=== PATIENT | female | born 1970 | race Caucasian/White ===

== ENCOUNTER → 2018-06-03 08:27 | Outpatient (CLI) | payer OTHER, SELFPAY ==
[2018-06-03 11:00] LABS: Cholesterol 128 mg/dL (200); Free T3 1.8 pg/mL (2.18-3.98); High Density Lipoprotein 40 mg/dL; T4 Free Direct 1.06 ng/dL (0.76-1.46); Thyroid Stim Hormone (TSH) 3.36 uIU/mL (0.358-3.74); Triglycerides 81 mg/dL; Very Low Density Lipoprotein 16 mg/dL (5-40)
== END ==
PROVIDERS: Family Provider Internal Medicine; PCP Internal Medicine; Visit Provider Internal Medicine
DX: E03.9 Hypothyroidism, unspecified (principal); Z13.220 Encounter for screening for lipoid disorders
CPT/HCPCS: 36415; 80061; 84439; 84443; 84481

== ENCOUNTER 2018-06-03 09:00 | Outpatient (RCR) | payer OTHER, SELFPAY ==
--- NOTE | 2018-06-01 11:50 | HP.PTEVAL ---
Patient's Visit Information LUCIANA ARSHAD is a 47 year old F referred to Physical Therapy by EVIE Zhou with a diagnosis of Low back pain. Date of Evaluation: 06/01/18 Physical Therapist: Pat Lock - Visit Plan Frequency: 3x /Week Duration: 2 Weeks Plan: Focus on modalities for pain managment and inflammation. - Subjective Subjective: Working infusion- on rolling stool and stood up and felt an ache in the back- Friday. Took 2 advil and as the day went on she could not straighten and would get a sharp/spasm pain. Happened a few years ago bent over to get a sock and was like that for 2 months. Got on her roller when she got home- ice/heat, massage x 2, went to the MD who gave her a muscle relaxer. Unsure if the muscle relaxer helps. Worst: 6/10 Agg: getting up from lying down, up out of the chair, standing for to long, Eases: ice/heat, back brace Best: 0/10. The stretching, heat, and cold work the best. Stretchig on her belly and figure 4. Pain is located on the left- no radiating pain- No N/T. Describes pain as constant ache and a grab if she moves wrong. The grab does not stay. 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 No chiropractor. No X-rays or MRI. No loss or change in bowel or bladder. Very active outside of work- has lost 8 lbs and cardio-kickboxing, walking. PMHx: CRAIG, thyroid, right ulna removal, plantar fascia surgery on right foot. Sleep: not disturbed- normally a belly sleeper but was worse with that and is now back/side. Meds: synthroid, topomax, calcium and vitamin d. Feels that she is 50% better since initial injury. - Objective Posture: guarded- FH, RS- slow to get from sitting to stand and required 15 seconds to obtain upright position. Gait: hunched forwards- decreased step lenght on the left- no trunk rotation or arm swing- guarded. HR/TR: able. ROM: Lumbar- flexion: decreased by 75%, Rotation: decreased by 50%, SB: decreased by 50% Extn: to neutral, Hip/knee/ankle: WNL. Sensation: WNL. Strength: Core: fair minus, Ankle/knee: 5/5, Hip: ER: 4/5, IR: 4/5, Flexion: 4+/5 Extn: 4+/5, Abd/add: 4+/5. Flex: HS: mild. Special Test: slump: positive bilaterally, dural signs: negative, SLR: negative, prone lying: decreases pain, knee bend into extn: decreased s/s, press ups: increase pain. Palpation: tender along paraspinals on the left - Goals Goal 1:: Patient will be I with HEP and progression Goal Time Frame: 4-6 Weeks Goal 2:: Patient will ambulate >300 feet with a normalized gait pattern Goal Time Frame: 4-6 Weeks Goal 3:: Patient will sit to stand x5 with normal movement Goal Time Frame: 4-6 Weeks Goal 4:: Patient will report 0/10 pain for 1 week Goal Time Frame: 4-6 Weeks - Rehabilitation Potential Physical Therapy Diagnosis: Patient presents with hypomobility- she has decreased ROM, strength and muscular endurance leading to poor posture, decreased mobility and pain with ADL's. Rehabilitation Potential: Good - Anticipated Interventions Patient/Client Instruction: Educate patient on: Benefits of Fitness Program Therapeutic Exercise to Include: Strength training, Endurance training, Agility training, Body mechanics, Postural training, Flexibilty training, Gait and locomotor training, Dynamic Lumbar Stabilization For the Purpose of:: To improve muscle performance and motor function Manual Therapy Techniques to Include: Functional dry needling TENS: Yes Cryotherapy (ice pack, ice massage): Yes Thermo therapy (hot pack): Yes Ultrasound (thermal/non thermal): Yes For the Purpose of:: To decrease pain Thank you for the opportunity to evaluate your patient. For Medicare and Medicare HMO plans, please review the plan of care and approve it. It will need to be FAXED BACK to us at [phone] for Medicare purposes. Please let me know if there are questions or concerns regarding this plan of care. Physician Signature: Date:
--- NOTE | 2018-07-07 11:42 | HP.PT.NRP ---
HP - Discharge Summary (1) - Patient Information LUCIANA ARSHAD was seen in my office for initial evaluation on 06/01/18. The following Plan of Care was established for this patient: Initial Frequency: 3x /Week Initial Duration: 2 Weeks - Anticipated Interventions Patient/Client Instruction: Educate patient on: Benefits of Fitness Program Therapeutic Exercise to Include: Strength training, Endurance training, Agility training, Body mechanics, Postural training, Flexibilty training, Gait and locomotor training, Dynamic Lumbar Stabilization For the Purpose of:: To improve muscle performance and motor function Manual Therapy Techniques to Include: Functional dry needling TENS: Yes Cryotherapy (ice pack, ice massage): Yes Thermo therapy (hot pack): Yes Ultrasound (thermal/non thermal): Yes For the Purpose of:: To decrease pain This patient was last seen in our office . Pertinent comments regarding their Physical therapy will appear below: Patient has not attended physical therapy in over 4 weeks. At this time patient is appropriate for d/c and return to MD as needed. At this point I will be discontinuing this patient from physical therapy. I would be happy to see this patient again in the future if found appropriate by the physician. Thank you! Pat Lock
== END 2018-06-03 19:00 | disposition home or self-care (01) ==
LOC: PT 09:00
PROVIDERS: Family Provider Internal Medicine; PCP Internal Medicine; Visit Provider Nurse Practitioner Gerontology
DX: M54.9 Dorsalgia, unspecified (principal); M62.830 Muscle spasm of back
CPT/HCPCS: 97035; 97162; 97530

== ENCOUNTER → 2018-07-28 08:54 | Outpatient (CLI) | payer OTHER, SELFPAY ==
[2018-07-28 10:54] LABS: Free T3 2.1 pg/mL (2.18-3.98); T4 Free Direct 0.81 ng/dL (0.76-1.46); Thyroid Stim Hormone (TSH) 2.73 uIU/mL (0.358-3.74)
== END ==
PROVIDERS: Family Provider Internal Medicine; PCP Internal Medicine; Referring Provider Internal Medicine; Visit Provider Internal Medicine
DX: E03.9 Hypothyroidism, unspecified (principal)
CPT/HCPCS: 36415; 84439; 84443; 84481

== ENCOUNTER → 2018-09-10 08:31 | Outpatient (CLI) | payer OTHER, SELFPAY ==
[2018-09-10 10:28] LABS: Free T3 2.6 pg/mL (2.18-3.98); T3 Uptake 30 % (30-39); T4 Free Direct 0.72 ng/dL (0.76-1.46); T7 / Free Thyroxin Index 1.8 (1.4-4.5)
[2018-09-10 10:49] LABS: T3 Total - Triiodothyronine 0.96 ng/mL (0.6-1.81)
[2018-09-11 11:55] LABS: Thyroid Peroxidase AB 27 IU/mL (0-34)
--- OUTSIDE RECORDS SUMMARY | 2018-11-05 08:11 | XMS RPT_ITS | Continuity of Care Document ---
:1970 Author Organization [facility] Address [address] [place] [address] Phone Care Team Providers Name Role Phone Whitney Diaz DO Unavailable TERRENCE Lee Unavailable Unavailable Nabeel Daniels Unavailable Unavailable Unavailable Unavailable Problems Name Dates Details BMI 35.0-35.9,adult (Z68.35, V85.35) Status: Active Encounter for screening for lipid disorder (Z13.220, V77.91) Status: Active Hypothyroidism (E03.9, 244.9) Status: Active Migraine (G43.909, 346.80) Comments: topamax works wonderfully Status: Active Nonsmoker (Z78.9, V49.89) Status: Active perimenstrual dysphoric sx Status: Active Pregnancies () Comments: 0. Status: Active T3 low in serum (R79.89, 790.6) Status: Active Unspecified Diagnosis Status: Active Medications Name Dates Details CALCIUM, 699-904PL-DFPH (Oral Tablet) Active 1 (one) daily (600-200 MG-UNIT) Comments: plus vit d3 Cyclobenzaprine HCl 10 MG Oral Tablet 1 (one) Tablet Tablet PO TID PRN for 0 days Quantity: 63 {Tablet} Refills: 0 Ordered:28-May-2018 Rissa Lee LPN Start : 28-May-2018 Active Cytomel 25 MCG Oral Tablet 1 (one) Tablet daily for 90 days Quantity: 90 {Tablet} Refills: 1 Ordered:14-Sep-2018 Kimberley Diaz DO, DO Whitney Start : 14-Sep-2018 Active Synthroid 75 MCG Oral Tablet 1 Tablet qd for 90 days Quantity: 90 {Tablet} Refills: 3 Ordered:01-Jul-2018 Kimberley Diaz DO, DO, Kathleen Start : 01-Jul-2018 Active Topamax 25 MG Oral Tablet 1 (one) Tablet bid for 90 days Quantity: 180 {Tablet} Refills: 3 Ordered:01-Jul-2018 Joe AUGUSTIN Kimberley AUGUSTIN Whitney Start : 01-Jul-2018 Active AMITRIPTYLINE HCL, 10MG (Oral Tablet) 1-2 Tablet qhs for 0 days Quantity: 60 {Tablet} Refills: 3 Ordered:16-Apr-2011 MARINE Lockhart Start : 16-Apr-2011 End : 16-Apr-2011 Inactive Comments:extreme fatigue and daytime sleepiness CIPRO, 500MG (Oral Tablet) 1 (one) Tablet bid for 7 days Quantity: 14 {QS} Refills: 0 Ordered:21-Apr-2015 Aneta Feng CNP Start : 21-Apr-2015 End : 28-Apr-2015 Inactive DOXYCYCLINE HYCLATE, 100MG (Oral Capsule) 1 Capsule bid for 0 days Quantity: 20 {Capsule} Refills: 0 Ordered:17-Mar-2012 Leticia Loera Start : 25-Sep-2011 End : 17-Mar-2012 Inactive VITAMIN D3, 2000UNIT (Oral Capsule) 1 cap qd (2000 UNIT) Inactive CLARINEX-D 24 HOUR, 5-240MG (Oral Tablet Extended Release 24 Hour) 1 tab qd (5-240 MG) End : 17-Mar-2012 Discontinued CORTISPORIN, 3.5-73414-7 (Otic Solution) 4 Drop(s) tid or qid for 0 days Quantity: 1 {Solution} Refills: 0 Ordered:10-Jun-2014 Leticia Loera Start : 01-Sep-2013 End : 10-Jun-2014 Discontinued FLUOXETINE HCL, 20MG (Oral Tablet) 1 Tablet two weeks out of month for 0 days Quantity: 30 {Tablet} Refills: 4 Ordered:11-Aug-2013 Mo Kassie Alfredo Start : 11-Aug-2013 End : 11-Aug-2013 Discontinued NASONEX, 50MCG/ACT (Nasal Suspension) 2 (two) Puff(s) daily for 0 days Quantity: 1 {Suspension} Refills: 0 Ordered:10-Jun-2014 Evaristo Leticia Start : 01-Sep-2013 End : 10-Jun-2014 Discontinued Allergies and Adverse Reactions Name Dates Details Nabumetone *ANALGESICS - ANTI-INFLAMMATORY* Reaction: Abdominal pain, Diarrhea (Allergy) Status: Active Comments: bloating, heartburn Sulfa Drugs (Allergy) Reaction: Rash Status: Active Past Medical History Name Dates Details Abdominal pain, unspecified abdominal location (789.00) Comments: pressure Status: Resolved as of 09-Feb-2013 Abnormal TSH (R79.89, 790.6) 02-Mar-2012 Status: Resolved as of 31-May-2015 Abnormal urine (R82.90, 791.9) Status: Resolved as of 17-Mar-2012 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, 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) Status: Inactive as of 02-Jun-2017 Back pain, acute (M54.9, 724.5) Status: Inactive as of 10-Jun-2018 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, 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) Comments: had sep 20- and passed it- and potentially again last aug Status: Inactive as of 02-Jun-2017 Cellulitis and abscess of leg (L03.119, 682.6) Status: Resolved as of 17-Mar-2012 Chronic serous otitis media, unspecified laterality (H65.20, 381.10) Status: Resolved as of 10-Jun-2014 Elevated blood pressure (not hypertension) (R03.0, 796.2) Status: Resolved as of 07-Jun-2016 Eustachian tube dysfunction (H69.80, 381.81) Status: Inactive as of 07-Jun-2016 Low HDL (under 40) (E78.6, 272.5) Status: Inactive as of 02-Jun-2017 Muscle spasm of back (M62.830, 724.8) Status: Inactive as of 10-Jun-2018 Need for prophylactic vaccination and inoculation against influenza (Z23, V04.81) Status: Inactive as of 09-Feb-2013 Plantar fasciitis (M72.2, 728.71) Comments: s/p surgery R and left flares occassionally Status: Inactive as of 02-Jun-2017 screening Status: Inactive as of 09-Feb-2013 Shoulder pain (M25.519, 719.41) Status: Resolved as of 09-Feb-2013 T3 low in serum (R79.89, 790.6) Status: Inactive as of 10-Jun-2018 Tension headache (G44.209, 307.81) Status: Inactive as of 02-Jun-2017 Unspecified Diagnosis Status: Inactive as of 09-Sep-2011 WOUND OPEN, SITE NOS W/COMPLICATION (879.9) Comments: R lower extemity Status: Resolved as of 17-Mar-2012 Wrist pain, right (M25.531, 719.43) Status: Inactive as of 07-Jun-2016 Procedures Procedure Dates Details Plantar Fascitis repair Completed Comments: 2009 right breast bx 2007-neg Completed Date Value Details 01-Jun-2018 Inital Evaluation (1) - PT Result: Comments: See Note; NOTES: [facility] [place] [address] Fax REHABILITATION SERVICES INITIAL EVALUATION MR#: [id number] Acct: [id number] Name: RISSA MCWILLIAMS Rep #: [id number] : 1970 47 From: Pat Lock DPT Referring Dr.: EVIE Adrian Status: REG RCR Insurance: [facility] [employer] [facility]Y INSURANCE Patient's Visit Information RISSA MCWILLIAMS is a 47 year old F referred to Physical Therapy by EVIE Zhou with a diagnosis of Low back pain. Date of Evaluation: Physical Therapist: Pat Lock - Visit Plan Frequency: 3x /Week Duration: 2 Weeks Plan: Focus on modalities for pain managment and inflammation. - Subjective Subjective: Working infusion- on rolling stool and stood up and felt an ache in the back- Friday. Took 2 advil and as the day went on she could not straighten and would get a sharp/spasm pain. Happened a few years ago bent over to ge t a sock and was like that for 2 months. Got on her roller when she got home- ice/heat, massage x 2, went to the MD who gave her a muscle relaxer. Unsure if the muscle relaxer helps. Worst: 6/10 Agg: ge tting up from lying down, up out of the chair, standing for to long, Eases: ice/heat, back brace Best: 0/10. The stretching, heat, and cold work the best. Stretchig on her belly and figure 4. Pain is lo cated on the left- no radiating pain- No N/T. Describes pain as constant ache and a grab if she moves wrong. The grab does not stay. 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 No chiropractor. No X-rays or MRI. No loss or change in bowel or bladder. Very active outside of work- has lost 8 lbs and cardio-kickboxing, walking. PMHx: HOLLY, thyroid, right ulna removal, plantar fascia surgery on rig ht foot. Sleep: not disturbed- normally a belly sleeper but was worse with that and is now back/side. Meds: synthroid, topomax, calcium and vitamin d. Feels that she is 50% better since initial injury. - Objective Posture: guarded- FH, RS- slow to get from sitting to stand and required 15 seconds to obtain upright position. Gait: hunched forwards- decreased step lenght on the left- no trunk rotation or arm swing- guarded. HR/TR: able. ROM: Lumbar- flexion: decreased by 75%, Rotation: decreased by 50%, SB: decreased by 50% Extn: to neutral, Hip/knee/ankle: WNL. Sensation: WNL. Strength: Core: fair m inus, Ankle/knee: 5/5, Hip: ER: 4/5, IR: 4/5, Flexion: 4+/5 Extn: 4+/5, Abd/add: 4+/5. Flex: HS: mild. Special Test: slump: positive bilaterally, dural signs: negative, SLR: negative, prone lying: decre ases pain, knee bend into extn: decreased s/s, press ups: increase pain. Palpation: tender along paraspinals on the left - Goals Goal 1:: Patient will be I with HEP and progression Goal Time Frame: 4-6 Weeks Goal 2:: Patient will ambulate >300 feet with a normalized gait pattern Goal Time Frame: 4-6 Weeks Goal 3:: Patient will sit to stand x5 with normal movement Goal Time Frame: 4-6 Weeks Go al 4:: Patient will report 0/10 pain for 1 week Goal Time Frame: 4-6 Weeks - Rehabilitation Potential Physical Therapy Diagnosis: Patient presents with hypomobility- she has decreased ROM, strength and muscular endurance leading to poor posture, decreased mobility and pain with ADL's. Rehabilitation Potential: Good - Anticipated Interventions Patient/Client Instruction: Educate patient on: Benefits of Fitness Program Therapeutic Exercise to Include: Strength training, Endurance training, Agility training, Body mechanics, Postural training, Flexibilty training, Gait and locomotor training, Dynamic Lumbar Stabilization For the Purpose of:: To improve muscle performance and motor function Manual Therapy Techniques to Include: Functional dry needling TENS: Yes Cryotherapy (ice pack, ice massage): Ye s Thermo therapy (hot pack): Yes Ultrasound (thermal/non thermal): Yes For the Purpose of:: To decrease pain Thank you for the opportunity to evaluate your patient. For Medicare and Medicare HMO pl ans, please review the plan of care and approve it. It will need to be FAXED BACK to us at [phone] for Medicare purposes. Please let me know if there are questions or concerns regarding this plan of care. Physician Signature: Date: <Electronically signed by Pat Lock DPT> 06/01/18 1150 CC: EIVE Diaz DO ELR Signed For Medicare only, by signing this I certify the plan of care. Physicians Signature Date 16-Oct-2017 SCREENING MAMM (CAD), BILAT Result: Comments: See Note; NOTES: [facility] Imaging Services [address] [place] [address] SCREENING MAMM (CAD), BILAT MR#: [id number] Acct: [id number] Name: RISSA MCWILLIAMS Rep #: [id number] : 1970 F 46 From: Wayne Mascorro MD PCP: Whitney Diaz DO Status: [facility] CLI Study: SCREENING MAMM (CAD), BILAT Date of Exam: 10/16/17 Exam# [id number] Ordering Dr: Sherry Wilson MD MAMMOGRAPHY - BILATERAL SCREENING REASON FOR EXAM: Female, 46 years old. Routine annual screening examination. PERTINENT HISTORY: Aunt with breast cancer. Remote right excisional breast biopsy. LAM HNIQUE: Digital bilateral breast lukasz (3D mammographic acquisition) in the CC and MLO projections. 2-D mediolateral oblique (MLO) and craniocaudad (CC) views of both breasts were obtained. CAD: Full Fie ld Digital Mammography with Computer Added Detection was performed. COMPARISON: Comparison is made with prior examination dated September 27, 2016 and August 25, 2015. ___ FINDINGS: Breast Composition: There are scattered areas of fibroglandular density. There are no dominant masses or suspicious calcifications. A tissue clip marker is seen in the central inner port ion of the right breast. No other significant abnormalities are identified. There has been no significant change since the prior study. [facility]/SCR EENING MAMM (CAD), BILAT IMPRESSION: Stable bilateral screening mammogram. Yearly follow-up mammogram recommended. (A) ASSESSMENT CATEGORY: BIRADS Category 2: Benig n. A letter regarding these results will be sent to the patient by the facility within 30 days. Approximately 10% of breast cancers are not detected by mammography. A normal mammogram should not delay biopsy of a clinically suspicious abnormality. [id number] Electronically Signed: Wayne Mascorro MD at 10:53 EST Tel [phone], Service support , CC: Sherry Wilson MD; Whitney Diaz DO Manager Drilling: Signed 27-Sep-2016 Bilat Scrn Digital AND CAD Result: Comments: See Note; NOTES: [facility] Imaging Services [address] [place] [address] Verdana 4d Bilat Scrn Digital AND CAD MR#: [id number] Acct: [id number] Name: RISSA MCWILLIAMS Rep #: [id number] : 1970 F 45 From: Wayne Mascorro MD PCP: Whitney Diaz DO Status: REG CLI Study: Bilat Scrn Digital AND CAD Date of Exam: 09/27/16 Exam# [id number] Ordering Dr: Sherry Wilson MD MAMMOGRAPHY - BILATERAL SCREENING REASON FOR EXAM: Female, 45 years old. Routine annual screening examination. PERTINENT HISTORY: Aunt with breast cancer. Remote right excisional breast bio psy. TECHNIQUE: Digital bilateral breast lukasz (3D mammographic acquisition) in the CC and MLO projections. 2-D mediolateral oblique (MLO) and craniocaudad (CC) views of both breasts were obtained. CAD: Full Field Digital Mammography with Computer Added Detection was performed. COMPARISON: Comparison is made with prior study dated August 25, 2015 and August 05, 2014. FINDINGS: Breast Composition: There are scattered areas of fibroglandular density. There are no dominant masses or suspicious calcifications. Mild degree of architectural distortion is seen in t he upper outer quadrant of the right breast. This is the site of the prior excisional breast biopsy. A tissue marker clip is also seen in the right breast at approximately the 3:00 position. This is unc hanged. No other significant abnormalities are identified. There has been no significant change since the prior study. [facility]/Bilat Scrn Digital A ND CAD IMPRESSION: Stable bilateral screening mammogram. Yearly follow-up mammogram recommended. (A) ASSESSMENT CATEGORY: BIRADS Category 2: Benign. A letter regard ing these results will be sent to the patient by the facility within 30 days. Approximately 10% of breast cancers are not detected by mammography. A normal mammogram should not delay biopsy of a clinic ally suspicious abnormality. [id number] Electronically Signed: Wayne Mascorro MD at 12:38 EST Tel [phone], Service support [phone], CC: Sherry Wilson MD; Birdie Diaz DO Manager Drilling: Signed 25-Aug-2015 Bilat Scrn Digital AND CAD Result: Comments: See Note; NOTES: [facility] Imaging Services [address] [place] [address] Verdana 4d Bilat Scrn Digital AND CAD MR#: [id number] Acct: [id number] Name: RISSA MCWILLIAMS Rep #: [id number] : 1970 F 44 From: Wayne Mascorro MD PCP: Kassie Hassan DO Status: REG CLI Study: Bilat Scrn Digital AND CAD Date of Exam: 08/25/15 Exam# [id number] Ordering Dr: Sherry Wilson MD MAMMOGRAPHY - BILATERAL SCREENING REASON FOR EXAM: Female, 44 years old. Routine annual screening examination. PERTINENT HISTORY: Aunt with breast cancer. Prior right excis ional breast biopsy. TECHNIQUE: Digital examination. Mediolateral oblique (MLO) and craniocaudad (CC) views of both breasts were obtained. CAD: CAD was performed on this study. COMPARISON: Compar ayaz is made with prior study dated August 05, 2014 and September 06, 2013. FINDINGS: Breast Composition: There are scattered areas of fibroglandular density. There are no dominant masses or suspicious calcifications. No other significant abnormalities are identified. There has been no significant change since the prior study. IMPRESSION: Stable bilateral screening mammogram. Yearly follow-up recommended. (A) ASSESSMENT CATEGORY: BIRADS Category 1: Negative. A letter regardi ng these results will be sent to the patient by the facility within 30 days. Approximately 10% of breast cancers are not detected by mammography. A normal mammogram should not delay biopsy of a clin ically suspicious abnormality. Electronically Signed: Wayne Mascorro MD at 15:37 EST Tel [phone], Service support [phone], CC: Sherry Wilson MD; Kassie Hassan DO Manager Drilling: Signed 17-Apr-2015 Emergency Department Summary Result: Comments: See Note; NOTES: [facility] Medical Records Department [address] [place] [address] Emergency Department Summary MR#: [id number] Acct: [id number] Name: RISSA MCWILLIAMS Rep #: [id number] : 1970 44 From: Finesse Yancey MD PCP: Kassie Hassan DO Status: DEP ER DATE OF SERVICE: 04/16/2015 CHIEF COMPLAINT: Dysuria, frequency. HISTORY OF PRESENT ILLN ESS: This is a 44-year-old female who presents today with dysuria and frequency. Her symptoms began earlier today. The patient states that it feels similar to previous UTIs in the past. She also comp lains of pain in her suprapubic region. No fever or chills. No nausea or vomiting. REVIEW OF SYSTEMS: Otherwise, negative. PAST MEDICAL HISTORY: Hypothyroid. PHYSICAL EXAMINATION: VITAL SIGNS: Stable, afebrile. GENERAL: Well-developed female, in no distress. ABDOMEN: She has tenderness to palpation over the suprapubic region. Physical examination is otherwise unremarkable. EMERGENCY DEP ARTMENT COURSE: Urinalysis was obtained, which revealed 500 leukocytes, greater than 100 white blood cells, +2 bacteria. Given this, the patient has a urinary tract infection. Urine culture was sent. The patient was given Pyridium and Cipro. She will be given her first dose here. She is to complete her antibiotics until finish. She voiced understanding and will follow up with her primary care angela rogel or return for worsening symptoms. DIAGNOSIS: Urinary tract infection. Finesse Yancey MD T: NTS JOB: [id number] 04/17/15 0130 <Electronically signed by Finesse Yancey MD> Date Finesse Yancey MD CC: Kassie Hassan DO Date Dictated: 04/16/15658 Date Transcribed: 04/16/15658 Manager Drilling: Signed 16-Apr-2015 Discharge Instruction Result: Comments: See Note; NOTES: [facility] Medical Records Department [address] [place] [address] Discharge Instruction 04/16/15658 MR#: [id number] Acct: [id number] Name: RISSA MCWILLIAMS Rep #: [id number] : 1970 44 From: Finesse Yancey MD PCP: Kassie Hassan DO Status: REG ER ED Disposition - Plan for ED Patient: Chief Complaint: Complaint Instructions: ED CYSTITIS, Female (Adult) Prescriptions: Phenazopyridine HCl [Pyridium] 200 mg PO BID PRN PRN #10 tablet PRN Reason: Pain Ciprofloxacin [Cipro] 500 mg PO BID #6 tablet Referrals: Kassie Hassan DO [Primary Care Provider] - What to do if you have Problems For any increased pain, shortness of breath, bleeding, nausea or vomiting, chest pain, or any unexpected problems, contact your doctor. C all Doctors [facility] ([phone]) or report to the closest Emergency Room. Call 911 if necessary. 04/16/15 0701 <Electronically signed by Finesse Yancey MD> Date ___ Finesse Yancey MD Cosigner Signature (If Indicated): Date CC: Kassie Hassan DO 16-Apr-2015 Discharge Instruction Result: Comments: See Note; NOTES: [facility] Medical Records Department [address] [place] [address] Discharge Instruction 04/16/15 0656 MR#: [id number] Acct: [id number] Name: RISSA MCWILLIAMS Rep #: [id number] : 1970 44 From: Finesse Yancey MD PCP: Kassie Hassan DO Status: REG ER ED Disposition - Plan for ED Patient: Chief Complaint: Complaint Instructions: ED CYSTITIS, Female (Adult) Prescriptions: Ciprofloxacin [Cipro] 500 mg PO BID #6 tablet What to do if you have Problems For any increased pain, shortness of breath, bleeding, nausea or vomiting , chest pain, or any unexpected problems, contact your doctor. Call [facility] ([phone]) or report to the closest Emergency Room. Call 911 if necessary. 04/16/15 0657 <Electron ically signed by Finesse Yancey MD> Date Finesse Yancey MD Cosigner Signature (If Indicated): Date CC: Kassie Hassan 05-Aug-2014 Bilat Scrn Digital & CAD Result: Comments: See Note; NOTES: [facility] Imaging Services [address] [place] [address] Breast Imaging Report MR#: [id number] Acct: [id number] Name: RISSA MCWILLIAMS Rep #: [id number] : 1970 F 43 From: Wayne Mascorro MD PCP: Kassie Hassan DO Status: REG CLI Exam# [id number] Ordering Dr: Sherry Wilson MD MAMMOGRAPHY - BILATERAL SCREENING REASON FOR EXAM: Fe male, 43 years old. Routine annual screening examination. PERTINENT HISTORY: Prior right excisional biopsy. TECHNIQUE: Digital examination. Mediolateral oblique (MLO) and craniocaudad (CC) views o f both breasts were obtained. CAD: CAD was performed on this study. COMPARISON: Comparison is made with prior study dated September 06, 2013 and June 10, 2012. FINDINGS: Breast Composition: There are scattered areas of fibroglandular density. There are no dominant masses or suspicious calcifications. Stable architectural distortion is seen in the right b reast secondary to prior biopsy. No other significant abnormalities are identified. There has been no significant change since the prior study. IMPRESSION: St able bilateral screening mammogram. Yearly follow-up recommended. (A) ASSESSMENT CATEGORY: BIRADS Category 2: Benign finding(s). A letter regarding these results will be sent to the patient by the facility within 30 days. Approximately 10% of breast cancers are not detected by mammography. A normal mammogram should not delay biopsy of a clinically suspicious abnormality. Electronically Signed: Wayne Mascorro MD at 11:32 EDT Tel [phone], Service support [phone], CC: Sherry Wilson MD; Kassie Hassan DO Manager Drilling: Signed Family History Unknown Family Member Name Dates Details Brother 1 Comments: 2 brothers - healthy as far as know Status: Active Family Members In General Comments: grandparents heart disease and dm- female cancer in grandmother Status: Active Father Comments: living- had diet controlled dm Status: Active Mother Comments: living with htn hypothyroid Status: Active Social History Name Dates Details Alcohol Use: Occasional alcohol use. Status: Active Caffeine Use Status: Active No Drug Use Status: Active Non Smoker/No Tobacco Use Comments: 06/10/11 Status: Active Tobacco use: Never smoker. Comments: 09/25/11 Status: Active Smoking Status Name Dates Details Never smoker Vital Signs Date Test Result Details :47 Pulse 61 /min Comments: Pattern: Regular Respiration Rate 18 /min Comments: Pattern: Unlabored O2 SAT 97 % Comments: Room air BP Systolic 128 mm[Hg] Comments: Patient Position: Sitting; Cuff Location: Left Arm; Cuff Size: Large BP Diastolic 78 mm[Hg] Comments: Patient Position: Sitting; Cuff Location: Left Arm; Cuff Size: Large Weight 215.375 lb Height 65.75 in Body Mass Index Calculated 35.03 kg/m2 Body Surface Area Calculated 2.06 m2 :37 Temperature 96.9 f Comments: Method: Temporal Pulse 72 /min Comments: Pattern: Regular Respiration Rate 16 /min Comments: Pattern: Unlabored O2 SAT 98 % Comments: Room air BP Systolic 122 mm[Hg] Comments: Patient Position: Sitting; Cuff Location: Left Arm; Cuff Size: Standard BP Diastolic 68 mm[Hg] Comments: Patient Position: Sitting; Cuff Location: Left Arm; Cuff Size: Standard Weight 217 lb Height 65.75 in Body Mass Index Calculated 35.29 kg/m2 Body Surface Area Calculated 2.07 m2 :49 Temperature 98.1 f Comments: Method: Temporal Pulse 64 /min Comments: Pattern: Regular Respiration Rate 16 /min Comments: Pattern: Unlabored O2 SAT 97 % Comments: Room air BP Systolic 116 mm[Hg] Comments: Patient Position: Sitting; Cuff Location: Left Arm; Cuff Size: Standard BP Diastolic 80 mm[Hg] Comments: Patient Position: Sitting; Cuff Location: Left Arm; Cuff Size: Standard Weight 217 lb Height 65.75 in Body Mass Index Calculated 35.29 kg/m2 Body Surface Area Calculated 2.07 m2 :59 Pulse 62 /min Comments: Pattern: Regular Respiration Rate 18 /min Comments: Pattern: Unlabored O2 SAT 98 % Comments: Room air BP Systolic 118 mm[Hg] Comments: Patient Position: Sitting; Cuff Location: Left Arm; Cuff Size: Large BP Diastolic 78 mm[Hg] Comments: Patient Position: Sitting; Cuff Location: Left Arm; Cuff Size: Large Weight 211 lb Height 65.75 in Body Mass Index Calculated 34.32 kg/m2 Body Surface Area Calculated 2.04 m2 :42 Temperature 98.9 f Comments: Method: Oral Pulse 68 /min Comments: Pattern: Regular Respiration Rate 16 /min Comments: Pattern: Unlabored BP Systolic 106 mm[Hg] Comments: Patient Position: Sitting; Cuff Location: Left Arm; Cuff Size: Large BP Diastolic 78 mm[Hg] Comments: Patient Position: Sitting; Cuff Location: Left Arm; Cuff Size: Large Weight 205 lb Height 65.75 in Body Mass Index Calculated 33.34 kg/m2 Body Surface Area Calculated 2.02 m2 :05 Temperature 99.1 f Pulse 78 /min Comments: Pattern: Regular Respiration Rate 16 /min Comments: Pattern: Unlabored BP Systolic 100 mm[Hg] Comments: Patient Position: Sitting; Cuff Location: Left Arm; Cuff Size: Large BP Diastolic 70 mm[Hg] Comments: Patient Position: Sitting; Cuff Location: Left Arm; Cuff Size: Large Weight 218 lb Height 65.75 in Body Mass Index Calculated 35.45 kg/m2 Body Surface Area Calculated 2.07 m2 :27 Temperature 98.2 f Comments: Method: Temporal Pulse 72 /min Comments: Pattern: Regular Respiration Rate 16 /min Comments: Pattern: Unlabored O2 SAT 98 % Comments: Room air BP Systolic 122 mm[Hg] Comments: Patient Position: Sitting; Cuff Location: Left Arm; Cuff Size: Standard BP Diastolic 74 mm[Hg] Comments: Patient Position: Sitting; Cuff Location: Left Arm; Cuff Size: Standard Weight 232 lb Height 65.75 in Body Mass Index Calculated 37.73 kg/m2 Body Surface Area Calculated 2.12 m2 :23 Temperature 98.2 f Pulse 68 /min Comments: Pattern: Regular Respiration Rate 16 /min Comments: Pattern: Unlabored BP Systolic 102 mm[Hg] Comments: Patient Position: Sitting; Cuff Location: Left Arm; Cuff Size: Large BP Diastolic 70 mm[Hg] Comments: Patient Position: Sitting; Cuff Location: Left Arm; Cuff Size: Large Weight 232 lb Height 65.75 in Body Mass Index Calculated 37.73 kg/m2 Body Surface Area Calculated 2.12 m2 :56 Temperature 98.4 f Comments: Method: Oral :33 Pulse 68 /min Comments: Pattern: Regular Respiration Rate 16 /min Comments: Pattern: Unlabored BP Systolic 112 mm[Hg] Comments: Patient Position: Sitting; Cuff Location: Left Arm; Cuff Size: Large BP Diastolic 84 mm[Hg] Comments: Patient Position: Sitting; Cuff Location: Left Arm; Cuff Size: Large Weight 221 lb Height 65.75 in Body Mass Index Calculated 35.94 kg/m2 Body Surface Area Calculated 2.08 m2 :07 Temperature 98.5 f Pulse 64 /min Comments: Pattern: Regular Respiration Rate 16 /min Comments: Pattern: Unlabored BP Systolic 108 mm[Hg] Comments: Patient Position: Sitting; Cuff Location: Left Arm; Cuff Size: Large BP Diastolic 68 mm[Hg] Comments: Patient Position: Sitting; Cuff Location: Left Arm; Cuff Size: Large Weight 210 lb Height 65.75 in Body Mass Index Calculated 34.15 kg/m2 Body Surface Area Calculated 2.04 m2 :10 Temperature 98.7 f Comments: Method: Oral Pulse 68 /min Comments: Pattern: Regular Respiration Rate 18 /min Comments: Pattern: Unlabored BP Systolic 118 mm[Hg] Comments: Patient Position: Sitting; Cuff Location: Left Arm; Cuff Size: Standard BP Diastolic 72 mm[Hg] Comments: Patient Position: Sitting; Cuff Location: Left Arm; Cuff Size: Standard Weight 223.25 lb Height 65.75 in Body Mass Index Calculated 36.31 kg/m2 Body Surface Area Calculated 2.09 m2 :21 Temperature 98.5 f Pulse 76 /min Comments: Pattern: Regular Respiration Rate 16 /min Comments: Pattern: Unlabored BP Systolic 118 mm[Hg] Comments: Patient Position: Sitting; Cuff Location: Left Arm; Cuff Size: Large BP Diastolic 88 mm[Hg] Comments: Patient Position: Sitting; Cuff Location: Left Arm; Cuff Size: Large Weight 220 lb Height 65.75 in Body Mass Index Calculated 35.78 kg/m2 Body Surface Area Calculated 2.08 m2 :29 Temperature 98.5 f Pulse 72 /min Comments: Pattern: Regular Respiration Rate 16 /min Comments: Pattern: Unlabored BP Systolic 118 mm[Hg] Comments: Patient Position: Sitting; Cuff Location: Left Arm; Cuff Size: Standard BP Diastolic 88 mm[Hg] Comments: Patient Position: Sitting; Cuff Location: Left Arm; Cuff Size: Standard Weight 221 lb Height 65.75 in Body Mass Index Calculated 35.94 kg/m2 Body Surface Area Calculated 2.08 m2 :19 Temperature 99.3 f Pulse 76 /min Comments: Pattern: Regular Respiration Rate 16 /min Comments: Pattern: Unlabored BP Systolic 118 mm[Hg] Comments: Patient Position: Sitting; Cuff Location: Left Arm; Cuff Size: Standard BP Diastolic 90 mm[Hg] Comments: Patient Position: Sitting; Cuff Location: Left Arm; Cuff Size: Standard Weight 220 lb Height 65.75 in Body Mass Index Calculated 35.78 kg/m2 Body Surface Area Calculated 2.08 m2 Results Date Description Value Details :30 Free T3 Comments: [facility] [address] [place], [place], [id number] FREE T3 2.7 pg/mL (Normal) Range: 2.18-3.98 :30 T4 Free Direct Comments: [facility] [address] [place], [id number] T4 FREE DIRECT 0.68 ng/dL (Abnormal) Range: 0.76-1.46 :30 Thyroid Stim Hormone (TSH) Comments: [facility] [address] [place], [place], [id number] TSH 0.19 {uIU/mL} (Abnormal) Range: 0.358-3.74 :35 Free T3 Comments: Has Patient had X-rays with Contrast this admission? [facility] [address] [place], [id number] FREE T3 2.6 pg/mL (Normal) Range: 2.18-3.98 :35 T3 Total - Triiodothyronine Comments: [facility] [address] [place], [address] T3 Total 0.96 ng/mL (Normal) Range: 0.6-1.81 :35 T3 Uptake Comments: Has Patient had X-rays with Contrast this admission? [facility] [address] [place], [address] T7 (FTI) 1.8 (Normal) Range: 1.4-4.5 T3 UPTAKE 30 % (Normal) Range: 30-39 :35 T4 Free Direct Comments: Has Patient had X-rays with Contrast this admission? [facility] [address] [place], [address] T4 FREE DIRECT 0.72 ng/dL (Abnormal) Range: 0.76-1.46 :35 T4 Total, Thyroxin Comments: Has Patient had X-rays with Contrast this admission? [facility] [address] [place], [address] T4 THYROXIN 6.0 ug/dL (Normal) Range: 4.8-13.9 :35 Thyroid Peroxidase AB Comments: [facility] (refer to report for specific site)refer to report for address and phone number [place] [phone] 27 {IU/mL} (Normal) Range: 0-34 Comments: Performed at: [address] [id number] Director: Alirio Mishra PhD, Phone: [phone] :35 Thyroid Stim Hormone (TSH) Comments: Has Patient had X-rays with Contrast this admission? [facility] [address] [place], [address] TSH 0.20 {uIU/mL} (Abnormal) Range: 0.358-3.74 :05 Free T3 Comments: [facility] [address] [place], [address] FREE T3 2.1 pg/mL (Abnormal) Range: 2.18-3.98 :05 T4 Free Direct Comments: [facility] [address] [place], [address] T4 FREE DIRECT 0.81 ng/dL (Normal) Range: 0.76-1.46 :05 Thyroid Stim Hormone (TSH) Comments: [facility] [address] [place], [address] TSH 2.73 {uIU/mL} (Normal) Range: 0.358-3.74 :31 Free T3 Comments: [facility] [address] [place], [address] FREE T3 1.8 pg/mL (Abnormal) Range: 2.18-3.98 15-Gcx-47170:31 Lipid Profile Comments: [facility] [address] [place], [address] VLDL 16 mg/dL (Normal) Range: 5-40 LDL 72 mg/dL (Normal) Range: 0-130 HDL 40 mg/dL (Normal) Comments: The drugs N-Acetylcysteine and Metamizole may falselydepress this assay. Reference Range HDL <40 mg/dL Low HDL Cholesterol HDL >or= 60 mg/dL High HDL Cholesterol TRIG 81 mg/dL (Normal) Comments: The drugs N-Acetylcysteine and Metamizole may falselydepress this assay.Serum Triglycerides Reference Interval Normal <150 mg/dL Borderline high 150 - 199 mg/dL High 200 - 499 mg/dL Very High > or = 500 mg/dL CHOL 128 mg/dL (Normal) Comments: <200 mg/dL Desirable 200-240 mg/dL Borderline >240 mg/dL High Risk :31 T4 Free Direct Comments: [facility] [address] [place], [place], [address] T4 FREE DIRECT 1.06 ng/dL (Normal) Range: 0.76-1.46 80-Aeq-74270:31 Thyroid Stim Hormone (TSH) Comments: [facility] [address] [place], [place], [address] TSH 3.36 {uIU/mL} (Normal) Range: 0.358-3.74 25-Zzh-368689:30 PAP I-G w/rfx hrHPV Comments: CYTOLOGY INFORMATION:- CLINICAL INFORMATION:- DATE LMP/MENOPAUSE: IUD 09/06/17 LMP- COLLECTION VIAL: Thin Prep Vial- FLOORLEADER SOURCE: CERVICAL/ENDOCERVICAL- COLLECTION TECHNIQUE: BRUSH/SPATULASp ecimen Comme nt: [id number] Comment: No. of containers..01 ThinPrep VialLabCorp (refer to report for specific site)refer to report for address and phone number HPV RFLX Comment (Normal) Comments: The HPV DNA reflex criteria were not met with this specimenresult therefore, no HPV testing was performed.Performed at: [address] [place] [id number] Director: Shiloh Walker MD, Phone: [phone] PAPSMR Comment (Normal) Comments: The Pap smear is a screening test designed to aid in thedetection of premalignant and malignant conditions of theuterine cervix. It is not a diagnostic procedure andshould not be used as the sole means of detecting cervicalcancer. Both false-positive and false-negative reports dooccur. COMM . (Normal) TEST METHOD Comment (Normal) Comments: This liquid based ThinPrep(R) pap test was screened withthe use of an image guided system. PERFORM Comment (Normal) Comments: Uvaldo Carlin, Winter Sports Manager (ASCP) ADEQ Comment (Normal) Comments: Satisfactory for evaluation. Endocervical and/or squamous metaplasticcells (endocervical component) are present. DIAGN Comment (Normal) Comments: NEGATIVE FOR INTRAEPITHELIAL LESION AND MALIGNANCY.PLEASE INDICATE LMP ON FUTURE PATIENT'S REQUEST FORMS. 51-Drr-979764:07 Free T3 Comments: [facility] [address] [facility] [place], [place], [address] FREE T3 1.8 pg/mL (Abnormal) Range: 2.18-3.98 01-Bur-986759:07 Lipid Profile Comments: [facility] [address] [facility]. [place], [place], [address] VLDL 14 mg/dL (Normal) Range: 5-40 LDL 86 mg/dL (Normal) Range: 0-130 HDL 46 mg/dL (Normal) Comments: The drugs N-Acetylcysteine and Metamizole may falsely deressthis assay. Reference Range HDL <40 mg/dL Low HDL Cholesterol HDL >or= 60 mg/dL High HDL Cholesterol TRIG 70 mg/dL (Normal) Comments: The drugs N-Acetylcysteine and Metamizole may falsely deressthis assay.Serum Triglycerides Reference Interval Normal <150 mg/dL Borderline high 150 - 199 mg/dL High 200 - 499 mg/dL Very High > or = 500 mg/dL CHOL 146 mg/dL (Normal) Comments: <200 mg/dL Desirable 200-240 mg/dL Borderline >240 mg/dL High Risk 04-Knb-172921:07 T4 Free Direct Comments: [facility] [address] [place], [place], [address] T4 FREE DIRECT 0.93 ng/dL (Normal) Range: 0.76-1.46 01-Ldp-952223:07 Thyroid Stim Hormone (TSH) Comments: [facility] [address] [place], [place], [address] TSH 2.43 {uIU/mL} (Normal) Range: 0.358-3.74 18-Unp-281107:30 PAP I-G w/rfx hrHPV Comments: CYTOLOGY INFORMATION:- CLINICAL INFORMATION:- DATE LMP/MENOPAUSE: IUD NO MENSES GIVEN LMP- COLLECTION VIAL: Thin Prep Vial- FLOORLEADER SOURCE: CERVICAL/ENDOCERVICAL- COLLECTION TECHNIQUE: BRUSH/SPATULASpecime n Comment: [id number] Comment: No. of containers..01 CYTYC Thin Prep VialLabCorp (refer to report for specific site)refer to report for address and phone number HPV RFLX Comment (Normal) Comments: The HPV DNA reflex criteria were not met with this specimenresult therefore, no HPV testing was performed.Performed at: [address], [place] [id number] Director: Shiloh Walker MD, Phone: [phone] PAPSMR Comment (Normal) Comments: The Pap smear is a screening test designed to aid in thedetection of premalignant and malignant conditions of theuterine cervix. It is not a diagnostic procedure andshould not be used as the sole means of detecting cervicalcancer. Both false-positive and false-negative reports dooccur. COMM . (Normal) TEST METHOD Comment (Normal) Comments: This liquid based ThinPrep(R) pap test was screened withthe use of an image guided system. PERFORM Comment (Normal) Comments: Angel Yates, Winter Sports Manager (ASCP) ADEQ Comment (Normal) Comments: Satisfactory for evaluation. Endocervical and/or squamous metaplasticcells (endocervical component) are present. DIAGN Comment (Normal) Comments: NEGATIVE FOR INTRAEPITHELIAL LESION AND MALIGNANCY. 38-Gah-975342:30 CT/NG [facility] BY PCR Comments: [facility] [address] [place], [address] NG by PCR Negative (Normal) [facility] PCR Negative (Normal) 36-Vrv-507660:30 PAP I-G w/rfx hrHPV Comments: CYTOLOGY INFORMATION:- CLINICAL INFORMATION:- DATE LMP/MENOPAUSE: IUD/NO MENSES GIVEN LMP- COLLECTION VIAL: Thin Prep Vial- FLOORLEADER SOURCE: CERVICAL/ENDOCERVICAL- COLLECTION TECHNIQUE: BRUSH/SPATULACYTOLOG Y INFORMATION:- CLINICAL INFORMATION:- DATE LMP/MENOPAUSE: IUD/NO MENSES GIVEN LMP- COLLECTION VIAL: Thin Prep Vial- FLOORLEADER SOURCE: CERVICAL/ENDOCERVICAL- COLLECTION TECHNIQUE: BRUSH/SPATULASpecimen Comme nt: [id number] Comment: No. of containers..01 CYTYC Thin Prep VialLabCorp (refer to report for specific site)refer to report for address and phone number HPV HC,HGH RISK Negative Comments: This high-risk HPV test detects thirteen high-risk types(16/18/31/33/35/39/45/51/52/56/58/59/68) withoutdifferentiation.Performed at: - [facility] [id number] (Normal) b Director: Shiloh Walker MD, Phone: [phone] at: = - [facility] [address] [id number] Director: Shiloh Walker MD, Phone: [phone] HPV RFLX Comment Comments: See below for HPV testing results. (Normal) PAPSMR Comment Comments: The Pap smear is a screening test designed to aid in thedetection of premalignant and malignant conditions of theuterine cervix. It is not a diagnostic procedure andshould not be used as the sole means (Normal) of detecting cervicalcancer. Both false-positive and false-negative reports dooccur. COMM . (Normal) TEST METHOD Comment Comments: This liquid based ThinPrep(R) pap test was screened withthe use of an image guided system. (Normal) Path prov. ICD9 Comment Comments: R87.610 (Normal) SIGN Comment Comments: Kassie Jin MD, Pathologist (Normal) PERFORM Comment Comments: Nohemi He, Winter Sports Manager (ASCP) (Normal) ADEQ Comment Comments: Satisfactory for evaluation. Endocervical and/or squamous metaplasticcells (endocervical component) are present. (Normal) DIAGN Comment Comments: EPITHELIAL CELL ABNORMALITY.ATYPICAL SQUAMOUS CELLS OF UNDETERMINED SIGNIFICANCE. (Abnormal) 68-Tfe-60695:52 Thyroxine (T4) Free, Comments: PATIENT WAS FASTINGPERFORMED BY: [facility]du [facility] [id number] Information: [id number] Direct, S T4,Free(Direct) 1.20 ng/dL Range: 0.82-1.77 (Normal) 07-Jun-2016 Triiodothyronine,Free,Seru 2.3 pg/mL (Normal) Comments: PATIENT WAS FASTINGPERFORMED BY: Tumri Uhwkzk8750 [facility] [id number] 9:52 m Range: 2.0-4.4 07-Jun-2016 Written Authorization WAR (Normal) Comments: PATIENT WAS FASTINGPERFORMED BY: Tumri Zbemhl7134 [facility] [id number] 9:52 Comments: Written Authorization Received.Authorization received from SIGNATURE ON FILE [id number] by Shaina Mcneal 47-Fux-01186:52 METABOLIC PANEL, COMPREHENSIVE Comments: PATIENT WAS FASTINGPERFORMED BY: Tumri Crqwds1871 [facility] [id number] ([id number]) ALT (SGPT) 15 [iU]/L (Normal) Range: 0-32 AST (SGOT) 21 [iU]/L (Normal) Range: 0-40 Alkaline Phosphatase, S 54 [iU]/L (Normal) Range: 39-117 Bilirubin, Total 1.1 mg/dL (Normal) Range: 0.0-1.2 A/G Ratio 1.6 (Normal) Range: 1.1-2.5 Globulin, Total 2.5 g/dL (Normal) Range: 1.5-4.5 Albumin, Serum 4.0 g/dL (Normal) Range: 3.5-5.5 Protein, Total, Serum 6.5 g/dL (Normal) Range: 6.0-8.5 Calcium, Serum 8.8 mg/dL (Normal) Range: 8.7-10.2 Carbon Dioxide, Total 19 mmol/L (Normal) Range: 18-29 Chloride, Serum 104 mmol/L (Normal) Range: 97-108 Potassium, Serum 4.2 mmol/L (Normal) Range: 3.5-5.2 Sodium, Serum 142 mmol/L (Normal) Range: 134-144 BUN/Creatinine Ratio 21 (Normal) Range: 9-23 eGFR If Africn Am 87 mL/min/1.73 (Normal) eGFR If NonAfricn Am 75 mL/min/1.73 (Normal) Creatinine, Serum 0.92 mg/dL (Normal) Range: 0.57-1.00 BUN 19 mg/dL (Normal) Range: 6-24 Glucose, Serum 87 mg/dL (Normal) Range: 65-99 09-Bwz-77591:52 CBC, PLATELETS & AUT DIFF Comments: PATIENT WAS FASTINGPERFORMED BY: [facility] SystemYrjbjm5969 [facility] [id number] Information: [id number] ([id number]) Immature Grans (Abs) 0.0 {x10E3/uL} (Normal) Range: 0.0-0.1 Immature Granulocytes 0 % (Normal) Baso (Absolute) 0.0 {x10E3/uL} (Normal) Range: 0.0-0.2 Eos (Absolute) 0.1 {x10E3/uL} (Normal) Range: 0.0-0.4 Monocytes(Absolute) 0.5 {x10E3/uL} (Normal) Range: 0.1-0.9 Lymphs (Absolute) 1.6 {x10E3/uL} (Normal) Range: 0.7-3.1 Neutrophils (Absolute) 2.8 {x10E3/uL} (Normal) Range: 1.4-7.0 Basos 0 % (Normal) Eos 1 % (Normal) Monocytes 10 % (Normal) Lymphs 32 % (Normal) Neutrophils 57 % (Normal) Platelets 238 {x10E3/uL} (Normal) Range: 150-379 RDW 13.2 % (Normal) Range: 12.3-15.4 MCHC 34.0 g/dL (Normal) Range: 31.5-35.7 MCH 30.9 pg (Normal) Range: 26.6-33.0 MCV 91 fL (Normal) Range: 79-97 Hematocrit 39.4 % (Normal) Range: 34.0-46.6 Hemoglobin 13.4 g/dL (Normal) Range: 11.1-15.9 RBC 4.33 {x10E6/uL} (Normal) Range: 3.77-5.28 WBC 5.0 {x10E3/uL} (Normal) Range: 3.4-10.8 :52 LIPID PANEL ([id number]) Comments: PATIENT WAS FASTINGPERFORMED BY: [facility] [id number] LDL/HDL Ratio 1.9 {ratio_units} (Normal) Range: 0.0-3.2 Comments: LDL/HDL Ratio Men Women 1/2 Avg.Risk 1.0 1.5 Av g.Risk 3.6 3.2 2X Avg.Risk 6.2 5.0 3X Avg.Risk 8.0 6.1 LDL Cholesterol Calc 88 mg/dL (Normal) Range: 0-99 VLDL Cholesterol Mickey 14 mg/dL (Normal) Range: 5-40 HDL Cholesterol 46 mg/dL (Normal) Comments: According to ATP-III Guidelines, HDL-C >59 mg/dL is considered anegative risk factor for CHD. Triglycerides 70 mg/dL (Normal) Range: 0-149 Cholesterol, Total 148 mg/dL (Normal) Range: 100-199 :52 TSH ([id number]) Comments: PATIENT WAS FASTINGPERFORMED BY: SpeechVivelin6370 [facility] [id number] TSH 2.770 {uIU/mL} (Normal) Range: 0.450-4.500 75-Czx-811481:00 PAP I-G w/rfx hrHPV Comments: CYTOLOGY INFORMATION:- CLINICAL INFORMATION:- DATE LMP/MENOPAUSE: IUD LMP- COLLECTION VIAL: Thin Prep Vial- FLOORLEADER SOURCE: CERVICAL/ENDOCERVICAL- COLLECTION TECHNIQUE: BRUSH/SPATULASpecimen Comment: CO-[id number] Comment: No. of containers..01 CYTYC Thin Prep VialLabCorp (refer to report for specific site)refer to report for address and phone number HPV RFLX Comment (Normal) Comments: The HPV DNA reflex criteria were not met with this specimenresult therefore, no HPV testing was performed.Performed at: [address], [place] [id number] Director: Alfredo Alejandre MD, Phone: [phone] PAPSMR Comment (Normal) Comments: The Pap smear is a screening test designed to aid in thedetection of premalignant and malignant conditions of theuterine cervix. It is not a diagnostic procedure andshould not be used as the sole means of detecting cervicalcancer. Both false-positive and false-negative reports dooccur. COMM . (Normal) TEST METHOD Comment (Normal) Comments: This liquid based ThinPrep(R) pap test was screened withthe use of an image guided system. PERFORM Comment (Normal) Comments: Govind Zhang, Winter Sports Manager (ASCP) ADEQ Comment (Normal) Comments: Satisfactory for evaluation. Endocervical and/or squamous metaplasticcells (endocervical component) are present. DIAGN Comment (Normal) Comments: NEGATIVE FOR INTRAEPITHELIAL LESION AND MALIGNANCY. 64-Gij-717671:48 CBC W/Diff, Automated Comments: Test performed at:[facility] [address] [place], [place] [id number] ; Non- emergent till apt Absolute Lymph 1.52 {X10_3/ul} (Normal) Range: 0.83-4.51 Absolute Neut 4.1 {X10_3/uL} (Normal) Range: 2.0-7.7 IM GRAN % 0.200 % (Normal) Range: 0.0-0.9 Comments: IG% - Immature Granulocytes (promyelocytes, myelocytes andmetamyelocytes) > 1% indicates that a LEFT SHIFT is Present. BASO% 0.3 % (Normal) Range: 0-1 EO% 1.3 % (Normal) Range: 0-5 MONO% 8.4 % (Normal) Range: 0-10 LY% 24.5 % (Normal) Range: 19-41 NEUT% 65.3 % (Normal) Range: 47-70 MPV 10.7 fL (Normal) Range: 6.2-12.0 PLT 220 K/mm3 (Normal) Range: 150-450 RDW SD 43.3 fL (Normal) Range: 35.1-43.9 RDW CV 12.9 % (Normal) Range: 11.6-14.6 MCHC 33.0 {g/gl} (Normal) Range: 32-36 MCH 31.1 pg (Normal) Range: 27.0-32.0 MCV 94.2 fL (Normal) Range: 81-99 HCT 40.6 % (Normal) Range: 37-47 HGB 13.4 g/dL (Normal) Range: 12.0-15.0 RBC 4.31 {M/mm3} (Normal) Range: 4.2-5.4 WBC 6.2 K/mm3 (Normal) Range: 4.4-11.0 99-Abc-398989:48 Comprehensive Metabolic Profil Comments: Test performed at:[facility] [address] [place], [place] [id number] GAP 5 (Normal) Range: 5-15 CO2 24.0 mmol/L (Normal) Range: 21.0-32.0 CL 111 mmol/L (Abnormal) Range: 98-107 K 3.9 mmol/L (Normal) Range: 3.5-5.1 NA 140 mmol/L (Normal) Range: 136-145 T BILI 0.90 mg/dL (Normal) Range: 0.20-1.00 ALT 26 U/L (Normal) Range: 12-78 ALK P 56 U/L (Normal) Range: 50-136 AST 19 U/L (Normal) Range: 15-37 CA 8.3 mg/dL (Abnormal) Range: 8.5-10.1 A/G 1.1 {RATIO} (Normal) Range: 0.9-2.4 GLOB 3.2 g/dL (Normal) Range: 2.3-3.5 ALB 3.6 g/dL (Normal) Range: 3.4-5.0 T PROT 6.8 g/dL (Normal) Range: 6.4-8.2 BUN/CRE 19.8 {RATIO} (Normal) Range: 10-20 EST GFR - AA 92 mL/min (Normal) EST GFR 76 mL/min (Normal) CREAT,SERUM 0.86 mg/dL (Normal) Range: 0.55-1.20 Comments: Please note revised CREATININE reference range slfhgytvi14/22/2015. BUN 17 mg/dL (Normal) Range: 7-18 GLU 78 mg/dL (Normal) Range: 70-110 61-Xxd-239291:48 Lipid Profile Comments: Test performed at:[facility] [address] [place] [address] VLDL 14 mg/dL (Normal) Range: 5-40 LDL 77 mg/dL (Normal) Range: 0-130 HDL 44 mg/dL (Normal) Comments: Reference Range HDL <40 mg/dL Low HDL Cholesterol HDL >or= 60 mg/dL High HDL Cholesterol TRIG 70 mg/dL (Normal) Comments: Serum Triglycerides Reference Interval Normal <150 mg/dL Borderline high 150 - 199 mg/dL High 200 - 499 mg/dL Very High > or = 500 mg/dL CHOL 135 mg/dL (Normal) Comments: <200 mg/dL Desirable 200-240 mg/dL Borderline >240 mg/dL High Risk 14-Hol-237006:48 Thyroid Stim Hormone (TSH) Comments: Test performed at:[facility] [address] [place] [address] TSH 1.74 {uIU/mL} (Normal) Range: 0.358-3.74 16-Apr-20156:30 Urinalysis, Complete Comments: Order Date: 04/16/15How was Urine Obtained? CLEAN CATCHTest performed at:[facility] [address] [facility] [place] [address] ; ordered by sharmaine MUCUS, URINE 0 SEEN {/hpf} (Normal) BACTERIA 2+ {/hpf} (Normal) RENAL EPI 0-5 SEEN {/hpf} (Normal) Range: 0-5 SQUAM EPI 0-5 SEEN {/hpf} (Normal) Range: 5-10 RBC-UA 10-25 SEEN {/hpf} (Normal) Range: 0-5 WBC >100 SEEN {/hpf} (Normal) Range: 0-5 LEUK ESTERASE 500 /ul (Abnormal) OCCULT BLOOD-UR 150 /ul (Abnormal) NITRITE UR Negative (Normal) UROBILI Normal mg/dL (Normal) PROT DIPSTX 30 mg/dL (Abnormal) pH UR 6.0 (Normal) Range: 5.0 - 8.0 SP.GR. DIPSTX 1.020 (Normal) Range: 1.002-1.030 KETONE UR Negative mg/dL (Normal) BILIRUBIN URINE Negative mg/dL (Normal) GLUCOSE, UR Normal mg/dL (Normal) CLARITY Sl. Cloudy (Normal) COLOR Yellow (Normal) 59-Nzn-594419:15 PAPIG5 Comments: CYTOLOGY INFORMATION:- CLINICAL INFORMATION:- DATE LMP/MENOPAUSE: NO MENSES/IUD LMP- COLLECTION VIAL: Thin Prep Vial- FLOORLEADER SOURCE: CERVICAL/ENDOCERVICAL- COLLECTION TECHNIQUE: BRUSH/SPATULASpecimen Comm ent: [id number] Comment: No. of containers..01 CYTYC Thin Prep Vial tHPVRFLX Comment (Normal) Comments: The HPV DNA reflex criteria were not met with this specimenresult therefore, no HPV testing was performed.Performed at: [address] [id number] Director: Alfredo Alejandre MD, Phone: [phone] [facility] Comment (Normal) Comments: The Pap smear is a screening test designed to aid in thedetection of premalignant and malignant conditions of theuterine cervix. It is not a diagnostic procedure andshould not be used as the sole means of detecting cervicalcancer. Both false-positive and false-negative reports dooccur. tCOM2 . (Normal) tPAPIGTM Comment (Normal) Comments: This liquid based ThinPrep(R) pap test was screened withthe use of an image guided system. tPERFORM Comment (Normal) Comments: Lio Ulloa, Winter Sports Manager (ASCP) tADEQ Comment (Normal) Comments: Satisfactory for evaluation. Endocervical and/or squamous metaplasticcells (endocervical component) are present. tDIAG Comment (Normal) Comments: NEGATIVE FOR INTRAEPITHELIAL LESION AND MALIGNANCY. 66-Zyl-60322:28 CMP GAP 7 (Normal) Range: 5-15 CO2 26.0 mmol/L (Normal) Range: 21.0-32.0 CL 107 mmol/L (Normal) Range: 98-107 K 3.8 mmol/L (Normal) Range: 3.5-5.1 NA 140 mmol/L (Normal) Range: 136-145 BIT 0.90 mg/dL (Normal) Range: 0.00-1.00 ALT 36 U/L (Normal) Range: 12-78 ALK 67 U/L (Normal) Range: 45-117 AST 25 U/L (Normal) Range: 15-37 CA 8.4 mg/dL (Abnormal) Range: 8.5-10.1 AG 1.0 {RATIO} (Normal) Range: 0.9-2.4 GLOB 3.4 g/dL (Normal) Range: 2.7-4.2 ALB 3.4 g/dL (Normal) Range: 3.4-5.0 TPROT 6.8 g/dL (Normal) Range: 6.4-8.2 BC 21.3 {RATIO} (Abnormal) Range: 10-20 GFRAA 101 mL/min (Normal) GFR 83 mL/min (Normal) CREAT 0.8 mg/dL (Normal) Range: 0.6-1.0 BUN 17 mg/dL (Normal) Range: 7-18 GLU 86 mg/dL (Normal) Range: 70-110 :28 LIPID VLDL 17 mg/dL (Normal) Range: 5-40 LDL 85 mg/dL (Normal) Range: 0-130 CHOL 148 mg/dL (Normal) Comments: <200 mg/dL Rfofcbcty584-807 mg/dL Borderline>240 mg/dL High Risk HDL 46 mg/dL (Normal) Comments: Reference RangeHDL <40 mg/dL Low HDL CholesterolHDL >or= 60 mg/dL High HDL Cholesterol TRIG 84 mg/dL (Normal) Range: 0-199 Comments: Serum Triglycerides Reference IntervalNormal <150 mg/dLBorderline high 150 - 199 mg/dLHigh 200 - 499 mg/ dLVery High > or = 500 mg/dL :28 TSH 1.82 {uIU/mL} (Normal) Range: 0.358-3.74 :13 CMP GAP 10 (Normal) Range: 5-15 CO2 24.0 mmol/L (Normal) Range: 21.0-32.0 CL 108 mmol/L (Abnormal) Range: 98-107 K 4.1 mmol/L (Normal) Range: 3.5-5.1 NA 142 mmol/L (Normal) Range: 136-145 BIT 0.70 mg/dL (Normal) Range: 0.00-1.00 ALT 30 U/L (Normal) Range: 12-78 ALK 73 U/L (Normal) Range: 50-136 AST 23 U/L (Normal) Range: 15-37 CA 8.6 mg/dL (Normal) Range: 8.5-10.1 AG 1.0 {RATIO} (Normal) Range: 0.9-2.4 GLOB 3.4 g/dL (Normal) Range: 2.7-4.2 ALB 3.5 g/dL (Normal) Range: 3.4-5.0 TPROT 6.9 g/dL (Normal) Range: 6.4-8.2 BC 14.4 {RATIO} (Normal) Range: 10-20 GFRAA 88 mL/min (Normal) GFR 73 mL/min (Normal) CREAT 0.9 mg/dL (Normal) Range: 0.6-1.0 BUN 13 mg/dL (Normal) Range: 7-18 GLU 88 mg/dL (Normal) Range: 70-110 :13 LIPID VLDL 33 mg/dL (Normal) Range: 5-40 HDL 40 mg/dL (Normal) Comments: Reference RangeHDL <40 mg/dL Low HDL CholesterolHDL >or= 60 mg/dL High HDL Cholesterol LDL 91 mg/dL (Normal) Range: 0-130 TRIG 166 mg/dL (Normal) Range: 0-199 Comments: Serum Triglycerides Reference IntervalNormal <150 mg/dLBorderline high 150 - 199 mg/dLHigh 200 - 499 mg/ dLVery High > or = 500 mg/dL CHOL 164 mg/dL (Normal) Comments: <200 mg/dL Izndzaqnv934-533 mg/dL Borderline>240 mg/dL High Risk :13 TSH 1.21 {uIU/mL} (Normal) Range: 0.358-3.74 46-Bje-118163:19 FT3 2.5 pg/mL (Normal) Range: 2.18-3.98 :19 T4F 1.02 ng/dL (Normal) Range: 0.76-1.46 :19 TPO 10 {IU/mL} (Normal) Range: 0-34 Comments: Performed at: - [facility] [id number] Director: Zac Khanna PhD, Phone: [phone] :[phone] TSH 1.74 {uIU/mL} (Normal) Range: 0.358-3.74 :42 CMP GAP 8 (Normal) Range: 5-15 CL 107 mmol/L (Normal) Range: 98-107 CO2 25.0 mmol/L (Normal) Range: 21.0-32.0 K 4.2 mmol/L (Normal) Range: 3.5-5.1 NA 140 mmol/L (Normal) Range: 136-145 BIT 0.90 mg/dL (Normal) Range: 0.00-1.00 ALT 25 U/L (Normal) Range: 12-78 ALK 64 U/L (Normal) Range: 50-136 AST 15 U/L (Normal) Range: 15-37 CA 8.9 mg/dL (Normal) Range: 8.5-10.1 AG 1.1 {RATIO} (Normal) Range: 0.9-2.4 GLOB 3.3 g/dL (Normal) Range: 2.7-4.2 ALB 3.5 g/dL (Normal) Range: 3.4-5.0 BC 20.0 {RATIO} (Normal) Range: 10-20 TPROT 6.8 g/dL (Normal) Range: 6.4-8.2 GFR 84 mL/min (Normal) GFRAA 102 mL/min (Normal) BUN 16 mg/dL (Normal) Range: 7-18 CREAT 0.8 mg/dL (Normal) Range: 0.6-1.0 GLU 91 mg/dL (Normal) Range: 70-110 :42 LIPID LDL 95 mg/dL (Normal) Range: 0-130 VLDL 23 mg/dL (Normal) Range: 5-40 CHOL 159 mg/dL (Normal) Comments: <200 mg/dL Zawgtdhfu477-658 mg/dL Borderline>240 mg/dL High Risk HDL 41 mg/dL (Normal) Comments: Reference RangeHDL <40 mg/dL Low HDL CholesterolHDL >or= 60 mg/dL High HDL Cholesterol TRIG 114 mg/dL (Normal) Comments: Serum Triglycerides Reference IntervalNormal <150 mg/dLBorderline high 150 - 199 mg/dLHigh 200 - 499 mg/ dLVery High > or = 500 mg/dL 47-Kdp-44076:42 TSH 3.77 {uIU/mL} (Abnormal) Range: 0.358-3.74 55-Dku-20070:26 BILAT SCRN DIGITAL & CAD Radiology Report See Note (Normal) Comments: MAMMOGRAPHY - BILATERAL SCREENING REASON FOR EXAM: Female, 41 years old. Routine annual screeningexamination. PERTINENT HISTORY: Non-contributory. TECHNIQUE: Digital examination. Med iolateral ob lique (MLO) andcraniocaudad (CC) views of both breasts were obtained. CAD: CAD wasperformed on this study. COMPARISON: Comparison is made with prior study dated June 072007. FINDING S:The breast composition is composed of scattered fibroglandular densities. There are no dominant masses or suspicious calcifications. EKG monitorclip is seen in the mid medial aspect of the right amina st. No other significant abnormalities are identified. There has been nosignificant change since the prior study. IMPRESSION:Stable bilateral screening mammogram. Yearly follow-up recommended. (A) A SSESSMENT CATEGORY:BIRADS Category 2: Benign finding(s). A letter regarding these resultswill be sent to the patient by the facility within 30 days. Approximately 10% of breast cancers are not detecte d by mammography. Anormal mammogram should not delay biopsy of a clinically suspiciousabnormality. Signed:Wayne Mascorro M.D.June 10, 2012 at 9:55:07 AM [id number] Signed GP/G P If you are the referring physician and would like to consult with theradiologist who provided this interpretation, please contact Edelmira Juarez at [phone]. If this radiologist is unavai lable, youwill be directed to another radiologist to assist. If you are a patient with a question regarding this report, pleasecontactyour referring physician directly. Professional Interpretation Provi ded By: Timoteo, Phone , These documents contain legally protected and confidential healthinformation intended only for the use of the individual or entity namedabove. If you are not the intended recipient, you are hereby notifiedthatany disclosure, copying, distribution, or other use of these documents isstrictly prohibited. If you have received this information in e rror,pleasenotify the sender immediately and arrange for the return or destructionofthese documents. Dictated on 06/10/12 0926 by Subha CRESPO,Elranscribed on 06/10/12 1001 by ITS IMPORTSign b y Subha CRESPO,Wayne on 06/10/12 1002 Sign by: Wayne Mascorro MD 75-Sbt-34460:36 CUUR Comments: appt 03/17/12 [facility] See Note {CFU/mL} (Normal) Comments: COLONY COUNT 1000-10,000 :36 FT3 2.5 pg/mL (Normal) Comments: appt 03/17/12 Range: 2.18-3.98 :36 T4F 0.85 ng/dL (Normal) Range: 0.76-1.46 :36 TSH 2.86 {uIU/mL} (Normal) Range: 0.358-3.74 92-Ulz-169415:06 URINE ALFREDO CULTURE-EDWARD COL Comments: [facility] [id number] Information: SRC: URETHRA COUNT ([id number]) Result 1 ECV (Normal) Comments: Escherichia coli, identified by an automated biochemical system.1,000 Colonies/mLMixed urogenital Colonies/mL S = Susceptible; I = Intermediate; R = Resistant P = Positive; N = Negative MICS are expressed in micrograms per mL Antibiotic RSLT#1 RSLT#2 RSLT#3 RSLT#4Amoxicillin/Clavulanic Acid [facility] Centerpicillin RCefazolin SCefepime SCeftriaxone SCefuroxime SCephalothin ICiprofloxacin SESBL NErtapenem SGentamicin SImipenem SLevofloxacin SNitrofurantoin SPiperacillin RTetracycline RTobramycin STrimethoprim/Sulfa S Urine Final report (Normal) Culture,Comprehensiv e 90-Atu-440161:19 Urinalysis, Office ([id number]) UA - BILIRUBIN Negative (Normal) UA - BLOOD Non Hemolyzed Trace (Normal) UA - GLUCOSE Negative (Normal) UA - KETONES Negative mg/dL (Normal) UA - LEUKOCYTE ESTERASE Negative (Normal) UA - NITRITE Negative (Normal) UA - PH 6.5 (Normal) UA - PROTEIN Negative mg/dL (Normal) UA - SPECIFIC GRAVITY 1.025 (Normal) URINE UROBILINGN EDWARD Normal mg/dL (Normal) TIMED : FREE T3 2.2 pg/mL (Normal) Range: 2.18-3.98 57 : T4 FREE DIRECT 0.87 ng/dL (Normal) Range: 0.76-1.46 57 : TPO AB 6676 7 {IU/mL} (Normal) Range: 0-34 57 Comments: Performed at: [place] [id number] Director: Ashleigh Abraham MD, Phone: [phone] : TSH 3.55 {uIU/mL} (Normal) Range: 0.358-3.74 57 84-Jse-174673:09 Urinalysis, Office ([id number]) UA - BILIRUBIN Negative (Normal) UA - BLOOD Hemolyzed Trace (Normal) UA - GLUCOSE Negative (Normal) UA - KETONES Negative mg/dL (Normal) UA - LEUKOCYTE ESTERASE Negative (Normal) UA - NITRITE Negative (Normal) UA - PH 7.0 (Normal) UA - PROTEIN Negative mg/dL (Normal) UA - SPECIFIC GRAVITY 1.020 (Normal) URINE UROBILINGN EDWARD TIMED Normal mg/dL (Normal) 31-Mao-699880:49 CBCD,SMEAR DIFF RED CELL MORPH SeeNote {NORMAL} (Normal) Comments: Result: NORM C+C PLT EST SeeNote (Normal) Comments: Result: ADEQUATE EOS 1 % (Normal) Range: 0-5 MONOCYTE 5 % (Normal) Range: 0-10 LYMPH 42 % (Abnormal) Range: 19-41 SEGS 52 % (Normal) Range: 47-70 CELLS COUNTED 100 (Normal) ABSOLUTE NEUT 3.5 3/uL (Normal) Range: 2.0-7.7 PLT 254 K/mm3 (Normal) Range: 150-450 RDW 13.6 % (Normal) Range: 11.6-14.6 MCHC 34.4 g/dL (Normal) Range: 32-36 MCH 30.4 pg (Normal) Range: 27.0-32.0 MCV 88.6 fL (Normal) Range: 81-99 HCT 38.6 % (Normal) Range: 37-47 HGB 13.3 g/dL (Normal) Range: 12.0-16.0 RBC 4.36 {M/mm3} (Normal) Range: 4.2-5.4 WBC 5.9 K/mm3 (Normal) Range: 4.4-11.0 20-Iwe-276811:40 BILAT SCRN DIGITAL & CAD Radiology Report See Note (Normal) Comments: MAMMOGRAPHY - BILATERAL SCREENING REASON FOR EXAM: Female, 40 years old. Routine annual screeningexamination. PERTINENT HISTORY: Non-contributory. The patient has a history ofpriorright excisiona l breast biopsy. TECHNIQUE: Digital examination. Mediolateral oblique (MLO) andcraniocaudad (CC) views of both breasts were obtained. CAD: CAD wasperformed on this study. COMPARISON: Comparison is made with prior examination dated March. FINDINGS:The breast composition is composed of scattered fibroglandular densities. There are no masses or suspicious microcalcifications. There is eviden ceof focal architectural distortion in the upper outer aspect of the rightbreast. This is in keeping with the patient's history of priorexcisionalbiopsy. No other significant abnormalities are identifi ed. IMPRESSION:Normal bilateral screening mammogram. One year follow-up recommended. (A) ASSESSMENT CATEGORY:BIRADS Category 2: Benign finding(s). A letter regarding these resultswill be sent to the patient by the facility within 30 days. Approximately 10% of breast cancers are not detected by mammography. Anormal mammogram should not delay biopsy of a clinically suspiciousabnormality. Dictated on 06/07/11 0949 by Subha CRESPO,EranrieleTranscribed on 06/07/11 1404 by ITS IMPORTSign by Subha CRESPO,Wayne on 06/07/11 1405 Sign by: Wayne Mascorro MD TSH 5.38 {uIU/mL} Range: 0.358-3.74 :31 (Abnormal) 15-Ihf-925085:19 COMPLETE UA MUCUS, URINE 0 SEEN {/hpf} (Normal) BACTERIA 1+ {/hpf} (Normal) SQUAM EPI SeeNote {/hpf} (Normal) Range: 5-10 Comments: Result: 0-5 SEEN RBC-UA SeeNote {/hpf} (Normal) Range: 0-5 Comments: Result: 0-5 SEEN WBC SeeNote {/hpf} (Normal) Range: 0-5 Comments: Result: 0-5 SEEN LEUK ESTERASE 1+ (Abnormal) OCCULT BLOOD-UR 3+ (Abnormal) NITRITE UR SeeNote (Normal) Comments: Result: Negative UROBILI 0.2 EU/dl (Normal) Range: 0.2 - 1.0 PROT DIPSTX SeeNote (Normal) Comments: Result: Negative pH UR 5.5 (Normal) Range: 5.0-8.0 SP.GR. DIPSTX >=1.030 (Normal) Range: 1.002-1.030 KETONE UR SeeNote mg/dL (Normal) Comments: Result: Negative BILIRUBIN URINE SeeNote (Normal) Comments: Result: Negative GLUCOSE, UR SeeNote (Normal) Comments: Result: Negative CLARITY Cloudy (Normal) COLOR Yellow (Normal) Plan of Care Name Dates Details Instructions Hypothyroidism : Reviewed Lab Indication: Hypothyroidism Hypothyroidism : Continue Current Prescription(s) Indication: Hypothyroidism T3 low in serum : Continue Current Prescription(s) Indication: T3 low in serum Back pain, acute : Follow up if no improvement or if symptoms worsen Indication: Back pain, acute Back pain, acute : Low Back Pain Exercises *: back pain Indication: Back pain, acute Muscle spasm of back : Muscle Spasms *: muscle spasms Indication: Muscle spasm of back Nonsmoker : Eprescribed prescriptions (G8553) Indication: Nonsmoker Hypothyroidism : Eprescribed prescriptions (G8553) Indication: Hypothyroidism Migraine : Eprescribed prescriptions (G8553) Indication: Migraine Hypothyroidism : Follow up in 1 year or as needed Indication: Hypothyroidism Hypothyroidism : Eprescribed prescriptions (G8553) Indication: Hypothyroidism Low HDL (under 40) : Diet, Exercise, and Wt loss Indication: Low HDL (under 40) Eustachian tube dysfunction : Follow up if no improvement or if symptoms worsen Indication: Eustachian tube dysfunction Low HDL (under 40) : Diet, Exercise, and Wt loss Indication: Low HDL (under 40) Migraine : Migraine Headache: Brief Version *: pain Indication: Migraine WOUND OPEN, SITE NOS W/COMPLICATION : Reviewed Lab Indication: WOUND OPEN, SITE NOS W/COMPLICATION Low HDL (under 40) : Diet, Exercise, and Wt loss Indication: Low HDL (under 40) Planned Observations PROLACTIN ([id number])Indication: Hypothyroidism On: :43 Request FSH AND LH (77692)Indication: Hypothyroidism On: :43 Request TSH ([id number])Indication: Hypothyroidism On: :52 Request T4, FREE (THYROXINE) ([id number])Indication: Hypothyroidism On: :52 Request T3, FREE (TRIDOTHYRONINE) ([id number])Indication: Hypothyroidism On: :52 Request T4, FREE (THYROXINE) ([id number])Indication: Hypothyroidism On: :25 Request TSH ([id number])Indication: Hypothyroidism On: :25 Request Anti-TPO Antibody ([id number])Indication: Hypothyroidism On: :25 Request T4, TOTAL (76343)Indication: Hypothyroidism On: :25 Request T3, TOTAL (TRIDOTHYRONINE) ([id number])Indication: Hypothyroidism On: :25 Request T3, FREE (TRIDOTHYRONINE) (55646)Indication: Hypothyroidism On: :24 Request T-3 UPTAKE (15168)Indication: Hypothyroidism On: :24 Request FREE TRIDOTHYRONINE (T3) (55324)Indication: T3 low in serum On: :08 Request TSH ([id number])Indication: Hypothyroidism On: 62-Gip-746451:18 Request T4, FREE (THYROXINE) ([id number])Indication: Hypothyroidism On: 51-Wpm-089721:18 Request T3, FREE (TRIDOTHYRONINE) (23974)Indication: Hypothyroidism On: 57-Ezn-393070:18 Request T4, FREE (THYROXINE) ([id number])Indication: T3 low in serum On: 74-Ayx-446705:37 Request T3, FREE (TRIDOTHYRONINE) ([id number])Indication: T3 low in serum On: 65-Mpj-463920:37 Request T4, FREE (THYROXINE) (59404)Indication: Hypothyroidism On: :46 Request T3, FREE (TRIDOTHYRONINE) ([id number])Indication: Hypothyroidism On: :46 Request TSH (THYROID STIMULATING HORMONE) ([id number])Indication: Hypothyroidism On: :45 Request LIPID PANEL ([id number])Indication: Encounter for screening for lipid disorder On: :44 Request LIPID PANEL ([id number])Indication: Encounter for screening for lipid disorder On: :47 Request T3, FREE (TRIDOTHYRONINE) ([id number])Indication: Hypothyroidism On: :48 Request T4, FREE (THYROXINE) ([id number])Indication: Hypothyroidism On: :48 Request TSH ([id number])Indication: Hypothyroidism On: :48 Request T4, FREE (THYROXINE) ([id number])Indication: Hypothyroidism On: :02 Request T3, FREE (TRIDOTHYRONINE) ([id number])Indication: Hypothyroidism On: 28-Dse-164573:01 Request METABOLIC PANEL, COMPREHENSIVE (43500)Indication: Elevated blood pressure (not hypertension) On: :58 Request LIPID PANEL ([id number])Indication: Low HDL (under 40) On: :34 Request TSH ([id number])Indication: Hypothyroidism On: :34 Request CBC W/AUTO DIFF WBC ([id number])Indication: Migraine On: :34 Request METABOLIC PANEL, COMPREHENSIVE ([id number])Indication: Migraine On: :34 Request METABOLIC PANEL, COMPREHENSIVE ([id number])Indication: Migraine On: :48 Request TSH ([id number])Indication: Hypothyroidism On: :48 Request LIPID PANEL ([id number])Indication: Low HDL (under 40) On: 94-Xlx-987454:48 Request TSH ([id number])Indication: Hypothyroidism On: 7-Toq-519952:57 Request LIPID PANEL ([id number])Indication: Low HDL (under 40) On: :57 Request T3, FREE (TRIDOTHYRONINE) ([id number])Indication: Hypothyroidism On: :43 Request T4, FREE (THYROXINE) ([id number])Indication: Hypothyroidism On: :43 Request Anti-TPO Antibody ([id number])Indication: Hypothyroidism On: :43 Request TSH ([id number])Indication: Hypothyroidism On: :43 Request TSH ([id number])Indication: Abnormal TSH On: :43 Request Lipid Panel ([id number])Indication: Low HDL (under 40) On: 6-Lhh-902436:43 Request Metabolic Panel, Comprehensive (67761)Indication: Elevated blood pressure (not hypertension) On: 0-Zyd-975361:43 Request LIPID PANEL ([id number])Indication: Low HDL (under 40) On: 3-Krr-563645:58 Request TSH ([id number])Indication: Abnormal TSH On: 68-Cti-756231:07 Request T4, FREE (THYROXINE) ([id number])Indication: Abnormal TSH On: 03-Jvd-040956:07 Request T3, FREE (TRIDOTHYRONINE) ([id number])Indication: Abnormal TSH On: 93-Clv-853069:07 Request LIPID PANEL ([id number])Indication: Low HDL (under 40) On: 40-Ehp-897235:38 Request METABOLIC PANEL, COMPREHENSIVE ([id number])Indication: Elevated blood pressure (not hypertension) On: 71-Cvn-377086:38 Request T4, FREE (THYROXINE) ([id number])Indication: Abnormal TSH On: :10 Request T3, FREE (TRIDOTHYRONINE) ([id number])Indication: Abnormal TSH On: 56-Gcj-190737:10 Request Anti-TPO Antibody ([id number])Indication: Abnormal TSH On: 69-Xot-380736:10 Request TSH ([id number])Indication: Abnormal TSH On: 14-Dmx-659840:09 Request LIPID PANEL ([id number])Indication: Elevated blood pressure (not hypertension) On: 02-Vha-14780:54 Request TSH ([id number])Indication: Elevated blood pressure (not hypertension) On: :54 Request URINALYSIS, W/ MICRO ([id number])Indication: Elevated blood pressure (not hypertension) On: :53 Request METABOLIC PANEL, COMPREHENSIVE (36893)Indication: Elevated blood pressure (not hypertension) On: :53 Request CBC WITH MANUAL DIFF ([id number])Indication: Elevated blood pressure (not hypertension) On: :53 Request Planned Procedures PHYSICAL THERAPY ([id number])By: Nguyễn On: 28-May-2018 Intent Rissa Comments: Order given for dry needling Eprescribed prescriptions (G8553)By: On: 01-Sep-2013 Intent Elo Jung LPN Eprescribed prescriptions (G8553)By: On: 11-Aug-2013 Intent Leticia Loera Eprescribed prescriptions (G8553)By: On: 09-Feb-2013 Intent Leticia Loera MAMMOGRAM, SCREENING, BOTH BREASTS On: 17-Mar-2012 Intent ([id number])By: Mo AUGUSTIN Kassie A Eprescribed prescriptions (G8553)By: On: 09-Sep-2011 Intent Mo AUGUSTIN Kassie A TDAP VACCINE >7 IM ([id number])By: On: 09-Sep-2011 Intent Leticia Loera Comments: work FLU VAC, SPLIT, >3 YEARS, INTRAMUSC On: 09-Sep-2011 Intent ([id number])By: Leticia Loera Comments: work Instructions Name Dates Details Nonsmoker : How to access health information online Indication: Nonsmoker Nonsmoker : How to access health information online - Detail Indication: Nonsmoker Nonsmoker : Patient Instructions Indication: Nonsmoker Nonsmoker : Patient Instructions Indication: Nonsmoker Nonsmoker : How to access health information online Indication: Nonsmoker Nonsmoker : How to access health information online - Detail Indication: Nonsmoker Back pain, acute : Patient Instructions Indication: Back pain, acute Hypothyroidism : How to access health information online Indication: Hypothyroidism Hypothyroidism : How to access health information online - Detail Indication: Hypothyroidism Hypothyroidism : Patient Instructions Indication: Hypothyroidism Migraine : How to access health information online Indication: Migraine Migraine : How to access health information online - Detail Indication: Migraine Hypothyroidism : Patient Instructions Indication: Hypothyroidism Hypothyroidism : How to access health information online Indication: Hypothyroidism Hypothyroidism : How to access health information online - Detail Indication: Hypothyroidism Hypothyroidism : Patient Instructions Indication: Hypothyroidism Hypothyroidism : Patient Instructions Indication: Hypothyroidism Chronic serous otitis media, unspecified laterality : Patient Instructions Indication: Chronic serous otitis media, unspecified laterality Migraine : Patient Instructions Indication: Migraine perimenstrual dysphoric sx : Patient Instructions Indication: perimenstrual dysphoric sx Encounters Lab Order On: 14-Sep-2018 17:42 Encounter Diagnosis: Hypothyroidism End: 14-Sep-2018 17:44 [facility] Phone Encounter On: 11-Sep-2018 15:51 Encounter Diagnosis: T3 low in serum, Hypothyroidism End: 11-Sep-2018 15:54 [facility] Phone Encounter On: 09-Sep-2018 14:24 Encounter Diagnosis: Hypothyroidism End: 09-Sep-2018 14:28 [facility] Phone Encounter On: 28-Jul-2018 16:02 Encounter Diagnosis: T3 low in serum End: 28-Jul-2018 16:08 [facility] Office Visit On: 10-Jun-2018 9:45 Encounter Reason: Follow up tests - Date: (06/03/18)., [ADDITIONAL REASON] Follow up for chronic medical issues - The patient feels well with minor complai End: 10-Jun-2018 10:32 nts, has good energy level and is sleeping poorly. Patient has been compliant with instructions. Current medication use: no side effects and compliant with dosing regimen. Patient sleeps 7 hours per nig ht. Nutrition: balanced diet and no supplemental vitamins & iron. The medical issues the patient is following up for include All identified problems below, hypothyroid and other. weight :. Encounter Diagnosis: BMI 35.0-35.9,adult, Nonsmoker, Hypothyroidism, T3 low in serum [facility] Phone Encounter On: 03-Jun-2018 16:35 Encounter Diagnosis: T3 low in serum End: 03-Jun-2018 16:44 [facility] Office Visit On: 28-May-2018 13:29 Encounter Reason: Back Pain - The injury involved the lower back. This occurred 2 day(s) ago at work. Symptoms include back pain. Symptoms are located in the left lower back. The patient describes the pain as aching.Encounter Diagnosis: End: 28-May-2018 13:47 Back pain, acute, BMI 35.0-35.9,adult, Nonsmoker, Muscle spasm of back [facility] Lab Order On: 13-Mar-2018 15:43 Encounter Diagnosis: Encounter for screening for lipid disorder, Hypothyroidism End: 13-Mar-2018 15:47 [facility] Office Visit On: 03-Jun-2017 8:47 Encounter Reason: Follow up for chronic medical issues - The patient feels well with minor complaints (break thru headaches), has good energy level and is sleeping poorly. Patient has been compliant with instructions. Cu End: 03-Jun-2017 9:53 rrent medication use: no side effects and compliant with dosing regimen. Patient sleeps 6 hours per night. Nutrition: balanced diet and no supplemental vitamins & iron. The medical issues the patien t is following up for include All identified problems below, hypothyroid and other. weight :.Encounter Diagnosis: Hypothyroidism, Nonsmoker, BMI 35.0-35.9,adult, Migraine (346.80), Encounter for screening for lipid disorder [facility] Office Visit On: 07-Jun-2016 9:58 Encounter Reason: Follow up for chronic medical issues - The patient feels well with minor complaints, has good energy level and is sleeping poorly. Patient has been compliant with instructions. Current medication use: n End: 07-Jun-2016 11:12 o side effects and compliant with dosing regimen. Patient sleeps 6 hours per night. Nutrition: balanced diet and no supplemental vitamins & iron. The medical issues the patient is following up for i nclude All identified problems below, hypothyroid and other. weight :.Encounter Diagnosis: Hypothyroidism, Elevated blood pressure (not hypertension), Plantar fasciitis (728.71), Migraine (346.80), Low HDL (under 40) [facility] Lab Order On: 07-Jun-2016 9:45 Encounter Diagnosis: Low HDL (under 40), Elevated blood pressure (not hypertension), Hypothyroidism End: 07-Jun-2016 9:47 [facility] Office Visit On: 31-May-2015 10:39 Encounter Reason: Follow up for chronic medical issues - The patient feels well with no complaints, has good energy level and is sleeping well. Patient has been compliant with instructions. Current medication use: no shelly End: 31-May-2015 11:18 e effects and compliant with dosing regimen. Patient sleeps 6 hours per night. Nutrition: balanced diet, no supplemental vitamins & iron and low salt diet. The medical issues the patient is followin g up for include All identified problems below, high blood pressure and other (migraine/headaches, plantar fascitis, low hdl, abn tsh). Note for Follow up for chronic medical issues: weight coming fozia n and doing cardio kickboxing- nice and she loves it and losing weight easily- no migraines since last visiti a year ago and small dose of topamx- bp is good- plantar fasciiitis got right foot surgicall y fixed left bother if going barefoot so trying to work on that, [ADDITIONAL REASON] Follow up tests - Diagnostic tests include other (labs). Date: (05/26/15). Encounter Diagnosis: Hypothyroidism(244.9), Migraine (346.80), Low HDL (272.5), Abnormal TSH (794.5), Plantar fasciitis (728.71) [facility] Annotation/Addendum On: 21-Apr-2015 15:11 Encounter Diagnosis: Unspecified Diagnosis End: 21-Apr-2015 15:13 [facility] Office Visit On: 10-Jun-2014 11:55 Encounter Reason: Follow up for chronic medical issues - The patient feels well with no complaints, has good energy level and is sleeping well. Patient has been compliant with instructions. Current medication use: no shelly End: 10-Jun-2014 13:23 e effects and compliant with dosing regimen. Patient sleeps 6 hours per night. Nutrition: balanced diet, no supplemental vitamins & iron and low salt diet. The medical issues the patient is followin g up for include All identified problems below, high blood pressure and other (migraine/headaches, plantar fascitis, low hdl, abn tsh). Note for Follow up for chronic medical issues: she is down 14 po ounds and training for [employer]- and feels good doing it - and doing physicians weight loss- no headaches and feet doing good - just doing topamax 25 mg a day, [ADDITIONAL REASON] Follow up tests - Diagnostic tests include other (labs). Date: (06/02/14). Encounter Diagnosis: Hypothyroidism(244.9), Migraine (346.80), Plantar fasciitis (728.71), Low HDL (272.5) [facility] Office Visit On: 01-Sep-2013 9:18 Encounter Reason: Earache - The earache has been occurring in a persistent pattern for 4 hours. The course has been increasing. The earache is described as a moderate dull ache (and tckley). It affects the left ear. The End: 01-Sep-2013 9:46 pain affects the internal ear. There has been associated headache and nasal congestion, while there has been no fever, protrusion of ear, recent swimming, runny nose, sinus problems or sore throat. Note for Earache: have had before tender rt ear Encounter Diagnosis: OTITIS EXTERNA, UNSPECIFIED (380.10), Eustachian tube dysfunction (381.81) [facility] Office Visit On: 11-Aug-2013 11:12 Encounter Reason: Follow up for chronic medical issues - The patient feels well with no complaints, has good energy level and is sleeping well. Patient has been compliant with instructions. Current medication use: no shelly End: 11-Aug-2013 11:48 e effects and compliant with dosing regimen. Patient sleeps 6 hours per night. Nutrition: balanced diet, no supplemental vitamins & iron and low salt diet. The medical issues the patient is followin g up for include All identified problems below, high blood pressure and other (migraine/headaches, plantar fascitis, low hdl, abn tsh). Note for Follow up for chronic medical issues: she feels good an d nomigraines with topamax and no side effects - bp is good - and thyroid good- she just walked 1/2 marathon- hdl still low- try walnuts- mood good- she is going to try physicans weight loss- and my fintess pal, [ADDITIONAL REASON] Follow up tests - Diagnostic tests include other (labs). Date: (08/05/13). Encounter Diagnosis: Migraine (346.80), Hypothyroidism(244.9), Low HDL (272.5) [facility] Office Visit On: 09-Feb-2013 10:16 Encounter Reason: Follow up for chronic medical issues - The patient feels well with minor complaints (right wrist pain), has good energy level and is sleeping well. Patient has been compliant with instructions. Current End: 09-Feb-2013 10:59 medication use: no side effects and compliant with dosing regimen. Patient sleeps 6 hours per night. Nutrition: balanced diet, no supplemental vitamins & iron and low salt diet. The medical issues t he patient is following up for include All identified problems below, high blood pressure and other (migraine/headaches, plantar fascitis, low hdl, abn tsh). Note for Follow up for chronic medical issu es: she has had really minimal migraines since on topamax- taking full dose in am and 1/2 in pm and no side effects - her diastolics at work usually running 70-80- , [ADDITIONAL REASON] Follow up tests - Diagnostic tests include other (labs). Date: (02/02/13). , [ADDITIONAL REASON] Wrist Pain - Symptoms include wrist pain, while symptoms do not include swelling , redness, warmth, stiffness or decreased range of motion. Symptoms are located in the right wrist. There is no radiation. The patient describes the pain as sharp and aching. Onset was gradual 12 month( s) ago. The symptoms occur frequently. The patient describes symptoms as worsening. Associated symptoms do not include numbness in the hand, weakness in the hand, pain in the hand, fever or chills. The patient is not currently being treated for this problem. Note for Wrist pain: Seen Ortho at [facility] and she wasnt impressed with what he had to say so wants another opinion. 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- right handed and right hand Encounter Diagnosis: perimenstrual dysphoric sx, Hypothyroidism(244.9), Migraine (346.80), Elevated Blood Pressure(796.2), Low HDL (272.5), Wrist pain, right (719.43) [facility] Phone Encounter On: 19-Jan-2013 13:42 Encounter Diagnosis: Elevated Blood Pressure(796.2), Low HDL (272.5), Abnormal TSH (794.5) End: 19-Jan-2013 13:44 [facility] Phone Encounter On: 05-Nov-2012 9:24 Encounter Diagnosis: Shoulder pain (719.41) End: 05-Nov-2012 9:33 [facility] Office Visit On: 17-Mar-2012 10:59 Encounter Reason: Follow up for chronic medical issues - The patient feels well with minor complaints (only taking topamax qd instead of bid), has good energy level and is sleeping well. Patient has been compliant with i End: 17-Mar-2012 11:59 nstructions. Current medication use: no side effects and compliant with dosing regimen. Patient sleeps 6 hours per night. Nutrition: balanced diet, no supplemental vitamins & iron and low salt diet. The medical issues the patient is following up for include All identified problems below, high blood pressure and other (migraine/headaches, plantar fascitis, low hdl, abn tsh). Note for Follow up for chronic medical issues: weight down and feeling better now with lowering thyroid down to once a day- after changed dose within week better - was making her too tired to do anything on 50 mg a day - liban pittmannt had headaches onlower dose and been a week and bp is good- she is not exercisng but doing ideal protein diet, [ADDITIONAL REASON] Follow up tests - Diagnostic tests include other (labs). Date: (03/06/12). Encounter Diagnosis: Migraine (346.80), perimenstrual dysphoric sx, Elevated Blood Pressure(796.2), Abnormal TSH (794.5), screening, Low HDL (272.5) [facility] Phone Encounter On: 02-Mar-2012 18:06 Encounter Diagnosis: Abnormal TSH (794.5) End: 02-Mar-2012 18:07 [facility] Office Visit On: 25-Sep-2011 10:09 Encounter Reason: Follow up ER - Reason for hospitalization note: ([facility]). Patient has been compliant with instructions. Current medication use: no side effects and compliant with dosing regimen. The patient feels well wi End: 25-Sep-2011 10:44 th minor complaints, has good energy level and is sleeping well.Encounter Diagnosis: WOUND OPEN, SITE NOS W/COMPLICATION (879.9), Cellulitis/ Abcess of leg (682.6) [facility] Office Visit On: 09-Sep-2011 10:02 Encounter Reason: Follow up for chronic medical issues - The patient feels well with minor complaints (uti symptoms), has decreased energy level and is sleeping well. Patient has been compliant with instructions. Current End: 09-Sep-2011 10:44 medication use: no side effects and compliant with dosing regimen. Patient sleeps 6 hours per night. Nutrition: balanced diet, no supplemental vitamins & iron and low salt diet. The medical issues the patient is following up for include All identified problems below, high blood pressure and other (migraine/headaches, plantar fascitis, low hdl, abn tsh). Note for Follow up for chronic medical iss ues: no migraines in jul- but nov little with weather didnt need imitrex- bps at work are good no 88 diatolic, [ADDITIONAL REASON] Abdominal pain - The onset of the pain has been sudden and has been occurring in a persistent pattern for 3 days. The course has been constant. The pain is described as a mild pressure sensation (above bladder). The pain is described as being located in the suprapubic area. The sushil n does not radiate. The symptoms have no aggravating factors. The symptoms have no relieving factors. There has been no associated bloating, constipation, dark urine, diarrhea, dysuria, fever, heartburn , nausea, vaginal bleeding, vaginal discharge or vomiting. Note for Abdominal pain: hx of kidney stone x2- - both times pain right lower suprapubic and had again- was driving in car and eventually nex t day was better but still like uti- no flank pain- no dysuria or freq only pressure and today feels well Encounter Diagnosis: Headache, tension (307.81), Abdominal Pain,Unspecified Site (789.00), Need for prophylactic vaccination and inoculation against influenza (V04.81), Abnormal TSH (794.5), Elevated Blood Pressure(796.2), Low HDL (272.5) [facility] Office Visit On: 10-Jun-2011 16:21 Encounter Reason: Follow up tests - Diagnostic tests include mammography and other (labs). Date: (06/07/11). Current symptoms include headache. Note for Follow up tests: Pt was doing well with topamax controlling her he End: 10-Jun-2011 21:55 adaches and then she had her Mirena changed and since then she has had them frequently alot, but still not as much or as bad as before. She believes there hormone related.-she is checking bps and gettin g 110s /70s- amitryptyline made her tired at 10mg- on waiting list for bermudezEncounter Diagnosis: Migraine (346.80), Elevated Blood Pressure(796.2), Urine, Abnormal (791.9), Abnormal TSH (794.5), Low HDL (272.5) [facility] Phone Encounter On: 16-Apr-2011 17:55 Encounter Diagnosis: Unspecified Diagnosis End: 16-Apr-2011 17:56 [facility] Office Visit On: 05-Mar-2011 9:19 Encounter Reason: new patient female physical - Last seen between 6-12 months ago. General health: feels well with no complaints, has good energy level and is sleeping poorly (has nightmares and sleep walks). The patient End: 05-Mar-2011 10:09 's appetite is normal. Nutrition: appropriate balanced diet. Exercises 2 days per week. Sleeps on average 7 hours per night. Normal bowel and bladder habits. Safety measures include appropriate use of s afety belts and home smoke detectors. Current emotional problems include sleep disturbances (nightmares and sleep walks). screening, mammography (2008), screening, Pap smear (04/2010), TB skin testing (10/2009) and screening, visual acuity (2009). Note for new patient female physical: due for lab in may- gets done with hospital lab yearly- chol has been good- bp not usually up-usually some caffein e daily - had plantar fascia surgery and has been awesome since- she has hx of migraines- for years- has 3-4 bad migraines a year-imitrex usually takes care of - gets tension holly weekly-massage helps- an d thinks could use something for sleep-she sees lorrieiner for pap and mammo-and had breast bx 2007- on right benignEncounter Diagnosis: Headache, tension (307.81), Migraine (346.80), Kidney stone (592.0), Elevated Blood Pressure(796.2), Atypical Nevus(238.2) [facility] [employer] [place] [employer]; a guarantor
--- OUTSIDE RECORDS SUMMARY | 2018-11-05 08:11 | XMS RPT_ITS | Continuity of Care Document ---
:1970 Author Organization [facility] Address [address] [facility] [address] [place] [address] Phone Care Team Providers Name Role Phone Whitney Diaz DO Unavailable TERRENCE Lee Unavailable Unavailable Gravius, Richelle Unavailable Unavailable Unavailable Unavailable Problems Name Dates [...] Status: Active Medications Name Dates Details CALCIUM, 723-974QO-LHFT (Oral Tablet) Active 1 (one) daily (600-200 MG-UNIT) Comments: plus vit d3 Cyclobenzaprine HCl 10 MG Oral Tablet 1 (one) Tablet Tablet PO TID PRN for 0 days Quantity: 63 {Tablet} Refills: 0 Ordered:28-May-2018 Rissa Lee LPN Start : 28-May-2018 Active Cytomel 25 MCG Oral Tablet 1/2 Tablet daily for 90 days Quantity: 45 {Tablet} Refills: 1 Ordered:23-Jul-2018 Kimberley Diaz DO, DO Whitney Start : 23-Jul-2018 Active Synthroid 75 MCG Oral Tablet 1 Tablet qd for 90 days Quantity: 90 {Tablet} Refills: 3 Ordered:01-Jul-2018 Kimberley Diaz DO, DO Whitney Start : 01-Jul-2018 Active Topamax 25 MG [...] days Quantity: 14 {QS} Refills: 0 Ordered:21-Apr-2015 Ping PINON Debra Start : 21-Apr-2015 End : 28-Apr-2015 Inactive [...] (5-240 MG) End : 17-Mar-2012 Discontinued CORTISPORIN, 3.5-31540-9 (Otic Solution) 4 Drop(s) tid or qid for 0 days Quantity: 1 {Solution} Refills: 0 Ordered:10-Jun-2014 Leticia Loera Start : 01-Sep-2013 End : 10-Jun-2014 Discontinued FLUOXETINE HCL, 20MG (Oral Tablet) 1 Tablet two weeks out of month for 0 days Quantity: 30 {Tablet} Refills: 4 Ordered:11-Aug-2013 Mo Kassie Start : 11-Aug-2013 End : 11-Aug-2013 Discontinued NASONEX, 50MCG/ACT (Nasal Suspension) 2 (two) Puff(s) daily for 0 days Quantity: 1 {Suspension} Refills: 0 Ordered:10-Jun-2014 Buffymilagro Leticia Start : 01-Sep-2013 End : 10-Jun-2014 [...] - PT Result: Comments: See Note; NOTES: [facility] Physical Therapy [facility] [facility] [facility] [place] [address] Fax REHABILITATION SERVICES INITIAL EVALUATION MR#: [id number] Acct: [id number] Name: RISSA MCWILLIAMS Rep #: [id number] : 1970 47 From: Pat Lock DPT Referring Dr.: EVIE Adrian Status: REG RCR Insurance: [facility] [employer]Y [employer]URANCE Patient's Visit Information RISSA [...] grab does not stay. 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 [...] to be FAXED BACK to us at [phone] for Medicare purposes. Please let me know if there are questions or concerns regarding this plan of care. Physician Signature: Date: <Electronically signed by Pat Lock DPT> 06/01/18 1150 CC: EVIE Diaz DO ELR Signed For Medicare only, by signing this I certify the plan of care. Physicians Signature Date 16-Oct-2017 SCREENING MAMM (CAD), BILAT Result: Comments: See Note; NOTES: [facility] Imaging Services [address] [place] [address] SCREENING MAMM (CAD), BILAT MR#: [id number] Acct: [id number] Name: RISSA MCWILLIAMS Rep #: [id number] : 1970 F 46 From: Wayne Mascorro MD PCP: Whitney Diaz DO Status: REG CLI Study: SCREENING MAMM (CAD), BILAT Date of Exam: 10/16/17 Exam# [id number] Ordering Dr: Sherry Wilson MD MAMMOGRAPHY - [...] no significant change since the prior study. [facility]/SCR EENING MAMM (CAD), BILAT IMPRESSION: Stable bilateral screening mammogram. Yearly follow-up mammogram recommended. (A) ASSESSMENT CATEGORY: BIRADS Category 2: Benig n. A letter regarding these results will be sent to the patient by the facility within 30 days. Approximately 10% of breast cancers are not detected by mammography. A normal mammogram should not delay biopsy of a clinically suspicious abnormality. [id number] Electronically Signed: Wayne Mascorro MD at 10:53 EST Tel [phone], Service support , CC: Sherry Wilson MD; Whitney Diaz DO Channel Installer: Signed 27-Sep-2016 Bilat Scrn Digital AND CAD Result: Comments: See Note; NOTES: [facility] Imaging Services [address] [place] [address] Verdana 4d Bilat Scrn Digital AND CAD MR#: [id number] Acct: [id number] Name: RISSA MCWILLIAMS Rep #: [id number] : 1970 F 45 From: Wayne Mascorro MD PCP: Whitney Diaz DO Status: REG CLI Study: Bilat Scrn Digital AND CAD Date of Exam: 09/27/16 Exam# [id number] Ordering Dr: Sherry Wilson MD MAMMOGRAPHY - [...] biopsy of a clinic ally suspicious abnormality. [id number] Electronically Signed: Wayne Mascorro MD at 12:38 EST Tel [phone], Service support [phone], CC: Sherry Wilson MD; Birdie Diaz DO Channel Installer: Signed 25-Aug-2015 Bilat Scrn Digital AND CAD Result: Comments: See Note; NOTES: [facility] Imaging Services [address] [place] [address] Verdana 4d Bilat Scrn Digital AND CAD MR#: [id number] Acct: [id number] Name: RISSA MCWILLIAMS Rep #: [id number] : 1970 F 44 From: Wayne Mascorro MD PCP: Kassie Hassan DO Status: [facility] Study: Bilat Scrn Digital AND CAD Date of Exam: 08/25/15 Exam# [id number] Ordering Dr: Sherry Wilson MD MAMMOGRAPHY - [...] Wayne Mascorro MD at 15:37 EST Tel [phone], Service support [phone], CC: Sherry Wilson MD; Kassie Hassan DO Channel Installer: Signed 17-Apr-2015 Emergency Department Summary Result: Comments: See Note; NOTES: [facility] Medical Records Department [address] [place] [address] Emergency Department Summary MR#: [id number] Acct: [id number] Name: RISSA MCWILLIAMS Rep #: [id number] : 1970 44 From: Finesse Yancey MD [...] infection. Finesse Yancey MD T: NTS JOB: [id number] 04/17/15 0130 <Electronically signed by Finesse Yancey MD> Date Finesse Yancey MD CC: Kassie Hassan DO Date Dictated: 04/16/15658 Date Transcribed: 04/16/15658 Channel Installer: Signed 16-Apr-2015 Discharge Instruction Result: Comments: See Note; NOTES: [facility] Medical Records Department [address] [place] [address] Discharge Instruction 04/16/15658 MR#: [id number] Acct: [id number] Name: RISSA MCWILLIAMS Rep #: [id number] : 1970 44 From: Finesse Yancey MD [...] contact your doctor. C all Doctors Registry ([phone]) or report to the closest Emergency Room. Call 911 if necessary. 04/16/15 0701 <Electronically signed by Finesse Yancey MD> Date ___ Finesse Yancey MD Cosigner Signature (If Indicated): Date CC: Kassie Hassan DO 16-Apr-2015 Discharge Instruction Result: Comments: See Note; NOTES: [facility] Medical Records Department [address] [place] [address] Discharge Instruction 04/16/15 0656 MR#: [id number] Acct: [id number] Name: RISSA MCWILLIAMS Rep #: [id number] : 1970 44 From: Finesse Yancey MD [...] problems, contact your doctor. Call Doctors Registry ([phone]) or report to the closest Emergency Room. Call 911 if necessary. 04/16/15 0657 <Electron ically signed by Finesse Yancey MD> Date Finesse Yancey MD Cosigner Signature (If Indicated): Date CC: Kassie Hassan 05-Aug-2014 Bilat Scrn Digital & CAD Result: Comments: See Note; NOTES: [facility] Imaging Services [address] [place] [address] Breast Imaging Report MR#: [id number] Acct: [id number] Name: RISSA MCWILLIAMS Rep #: [id number] : 1970 F 43 From: Wayne Mascorro MD PCP: Kassie Hassan DO Status: REG CLI Exam# [id number] Ordering Dr: Sherry Wilson MD MAMMOGRAPHY - [...] Wayne Mascorro MD at 11:32 EDT Tel [phone], Service support [phone], CC: Sherry Wilson MD; Kassie Hassan DO Channel Installer: Signed Family History Unknown Family Member Name [...] 2.08 m2 Results Date Description Value Details :05 Free T3 Comments: [facility] [address] [facility] [place], [address] FREE T3 2.1 pg/mL (Abnormal) Range: 2.18-3.98 :05 T4 Free Direct Comments: [facility] [address] [place], [address] T4 FREE DIRECT 0.81 ng/dL (Normal) Range: 0.76-1.46 :05 Thyroid Stim Hormone (TSH) Comments: [facility] [address] [place], [address] TSH 2.73 {uIU/mL} (Normal) Range: 0.358-3.74 :31 Free T3 Comments: [facility] [address] [facility] [place], [address] FREE T3 1.8 pg/mL (Abnormal) Range: 2.18-3.98 :31 Lipid Profile Comments: [facility] [address] [place], [address] VLDL 16 mg/dL (Normal) Range: 5-40 LDL [...] 200-240 mg/dL Borderline >240 mg/dL High Risk 45-Lzk-06717:31 T4 Free Direct Comments: [facility] [address] [place], [place], [address] T4 FREE DIRECT 1.06 ng/dL (Normal) Range: 0.76-1.46 93-Ref-20065:31 Thyroid Stim Hormone (TSH) Comments: [facility] [address] [place], [place], [address] TSH 3.36 {uIU/mL} (Normal) Range: 0.358-3.74 79-Lka-411753:30 PAP I-G w/rfx hrHPV Comments: CYTOLOGY INFORMATION:- CLINICAL INFORMATION:- DATE LMP/MENOPAUSE: IUD 09/06/17 LMP- COLLECTION VIAL: Thin Prep Vial- SALES SERVICE PROMOTER SOURCE: CERVICAL/ENDOCERVICAL- COLLECTION TECHNIQUE: BRUSH/SPATULASp ecimen Comme nt: [id number] Comment: No. of containers..01 ThinPrep VialLabCorp (refer to report for specific site)refer to report for address and phone number HPV RFLX Comment (Normal) Comments: The HPV DNA reflex criteria were not met with this specimenresult therefore, no HPV testing was performed.Performed at: [address] [id number] Director: Shiloh Walker MD, Phone: [phone] PAPSMR Comment (Normal) Comments: The Pap smear [...] system. PERFORM Comment (Normal) Comments: Uvaldo Carlin, Manager Actuarial (ASCP) ADEQ Comment (Normal) Comments: Satisfactory for evaluation. Endocervical and/or squamous metaplasticcells (endocervical component) are present. DIAGN Comment (Normal) Comments: NEGATIVE FOR INTRAEPITHELIAL LESION AND MALIGNANCY.PLEASE INDICATE LMP ON FUTURE PATIENT'S REQUEST FORMS. 97-Xes-155304:07 Free T3 Comments: [facility] [address] [place], [address] FREE T3 1.8 pg/mL (Abnormal) Range: 2.18-3.98 10-Ccb-852073:07 Lipid Profile Comments: [facility] [address] [place], [address] VLDL 14 mg/dL (Normal) Range: 5-40 LDL [...] 200-240 mg/dL Borderline >240 mg/dL High Risk 75-Glf-736435:07 T4 Free Direct Comments: [facility] [address] [place], [address] T4 FREE DIRECT 0.93 ng/dL (Normal) Range: 0.76-1.46 44-Gvz-551865:07 Thyroid Stim Hormone (TSH) Comments: [facility] [address] [place], [address] TSH 2.43 {uIU/mL} (Normal) Range: 0.358-3.74 54-Ahb-223301:30 PAP I-G w/rfx hrHPV Comments: CYTOLOGY INFORMATION:- CLINICAL INFORMATION:- DATE LMP/MENOPAUSE: IUD NO MENSES GIVEN LMP- COLLECTION VIAL: Thin Prep Vial- SALES SERVICE PROMOTER SOURCE: CERVICAL/ENDOCERVICAL- COLLECTION TECHNIQUE: BRUSH/SPATULASpecime n Comment: [id number] Comment: No. of containers..01 CYTYC Thin Prep VialLabCorp (refer to report for specific site)refer to report for address and phone number HPV RFLX Comment (Normal) Comments: The HPV DNA reflex criteria were not met with this specimenresult therefore, no HPV testing was performed.Performed at: [address] [place], [place] [id number] Director: Shiloh Walker MD, Phone: [phone] PAPSMR Comment (Normal) Comments: The Pap smear [...] system. PERFORM Comment (Normal) Comments: Angel Yates, Manager Actuarial (ASCP) ADEQ Comment (Normal) Comments: Satisfactory for evaluation. Endocervical and/or squamous metaplasticcells (endocervical component) are present. DIAGN Comment (Normal) Comments: NEGATIVE FOR INTRAEPITHELIAL LESION AND MALIGNANCY. 54-Owg-799831:30 CT/NG WCH BY PCR Comments: [facility] [address] [place], [address] NG by PCR Negative (Normal) [facility] PCR Negative (Normal) 24-Fkc-041778:30 PAP I-G w/rfx hrHPV Comments: CYTOLOGY INFORMATION:- CLINICAL INFORMATION:- DATE LMP/MENOPAUSE: IUD/NO MENSES GIVEN LMP- COLLECTION VIAL: Thin Prep Vial- SALES SERVICE PROMOTER SOURCE: CERVICAL/ENDOCERVICAL- COLLECTION TECHNIQUE: BRUSH/SPATULACYTOLOG Y INFORMATION:- CLINICAL INFORMATION:- DATE LMP/MENOPAUSE: IUD/NO MENSES GIVEN LMP- COLLECTION VIAL: Thin Prep Vial- SALES SERVICE PROMOTER SOURCE: CERVICAL/ENDOCERVICAL- COLLECTION TECHNIQUE: BRUSH/SPATULASpecimen Comme nt: [id number] Comment: No. of containers..01 CYTYC Thin Prep VialLabCorp (refer to report for specific site)refer to report for address and phone number HPV HC,HGH RISK Negative Comments: This high-risk HPV test detects thirteen high-risk types(16/18/31/33/35/39/45/51/52/56/58/59/68) withoutdifferentiation.Performed at: - [facility] [id number] (Normal) b Director: Shiloh Walker MD, Phone: [phone] at: = - [facility] [id number] Director: Shiloh Walker MD, Phone: [phone] HPV RFLX Comment Comments: See below for [...] Pathologist (Normal) PERFORM Comment Comments: Nohemi He, Manager Actuarial (ASCP) (Normal) ADEQ Comment Comments: Satisfactory for evaluation. Endocervical and/or squamous metaplasticcells (endocervical component) are present. (Normal) DIAGN Comment Comments: EPITHELIAL CELL ABNORMALITY.ATYPICAL SQUAMOUS CELLS OF UNDETERMINED SIGNIFICANCE. (Abnormal) 78-Ibc-70145:52 Thyroxine (T4) Free, Comments: PATIENT WAS FASTINGPERFORMED BY: [facility] CenterIfvwak2600 [facility] [id number] Information: [id number] Direct, S T4,Free(Direct) 1.20 ng/dL Range: 0.82-1.77 (Normal) 07-Jun-2016 Triiodothyronine,Free,Seru 2.3 pg/mL (Normal) Comments: PATIENT WAS FASTINGPERFORMED BY: [facility] [facility] [id number] 9:52 m Range: 2.0-4.4 07-Jun-2016 Written Authorization WAR (Normal) Comments: PATIENT WAS FASTINGPERFORMED BY: [facility] [facility] [id number] 9:52 Comments: Written Authorization Received.Authorization received from SIGNATURE ON FILE 21-17-5535Xvkrue by Shaina Mcneal 12-Zmf-84719:52 METABOLIC PANEL, COMPREHENSIVE Comments: PATIENT WAS FASTINGPERFORMED BY: [facility] [id number] ([id number]) ALT (SGPT) 15 [iU]/L (Normal) Range: 0-32 [...] Glucose, Serum 87 mg/dL (Normal) Range: 65-99 :52 CBC, PLATELETS & AUT DIFF Comments: PATIENT WAS FASTINGPERFORMED BY: [facility] CenterHoapiz5450 [facility] [id number] Information: [id number] (85441) Immature Grans (Abs) 0.0 {x10E3/uL} (Normal) Range: [...] {x10E3/uL} (Normal) Range: 3.4-10.8 :52 LIPID PANEL (20382) Comments: PATIENT WAS FASTINGPERFORMED BY: [facility] [id number] LDL/HDL Ratio 1.9 {ratio_units} (Normal) Range: 0.0-3.2 [...] Cholesterol, Total 148 mg/dL (Normal) Range: 100-199 74-Tut-16249:52 TSH (63409) Comments: PATIENT WAS FASTINGPERFORMED BY: [facility] Hsmthg6763 [facility] [id number] TSH 2.770 {uIU/mL} (Normal) Range: 0.450-4.500 57-Kfi-118125:00 PAP I-G w/rfx hrHPV Comments: CYTOLOGY INFORMATION:- CLINICAL INFORMATION:- DATE LMP/MENOPAUSE: IUD LMP- COLLECTION VIAL: Thin Prep Vial- SALES SERVICE PROMOTER SOURCE: CERVICAL/ENDOCERVICAL- COLLECTION TECHNIQUE: BRUSH/SPATULASpecimen Comment: COJAJA [id number] Comment: No. of containers..01 CYTYC Thin Prep VialLabCorp (refer to report for specific site)refer to report for address and phone number HPV RFLX Comment (Normal) Comments: The HPV DNA reflex criteria were not met with this specimenresult therefore, no HPV testing was performed.Performed at: [address] [id number] Director: Alfredo Alejandre MD, Phone: [phone] PAPSMR Comment (Normal) Comments: The Pap smear [...] system. PERFORM Comment (Normal) Comments: Govind Zhang, Manager Actuarial (ASCP) ADEQ Comment (Normal) Comments: Satisfactory for evaluation. Endocervical and/or squamous metaplasticcells (endocervical component) are present. DIAGN Comment (Normal) Comments: NEGATIVE FOR INTRAEPITHELIAL LESION AND MALIGNANCY. 96-Yxh-996937:48 CBC W/Diff, Automated Comments: Test performed at:[facility] [address] [place] [address] ; Non- emergent till apt Absolute Lymph [...] 4.2-5.4 WBC 6.2 K/mm3 (Normal) Range: 4.4-11.0 19-Kmj-801848:48 Comprehensive Metabolic Profil Comments: Test performed at:[facility] [address] [place] [address] GAP 5 (Normal) Range: 5-15 CO2 24.0 [...] Comments: Please note revised CREATININE reference range banwsckij25/22/2015. BUN 17 mg/dL (Normal) Range: 7-18 GLU 78 mg/dL (Normal) Range: 70-110 43-Qje-043216:48 Lipid Profile Comments: Test performed at:[facility] [address] [place] [id number] VLDL 14 mg/dL (Normal) Range: 5-40 LDL [...] 200-240 mg/dL Borderline >240 mg/dL High Risk 80-Onn-678445:48 Thyroid Stim Hormone (TSH) Comments: Test performed at:[facility] [address] [place], [place] [address] TSH 1.74 {uIU/mL} (Normal) Range: 0.358-3.74 16-Apr-20156:30 Urinalysis, Complete Comments: Order Date: 04/16/15How was Urine Obtained? CLEAN CATCHTest performed at:[facility] [address] [facility] [place], [place] [address] ; ordered by sharmaine MUCUS, URINE 0 [...] CLARITY Sl. Cloudy (Normal) COLOR Yellow (Normal) 69-Laf-237732:15 PAPIG5 Comments: CYTOLOGY INFORMATION:- CLINICAL INFORMATION:- DATE LMP/MENOPAUSE: NO MENSES/IUD LMP- COLLECTION VIAL: Thin Prep Vial- SALES SERVICE PROMOTER SOURCE: CERVICAL/ENDOCERVICAL- COLLECTION TECHNIQUE: BRUSH/SPATULASpecimen Comm ent: [id number] Comment: No. of containers..01 CYTYC Thin Prep Vial tHPVRFLX Comment (Normal) Comments: The HPV DNA reflex criteria were not met with this specimenresult therefore, no HPV testing was performed.Performed at: [address] [place] [id number] Director: Alfredo Alejandre MD, Phone: [phone] tPAPSMR Comment (Normal) Comments: The Pap smear is [...] system. tPERFORM Comment (Normal) Comments: Lio Ulloa, Manager Actuarial (ASCP) tADEQ Comment (Normal) Comments: Satisfactory for evaluation. Endocervical and/or squamous metaplasticcells (endocervical component) are present. tDIAG Comment (Normal) Comments: NEGATIVE FOR INTRAEPITHELIAL LESION AND MALIGNANCY. 71-Neh-71551:28 CMP GAP 7 (Normal) Range: 5-15 CO2 [...] CHOL 148 mg/dL (Normal) Comments: <200 mg/dL Kkartcqgc985-839 mg/dL Borderline>240 mg/dL High Risk HDL 46 [...] CHOL 164 mg/dL (Normal) Comments: <200 mg/dL Objpaifam513-522 mg/dL Borderline>240 mg/dL High Risk :13 TSH 1.21 {uIU/mL} (Normal) Range: 0.358-3.74 :19 FT3 2.5 pg/mL (Normal) Range: 2.18-3.98 :19 T4F 1.02 ng/dL (Normal) Range: 0.76-1.46 :19 TPO 10 {IU/mL} (Normal) Range: 0-34 Comments: Performed at: [facility] [address] [id number] Director: Zac Khanna PhD, Phone: [phone] :19 TSH 1.74 {uIU/mL} (Normal) Range: 0.358-3.74 [...] CHOL 159 mg/dL (Normal) Comments: <200 mg/dL Ishimrfog410-767 mg/dL Borderline>240 mg/dL High Risk HDL 41 mg/dL (Normal) Comments: Reference RangeHDL <40 mg/dL Low HDL CholesterolHDL >or= 60 mg/dL High HDL Cholesterol TRIG 114 mg/dL (Normal) Comments: Serum Triglycerides Reference IntervalNormal <150 mg/dLBorderline high 150 - 199 mg/dLHigh 200 - 499 mg/ dLVery High > or = 500 mg/dL :42 TSH 3.77 {uIU/mL} (Abnormal) Range: 0.358-3.74 :26 BILAT SCRN DIGITAL & CAD Radiology Report [...] Mascorro M.D.June 10, 2012 at 9:55:07 AM [id number] Signed GP/G P If you are the referring physician and would like to consult with theradiologist who provided this interpretation, please contact Edelmira Juarez at [phone]. If this radiologist is yovani rob, youwill be directed to another radiologist to assist. If you are a patient with a question regarding this report, pleasecontactyour referring physician directly. Professional Interpretation Provi ded By: RadispNatanael Ulien, Phone , These documents contain legally protected [...] destructionofthese documents. Dictated on 06/10/12 0926 by Nico Mascorro MDribed on 06/10/12 1001 by ITS IMPORTSign Wayne Reyes MD on 06/10/12 1002 Sign by: Wayne Mascorro MD 42-Eqg-75010:36 CUUR Comments: appt 03/17/12 URC See Note {CFU/mL} (Normal) Comments: COLONY COUNT 1000-10,000 :36 FT3 2.5 pg/mL (Normal) Comments: appt 03/17/12 Range: 2.18-3.98 :36 T4F 0.85 ng/dL (Normal) Range: 0.76-1.46 :36 TSH 2.86 {uIU/mL} (Normal) Range: 0.358-3.74 28-Rtg-870437:06 URINE ALFREDO CULTURE-EDWARD COL Comments: PERFORMED BY: [facility] CenterTqbvsu2019 [facility] [id number] Information: SRC: URETHRA COUNT (50230) Result 1 ECV (Normal) Comments: Escherichia coli, identified by an automated biochemical system.1,000 Colonies/mLMixed urogenital Colonies/mL S = Susceptible; I = Intermediate; R = Resistant P = Positive; N = Negative MICS are expressed in micrograms per mL Antibiotic RSLT#1 RSLT#2 RSLT#3 RSLT#4Amoxicillin/Clavulanic Acid SAmpicillin RCefazolin SCefepime SCeftriaxone SCefuroxime SCephalothin ICiprofloxacin SESBL NErtapenem SGentamicin SImipenem SLevofloxacin SNitrofurantoin SPiperacillin RTetracycline RTobramycin STrimethoprim/Sulfa S Urine Final report (Normal) Culture,Comprehensiv e 03-Foe-729574:19 Urinalysis, Office (24022) UA - BILIRUBIN Negative (Normal) UA - [...] (Normal) Range: 0-34 57 Comments: Performed at: [address] [id number] Director: Ashleigh Abraham MD, Phone: [phone] : TSH 3.55 {uIU/mL} (Normal) Range: 0.358-3.74 57 :09 Urinalysis, Office (50747) UA - BILIRUBIN Negative (Normal) UA - BLOOD Hemolyzed Trace (Normal) UA - GLUCOSE Negative (Normal) UA - KETONES Negative mg/dL (Normal) UA - LEUKOCYTE ESTERASE Negative (Normal) UA - NITRITE Negative (Normal) UA - PH 7.0 (Normal) UA - PROTEIN Negative mg/dL (Normal) UA - SPECIFIC GRAVITY 1.020 (Normal) URINE UROBILINGN EDWARD TIMED Normal mg/dL (Normal) :49 CBCD,SMEAR DIFF RED CELL MORPH SeeNote {NORMAL} [...] 4.2-5.4 WBC 5.9 K/mm3 (Normal) Range: 4.4-11.0 22-Vts-827310:40 BILAT SCRN DIGITAL & CAD Radiology Report [...] clinically suspiciousabnormality. Dictated on 06/07/11 0949 by El Mascorro MDranscribed on 06/07/11 1404 by ITS IMPORTSign by Wayne Mascorro MD on 06/07/11 1405 Sign by: Wayne Mascorro MD TSH 5.38 {uIU/mL} Range: 0.358-3.74 :31 (Abnormal) 48-Qma-713312:19 COMPLETE UA MUCUS, URINE 0 SEEN {/hpf} [...] Indication: Low HDL (under 40) Planned Observations T4, FREE (THYROXINE) (88963)Indication: Hypothyroidism On: : Request TSH (75906)Indication: Hypothyroidism On: : Request Anti-TPO Antibody (47026)Indication: Hypothyroidism On: :25 Request T4, TOTAL (12990)Indication: Hypothyroidism On: :25 Request T3, TOTAL (TRIDOTHYRONINE) (42507)Indication: Hypothyroidism On: :25 Request T3, FREE (TRIDOTHYRONINE) (22431)Indication: Hypothyroidism On: :24 Request T-3 UPTAKE (43731)Indication: Hypothyroidism On: :24 Request FREE TRIDOTHYRONINE (T3) (58175)Indication: T3 low in serum On: :08 Request TSH (45602)Indication: Hypothyroidism On: :18 Request T4, FREE (THYROXINE) (91042)Indication: Hypothyroidism On: :18 Request T3, FREE (TRIDOTHYRONINE) (00057)Indication: Hypothyroidism On: :18 Request T4, FREE (THYROXINE) (52998)Indication: T3 low in serum On: :37 Request T3, FREE (TRIDOTHYRONINE) (20192)Indication: T3 low in serum On: :37 Request T4, FREE (THYROXINE) (64811)Indication: Hypothyroidism On: :46 Request T3, FREE (TRIDOTHYRONINE) (15308)Indication: Hypothyroidism On: :46 Request TSH (THYROID STIMULATING HORMONE) (89012)Indication: Hypothyroidism On: :45 Request LIPID PANEL (23385)Indication: Encounter for screening for lipid disorder On: :44 Request LIPID PANEL (52902)Indication: Encounter for screening for lipid disorder On: :47 Request T3, FREE (TRIDOTHYRONINE) ([id number])Indication: Hypothyroidism On: :48 Request T4, FREE (THYROXINE) ([id number])Indication: Hypothyroidism On: :48 Request TSH ([id number])Indication: Hypothyroidism On: :48 Request T4, FREE (THYROXINE) ([id number])Indication: Hypothyroidism On: 06-Nsk-607492:02 Request T3, FREE (TRIDOTHYRONINE) ([id number])Indication: Hypothyroidism On: 94-Mvh-020037:01 Request METABOLIC PANEL, COMPREHENSIVE ([id number])Indication: Elevated blood pressure (not hypertension) On: 0-Wfi-886430:58 Request LIPID PANEL ([id number])Indication: Low HDL (under 40) On: :34 Request TSH ([id number])Indication: Hypothyroidism On: :34 Request CBC W/AUTO DIFF WBC ([id number])Indication: Migraine On: :34 Request METABOLIC PANEL, COMPREHENSIVE ([id number])Indication: Migraine On: :34 Request METABOLIC PANEL, COMPREHENSIVE ([id number])Indication: Migraine On: 13-Pme-805278:48 Request TSH ([id number])Indication: Hypothyroidism On: 29-Jqu-005109:48 Request LIPID PANEL ([id number])Indication: Low HDL (under 40) On: 47-Wrb-430454:48 Request TSH ([id number])Indication: Hypothyroidism On: 4-Uqw-744657:57 Request LIPID PANEL ([id number])Indication: Low HDL (under 40) On: 9-Mkc-903491:57 Request T3, FREE (TRIDOTHYRONINE) ([id number])Indication: Hypothyroidism On: 23-Etm-819440:43 Request T4, FREE (THYROXINE) ([id number])Indication: Hypothyroidism On: 29-Kcq-567864:43 Request Anti-TPO Antibody ([id number])Indication: Hypothyroidism On: 71-Afs-432766:43 Request TSH ([id number])Indication: Hypothyroidism On: 72-Dki-603098:43 Request TSH ([id number])Indication: Abnormal TSH On: 2-Xfh-115347:43 Request Lipid Panel ([id number])Indication: Low HDL (under 40) On: 1-Djc-870837:43 Request Metabolic Panel, Comprehensive ([id number])Indication: Elevated blood pressure (not hypertension) On: 9-Shp-016420:43 Request LIPID PANEL ([id number])Indication: Low HDL (under 40) On: 7-Tpt-631865:58 Request TSH ([id number])Indication: Abnormal TSH On: 46-Dul-207785:07 Request T4, FREE (THYROXINE) ([id number])Indication: Abnormal TSH On: 71-Gjl-139909:07 Request T3, FREE (TRIDOTHYRONINE) ([id number])Indication: Abnormal TSH On: 30-Xne-976060:07 Request LIPID PANEL ([id number])Indication: Low HDL (under 40) On: 46-Tth-724803:38 Request METABOLIC PANEL, COMPREHENSIVE ([id number])Indication: Elevated blood pressure (not hypertension) On: :38 Request T4, FREE (THYROXINE) ([id number])Indication: Abnormal TSH On: :10 Request T3, FREE (TRIDOTHYRONINE) ([id number])Indication: Abnormal TSH On: :10 Request Anti-TPO Antibody ([id number])Indication: Abnormal TSH On: :10 Request TSH ([id number])Indication: Abnormal TSH On: :09 Request LIPID PANEL ([id number])Indication: Elevated blood pressure (not hypertension) On: :54 Request TSH ([id number])Indication: Elevated blood pressure (not hypertension) On: :54 Request URINALYSIS, W/ MICRO ([id number])Indication: Elevated blood pressure (not hypertension) On: :53 Request METABOLIC PANEL, COMPREHENSIVE ([id number])Indication: Elevated blood pressure (not hypertension) On: :53 Request CBC WITH MANUAL DIFF ([id number])Indication: Elevated blood pressure (not hypertension) On: :53 Request Planned Procedures PHYSICAL THERAPY ([id number])By: Nguyễn On: 28-May-2018 Intent Rissa Comments: Order given for dry needling Eprescribed prescriptions ([id number])By: On: 01-Sep-2013 Intent Elo Jung LPN Eprescribed prescriptions ([id number])By: On: 11-Aug-2013 Intent Leticia Loera Eprescribed prescriptions ([id number])By: On: 09-Feb-2013 Intent Leticia Loera MAMMOGRAM, SCREENING, BOTH BREASTS On: 17-Mar-2012 Intent ([id number])By: Fast DO, Kassie A Eprescribed prescriptions ([id number])By: On: 09-Sep-2011 Intent Fast DO, Kassie A TDAP VACCINE >7 IM ([id number])By: On: 09-Sep-2011 Intent Leticia Loera Comments: work FLU VAC, SPLIT, >3 YEARS, INTRAMUSC On: 09-Sep-2011 Intent ([id number])By: Leticia Loera Comments: work Instructions Name Dates [...] Patient Instructions Indication: perimenstrual dysphoric sx Encounters Phone Encounter On: 09-Sep-2018 14:24 Encounter Diagnosis: [...] down 14 po ounds and training for [employer]- and feels good doing it - and [...] Note for Wrist pain: Seen Ortho at [facility] and she wasnt impressed with what [...] on 50 mg a day - liban levine had headaches onlower dose and been a [...] iss ues: no migraines in jul- but aug little with weather didnt need imitrex- bps [...] thinks could use something for sleep-she sees tesha for pap and mammo-and had breast bx 2007- on right benignEncounter Diagnosis: Headache, tension (307.81), Migraine (346.80), Kidney stone (592.0), Elevated Blood Pressure(796.2), Atypical Nevus(238.2) [facility] [employer] [place] [facility] [employer]; a guarantor
--- OUTSIDE RECORDS SUMMARY | 2018-11-05 08:12 | XMS RPT_ITS | Continuity of Care Document ---
:1970 Author Organization [facility] Address [address] [place] [address] Phone Care Team Providers Name Role Phone [...] Status: Active Medications Name Dates Details CALCIUM, 726-738YW-UGYD (Oral Tablet) Active 1 (one) daily (600-200 [...] (5-240 MG) End : 17-Mar-2012 Discontinued CORTISPORIN, 3.5-34900-9 (Otic Solution) 4 Drop(s) tid or qid [...] - PT Result: Comments: See Note; NOTES: [facility] Physical Therapy [facility] [place] [address] Fax REHABILITATION SERVICES INITIAL EVALUATION MR#: [id number] Acct: [id number] Name: RISSA MCWILLIAMS Rep #: [id number] : 1970 47 From: Pat Lock DPT Referring Dr.: EVIE Adrian Status: REG RCR Insurance: [facility] SELF PAY INSURANCE Patient's Visit Information RISSA [...] grab does not stay. 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 No [...] to be FAXED BACK to us at [phone] for Medicare purposes. Please let me know if there are questions or concerns regarding this plan of care. Physician Signature: Date: <Electronically signed by Pat Lock DPT> 06/01/18 1150 CC: EVIE Diaz DO ELR Signed For Medicare only, by signing this I certify the plan of care. Physicians Signature Date 16-Oct-2017 SCREENING MAMM (CAD), BILAT Result: Comments: See Note; NOTES: [facility] Imaging Services [address] [place] [address] SCREENING MAMM (CAD), BILAT MR#: [id number] Acct: [id number] Name: RISSA MCWILLIAMS Rep #: [id number] : 1970 F 46 From: Wayne Mascorro MD PCP: Whitney Diaz DO Status: REG CLI Study: SCREENING MAMM (CAD), BILAT Date of Exam: 10/16/17 Exam# [id number] Ordering Dr: Sherry Wilson MD MAMMOGRAPHY - [...] no significant change since the prior study. [facility]/SCR EENING MAMM (CAD), BILAT IMPRESSION: Stable bilateral screening mammogram. Yearly follow-up mammogram recommended. (A) ASSESSMENT CATEGORY: BIRADS Category 2: Benig n. A letter regarding these results will be sent to the patient by the facility within 30 days. Approximately 10% of breast cancers are not detected by mammography. A normal mammogram should not delay biopsy of a clinically suspicious abnormality. [id number] Electronically Signed: Wayne Mascorro MD at 10:53 EST Tel [phone], Service support , CC: Sherry Wilson MD; Whitney Diaz DO Restaurant Culinary Manager: Signed 27-Sep-2016 Bilat Scrn Digital AND CAD Result: Comments: See Note; NOTES: [facility] Imaging Services [address] [place] [address] Verdana 4d Bilat Scrn Digital AND CAD MR#: [id number] Acct: [id number] Name: RISSA MCWILLIAMS Rep #: [id number] : 1970 F 45 From: Wayne Mascorro MD PCP: Whitney Diaz DO Status: REG CLI Study: Bilat Scrn Digital AND CAD Date of Exam: 09/27/16 Exam# [id number] Ordering Dr: Sherry Wilson MD MAMMOGRAPHY - [...] biopsy of a clinic ally suspicious abnormality. [id number] Electronically Signed: Wayne Mascorro MD at 12:38 EST Tel [phone], Service support [phone], CC: Sherry Wilson MD; Birdie Diaz DO Restaurant Culinary Manager: Signed 25-Aug-2015 Bilat Scrn Digital AND CAD Result: Comments: See Note; NOTES: [facility] Imaging Services [address] [place] [address] Verdana 4d Bilat Scrn Digital AND CAD MR#: [id number] Acct: [id number] Name: RISSA MCWILLIAMS Rep #: [id number] : 1970 F 44 From: Wayne Mascorro MD PCP: Kassie Hassan DO Status: [facility] CL Study: Bilat Scrn Digital AND CAD Date of Exam: 08/25/15 Exam# [id number] Ordering Dr: Sherry Wilson MD MAMMOGRAPHY - [...] Wayne Mascorro MD at 15:37 EST Tel [phone], Service support [phone], CC: Sherry Wilson MD; Kassie Hassan DO Restaurant Culinary Manager: Signed 17-Apr-2015 Emergency Department Summary Result: Comments: See Note; NOTES: [facility] Medical Records Department [address] [place] [address] Emergency Department Summary MR#: [id number] Acct: [id number] Name: RISSA MCWILLIAMS Rep #: [id number] : 1970 44 From: Finesse Yancey MD [...] infection. Finesse Yancey MD T: NTS JOB: [id number] 04/17/15 0130 <Electronically signed by Finesse Yancey MD> Date Finesse Yancey MD CC: Kassie Hassan DO Date Dictated: 04/16/15658 Date Transcribed: 04/16/15658 Restaurant Culinary Manager: Signed 16-Apr-2015 Discharge Instruction Result: Comments: See Note; NOTES: [facility] Medical Records Department [address] [place] [address] Discharge Instruction 04/16/15658 MR#: [id number] Acct: [id number] Name: RISSA MCWILLIAMS Rep #: [id number] : 1970 44 From: Finesse Yancey MD [...] contact your doctor. C all Doctors Registry ([phone]) or report to the closest Emergency Room. Call 911 if necessary. 04/16/15 0701 <Electronically signed by Finesse Yancey MD> Date ___ Finesse Yancey MD Cosigner Signature (If Indicated): Date CC: Kassie Hassan DO 16-Apr-2015 Discharge Instruction Result: Comments: See Note; NOTES: [facility] Medical Records Department [address] [place] [address] Discharge Instruction 04/16/15 0656 MR#: [id number] Acct: [id number] Name: RISSA MCWILLIAMS Rep #: [id number] : 1970 44 From: Finesse Yancey MD [...] problems, contact your doctor. Call Doctors Registry ([phone]) or report to the closest Emergency Room. Call 911 if necessary. 04/16/15 0657 <Electron ically signed by Finesse Yancey MD> Date Finesse Yancey MD Cosigner Signature (If Indicated): Date CC: Kassie Hassan 05-Aug-2014 Bilat Scrn Digital & CAD Result: Comments: See Note; NOTES: [facility] Imaging Services [address] [place] [address] Breast Imaging Report MR#: [id number] Acct: [id number] Name: RISSA MCWILLIAMS Rep #: [id number] : 1970 F 43 From: Wayne Mascorro MD PCP: Kassie Hassan DO Status: REG CLI Exam# [id number] Ordering Dr: Sherry Wilson MD MAMMOGRAPHY - [...] Wayne Mascorro MD at 11:32 EDT Tel [phone], Service support [phone], CC: Sherry Wilson MD; Kassie Hassan DO Restaurant Culinary Manager: Signed Family History Unknown Family Member Name [...] Description Value Details :05 Free T3 Comments: [facility] [address] [facility] [place], [address] FREE T3 2.1 pg/mL (Abnormal) Range: 2.18-3.98 :05 T4 Free Direct Comments: [facility] [address] [place], [address] T4 FREE DIRECT 0.81 ng/dL (Normal) Range: 0.76-1.46 :05 Thyroid Stim Hormone (TSH) Comments: [facility] [address] [place], [address] TSH 2.73 {uIU/mL} (Normal) Range: 0.358-3.74 :31 Free T3 Comments: [facility] [address] [facility] [place], [address] FREE T3 1.8 pg/mL (Abnormal) Range: 2.18-3.98 :31 Lipid Profile Comments: [facility] [address] [place], [address] VLDL 16 mg/dL (Normal) Range: 5-40 LDL [...] 200-240 mg/dL Borderline >240 mg/dL High Risk 64-Itm-25017:31 T4 Free Direct Comments: [facility] [address] [place], [place], [address] T4 FREE DIRECT 1.06 ng/dL (Normal) Range: 0.76-1.46 47-Laz-82536:31 Thyroid Stim Hormone (TSH) Comments: [facility] [address] [place], [place], [address] TSH 3.36 {uIU/mL} (Normal) Range: 0.358-3.74 98-Odr-450214:30 PAP I-G w/rfx hrHPV Comments: CYTOLOGY INFORMATION:- CLINICAL INFORMATION:- DATE LMP/MENOPAUSE: IUD 09/06/17 LMP- COLLECTION VIAL: Thin Prep Vial- DIGITAL CAMERA TECHNICIAN SOURCE: CERVICAL/ENDOCERVICAL- COLLECTION TECHNIQUE: BRUSH/SPATULASp ecimen Comme nt: [id number] Comment: No. of containers..01 ThinPrep VialLabCorp (refer to report for specific site)refer to report for address and phone number HPV RFLX Comment (Normal) Comments: The HPV DNA reflex criteria were not met with this specimenresult therefore, no HPV testing was performed.Performed at: [address] [id number] Director: Shiloh Walker MD, Phone: [phone] PAPSMR Comment (Normal) Comments: The Pap smear [...] PERFORM Comment (Normal) Comments: Uvaldo Carlin, Manager Strategic (ASCP) ADEQ Comment (Normal) Comments: Satisfactory for evaluation. Endocervical and/or squamous metaplasticcells (endocervical component) are present. DIAGN Comment (Normal) Comments: NEGATIVE FOR INTRAEPITHELIAL LESION AND MALIGNANCY.PLEASE INDICATE LMP ON FUTURE PATIENT'S REQUEST FORMS. 59-Isr-530298:07 Free T3 Comments: [facility] [address] [place], [address] FREE T3 1.8 pg/mL (Abnormal) Range: 2.18-3.98 82-Tlz-997851:07 Lipid Profile Comments: [facility] [address] [place], [address] VLDL 14 mg/dL (Normal) Range: 5-40 LDL [...] 200-240 mg/dL Borderline >240 mg/dL High Risk 20-Kss-727944:07 T4 Free Direct Comments: [facility] [address] [place], [address] T4 FREE DIRECT 0.93 ng/dL (Normal) Range: 0.76-1.46 38-Wmq-827576:07 Thyroid Stim Hormone (TSH) Comments: [facility] [address] [place], [address] TSH 2.43 {uIU/mL} (Normal) Range: 0.358-3.74 96-Kev-593068:30 PAP I-G w/rfx hrHPV Comments: CYTOLOGY INFORMATION:- CLINICAL INFORMATION:- DATE LMP/MENOPAUSE: IUD NO MENSES GIVEN LMP- COLLECTION VIAL: Thin Prep Vial- DIGITAL CAMERA TECHNICIAN SOURCE: CERVICAL/ENDOCERVICAL- COLLECTION TECHNIQUE: BRUSH/SPATULASpecime n Comment: [id number] Comment: No. of containers..01 CYTYC Thin Prep VialLabCorp (refer to report for specific site)refer to report for address and phone number HPV RFLX Comment (Normal) Comments: The HPV DNA reflex criteria were not met with this specimenresult therefore, no HPV testing was performed.Performed at: [address] [place], [place] [id number] Director: Shiloh Walker MD, Phone: [phone] PAPSMR Comment (Normal) Comments: The Pap smear [...] PERFORM Comment (Normal) Comments: Angel Yates, Manager Strategic (ASCP) ADEQ Comment (Normal) Comments: Satisfactory for evaluation. Endocervical and/or squamous metaplasticcells (endocervical component) are present. DIAGN Comment (Normal) Comments: NEGATIVE FOR INTRAEPITHELIAL LESION AND MALIGNANCY. 41-Vtx-036613:30 CT/NG WCH BY PCR Comments: [facility] [address] [place], [address] NG by PCR Negative (Normal) [facility] PCR Negative (Normal) 31-Pib-158650:30 PAP I-G w/rfx hrHPV Comments: CYTOLOGY INFORMATION:- CLINICAL INFORMATION:- DATE LMP/MENOPAUSE: IUD/NO MENSES GIVEN LMP- COLLECTION VIAL: Thin Prep Vial- DIGITAL CAMERA TECHNICIAN SOURCE: CERVICAL/ENDOCERVICAL- COLLECTION TECHNIQUE: BRUSH/SPATULACYTOLOG Y INFORMATION:- CLINICAL INFORMATION:- DATE LMP/MENOPAUSE: IUD/NO MENSES GIVEN LMP- COLLECTION VIAL: Thin Prep Vial- DIGITAL CAMERA TECHNICIAN SOURCE: CERVICAL/ENDOCERVICAL- COLLECTION TECHNIQUE: BRUSH/SPATULASpecimen Comme nt: [id number] Comment: No. of containers..01 CYTYC Thin Prep VialLabCorp (refer to report for specific site)refer to report for address and phone number HPV HC,HGH RISK Negative Comments: This high-risk HPV test detects thirteen high-risk types(16/18/31/33/35/39/45/51/52/56/58/59/68) withoutdifferentiation.Performed at: - [facility] [id number] (Normal) b Director: Shiloh Walker MD, Phone: [phone] at: = - [facility] [id number] Director: Shiloh Walker MD, Phone: [phone] HPV RFLX Comment Comments: See below for [...] (Normal) PERFORM Comment Comments: Nohemi He, Manager Strategic (ASCP) (Normal) ADEQ Comment Comments: Satisfactory for evaluation. Endocervical and/or squamous metaplasticcells (endocervical component) are present. (Normal) DIAGN Comment Comments: EPITHELIAL CELL ABNORMALITY.ATYPICAL SQUAMOUS CELLS OF UNDETERMINED SIGNIFICANCE. (Abnormal) 68-Xqh-38087:52 Thyroxine (T4) Free, Comments: PATIENT WAS FASTINGPERFORMED BY: [facility] HospitalWmamtq4721 [facility] [id number] Information: [id number] Direct, S T4,Free(Direct) 1.20 ng/dL Range: 0.82-1.77 (Normal) 07-Jun-2016 Triiodothyronine,Free,Seru 2.3 pg/mL (Normal) Comments: PATIENT WAS FASTINGPERFORMED BY: [facility]6370 [facility] [id number] 9:52 m Range: 2.0-4.4 07-Jun-2016 Written Authorization WAR (Normal) Comments: PATIENT WAS FASTINGPERFORMED BY: [facility]6[address] [facility] [id number] 9:52 Comments: Written Authorization Received.Authorization received from SIGNATURE ON FILE [id number] by Shaina Mcneal 86-Fzm-24332:52 METABOLIC PANEL, COMPREHENSIVE Comments: PATIENT WAS FASTINGPERFORMED BY: [facility] [id number] (56613) ALT (SGPT) 15 [iU]/L (Normal) Range: 0-32 [...] AUT DIFF Comments: PATIENT WAS FASTINGPERFORMED BY: [facility] HospitalNgcfdk5778 [facility] [id number] Information: [id number] (73967) Immature Grans (Abs) 0.0 {x10E3/uL} (Normal) Range: [...] {x10E3/uL} (Normal) Range: 3.4-10.8 :52 LIPID PANEL (11089) Comments: PATIENT WAS FASTINGPERFORMED BY: [facility]6370 [facility] [id number] LDL/HDL Ratio 1.9 {ratio_units} (Normal) Range: 0.0-3.2 [...] Cholesterol, Total 148 mg/dL (Normal) Range: 100-199 62-Xbp-74270:52 TSH (59553) Comments: PATIENT WAS FASTINGPERFORMED BY: [facility] Dfjcqh0263 [facility] [id number] TSH 2.770 {uIU/mL} (Normal) Range: 0.450-4.500 02-Xjn-430102:00 PAP I-G w/rfx hrHPV Comments: CYTOLOGY INFORMATION:- CLINICAL INFORMATION:- DATE LMP/MENOPAUSE: IUD LMP- COLLECTION VIAL: Thin Prep Vial- DIGITAL CAMERA TECHNICIAN SOURCE: CERVICAL/ENDOCERVICAL- COLLECTION TECHNIQUE: BRUSH/SPATULASpecimen Comment: COJAJA [id number] Comment: No. of containers..01 CYTYC Thin Prep VialLabCorp (refer to report for specific site)refer to report for address and phone number HPV RFLX Comment (Normal) Comments: The HPV DNA reflex criteria were not met with this specimenresult therefore, no HPV testing was performed.Performed at: [address] [id number] Director: Alfredo Alejandre MD, Phone: [phone] PAPSMR Comment (Normal) Comments: The Pap smear [...] PERFORM Comment (Normal) Comments: Govind Zhang, Manager Strategic (ASCP) ADEQ Comment (Normal) Comments: Satisfactory for evaluation. Endocervical and/or squamous metaplasticcells (endocervical component) are present. DIAGN Comment (Normal) Comments: NEGATIVE FOR INTRAEPITHELIAL LESION AND MALIGNANCY. 09-Dry-869624:48 CBC W/Diff, Automated Comments: Test performed at:[facility] [address] [place] [address] ; Non- emergent till apt Absolute Lymph [...] 4.2-5.4 WBC 6.2 K/mm3 (Normal) Range: 4.4-11.0 40-Dbn-196635:48 Comprehensive Metabolic Profil Comments: Test performed at:[facility] [address] [place] [address] GAP 5 (Normal) Range: 5-15 CO2 [...] Comments: Please note revised CREATININE reference range hweatgcqw14/22/2015. BUN 17 mg/dL (Normal) Range: 7-18 GLU 78 mg/dL (Normal) Range: 70-110 42-Cin-722682:48 Lipid Profile Comments: Test performed at:[facility] [address] [place] [id number] VLDL 14 mg/dL (Normal) Range: 5-40 LDL [...] 200-240 mg/dL Borderline >240 mg/dL High Risk 52-Fdd-492817:48 Thyroid Stim Hormone (TSH) Comments: Test performed at:[facility] [address] [place], [place] [address] TSH 1.74 {uIU/mL} (Normal) Range: 0.358-3.74 16-Apr-20156:30 Urinalysis, Complete Comments: Order Date: 04/16/15How was Urine Obtained? CLEAN CATCHTest performed at:[facility] [address] [facility] [place], [place] [address] ; ordered by sharmaine MUCUS, URINE 0 [...] CLARITY Sl. Cloudy (Normal) COLOR Yellow (Normal) 83-Jha-990637:15 PAPIG5 Comments: CYTOLOGY INFORMATION:- CLINICAL INFORMATION:- DATE LMP/MENOPAUSE: NO MENSES/IUD LMP- COLLECTION VIAL: Thin Prep Vial- DIGITAL CAMERA TECHNICIAN SOURCE: CERVICAL/ENDOCERVICAL- COLLECTION TECHNIQUE: BRUSH/SPATULASpecimen Comm ent: [id number] Comment: No. of containers..01 CYTYC Thin Prep Vial tHPVRFLX Comment (Normal) Comments: The HPV DNA reflex criteria were not met with this specimenresult therefore, no HPV testing was performed.Performed at: [address] [place] [id number] Director: Alfredo Alejandre MD, Phone: [phone] tPAPSMR Comment (Normal) Comments: The Pap smear [...] tPERFORM Comment (Normal) Comments: Lio Ulloa, Manager Strategic (ASCP) tADEQ Comment (Normal) Comments: Satisfactory for evaluation. Endocervical and/or squamous metaplasticcells (endocervical component) are present. tDIAG Comment (Normal) Comments: NEGATIVE FOR INTRAEPITHELIAL LESION AND MALIGNANCY. 02-Vzo-19496:28 CMP GAP 7 (Normal) Range: 5-15 CO2 [...] CHOL 148 mg/dL (Normal) Comments: <200 mg/dL Iuefngjsp520-413 mg/dL Borderline>240 mg/dL High Risk HDL 46 [...] CHOL 164 mg/dL (Normal) Comments: <200 mg/dL Ojhxdjeug550-523 mg/dL Borderline>240 mg/dL High Risk :13 TSH 1.21 {uIU/mL} (Normal) Range: 0.358-3.74 :19 FT3 2.5 pg/mL (Normal) Range: 2.18-3.98 :19 T4F 1.02 ng/dL (Normal) Range: 0.76-1.46 :19 TPO 10 {IU/mL} (Normal) Range: 0-34 Comments: Performed at: [facility] [address] [id number] Director: Zac Khanna PhD, Phone: [phone] :19 TSH 1.74 {uIU/mL} (Normal) Range: 0.358-3.74 [...] CHOL 159 mg/dL (Normal) Comments: <200 mg/dL Vxtffcpmn581-199 mg/dL Borderline>240 mg/dL High Risk HDL 41 [...] Mascorro M.D.June 10, 2012 at 9:55:07 AM [id number] Signed GP/G P If you are the referring physician and would like to consult with theradiologist who provided this interpretation, please contact Edelmira Juarez at [phone]. If this radiologist is yovani rob, youwill be directed to another radiologist to assist. If you are a patient with a question regarding this report, pleasecontactyour referring physician directly. Professional Interpretation Provi ded By: [employer], Phone , These documents contain legally protected [...] 06/10/12 1002 Sign by: Wayne Mascorro MD 52-Yxn-81459:36 CUUR Comments: appt 03/17/12 URC See Note {CFU/mL} (Normal) Comments: COLONY COUNT 1000-10,000 :36 FT3 2.5 pg/mL (Normal) Comments: appt 03/17/12 Range: 2.18-3.98 :36 T4F 0.85 ng/dL (Normal) Range: 0.76-1.46 :36 TSH 2.86 {uIU/mL} (Normal) Range: 0.358-3.74 22-Pgt-391440:06 URINE ALFREDO CULTURE-EDWARD COL Comments: PERFORMED BY: [facility] HospitalQgxelz4025 [facility] [id number] Information: SRC: URETHRA COUNT (52437) Result 1 ECV (Normal) Comments: Escherichia coli, identified by an automated biochemical system.1,000 Colonies/mLMixed urogenital qmkyz354 Colonies/mL S = Susceptible; I = Intermediate; R = Resistant P = Positive; N = Negative MICS are expressed in micrograms per mL Antibiotic RSLT#1 RSLT#2 RSLT#3 RSLT#4Amoxicillin/Clavulanic Acid SAmpicillin RCefazolin SCefepime SCeftriaxone SCefuroxime SCephalothin ICiprofloxacin SESBL NErtapenem SGentamicin SImipenem SLevofloxacin SNitrofurantoin SPiperacillin RTetracycline RTobramycin STrimethoprim/Sulfa S Urine Final report (Normal) Culture,Comprehensiv e 60-Hrl-605264:19 Urinalysis, Office (90197) UA - BILIRUBIN Negative (Normal) UA - [...] Range: 0-34 57 Comments: Performed at: [address] [id number] Director: Ashleigh Abraham MD, Phone: [phone] : TSH 3.55 {uIU/mL} (Normal) Range: 0.358-3.74 57 :09 Urinalysis, Office (51852) UA - BILIRUBIN Negative (Normal) UA - [...] 4.2-5.4 WBC 5.9 K/mm3 (Normal) Range: 4.4-11.0 53-Ajr-563873:40 BILAT SCRN DIGITAL & CAD Radiology Report [...] TSH 5.38 {uIU/mL} Range: 0.358-3.74 :31 (Abnormal) 41-Rxs-646663:19 COMPLETE UA MUCUS, URINE 0 SEEN {/hpf} [...] Indication: Low HDL (under 40) Planned Observations FREE TRIDOTHYRONINE (T3) (87281)Indication: T3 low in serum On: 45-Xhy-915583:08 Request TSH (45470)Indication: Hypothyroidism On: 67-Dpw-538147:18 Request T4, FREE (THYROXINE) (74461)Indication: Hypothyroidism On: 91-Ano-233126:18 Request T3, FREE (TRIDOTHYRONINE) (96679)Indication: Hypothyroidism On: 60-Pwh-904341:18 Request T4, FREE (THYROXINE) (48189)Indication: T3 low in serum On: 29-Tmk-202474:37 Request T3, FREE (TRIDOTHYRONINE) (02607)Indication: T3 low in serum On: 42-Cvi-648798:37 Request T4, FREE (THYROXINE) (58642)Indication: Hypothyroidism On: :46 Request T3, FREE (TRIDOTHYRONINE) (31641)Indication: Hypothyroidism On: :46 Request TSH (THYROID STIMULATING HORMONE) (16176)Indication: Hypothyroidism On: :45 Request LIPID PANEL (19055)Indication: Encounter for screening for lipid disorder On: :44 Request LIPID PANEL (69295)Indication: Encounter for screening for lipid disorder On: :47 Request T3, FREE (TRIDOTHYRONINE) (00096)Indication: Hypothyroidism On: :48 Request T4, FREE (THYROXINE) (59098)Indication: Hypothyroidism On: :48 Request TSH (66051)Indication: Hypothyroidism On: :48 Request T4, FREE (THYROXINE) (63402)Indication: Hypothyroidism On: :02 Request T3, FREE (TRIDOTHYRONINE) (42921)Indication: Hypothyroidism On: 54-Pra-038353:01 Request METABOLIC PANEL, COMPREHENSIVE (15919)Indication: Elevated blood pressure (not hypertension) On: 5-Ggu-113548:58 Request LIPID PANEL (40013)Indication: Low HDL (under 40) On: :34 Request TSH (01318)Indication: Hypothyroidism On: :34 Request CBC W/AUTO DIFF WBC (61737)Indication: Migraine On: :34 Request METABOLIC PANEL, COMPREHENSIVE (21676)Indication: Migraine On: :34 Request METABOLIC PANEL, COMPREHENSIVE (78418)Indication: Migraine On: :48 Request TSH (02791)Indication: Hypothyroidism On: 77-Llq-817832:48 Request LIPID PANEL (80297)Indication: Low HDL (under 40) On: :48 Request TSH (12929)Indication: Hypothyroidism On: 0-Dkd-118720:57 Request LIPID PANEL (59502)Indication: Low HDL (under 40) On: :57 Request T3, FREE (TRIDOTHYRONINE) (79253)Indication: Hypothyroidism On: :43 Request T4, FREE (THYROXINE) (59622)Indication: Hypothyroidism On: :43 Request Anti-TPO Antibody (73255)Indication: Hypothyroidism On: :43 Request TSH (68423)Indication: Hypothyroidism On: :43 Request TSH (57421)Indication: Abnormal TSH On: :43 Request Lipid Panel (50580)Indication: Low HDL (under 40) On: :43 Request Metabolic Panel, Comprehensive (80843)Indication: Elevated blood pressure (not hypertension) On: :43 Request LIPID PANEL (20633)Indication: Low HDL (under 40) On: 8-Qdo-022522:58 Request TSH (63161)Indication: Abnormal TSH On: 10-Lvt-093019:07 Request T4, FREE (THYROXINE) (07108)Indication: Abnormal TSH On: :07 Request T3, FREE (TRIDOTHYRONINE) (34147)Indication: Abnormal TSH On: 98-Kef-640295:07 Request LIPID PANEL (18154)Indication: Low HDL (under 40) On: :38 Request METABOLIC PANEL, COMPREHENSIVE (25318)Indication: Elevated blood pressure (not hypertension) On: 22-Hxi-498030:38 Request T4, FREE (THYROXINE) (49776)Indication: Abnormal TSH On: :10 Request T3, FREE (TRIDOTHYRONINE) (94387)Indication: Abnormal TSH On: :10 Request Anti-TPO Antibody (10582)Indication: Abnormal TSH On: 14-Nkj-642662:10 Request TSH (17974)Indication: Abnormal TSH On: :09 Request LIPID PANEL (77534)Indication: Elevated blood pressure (not hypertension) On: :54 Request TSH (63157)Indication: Elevated blood pressure (not hypertension) On: :54 Request URINALYSIS, W/ MICRO (39744)Indication: Elevated blood pressure (not hypertension) On: :53 Request METABOLIC PANEL, COMPREHENSIVE (30544)Indication: Elevated blood pressure (not hypertension) On: :53 Request CBC WITH MANUAL DIFF (89993)Indication: Elevated blood pressure (not hypertension) On: :53 Request Planned Procedures PHYSICAL THERAPY (46131)By: Nguyễn On: 28-May-2018 Intent Rissa Comments: Order given for dry needling Eprescribed prescriptions (G8553)By: On: 01-Sep-2013 Intent Elo Jung LPN Eprescribed prescriptions (G8553)By: On: 11-Aug-2013 Intent Leticia Loera Eprescribed prescriptions (G8553)By: On: 09-Feb-2013 Intent Leticia Loera MAMMOGRAM, SCREENING, BOTH BREASTS On: 17-Mar-2012 Intent (24819)By: Fast DO, Kassie A Eprescribed prescriptions ([id number])By: On: 09-Sep-2011 Intent Fast DO, Kassie A TDAP VACCINE >7 IM ([id number])By: On: 09-Sep-2011 Intent Leticia Loera Comments: work FLU VAC, SPLIT, >3 YEARS, INTRAMUSC On: 09-Sep-2011 Intent ([id number])By: Leticia Loera Comments: work Instructions Name Dates [...] perimenstrual dysphoric sx Encounters Phone Encounter On: 28-Jul-2018 16:02 Encounter Diagnosis: [...] down 14 po ounds and training for [employer]- and feels good doing it - and [...] Note for Wrist pain: Seen Ortho at [facility] and she wasnt impressed with [...] thinks could use something for sleep-[facility]and had breast bx 2007- on right benignEncounter Diagnosis: Headache, tension (307.81), Migraine (346.80), Kidney stone (592.0), Elevated Blood Pressure(796.2), Atypical Nevus(238.2) [facility] [employer]; a guarantor
--- OUTSIDE RECORDS SUMMARY | 2018-11-05 08:13 | XMS RPT_ITS | Continuity of Care Document ---
:1970 Author Organization [facility] Address [address] [facility] [address] [place] [address] Phone Care Team Providers Name Role Phone Whitney Diaz DO Unavailable TERRENCE Lee Unavailable Unavailable Unavailable Unavailable Problems Name Dates [...] Status: Active Medications Name Dates Details CALCIUM, [id number] (Oral Tablet) Active 1 (one) daily (600-200 MG-UNIT) Comments: plus vit d3 Cyclobenzaprine HCl 10 MG Oral Tablet 1 (one) Tablet Tablet PO TID PRN for 0 days Quantity: 63 {Tablet} Refills: 0 Ordered:28-May-2018 Rissa Lee LPN Start : 28-May-2018 Active Cytomel 25 MCG Oral Tablet 1/2 Tablet daily for 90 days Quantity: 45 {Tablet} Refills: 1 Ordered:23-Jul-2018 Kimberley Diaz DO, DO, Kathleen Start : 23-Jul-2018 Active Synthroid 75 MCG Oral Tablet 1 Tablet qd for 90 days Quantity: 90 {Tablet} Refills: 3 Ordered:01-Jul-2018 Joe Kimberley AUGUSTIN DO, Kathleen Start : 01-Jul-2018 Active Topamax 25 MG Oral Tablet 1 (one) Tablet bid for 90 days Quantity: 180 {Tablet} Refills: 3 Ordered:01-Jul-2018 Joe Kimberley AUGUSTIN DO, Kathleen Start : 01-Jul-2018 Active AMITRIPTYLINE HCL, 10MG [...] (5-240 MG) End : 17-Mar-2012 Discontinued CORTISPORIN, 3.5-17001-6 (Otic Solution) 4 Drop(s) tid or qid [...] days Quantity: 1 {Suspension} Refills: 0 Ordered:10-Jun-2014 Leticia Loera Start : [...] - PT Result: Comments: See Note; NOTES: [facility] Physical Therapy [facility] [facility]. [address] [place] [address] Fax REHABILITATION SERVICES INITIAL EVALUATION MR#: [id number] Acct: [id number] Name: RISSA MCWILLIAMS Rep #: [id number] : 1970 47 From: Pat Lock DPT Referring Dr.: EVIE Adrian Status: REG RCR Insurance: [facility] INSURANCE Patient's Visit Information RISSA [...] Unsure if the muscle relaxer helps. Worst: 03/22 Agg: ge tting up from lying down, [...] grab does not stay. 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 [...] to be FAXED BACK to us at [phone] for Medicare purposes. Please let me know if there are questions or concerns regarding this plan of care. Physician Signature: Date: <Electronically signed by Pat Lock DPT> 06/01/18 1150 CC: EVIE Adrian; Whitney Diaz DO ELR Signed For Medicare only, by signing this I certify the plan of care. Physicians Signature Date 16-Oct-2017 SCREENING MAMM (CAD), BILAT Result: Comments: See Note; NOTES: [facility] Imaging Services [address] [place] [address] SCREENING MAMM (CAD), BILAT MR#: [id number] Acct: [id number] Name: RISSA MCWILLIAMS Rep #: [id number] : 1970 F 46 From: Wayne Mascorro MD PCP: Whitney Diaz DO Status: REG CLI Study: SCREENING MAMM (CAD), BILAT Date of Exam: 10/16/17 Exam# [id number] Ordering Dr: Sherry Wilson MD MAMMOGRAPHY - [...] no significant change since the prior study. HPBI/SCR EENING MAMM (CAD), BILAT IMPRESSION: Stable bilateral screening mammogram. Yearly follow-up mammogram recommended. (A) ASSESSMENT CATEGORY: BIRADS Category 2: Benig nShai A letter regarding these results will be sent to the patient by the facility within 30 days. Approximately 10% of breast cancers are not detected by mammography. A normal mammogram should not delay biopsy of a clinically suspicious abnormality. [id number] Electronically Signed: Wayne Mascorro MD at 10:53 EST Tel [phone], Service support , CC: Sherry Wilson MD; Whitney Diaz DO General Utility Machine Operator: Signed 27-Sep-2016 Bilat Scrn Digital AND CAD Result: Comments: See Note; NOTES: [facility] Imaging Services [address] [place] [address] Verdana 4d Bilat Scrn Digital AND CAD MR#: [id number] Acct: [id number] Name: RISSA MCWILLIAMS Rep #: [id number] : 1970 F 45 From: Wayne Mascorro MD PCP: Whitney Diaz DO Status: REG CLI Study: Bilat Scrn Digital AND CAD Date of Exam: 09/27/16 Exam# [id number] Ordering Dr: Sherry Wilson MD MAMMOGRAPHY - [...] biopsy of a clinic ally suspicious abnormality. [id number] Electronically Signed: Wayne Mascorro MD at 12:38 EST Tel [phone], Service support [phone], CC: Sherry Wilson MD; Bidrie Diaz DO General Utility Machine Operator: Signed 25-Aug-2015 Bilat Scrn Digital AND CAD Result: Comments: See Note; NOTES: [facility] Imaging Services [address] [place] [address] Verdana 4d Bilat Scrn Digital AND CAD MR#: [id number] Acct: [id number] Name: RISSA MCWILLIAMS Rep #: [id number] : 1970 F 44 From: Wayne Mascorro MD PCP: Kassie Hassan DO Status: REG CLI Study: Bilat Scrn Digital AND CAD Date of Exam: 08/25/15 Exam# [id number] Ordering Dr: Sherry Wilson MD MAMMOGRAPHY - [...] Wayne Mascorro MD at 15:37 EST Tel [phone], Service support [phone], CC: Sherry Wilson MD; Kassie Hassan DO General Utility Machine Operator: Signed 17-Apr-2015 Emergency Department Summary Result: Comments: See Note; NOTES: [facility] Medical Records Department [address] [place] [address] Emergency Department Summary MR#: [id number] Acct: [id number] Name: RISSA MCWILLIAMS Rep #: [id number] : 1970 44 From: Finesse Yancey MD [...] infection. Finesse Yancey MD T: NTS JOB: [id number] 04/17/15 0130 <Electronically signed by Finesse Yancey MD> Date Finesse Yancey MD CC: Kassie Hassan DO Date Dictated: 04/16/15658 Date Transcribed: 04/16/15658 General Utility Machine Operator: Signed 16-Apr-2015 Discharge Instruction Result: Comments: See Note; NOTES: [facility] Medical Records Department [address] [place] [address] Discharge Instruction 04/16/15658 MR#: [id number] Acct: [id number] Name: RISSA MCWILLIAMS Rep #: [id number] : 1970 44 From: Finesse Yancey MD [...] contact your doctor. C all Doctors Registry ([phone]) or report to the closest Emergency Room. Call 911 if necessary. 04/16/15 07 <Electronically signed by Finesse Yancey MD> Date ___ Finesse Yancey MD Cosigner Signature (If Indicated): Date CC: Kassie Hassan DO 16-Apr-2015 Discharge Instruction Result: Comments: See Note; NOTES: [facility] Medical Records Department [address] [place] [address] Discharge Instruction 04/16/15 0656 MR#: [id number] Acct: [id number] Name: RISSA MCWILLIAMS Rep #: [id number] : 1970 44 From: Finesse Yancey MD [...] problems, contact your doctor. Call Doctors Registry ([phone]) or report to the closest Emergency Room. Call 911 if necessary. 04/16/15 0657 <Electron ically signed by Finesse Yancey MD> Date Finesse Yancey MD Cosigner Signature (If Indicated): Date CC: Kassie Hassan 05-Aug-2014 Bilat Scrn Digital & CAD Result: Comments: See Note; NOTES: [facility] Imaging Services [address] [place] [address] Breast Imaging Report MR#: [id number] Acct: [id number] Name: JEANCARLOSRISSA Fuentes Rep #: [id number] : 1970 F 43 From: Wayne Mascorro MD PCP: Kassie Hassan DO Status: REG CLI Exam# [id number] Ordering Dr: Sherry Wilson MD MAMMOGRAPHY - [...] Wayne Mascorro MD at 11:32 EDT Tel [phone], Service support [phone], CC: Sherry Wilson MD; Kassie Hassan DO General Utility Machine Operator: Signed Family History Unknown Family Member Name [...] 2.08 m2 Results Date Description Value Details :35 Free T3 Comments: Has Patient had X-rays with Contrast this admission? [facility] [address] [place], [place], [phone] FREE T3 2.6 pg/mL (Normal) Range: 2.18-3.98 :35 T3 Total - Triiodothyronine Comments: [address] [place], [place], [phone] Total 0.96 ng/mL (Normal) Range: 0.6-1.81 :35 T3 Uptake Comments: Has Patient had X-rays with Contrast this admission? [facility] [address] [place], [place], [phone] (FTI) 1.8 (Normal) Range: 1.4-4.5 T3 UPTAKE 30 % (Normal) Range: 30-39 :35 T4 Free Direct Comments: Has Patient had X-rays with Contrast this admission? [facility] [address] [place], [place], [phone] FREE DIRECT 0.72 ng/dL (Abnormal) Range: 0.76-1.46 :35 T4 Total, Thyroxin Comments: Has Patient had X-rays with Contrast this admission? [facility] [address] [place], [place], [address] T4 THYROXIN 6.0 ug/dL (Normal) Range: 4.8-13.9 :35 Thyroid Peroxidase AB Comments: [facility] (refer to report for specific site)refer to report for address and phone number TPO AB 1144 27 {IU/mL} (Normal) Range: 0-34 Comments: Performed at: - [facility] [id number] Director: Alirio Mishra PhD, Phone: [phone] :35 Thyroid Stim Hormone (TSH) Comments: Has Patient had X-rays with Contrast this admission? [facility] [address] [place], [address] TSH 0.20 {uIU/mL} (Abnormal) Range: 0.358-3.74 :05 Free T3 Comments: [facility] [address] [place], [address] FREE T3 2.1 pg/mL (Abnormal) Range: 2.18-3.98 :05 T4 Free Direct Comments: [facility] [address] [place], [place], [address] T4 FREE DIRECT 0.81 ng/dL (Normal) Range: 0.76-1.46 :05 Thyroid Stim Hormone (TSH) Comments: [facility] [address] [place], [place], [address] TSH 2.73 {uIU/mL} (Normal) Range: 0.358-3.74 :31 Free T3 Comments: [facility] [address] [place], [place], [address] FREE T3 1.8 pg/mL (Abnormal) Range: 2.18-3.98 :31 Lipid Profile Comments: [facility] [address] [place], [place], [address] VLDL 16 mg/dL (Normal) Range: 5-40 LDL [...] 200-240 mg/dL Borderline >240 mg/dL High Risk 17-Kbu-00621:31 T4 Free Direct Comments: [facility] [address] [facility] [address] [place], [place], [address] T4 FREE DIRECT 1.06 ng/dL (Normal) Range: 0.76-1.46 90-Gzv-47948:31 Thyroid Stim Hormone (TSH) Comments: [facility] [address] [facility] [address] [place], [place], [address] TSH 3.36 {uIU/mL} (Normal) Range: 0.358-3.74 59-Esy-578042:30 PAP I-G w/rfx hrHPV Comments: CYTOLOGY INFORMATION:- CLINICAL INFORMATION:- DATE LMP/MENOPAUSE: IUD 09/06/17 LMP- COLLECTION VIAL: Thin Prep Vial- SEO ENGINEER SOURCE: CERVICAL/ENDOCERVICAL- COLLECTION TECHNIQUE: BRUSH/SPATULASp ecimen Comme nt: [id number] Comment: No. of containers..01 ThinPrep VialLabCorp (refer to report for specific site)refer to report for address and phone number HPV RFLX Comment (Normal) Comments: The HPV DNA reflex criteria were not met with this specimenresult therefore, no HPV testing was performed.Performed at: [address] [id number] Director: Shiloh Walker MD, Phone: [phone] PAPSMR Comment (Normal) Comments: The Pap smear [...] system. PERFORM Comment (Normal) Comments: Uvaldo Carlin, Popcorn Candy Maker (ASCP) ADEQ Comment (Normal) Comments: Satisfactory for evaluation. Endocervical and/or squamous metaplasticcells (endocervical component) are present. DIAGN Comment (Normal) Comments: NEGATIVE FOR INTRAEPITHELIAL LESION AND MALIGNANCY.PLEASE INDICATE LMP ON FUTURE PATIENT'S REQUEST FORMS. 68-Fbi-401296:07 Free T3 Comments: [facility] [address] [place], [place], [address] FREE T3 1.8 pg/mL (Abnormal) Range: 2.18-3.98 57-Lby-064573:07 Lipid Profile Comments: [facility] [address] [place], [place], [address] VLDL 14 mg/dL (Normal) Range: 5-40 LDL [...] 200-240 mg/dL Borderline >240 mg/dL High Risk 22-Utl-471365:07 T4 Free Direct Comments: [facility] [address] [place], [place], [address] T4 FREE DIRECT 0.93 ng/dL (Normal) Range: 0.76-1.46 66-Tit-382722:07 Thyroid Stim Hormone (TSH) Comments: [facility] [address] [place], [place], [address] TSH 2.43 {uIU/mL} (Normal) Range: 0.358-3.74 61-Yfi-678585:30 PAP I-G w/rfx hrHPV Comments: CYTOLOGY INFORMATION:- CLINICAL INFORMATION:- DATE LMP/MENOPAUSE: IUD NO MENSES GIVEN LMP- COLLECTION VIAL: Thin Prep Vial- SEO ENGINEER SOURCE: CERVICAL/ENDOCERVICAL- COLLECTION TECHNIQUE: BRUSH/SPATULASpecime n Comment: [id number] Comment: No. of containers..01 CYTYC Thin Prep VialLabCorp (refer to report for specific site)refer to report for address and phone number HPV RFLX Comment (Normal) Comments: The HPV DNA reflex criteria were not met with this specimenresult therefore, no HPV testing was performed.Performed at: [address], [place] [id number] Director: Shiloh Walker MD, Phone: [phone] PAPSMR Comment (Normal) Comments: The Pap smear [...] system. PERFORM Comment (Normal) Comments: Angel Yates, Popcorn Candy Maker (ASCP) ADEQ Comment (Normal) Comments: Satisfactory for evaluation. Endocervical and/or squamous metaplasticcells (endocervical component) are present. DIAGN Comment (Normal) Comments: NEGATIVE FOR INTRAEPITHELIAL LESION AND MALIGNANCY. 47-Zjo-397236:30 CT/NG [facility] BY PCR Comments: [facility] [address] [facility] [place], [address] NG by PCR Negative (Normal) [facility] PCR Negative (Normal) 17-Hzl-403389:30 PAP I-G w/rfx hrHPV Comments: CYTOLOGY INFORMATION:- CLINICAL INFORMATION:- DATE LMP/MENOPAUSE: IUD/NO MENSES GIVEN LMP- COLLECTION VIAL: Thin Prep Vial- SEO ENGINEER SOURCE: CERVICAL/ENDOCERVICAL- COLLECTION TECHNIQUE: BRUSH/SPATULACYTOLOG Y INFORMATION:- CLINICAL INFORMATION:- DATE LMP/MENOPAUSE: IUD/NO MENSES GIVEN LMP- COLLECTION VIAL: Thin Prep Vial- SEO ENGINEER SOURCE: CERVICAL/ENDOCERVICAL- COLLECTION TECHNIQUE: BRUSH/SPATULASpecimen Comme nt: [id number] Comment: No. of containers..01 CYTYC Thin Prep VialLabCorp (refer to report for specific site)refer to report for address and phone number HPV HC,HGH RISK Negative Comments: This high-risk HPV test detects thirteen high-risk types(16/18/31/33/35/39/45/51/52/56/58/59/68) withoutdifferentiation.Performed at: [address] [id number] (Normal) b Director: Shiloh Walker MD, Phone: [phone] at: =[facility] [id number] Director: Shiloh Walker MD, Phone: [phone] HPV RFLX Comment Comments: See below for [...] Pathologist (Normal) PERFORM Comment Comments: Nohemi He, Popcorn Candy Maker (ASCP) (Normal) ADEQ Comment Comments: Satisfactory for evaluation. Endocervical and/or squamous metaplasticcells (endocervical component) are present. (Normal) DIAGN Comment Comments: EPITHELIAL CELL ABNORMALITY.ATYPICAL SQUAMOUS CELLS OF UNDETERMINED SIGNIFICANCE. (Abnormal) 85-Aef-18557:52 Thyroxine (T4) Free, Comments: PATIENT WAS FASTINGPERFORMED BY: [facility]irt[facility] BerlinSsdyce[facility] [id number] Information: [id number] Direct, S T4,Free(Direct) 1.20 ng/dL Range: 0.82-1.77 (Normal) 07-Jun-2016 Triiodothyronine,Free,Seru 2.3 pg/mL (Normal) Comments: PATIENT WAS FASTINGPERFORMED BY: [facility] [facility] [id number] 9:52 m Range: 2.0-4.4 07-Jun-2016 Written Authorization WAR (Normal) Comments: PATIENT WAS FASTINGPERFORMED BY: [facility] [facility] [id number] 9:52 Comments: Written Authorization Received.Authorization received from SIGNATURE ON FILE [id number] by Shaina Mcneal 78-Nyd-38879:52 METABOLIC PANEL, COMPREHENSIVE Comments: PATIENT WAS FASTINGPERFORMED BY: [facility]6[address] [facility] [id number] ([id number]) ALT (SGPT) 15 [iU]/L (Normal) Range: 0-32 [...] AUT DIFF Comments: PATIENT WAS FASTINGPERFORMED BY: [facility] BerlinCxkwli4838 [facility] [id number] Information: [id number] (75528) Immature Grans (Abs) 0.0 {x10E3/uL} (Normal) Range: [...] {x10E3/uL} (Normal) Range: 3.4-10.8 :52 LIPID PANEL (52575) Comments: PATIENT WAS FASTINGPERFORMED BY: [facility]6[address] [facility] [id number] LDL/HDL Ratio 1.9 {ratio_units} (Normal) Range: 0.0-3.2 [...] Cholesterol, Total 148 mg/dL (Normal) Range: 100-199 39-Xfv-42468:52 TSH (38988) Comments: PATIENT WAS FASTINGPERFORMED BY: [facility]6[address] [facility] [id number] TSH 2.770 {uIU/mL} (Normal) Range: 0.450-4.500 41-Bwo-229972:00 PAP I-G w/rfx hrHPV Comments: CYTOLOGY INFORMATION:- CLINICAL INFORMATION:- DATE LMP/MENOPAUSE: IUD LMP- COLLECTION VIAL: Thin Prep Vial- SEO ENGINEER SOURCE: CERVICAL/ENDOCERVICAL- COLLECTION TECHNIQUE: BRUSH/SPATULASpecimen Comment: CO-PARISA [id number] Comment: No. of containers..01 CYTYC [facility]ialNew [facility] (refer to report for specific site)refer to report for address and phone number HPV RFLX Comment (Normal) Comments: The HPV DNA reflex criteria were not met with this specimenresult therefore, no HPV testing was performed.Performed at: [address]rewtonRICHARD [id number] Director: Alfredo Alejandre MD, Phone: [phone] PAPSMR Comment (Normal) Comments: The Pap smear [...] system. PERFORM Comment (Normal) Comments: Govind Zhang, Popcorn Candy Maker (ASCP) ADEQ Comment (Normal) Comments: Satisfactory for evaluation. Endocervical and/or squamous metaplasticcells (endocervical component) are present. DIAGN Comment (Normal) Comments: NEGATIVE FOR INTRAEPITHELIAL LESION AND MALIGNANCY. 08-Lqz-709424:48 CBC W/Diff, Automated Comments: Test performed at:[facility] [address] [place], [place] [address] ; Non- emergent till apt Absolute Lymph [...] 4.2-5.4 WBC 6.2 K/mm3 (Normal) Range: 4.4-11.0 77-Mnw-922467:48 Comprehensive Metabolic Profil Comments: Test performed at:[facility] [address] [facility] [place] [address] GAP 5 (Normal) Range: 5-15 CO2 24.0 [...] Comments: Please note revised CREATININE reference range hukfjijcs30/22/2015. BUN 17 mg/dL (Normal) Range: 7-18 GLU 78 mg/dL (Normal) Range: 70-110 89-Xbs-983035:48 Lipid Profile Comments: Test performed at:[facility] [address] [facility]. [place], [place] [address] VLDL 14 mg/dL (Normal) Range: 5-40 LDL [...] 200-240 mg/dL Borderline >240 mg/dL High Risk 56-Pfz-758432:48 Thyroid Stim Hormone (TSH) Comments: Test performed at:[facility] [address] [place], [place] [address] TSH 1.74 {uIU/mL} (Normal) Range: 0.358-3.74 16-Apr-20156:30 Urinalysis, Complete Comments: Order Date: 04/16/15How was Urine Obtained? CLEAN CATCHTest performed at:[facility] [address] [facility]. [place], [place] [address] ; ordered by sharmaine MUCUS, URINE 0 [...] CLARITY Sl. Cloudy (Normal) COLOR Yellow (Normal) 63-Ocr-228930:15 PAPIG5 Comments: CYTOLOGY INFORMATION:- CLINICAL INFORMATION:- DATE LMP/MENOPAUSE: NO MENSES/IUD LMP- COLLECTION VIAL: Thin Prep Vial- SEO ENGINEER SOURCE: CERVICAL/ENDOCERVICAL- COLLECTION TECHNIQUE: BRUSH/SPATULASpecimen Comm ent: [id number] Comment: No. of containers..01 CYTYC Thin Prep Vial tHPVRFLX Comment (Normal) Comments: The HPV DNA reflex criteria were not met with this specimenresult therefore, no HPV testing was performed.Performed at: [address] [id number] Director: Alfredo Alejandre MD, Phone: [phone] tPAPSMR Comment (Normal) Comments: The Pap smear [...] system. tPERFORM Comment (Normal) Comments: Lio Ulloa, Popcorn Candy Maker (ASCP) tADEQ Comment (Normal) Comments: Satisfactory for evaluation. Endocervical and/or squamous metaplasticcells (endocervical component) are present. tDIAG Comment (Normal) Comments: NEGATIVE FOR INTRAEPITHELIAL LESION AND MALIGNANCY. 32-Uxg-99033:28 CMP GAP 7 (Normal) Range: 5-15 CO2 [...] CHOL 148 mg/dL (Normal) Comments: <200 mg/dL Lxbupljhx790-920 mg/dL Borderline>240 mg/dL High Risk HDL 46 [...] CHOL 164 mg/dL (Normal) Comments: <200 mg/dL Nfioygwia770-084 mg/dL Borderline>240 mg/dL High Risk :13 TSH 1.21 {uIU/mL} (Normal) Range: 0.358-3.74 :19 FT3 2.5 pg/mL (Normal) Range: 2.18-3.98 :19 T4F 1.02 ng/dL (Normal) Range: 0.76-1.46 :19 TPO 10 {IU/mL} (Normal) Range: 0-34 Comments: Performed at: [facility] [address] [id number] Director: Zac Khanna PhD, Phone: [phone] :19 TSH 1.74 {uIU/mL} (Normal) Range: 0.358-3.74 [...] CHOL 159 mg/dL (Normal) Comments: <200 mg/dL Derdayijl148-218 mg/dL Borderline>240 mg/dL High Risk HDL 41 [...] Mascorro M.D.June 10, 2012 at 9:55:07 AM [id number] Signed GP/G P If you are the referring physician and would like to consult with theradiologist who provided this interpretation, please contact Edelmira Juarez at [phone]. If this radiologist is yovani rob, youwill be directed to another radiologist to assist. If you are a patient with a question regarding this report, pleasecontactyour referring physician directly. Professional Interpretation Provi ded By: [place], Phone , These documents contain legally protected [...] return or destructionofthese documents. Dictated on 06/10/12 09 by Nico Mascorro MDribed on 06/10/12 1001 by ITS IMPORTSign Wayne Reyes MD on 06/10/12 1002 Sign by: Wayne Mascorro MD :36 CUUR Comments: appt 03/17/12 URC See Note {CFU/mL} (Normal) Comments: COLONY COUNT 1000-10,000 :36 FT3 2.5 pg/mL (Normal) Comments: appt 03/17/12 Range: 2.18-3.98 :36 T4F 0.85 ng/dL (Normal) Range: 0.76-1.46 :36 TSH 2.86 {uIU/mL} (Normal) Range: 0.358-3.74 41-Dps-824591:06 URINE ALFREDO CULTURE-EDWARD COL Comments: PERFORMED BY: NOELLE [facility] [address]kst[address]003 [facility] [id number] Information: SRC: URETHRA COUNT (31977) Result 1 ECV (Normal) Comments: Escherichia coli, [...] S Urine Final report (Normal) Culture,Comprehensiv e 69-Sxs-386467:19 Urinalysis, Office (24160) UA - BILIRUBIN Negative (Normal) UA - [...] (Normal) Range: 0-34 57 Comments: Performed at: - [address] [id number] Director: Ashleigh Abraham MD, Phone: [phone] : TSH 3.55 {uIU/mL} (Normal) Range: 0.358-3.74 57 :09 Urinalysis, Office (99247) UA - BILIRUBIN Negative (Normal) UA - [...] 4.2-5.4 WBC 5.9 K/mm3 (Normal) Range: 4.4-11.0 14-Rls-206515:40 BILAT SCRN DIGITAL & CAD Radiology Report [...] suspiciousabnormality. Dictated on 06/07/11 0949 by Subha CRESPO,Elranscribed on 06/07/11 1404 by ITS IMPORTSign by Wayne Mascorro MD on 06/07/11 1405 Sign by: Wayne Mascorro MD TSH 5.38 {uIU/mL} Range: 0.358-3.74 :31 (Abnormal) 81-Bpo-811460:19 COMPLETE UA MUCUS, URINE 0 SEEN {/hpf} [...] Indication: Low HDL (under 40) Planned Observations TSH (25102)Indication: Hypothyroidism On: 30-Srw-921037:52 Request T4, FREE (THYROXINE) (82187)Indication: Hypothyroidism On: :52 Request T3, FREE (TRIDOTHYRONINE) (49912)Indication: Hypothyroidism On: :52 Request T4, FREE (THYROXINE) (69034)Indication: Hypothyroidism On: : Request TSH (04558)Indication: Hypothyroidism On: : Request Anti-TPO Antibody (97816)Indication: Hypothyroidism On: : Request T4, TOTAL (78469)Indication: Hypothyroidism On: : Request T3, TOTAL (TRIDOTHYRONINE) (01239)Indication: Hypothyroidism On: : Request T3, FREE (TRIDOTHYRONINE) (89658)Indication: Hypothyroidism On: : Request T-3 UPTAKE (15255)Indication: Hypothyroidism On: : Request FREE TRIDOTHYRONINE (T3) (74438)Indication: T3 low in serum On: 87-Lss-191974:08 Request TSH (83228)Indication: Hypothyroidism On: 96-Zqh-726712:18 Request T4, FREE (THYROXINE) (41865)Indication: Hypothyroidism On: :18 Request T3, FREE (TRIDOTHYRONINE) (74845)Indication: Hypothyroidism On: 83-Lah-599041:18 Request T4, FREE (THYROXINE) (42173)Indication: T3 low in serum On: 58-Uvp-286749:37 Request T3, FREE (TRIDOTHYRONINE) (06531)Indication: T3 low in serum On: 47-Axu-198103:37 Request T4, FREE (THYROXINE) (23420)Indication: Hypothyroidism On: :46 Request T3, FREE (TRIDOTHYRONINE) (47428)Indication: Hypothyroidism On: :46 Request TSH (THYROID STIMULATING HORMONE) (08824)Indication: Hypothyroidism On: :45 Request LIPID PANEL (05486)Indication: Encounter for screening for lipid disorder On: :44 Request LIPID PANEL (20306)Indication: Encounter for screening for lipid disorder On: :47 Request T3, FREE (TRIDOTHYRONINE) (04725)Indication: Hypothyroidism On: :48 Request T4, FREE (THYROXINE) (70560)Indication: Hypothyroidism On: :48 Request TSH (68167)Indication: Hypothyroidism On: :48 Request T4, FREE (THYROXINE) (15233)Indication: Hypothyroidism On: :02 Request T3, FREE (TRIDOTHYRONINE) (22469)Indication: Hypothyroidism On: 33-Shd-520626:01 Request METABOLIC PANEL, COMPREHENSIVE (39367)Indication: Elevated blood pressure (not hypertension) On: 0-Cst-366214:58 Request LIPID PANEL (62956)Indication: Low HDL (under 40) On: :34 Request TSH (10526)Indication: Hypothyroidism On: :34 Request CBC W/AUTO DIFF WBC (89529)Indication: Migraine On: :34 Request METABOLIC PANEL, COMPREHENSIVE (90161)Indication: Migraine On: :34 Request METABOLIC PANEL, COMPREHENSIVE (02451)Indication: Migraine On: 29-Ytc-746293:48 Request TSH (47420)Indication: Hypothyroidism On: 18-Huy-397110:48 Request LIPID PANEL (65122)Indication: Low HDL (under 40) On: 98-Cci-396728:48 Request TSH (78421)Indication: Hypothyroidism On: 7-Ill-862388:57 Request LIPID PANEL (29331)Indication: Low HDL (under 40) On: 8-Ipi-509786:57 Request T3, FREE (TRIDOTHYRONINE) (03192)Indication: Hypothyroidism On: 58-Svm-392240:43 Request T4, FREE (THYROXINE) (87101)Indication: Hypothyroidism On: :43 Request Anti-TPO Antibody (03832)Indication: Hypothyroidism On: 24-Iry-334791:43 Request TSH (12889)Indication: Hypothyroidism On: 57-Wud-348708:43 Request TSH (51734)Indication: Abnormal TSH On: 3-Flp-371271:43 Request Lipid Panel (47345)Indication: Low HDL (under 40) On: :43 Request Metabolic Panel, Comprehensive (87480)Indication: Elevated blood pressure (not hypertension) On: :43 Request LIPID PANEL (16821)Indication: Low HDL (under 40) On: 3-Tiz-766215:58 Request TSH (87839)Indication: Abnormal TSH On: :07 Request T4, FREE (THYROXINE) (62050)Indication: Abnormal TSH On: :07 Request T3, FREE (TRIDOTHYRONINE) (42255)Indication: Abnormal TSH On: 73-Wxh-381056:07 Request LIPID PANEL (76225)Indication: Low HDL (under 40) On: :38 Request METABOLIC PANEL, COMPREHENSIVE (69134)Indication: Elevated blood pressure (not hypertension) On: :38 Request T4, FREE (THYROXINE) (16670)Indication: Abnormal TSH On: :10 Request T3, FREE (TRIDOTHYRONINE) (33605)Indication: Abnormal TSH On: 66-Haz-149173:10 Request Anti-TPO Antibody (66782)Indication: Abnormal TSH On: :10 Request TSH (25653)Indication: Abnormal TSH On: :09 Request LIPID PANEL (48007)Indication: Elevated blood pressure (not hypertension) On: :54 Request TSH (19757)Indication: Elevated blood pressure (not hypertension) On: :54 Request URINALYSIS, W/ MICRO (65398)Indication: Elevated blood pressure (not hypertension) On: :53 Request METABOLIC PANEL, COMPREHENSIVE (74186)Indication: Elevated blood pressure (not hypertension) On: :53 Request CBC WITH MANUAL DIFF (46876)Indication: Elevated blood pressure (not hypertension) On: :53 Request Planned Procedures PHYSICAL THERAPY (43981)By: Nguyễn, On: 28-May-2018 Intent Rissa Comments: Order given for dry needling Eprescribed prescriptions (G8553)By: On: 01-Sep-2013 Intent Elo Jung LPN Eprescribed prescriptions (G8553)By: On: 11-Aug-2013 Intent Leticia Loera Eprescribed prescriptions (G8553)By: On: 09-Feb-2013 Intent Leticia Loera MAMMOGRAM, SCREENING, BOTH BREASTS On: 17-Mar-2012 Intent (81031)By: Fast DO, Kassie A Eprescribed prescriptions (G8553)By: On: 09-Sep-2011 Intent Mo DO, Kassie A TDAP VACCINE >7 IM (39776)By: On: 09-Sep-2011 Intent Leitcia Loera Comments: work FLU VAC, SPLIT, >3 YEARS, INTRAMUSC On: 09-Sep-2011 Intent (97084)By: Leticia Loera Comments: work Instructions Name Dates [...] perimenstrual dysphoric sx Encounters Phone Encounter On: 11-Sep-2018 15:51 Encounter Diagnosis: [...] down 14 po ounds and training for [employer]- and feels good doing it - and [...] Note for Wrist pain: Seen Ortho at [facility] and she wasnt impressed with what [...] tired at 10mg- on waiting list for berdezEncounter Diagnosis: Migraine (346.80), Elevated Blood Pressure(796.2), Urine, [...] Atypical Nevus(238.2) [facility] [employer]; a guarantor
--- OUTSIDE RECORDS SUMMARY | 2018-11-05 08:13 | XMS RPT_ITS ---
:1970 Author Organization OHIP Care Team Providers Name Role Phone DOCTOR, OUT OF TOWN Attending Unavailable Fast, Kassie Primary Care Unavailable Shriner, Sherry Attending Unavailable Joe, Whitney Primary Care Unavailable Shriner, Sherry Referring Unavailable Joe, Whitney Attending Unavailable Joe, Whitney Referring Unavailable Joe, Whitney Primary Care Unavailable Rissa Adrian PHARMACOGNOSIST-C Attending Unavailable Rissa Adrian PHARMACOGNOSIST-C Referring Unavailable Joe, Whitney Primary Care Unavailable Fast, Kassie Attending Unavailable Fast, Kassie Referring Unavailable Fast, Kassie Primary Care Unavailable Joe, Whitney Attending Unavailable Joe, Whitney Referring Unavailable Joe, Whitney Primary Care Unavailable Joe, Whitney Attending Unavailable Joe, Whitney Primary Care Unavailable Joe, Whitney Referring Unavailable Joe, Whitney Attending Unavailable Joe, Whitney Primary Care Unavailable PROBLEMS PROBLEMS DATE TYPE CONDITION / CODE ATTENDING STATUS SOURCE 07/07/2018 Unknown M54.9 - Rissa Adrian Active Ariadne Dorsalbrenda, PHARMACOGNOSIST-C Community unspecified / Hospital M54.9(ICD-10) Repository 10/16/2017 Unknown Z12.31 - Sherry Wilson Active Ariadne Encounter for [facility] screening Hospital mammogram for Repository malignant neoplasm of breast / Z12.31(ICD-10) PROCEDURES PROCEDURES No Procedure Records FoundRESULTS RESULTS FREE T3 Collected: 09/14/2018 Status: F Source: [place] 8:30 AM [facility] REPOSITORY TYPE CODE TESTS RESULT OUT OF RANGE REFERENCE UNITS LAB L501.61799 2.18-3.98 pg/mL Normal FREE T3 2.7 Performed By: #### L501.46289, L501.9520, L506.0400 #### [facility] [address] [place], [address] THYROID STIM HORMONE Collected: 09/14/2018 Status: F Source: [place] (TSH) 8:30 AM [facility] REPOSITORY TYPE CODE TESTS RESULT OUT OF RANGE REFERENCE UNITS LAB L501.9520 0.358-3.74 uIU/mL Low TSH 0.19 Performed By: #### L501.97921, L501.9520, L506.0400 #### [facility] [address] [place], [address] T4 FREE DIRECT Collected: 09/14/2018 Status: F Source: [place] 8:30 AM [facility] REPOSITORY TYPE CODE TESTS RESULT OUT OF REFERENCE UNITS RANGE LAB L506.0400 0.76-1.46 ng/dL Low T4 FREE 0.68 DIRECT Performed By: #### L501.89235, L501.9520, L506.0400 #### [facility] [address] [place], [address] FREE T3 Collected: 09/10/2018 Status: F Source: [place] 8:35 AM [facility] REPOSITORY Order Comment: Has Patient had X-rays with Contrast this admission? N TYPE CODE TESTS RESULT OUT OF RANGE REFERENCE UNITS LAB L501.20360 2.18-3.98 pg/mL Normal FREE T3 2.6 Performed By: #### L501.91405, L501.9195, L501.9310, L501.9520, L506.0400 #### [facility] [address] [place], [address] T3 UPTAKE Collected: 09/10/2018 Status: F Source: [place] 8:35 AM [facility] REPOSITORY Order Comment: Has Patient had X-rays with Contrast this admission? N TYPE CODE TESTS RESULT OUT OF RANGE REFERENCE UNITS LAB L501.9210 30-39 % Normal T3 UPTAKE 30 LAB L501.9410 1.4-4.5 Normal T7 (FTI) 1.8 Performed By: #### L501.27160, L501.9195, L501.9310, L501.9520, L506.0400 #### [facility] [address] [place], [address] T4 TOTAL, THYROXIN Collected: 09/10/2018 Status: F Source: [place] 8:35 AM [facility] REPOSITORY Order Comment: Has Patient had X-rays with Contrast this admission? N TYPE CODE TESTS RESULT OUT OF RANGE REFERENCE UNITS LAB L501.9310 4.8-13.9 ug/dL T4 Normal THYROXIN 6.0 Performed By: #### L501.76238, L501.9195, L501.9310, L501.9520, L506.0400 #### [facility] [address] [facility] [place], [place], [address] THYROID STIM HORMONE Collected: 09/10/2018 Status: F Source: [place] (TSH) 8:35 AM [facility] REPOSITORY Order Comment: Has Patient had X-rays with Contrast this admission? N TYPE CODE TESTS RESULT OUT OF RANGE REFERENCE UNITS LAB L501.9520 0.358-3.74 uIU/mL Low TSH 0.20 Performed By: #### L501.03581, L501.9195, L501.9310, L501.9520, L506.0400 #### [facility] [facility] [place], [place], [address] T4 FREE DIRECT Collected: 09/10/2018 Status: F Source: [place] 8:35 AM [facility] REPOSITORY Order Comment: Has Patient had X-rays with Contrast this admission? N TYPE CODE TESTS RESULT OUT OF REFERENCE UNITS RANGE LAB L506.0400 0.76-1.46 ng/dL Low T4 FREE 0.72 DIRECT Performed By: #### L501.51429, L501.9195, L501.9310, L501.9520, L506.0400 #### [facility]. [place], [place], [address] T3 TOTAL - TRIIODOTHYRONINE Collected: 09/10/2018 Status: F Source: [place] 8:35 AM [facility] REPOSITORY TYPE CODE TESTS RESULT OUT OF RANGE REFERENCE UNITS LAB L501.9186 0.6-1.81 ng/mL Normal T3 Total 0.96 Performed By: #### L501.9186 #### [facility]. [place], [place], [address] THYROID PEROXIDASE AB Collected: 09/10/2018 Status: F Source: [place] 8:35 AM [facility] REPOSITORY TYPE CODE TESTS RESULT OUT OF RANGE REFERENCE UNITS LAB L3300.6900 0-34 IU/mL Normal TPO AB 27 6676 Result Comment: Performed at: - [facility] [address] [id number] Forming Department Supervisor: Alirio Mishra PhD, Phone: [phone] Performed By: #### L3300.6900 #### [facility] (refer to report for specific site) refer to report for address and phone number FREE T3 Collected: 07/28/2018 Status: F Source: [place] 9:05 AM [facility] REPOSITORY TYPE CODE TESTS RESULT OUT OF RANGE REFERENCE UNITS LAB L501.39842 2.18-3.98 pg/mL Low FREE T3 2.1 Performed By: #### L501.75263, L501.9520, L506.0400 #### [facility] [address] [facility] [place], [place], [address] THYROID STIM HORMONE Collected: 07/28/2018 Status: F Source: [place] (TSH) 9:05 AM [facility] REPOSITORY TYPE CODE TESTS RESULT OUT OF RANGE REFERENCE UNITS LAB L501.9520 0.358-3.74 uIU/mL Normal TSH 2.73 Performed By: #### L501.01633, L501.9520, L506.0400 #### [facility] [address] [facility] [place], [place], [address] T4 FREE DIRECT Collected: 07/28/2018 Status: F Source: [place] 9:05 AM [facility] REPOSITORY TYPE CODE TESTS RESULT OUT OF RANGE REFERENCE UNITS LAB L506.0400 0.76-1.46 ng/dL Normal T4 FREE 0.81 DIRECT Performed By: #### L501.45388, L501.9520, L506.0400 #### [facility] [address] [facility] [address] [place], [place], [address] LIPID PROFILE Collected: 06/03/2018 Status: F Source: [place] 8:31 AM [facility] REPOSITORY TYPE CODE TESTS RESULT OUT OF RANGE REFERENCE UNITS LAB L501.4900 200 mg/dL Normal CHOL 128 Result Comment: <200 mg/dL Desirable 200-240 mg/dL Borderline >240 mg/dL High Risk LAB L501.5000 mg/dL Normal TRIG 81 Result Comment: The drugs N-Acetylcysteine and Metamizole may falsely depress this assay. Serum Triglycerides Reference Interval Normal <150 mg/dL Borderline high 150 - 199 mg/dL High 200 - 499 mg/dL Very High > or = 500 mg/dL LAB L501.6400 mg/dL Normal HDL 40 Result Comment: The drugs N-Acetylcysteine and Metamizole may falsely depress this assay. Reference Range HDL <40 mg/dL Low HDL Cholesterol HDL >or= 60 mg/dL High HDL Cholesterol LAB L501.6500 0-130 mg/dL Normal LDL 72 LAB L501.6600 5-40 mg/dL Normal VLDL 16 Performed By: #### L500.4100, L501.73457, L501.9520, L506.0400 #### [facility] [address] [facility] [place], [place], [address] FREE T3 Collected: 06/03/2018 Status: F Source: [place] 8:31 AM [facility] REPOSITORY TYPE CODE TESTS RESULT OUT OF RANGE REFERENCE UNITS LAB L501.18626 2.18-3.98 pg/mL Low FREE T3 1.8 Performed By: #### L500.4100, L501.90020, L501.9520, L506.0400 #### [facility] [address] [facility] [place], [place], [address] THYROID STIM HORMONE Collected: 06/03/2018 Status: F Source: [place] (TSH) 8:31 AM [facility] REPOSITORY TYPE CODE TESTS RESULT OUT OF RANGE REFERENCE UNITS LAB L501.9520 0.358-3.74 uIU/mL Normal TSH 3.36 Performed By: #### L500.4100, L501.52332, L501.9520, L506.0400 #### [facility] [address] [facility] [place], [address] T4 FREE DIRECT Collected: 06/03/2018 Status: F Source: [place] 8:31 AM [facility] REPOSITORY TYPE CODE TESTS RESULT OUT OF RANGE REFERENCE UNITS LAB L506.0400 0.76-1.46 ng/dL Normal T4 FREE 1.06 DIRECT Performed By: #### L500.4100, L501.34966, L501.9520, L506.0400 #### [facility] [address] [place], [address] INITAL EVALUATION (1) Observed: 06/01/2018 Status: F Source: [place] - PT 11:50 AM [facility] REPOSITORY [facility] [address] [place] [address] Fax REHABILITATION SERVICES INITIAL EVALUATION MR#: [id number] Acct: [id number] Name: RISSA ARSHAD Rep #: [id number] : 1970 47 From: Pat Lock DPT Referring Dr.: EVIE Adrian Status: REG RCR Insurance: [facility] SELF PAY INSURANCE Patient's Visit Information RISSA ARSHAD is a 47 year old F referred to Physical Therapy by EVIE Zhou with a diagnosis of Low back pain. Date of Evaluation: 06/01/18 Physical Therapist: Pat Lock - Visit Plan [...] a few years ago bent over to get a sock and was like that for 2 months. Got on her roller when she got home- ice/heat, massage x 2, went to the MD who gave her a muscle relaxer. Unsure if the muscle relaxer helps. Worst: 6/10 Agg: getting up from lying down, up out of the chair, standing for to long, Eases: ice/heat, back brace Best: 0/10. The stretching, heat, and cold work the best. Stretchig on her belly and figure 4. Pain is located on the left- no radiating pain- No N/T. Describes pain as constant ache and a grab if she moves wrong. The grab does not stay. 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 No chiropractor. No X-rays or MRI. No loss or change in bowel or bladder. Very active outside of work- has lost 8 lbs and cardio-kickboxing, walking. PMHx: CRAIG, thyroid, right ulna removal, plantar fascia surgery on right foot. Sleep: not disturbed- normally a belly [...] Hip/knee/ankle: WNL. Sensation: WNL. Strength: Core: fair minus, Ankle/knee: 5/5, Hip: ER: 4/5, IR: 4/5, Flexion: 4+/5 Extn: 4+/5, Abd/add: 4+/5. Flex: HS: mild. Special Test: slump: positive bilaterally, dural signs: negative, SLR: negative, prone lying: decreases pain, knee bend into extn: decreased s/s, [...] normal movement Goal Time Frame: 4-6 Weeks Goal 4:: Patient will report 0/10 pain for [...] TENS: Yes Cryotherapy (ice pack, ice massage): Yes Thermo therapy (hot pack): Yes Ultrasound (thermal/non thermal): Yes For the Purpose of:: To decrease pain Thank you for the opportunity to evaluate your patient. For Medicare and Medicare HMO plans, please review the plan of care and approve it. It will need to be FAXED BACK to us at [phone] for Medicare purposes. Please let me know if there are questions or concerns regarding this plan of care. Physician Signature: Date: <Electronically signed by Pat Lock DPT> 06/01/18 1150 CC: EVIE Adrian; Whitney Diaz DO ELR Signed For Medicare only, by signing this I certify the plan of care. Physicians Signature Date SCREENING MAMM (CAD), Observed: 10/16/2017 Status: F Source: [facility] 8:58 AM [facility] REPOSITORY [facility] Imaging Services [address] [place] [address] SCREENING MAMM (CAD), BIL MR#: [id number] Acct: [id number] Name: RISSA ARSHAD Rep #: [id number] : 1970 F 46 From: Wayne Mascorro MD PCP: Whitney Diaz DO Status: [facility] CL Study: SCREENING MAMM (CAD), BILAT Date of Exam: 10/16/17 Exam# [id number] Ordering Dr: Sherry Wilson MD MAMMOGRAPHY - BILATERAL SCREENING REASON FOR EXAM: Female, 46 years old. Routine annual screening examination. PERTINENT HISTORY: Aunt with breast cancer. Remote right excisional breast biopsy. TECHNIQUE: Digital bilateral breast lukasz (3D mammographic acquisition) in the CC and MLO projections. 2-D mediolateral oblique (MLO) and craniocaudad (CC) views of both breasts were obtained. CAD: Full Field Digital Mammography with Computer Added Detection was performed. COMPARISON: Comparison is made with prior examination dated September 27, 2016 and August 25, 2015. FINDINGS: Breast Composition: There are scattered areas of fibroglandular density. There are no dominant masses or suspicious calcifications. A tissue clip marker is seen in the central inner portion of the right breast. No other significant abnormalities are identified. There has been no significant change since the prior study. HPBI/SCREENING MAMM (CAD), BILAT IMPRESSION: Stable bilateral screening mammogram. Yearly follow-up mammogram recommended. (A) ASSESSMENT CATEGORY: BIRADS Category 2: Benign. A letter regarding these results will be sent to the patient by the facility within 30 days. Approximately 10% of breast cancers are not detected by mammography. A normal mammogram should not delay biopsy of a clinically suspicious abnormality. [id number] Electronically Signed: Wayne Msacorro MD at 10:53 EST Tel [phone], Service support , CC: Sherry Wilson MD; Whitney Diaz DO Tool Trouble Shooter: Signed ALLERGIES ALLERGIES DATE TYPE / CODE NAME / CODE REACTION SEVERITY SOURCE 04/16/2015 Drug Sulfa Rash Unknown Stuart [facility] Allergy/4160 (Sulfonamide [facility] 31314(SNOMED Antibiotics)/ Repository CT) [id number](RX NORM) ENCOUNTERS ENCOUNTERS ADMIT/DISCHARGE ACCOUNT ADMITTING ENCOUNTER LOCATION SOURCE NUMBER CLASS 09/28/2018 [id number] Ambulatory Stuart Stuart 1 [facility] ing:MASS Repository 09/15/2018 [id number] Ambulatory Ariadne Stuart 4 [facility] ing:LAB.FUTUR Repository E 09/14/2018 [id number] Ambulatory [facility] Ari[place] 2 [facility] ing:MTLAB Repository 09/10/2018 [id number] Ambulatory Ariadne Stuart 6 [facility] ing:MTLAB Repository 07/28/2018 [id number] Ambulatory Ariadne Stuart 2 [facility] ing:MTLAB Repository 06/03/2018/ [id number] Ambulatory Ariadne Ari[place]ne 8 1 [facility] ing:PT Repository 06/03/2018 [id number] Ambulatory Stuart Stuart 9 [facility] ing:LAB.FUTUR Repository E 10/16/2017 [id number] Ambulatory Ari[place]ne [place] 0 [facility] ing:BI Repository PAYERS PAYERS ENCOUNTER GUARANTOR PAYER SUBSCRIBER SOURCE 09/28/2018 Rissa Fuentes Primary NOT GIVENUNK Stuart [id number] Insurance:SELF PAY [place] [address]Tel: Number: Effective Repository Date:2015-10-16 (HP) 09/15/2018 Rissa Fuentes Primary GERARDO D WHITEDOB: Ariadne [id number] [place] Insurance:MEDICAL [id number] [address]Bni: Number: Repository [id number] (HP) Date:4455-75-63UR [address] [address]EO: 09/15/2018 Secondary NOT GIVENUNK Stuart Insurance:SELF PAY [facility] Number: Effective Repository Date:2018-09-15 09/14/2018 Rissa Fuentes Primary GERARDO D WHITEDOB: Ariadne [id number] [place] Insurance:MEDICAL [id number] [facility] [address]Rmn: Number: Repository [id number] (HP) Date:2675-38-41HW [place] [id number]: 09/14/2018 Secondary NOT GIVENUNK Ariadne Insurance:SELF PAY [facility] Number: Effective Repository Date:2018-09-14 09/10/2018 Rissa Fuentes Primary GERARDO D WHITEDOB: Stuart [id number] Insurance:MEDICAL [id number] [address]Uiy: Number: Repository [id number] (HP) Date:0649-43-66ZT [address] [place], [place] [address]: 09/10/2018 Secondary NOT GIVENUNK Stuart Insurance:SELF PAY [facility] Number: Effective Repository Date:2018-09-10 07/28/2018 Rissa Alfredo Primary GERARDO D WHITEDOB: Ariadne [id number] [place] Insurance:MEDICAL [id number] [id number]: Number: Repository [id number] (HP) Date:6377-18-89OS [place] [id number]: 07/28/2018 Secondary NOT GIVENUNK Stuart Insurance:SELF PAY [facility] Number: Effective Repository Date:2018-07-28 06/03/2018 Rissa Fuentes Primary GERARDO D WHITEDOB: Ariadne [id number] [place] Insurance:MEDICAL [id number] [facility] [address]Yqn: Number: Repository [id number] (HP) Date:4708-00-07ZR [address] [place] [address]SM: 06/03/2018 Secondary NOT GIVENUNK Ariadne Insurance:SELF PAY [facility] Number: Effective Repository Date:2018-05-28 06/03/2018 Rissa Fuentes Primary GERARDO D WHITEDOB: Ariadne [id number] [place] Insurance:MEDICAL [id number] [facility]vue Hospital [address]Nmw: Number: Repository [id number] (HP) Date:4931-46-45SD [address] [address]ND: 06/03/2018 Secondary NOT GIVENUNK Stuart Insurance:SELF PAY [facility] Number: Effective Repository Date:2018-03-23 10/16/2017 Rissa Fuentes Primary Gerardo ChavezB: Ariadne [id number] [place] Insurance:MEDICAL [id number] [facility] Hospital [address]Tmd: Number: Repository [id number] () Date:1055-81-80CH [address] [address]AF: 10/16/2017 Secondary NOT GIVENUNK Ariadne Insurance:SELF PAY [facility] Number: Effective Repository Date:2017-09-10
== END ==
PROVIDERS: Family Provider Internal Medicine; PCP Internal Medicine; Referring Provider Internal Medicine; Visit Provider Internal Medicine
DX: E03.9 Hypothyroidism, unspecified (principal)
CPT/HCPCS: 36415; 84436; 84439; 84443; 84479; 84480; 84481; 86376

== ENCOUNTER → 2018-09-14 08:27 | Outpatient (CLI) | payer OTHER, SELFPAY ==
[2018-09-14 11:09] LABS: Free T3 2.7 pg/mL (2.18-3.98); T4 Free Direct 0.68 ng/dL (0.76-1.46); Thyroid Stim Hormone (TSH) 0.19 uIU/mL (0.358-3.74)
--- OUTSIDE RECORDS SUMMARY | 2018-11-07 08:47 | XMS RPT_ITS | Continuity of Care Document ---
:1970 Author Organization [facility] Address [address] [place] [address] Phone Care Team Providers Name Role Phone hWitney Diaz DO Unavailable TERRENCE Lee Unavailable Unavailable [...] Status: Active Medications Name Dates Details CALCIUM, [id number]-YFWR (Oral Tablet) Active 1 (one) daily (600-200 [...] (5-240 MG) End : 17-Mar-2012 Discontinued CORTISPORIN, 3.5-04596-0 (Otic Solution) 4 Drop(s) tid or qid [...] Result: Comments: See Note; NOTES: [facility] Physical Therapy [facility] [place] [address] Fax REHABILITATION SERVICES INITIAL EVALUATION MR#: [id number] Acct: [id number] Name: RISSA MCWILLIAMS Rep #: [id number] : 1970 47 From: Pat Lock DPT Referring Dr.: EVIE Adrian Status: REG RCR Insurance: [facility] SELF PAY INSURANCE Patient's Visit Information RISSA [...] grab does not stay. 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 [...] to be FAXED BACK to us at [phone] for Medicare purposes. Please let me know if there are questions or concerns regarding this plan of care. Physician Signature: Date: <Electronically signed by Pat Lock DPT> 06/01/18 1150 CC: EVIE Diaz DO ELR Signed For Medicare only, by signing this I certify the plan of care. Physicians Signature Date 16-Oct-2017 SCREENING MAMM (CAD), BILAT Result: Comments: See Note; NOTES: [facility] Imaging Services [address] [place] [address] SCREENING MAMM (CAD), BILAT MR#: [id number] Acct: [id number] Name: RISSA MCWILLIAMS Rep #: [id number] : 1970 F 46 From: Wayne Mascorro MD PCP: Whitney Diaz DO Status: REG CLI Study: SCREENING MAMM (CAD), BILAT Date of Exam: 10/16/17 Exam# [id number] Ordering Dr: Sherry Wilson MD MAMMOGRAPHY - [...] no significant change since the prior study. [facility]/SCR EENING MAMM (CAD), BILAT IMPRESSION: Stable bilateral screening mammogram. Yearly follow-up mammogram recommended. (A) ASSESSMENT CATEGORY: BIRADS Category 2: Benig n. A letter regarding these results will be sent to the patient by the facility within 30 days. Approximately 10% of breast cancers are not detected by mammography. A normal mammogram should not delay biopsy of a clinically suspicious abnormality. [id number] Electronically Signed: Wayne Mascorro MD at 10:53 EST Tel [phone], Service support , CC: Sherry Wilson MD; Whitney Diaz DO Sanitation Truck Driver: Signed 27-Sep-2016 Bilat Scrn Digital AND CAD Result: Comments: See Note; NOTES: [facility] Imaging Services [address] [place] [address] Verdana 4d Bilat Scrn Digital AND CAD MR#: [id number] Acct: [id number] Name: RISSA MCWILLIAMS Rep #: [id number] : 1970 F 45 From: Wayne Mascorro MD PCP: Whitney Diaz DO Status: REG CLI Study: Bilat Scrn Digital AND CAD Date of Exam: 09/27/16 Exam# [id number] Ordering Dr: Sherry Wilson MD MAMMOGRAPHY - [...] biopsy of a clinic ally suspicious abnormality. [id number] Electronically Signed: Wayne Mascorro MD at 12:38 EST Tel [phone], Service support [phone], CC: Sherry Wilson MD; Birdie Diaz DO Sanitation Truck Driver: Signed 25-Aug-2015 Bilat Scrn Digital AND CAD Result: Comments: See Note; NOTES: [facility] Imaging Services [address] [place] [address] Verdana 4d Bilat Scrn Digital AND CAD MR#: [id number] Acct: [id number] Name: RISSA MCWILLIAMS Rep #: [id number] : 1970 F 44 From: Wayne Mascorro MD PCP: Kassie Hassan DO Status: [facility] CL Study: Bilat Scrn Digital AND CAD Date of Exam: 08/25/15 Exam# [id number] Ordering Dr: Sherry Wilson MD MAMMOGRAPHY - [...] Wayne Mascorro MD at 15:37 EST Tel [phone], Service support [phone], CC: Sherry Wilson MD; Kassie Hassan DO Sanitation Truck Driver: Signed 17-Apr-2015 Emergency Department Summary Result: Comments: See Note; NOTES: [facility] Medical Records Department [address] [place] [address] Emergency Department Summary MR#: [id number] Acct: [id number] Name: RISSA MCWILLIAMS Rep #: [id number] : 1970 44 From: Finesse Yancey MD [...] infection. Finesse Yancey MD T: NTS JOB: [id number] 04/17/15 0130 <Electronically signed by Finesse Yancey MD> Date Finesse Yancey MD CC: Kassie Hassan DO Date Dictated: 04/16/15658 Date Transcribed: 04/16/15658 Sanitation Truck Driver: Signed 16-Apr-2015 Discharge Instruction Result: Comments: See Note; NOTES: [facility] Medical Records Department [address] [place] [address] Discharge Instruction 04/16/15658 MR#: [id number] Acct: [id number] Name: RISSA MCWILLIAMS Rep #: [id number] : 1970 44 From: Finesse Yancey MD [...] contact your doctor. C all Doctors Registry ([phone]) or report to the closest Emergency Room. Call 911 if necessary. 04/16/15 0701 <Electronically signed by Finesse Yancey MD> Date ___ Finesse Yancey MD Cosigner Signature (If Indicated): Date CC: Kassie Hassan DO 16-Apr-2015 Discharge Instruction Result: Comments: See Note; NOTES: [facility] Medical Records Department [address] [place] [address] Discharge Instruction 04/16/15 0656 MR#: [id number] Acct: [id number] Name: RISSA MCWILLIAMS Rep #: [id number] : 1970 44 From: Finesse Yancey MD [...] problems, contact your doctor. Call Doctors Registry ([phone]) or report to the closest Emergency Room. Call 911 if necessary. 04/16/15 0657 <Electron ically signed by Finesse Yancey MD> Date Finesse Yancey MD Cosigner Signature (If Indicated): Date CC: Kassie Hassan 05-Aug-2014 Bilat Scrn Digital & CAD Result: Comments: See Note; NOTES: [facility] Imaging Services [address] [place] [address] Breast Imaging Report MR#: [id number] Acct: [id number] Name: RISSA MCWILLIAMS Rep #: [id number] : 1970 F 43 From: Wayne Mascorro MD PCP: Kassie Hassan DO Status: REG CLI Exam# [id number] Ordering Dr: Sherry Wilson MD MAMMOGRAPHY - [...] Wayne Mascorro MD at 11:32 EDT Tel [phone], Service support [phone], CC: Sherry Wilson MD; Kassie Hassan DO Sanitation Truck Driver: Signed Family History Unknown Family Member Name [...] Description Value Details :05 Free T3 Comments: [facility] [address] [place] [place], [address] FREE T3 2.1 pg/mL (Abnormal) Range: 2.18-3.98 :05 T4 Free Direct Comments: [facility] [address] [place], [address] T4 FREE DIRECT 0.81 ng/dL (Normal) Range: 0.76-1.46 :05 Thyroid Stim Hormone (TSH) Comments: [facility] [address] [place], [address] TSH 2.73 {uIU/mL} (Normal) Range: 0.358-3.74 :31 Free T3 Comments: [facility] [address] [place], [address] FREE T3 1.8 pg/mL (Abnormal) Range: 2.18-3.98 :31 Lipid Profile Comments: [facility] [address] [place], [address] VLDL 16 mg/dL (Normal) Range: 5-40 LDL [...] 200-240 mg/dL Borderline >240 mg/dL High Risk 87-Kxy-60477:31 T4 Free Direct Comments: [facility] [address] [place], [place], [address] T4 FREE DIRECT 1.06 ng/dL (Normal) Range: 0.76-1.46 74-Plm-80109:31 Thyroid Stim Hormone (TSH) Comments: [facility] [address] [place], [place], [address] TSH 3.36 {uIU/mL} (Normal) Range: 0.358-3.74 50-Uqw-633312:30 PAP I-G w/rfx hrHPV Comments: CYTOLOGY INFORMATION:- CLINICAL INFORMATION:- DATE LMP/MENOPAUSE: IUD 09/06/17 LMP- COLLECTION VIAL: Thin Prep Vial- TRIM SAWYER SOURCE: CERVICAL/ENDOCERVICAL- COLLECTION TECHNIQUE: BRUSH/SPATULASp ecimen Comme nt: [id number] Comment: No. of containers..01 ThinPrep VialLabCorp (refer to report for specific site)refer to report for address and phone number HPV RFLX Comment (Normal) Comments: The HPV DNA reflex criteria were not met with this specimenresult therefore, no HPV testing was performed.Performed at: [address] [id number] Director: Shiloh Walker MD, Phone: [phone] PAPSMR Comment (Normal) Comments: The Pap smear [...] system. PERFORM Comment (Normal) Comments: Uvaldo Carlin, Group Work Program Director (ASCP) ADEQ Comment (Normal) Comments: Satisfactory for evaluation. Endocervical and/or squamous metaplasticcells (endocervical component) are present. DIAGN Comment (Normal) Comments: NEGATIVE FOR INTRAEPITHELIAL LESION AND MALIGNANCY.PLEASE INDICATE LMP ON FUTURE PATIENT'S REQUEST FORMS. 87-Sgb-413976:07 Free T3 Comments: [facility] [address] [place], [id number] FREE T3 1.8 pg/mL (Abnormal) Range: 2.18-3.98 23-Rpl-850277:07 Lipid Profile Comments: [facility] [address] [place], [address] VLDL 14 mg/dL (Normal) Range: 5-40 LDL [...] 200-240 mg/dL Borderline >240 mg/dL High Risk 19-Kug-086603:07 T4 Free Direct Comments: [facility] [address] [place], [address] T4 FREE DIRECT 0.93 ng/dL (Normal) Range: 0.76-1.46 56-Gcm-866163:07 Thyroid Stim Hormone (TSH) Comments: [facility] [address] [place], [address] TSH 2.43 {uIU/mL} (Normal) Range: 0.358-3.74 91-Ujz-277950:30 PAP I-G w/rfx hrHPV Comments: CYTOLOGY INFORMATION:- CLINICAL INFORMATION:- DATE LMP/MENOPAUSE: IUD NO MENSES GIVEN LMP- COLLECTION VIAL: Thin Prep Vial- TRIM SAWYER SOURCE: CERVICAL/ENDOCERVICAL- COLLECTION TECHNIQUE: BRUSH/SPATULASpecime n Comment: [id number] Comment: No. of containers..01 CYTYC Thin Prep VialLabCorp (refer to report for specific site)refer to report for address and phone number HPV RFLX Comment (Normal) Comments: The HPV DNA reflex criteria were not met with this specimenresult therefore, no HPV testing was performed.Performed at: [address] [place], [place] [id number] Director: Shiloh Walker MD, Phone: [phone] PAPSMR Comment (Normal) Comments: The Pap smear [...] system. PERFORM Comment (Normal) Comments: Angel Yates, Group Work Program Director (ASCP) ADEQ Comment (Normal) Comments: Satisfactory for evaluation. Endocervical and/or squamous metaplasticcells (endocervical component) are present. DIAGN Comment (Normal) Comments: NEGATIVE FOR INTRAEPITHELIAL LESION AND MALIGNANCY. 06-Yzn-311129:30 CT/NG WCH BY PCR Comments: [facility] [address] [place], [address] NG by PCR Negative (Normal) [facility] PCR Negative (Normal) 70-Qwz-493746:30 PAP I-G w/rfx hrHPV Comments: CYTOLOGY INFORMATION:- CLINICAL INFORMATION:- DATE LMP/MENOPAUSE: IUD/NO MENSES GIVEN LMP- COLLECTION VIAL: Thin Prep Vial- TRIM SAWYER SOURCE: CERVICAL/ENDOCERVICAL- COLLECTION TECHNIQUE: BRUSH/SPATULACYTOLOG Y INFORMATION:- CLINICAL INFORMATION:- DATE LMP/MENOPAUSE: IUD/NO MENSES GIVEN LMP- COLLECTION VIAL: Thin Prep Vial- TRIM SAWYER SOURCE: CERVICAL/ENDOCERVICAL- COLLECTION TECHNIQUE: BRUSH/SPATULASpecimen Comme nt: [id number] Comment: No. of containers..01 CYTYC Thin Prep VialLabCorp (refer to report for specific site)refer to report for address and phone number HPV HC,HGH RISK Negative Comments: This high-risk HPV test detects thirteen high-risk types(16/18/31/33/35/39/45/51/52/56/58/59/68) withoutdifferentiation.Performed at: - [facility] [id number] (Normal) b Director: Shiloh Walker MD, Phone: [phone] at: = - [facility] [id number] Director: Shiloh Walker MD, Phone: [phone] HPV RFLX Comment Comments: See below for [...] Pathologist (Normal) PERFORM Comment Comments: Nohemi He, Group Work Program Director (ASCP) (Normal) ADEQ Comment Comments: Satisfactory for evaluation. Endocervical and/or squamous metaplasticcells (endocervical component) are present. (Normal) DIAGN Comment Comments: EPITHELIAL CELL ABNORMALITY.ATYPICAL SQUAMOUS CELLS OF UNDETERMINED SIGNIFICANCE. (Abnormal) 35-Bwl-79143:52 Thyroxine (T4) Free, Comments: PATIENT WAS FASTINGPERFORMED BY: [facility]buryQkgnhy9023 [facility] [id number] Information: [id number] Direct, S T4,Free(Direct) 1.20 ng/dL Range: 0.82-1.77 (Normal) 07-Jun-2016 Triiodothyronine,Free,Seru 2.3 pg/mL (Normal) Comments: PATIENT WAS FASTINGPERFORMED BY: [facility]6[address] [facility] [id number] 9:52 m Range: 2.0-4.4 07-Jun-2016 Written Authorization WAR (Normal) Comments: PATIENT WAS FASTINGPERFORMED BY: [facility]6[address] [facility] [id number] 9:52 Comments: Written Authorization Received.Authorization received from SIGNATURE ON FILE 44-12-2004Sczgyl by Shaina Mcneal 53-Llu-71182:52 METABOLIC PANEL, COMPREHENSIVE Comments: PATIENT WAS FASTINGPERFORMED BY: [facility] [id number] ([address]) ALT (SGPT) 15 [iU]/L (Normal) Range: 0-32 [...] AUT DIFF Comments: PATIENT WAS FASTINGPERFORMED BY: [facility]bury[facility]neagr9156 [facility] [id number] Information: [id number] (72168) Immature Grans (Abs) 0.0 {x10E3/uL} (Normal) Range: [...] {x10E3/uL} (Normal) Range: 3.4-10.8 :52 LIPID PANEL (30447) Comments: PATIENT WAS FASTINGPERFORMED BY: [facility]6370 [facility] [id number] LDL/HDL Ratio 1.9 {ratio_units} (Normal) Range: 0.0-3.2 [...] Cholesterol, Total 148 mg/dL (Normal) Range: 100-199 94-Nnm-30237:52 TSH (89883) Comments: PATIENT WAS FASTINGPERFORMED BY: [facility] Ucikwr8195 [facility] [id number] TSH 2.770 {uIU/mL} (Normal) Range: 0.450-4.500 04-Vqb-577194:00 PAP I-G w/rfx hrHPV Comments: CYTOLOGY INFORMATION:- CLINICAL INFORMATION:- DATE LMP/MENOPAUSE: IUD LMP- COLLECTION VIAL: Thin Prep Vial- TRIM SAWYER SOURCE: CERVICAL/ENDOCERVICAL- COLLECTION TECHNIQUE: BRUSH/SPATULASpecimen Comment: COJAJA [id number] Comment: No. of containers..01 CYTYC Thin Prep VialLabCorp (refer to report for specific site)refer to report for address and phone number HPV RFLX Comment (Normal) Comments: The HPV DNA reflex criteria were not met with this specimenresult therefore, no HPV testing was performed.Performed at: [address] [id number] Director: Alfredo Alejandre MD, Phone: [phone] PAPSMR Comment (Normal) Comments: The Pap smear [...] system. PERFORM Comment (Normal) Comments: Govind Zhang, Group Work Program Director (ASCP) ADEQ Comment (Normal) Comments: Satisfactory for evaluation. Endocervical and/or squamous metaplasticcells (endocervical component) are present. DIAGN Comment (Normal) Comments: NEGATIVE FOR INTRAEPITHELIAL LESION AND MALIGNANCY. 47-Drd-841700:48 CBC W/Diff, Automated Comments: Test performed at:[facility] [address] [place] [address] ; Non- emergent till apt Absolute Lymph [...] 4.2-5.4 WBC 6.2 K/mm3 (Normal) Range: 4.4-11.0 61-Erp-909856:48 Comprehensive Metabolic Profil Comments: Test performed at:[facility] [address] [place] [address] GAP 5 (Normal) Range: 5-15 CO2 [...] Comments: Please note revised CREATININE reference range puyjlrznj79/22/2015. BUN 17 mg/dL (Normal) Range: 7-18 GLU 78 mg/dL (Normal) Range: 70-110 33-Cpd-282504:48 Lipid Profile Comments: Test performed at:[facility] [address] [place] [address] VLDL 14 mg/dL (Normal) Range: 5-40 LDL [...] 200-240 mg/dL Borderline >240 mg/dL High Risk 02-Ofx-238193:48 Thyroid Stim Hormone (TSH) Comments: Test performed at:[facility] [address] [place], [place] [address] TSH 1.74 {uIU/mL} (Normal) Range: 0.358-3.74 16-Apr-20156:30 Urinalysis, Complete Comments: Order Date: 04/16/15How was Urine Obtained? CLEAN CATCHTest performed at:[facility] [address] [facility] [place], [place] [address] ; ordered by sharmaine MUCUS, URINE 0 [...] CLARITY Sl. Cloudy (Normal) COLOR Yellow (Normal) 18-Ijw-495603:15 PAPIG5 Comments: CYTOLOGY INFORMATION:- CLINICAL INFORMATION:- DATE LMP/MENOPAUSE: NO MENSES/IUD LMP- COLLECTION VIAL: Thin Prep Vial- TRIM SAWYER SOURCE: CERVICAL/ENDOCERVICAL- COLLECTION TECHNIQUE: BRUSH/SPATULASpecimen Comm ent: [id number] Comment: No. of containers..01 CYTYC Thin Prep Vial tHPVRFLX Comment (Normal) Comments: The HPV DNA reflex criteria were not met with this specimenresult therefore, no HPV testing was performed.Performed at: [address] [place] [id number] Director: Alfredo Alejandre MD, Phone: [phone] tPAPSMR Comment (Normal) Comments: The Pap smear [...] system. tPERFORM Comment (Normal) Comments: Lio Ulloa, Group Work Program Director (ASCP) tADEQ Comment (Normal) Comments: Satisfactory for evaluation. Endocervical and/or squamous metaplasticcells (endocervical component) are present. tDIAG Comment (Normal) Comments: NEGATIVE FOR INTRAEPITHELIAL LESION AND MALIGNANCY. 81-Fec-09477:28 CMP GAP 7 (Normal) Range: 5-15 CO2 [...] CHOL 148 mg/dL (Normal) Comments: <200 mg/dL Voebhchkk149-414 mg/dL Borderline>240 mg/dL High Risk HDL 46 [...] CHOL 164 mg/dL (Normal) Comments: <200 mg/dL Yfkdjtoik969-635 mg/dL Borderline>240 mg/dL High Risk :13 TSH 1.21 {uIU/mL} (Normal) Range: 0.358-3.74 :19 FT3 2.5 pg/mL (Normal) Range: 2.18-3.98 :19 T4F 1.02 ng/dL (Normal) Range: 0.76-1.46 :19 TPO 10 {IU/mL} (Normal) Range: 0-34 Comments: Performed at: [facility] [address] [id number] Director: Zac Khanna PhD, Phone: [phone] :19 TSH 1.74 {uIU/mL} (Normal) Range: 0.358-3.74 [...] CHOL 159 mg/dL (Normal) Comments: <200 mg/dL Vfwarsirs286-680 mg/dL Borderline>240 mg/dL High Risk HDL 41 [...] Mascorro M.D.June 10, 2012 at 9:55:07 AM [id number] Signed GP/G P If you are the referring physician and would like to consult with theradiologist who provided this interpretation, please contact Edelmira Juarez at [phone]. If this radiologist is yovani rob, youwill be directed to another radiologist to assist. If you are a patient with a question regarding this report, pleasecontactyour referring physician directly. Professional Interpretation Provi ded By: [employer], Phone , These documents contain legally protected [...] 06/10/12 1002 Sign by: Wayne Mascorro MD 51-Sab-15013:36 CUUR Comments: appt 03/17/12 URC See Note {CFU/mL} (Normal) Comments: COLONY COUNT 1000-10,000 :36 FT3 2.5 pg/mL (Normal) Comments: appt 03/17/12 Range: 2.18-3.98 :36 T4F 0.85 ng/dL (Normal) Range: 0.76-1.46 :36 TSH 2.86 {uIU/mL} (Normal) Range: 0.358-3.74 70-Uwy-144634:06 URINE ALFREDO CULTURE-EDWARD COL Comments: PERFORMED BY: [facility] WoodburyRvtmgv0299 [facility] [id number] Information: SRC: URETHRA COUNT (64625) Result 1 ECV (Normal) Comments: Escherichia coli, identified by an automated biochemical system.1,000 Colonies/mLMixed urogenital ferwl236 Colonies/mL S = Susceptible; I = Intermediate; R = Resistant P = Positive; N = Negative MICS are expressed in micrograms per mL Antibiotic RSLT#1 RSLT#2 RSLT#3 RSLT#4Amoxicillin/Clavulanic Acid SAmpicillin RCefazolin SCefepime SCeftriaxone SCefuroxime SCephalothin ICiprofloxacin SESBL NErtapenem SGentamicin SImipenem SLevofloxacin SNitrofurantoin SPiperacillin RTetracycline RTobramycin STrimethoprim/Sulfa S Urine Final report (Normal) Culture,Comprehensiv e 99-Jxm-037732:19 Urinalysis, Office (02786) UA - BILIRUBIN Negative (Normal) UA - [...] (Normal) Range: 0-34 57 Comments: Performed at: [address] [id number] Director: Ashleigh Abraham MD, Phone: [phone] : TSH 3.55 {uIU/mL} (Normal) Range: 0.358-3.74 57 :09 Urinalysis, Office (12366) UA - BILIRUBIN Negative (Normal) UA - [...] 4.2-5.4 WBC 5.9 K/mm3 (Normal) Range: 4.4-11.0 03-Crm-950896:40 BILAT SCRN DIGITAL & CAD Radiology Report [...] TSH 5.38 {uIU/mL} Range: 0.358-3.74 :31 (Abnormal) 43-Fqg-169360:19 COMPLETE UA MUCUS, URINE 0 SEEN {/hpf} [...] (under 40) Planned Observations T4, FREE (THYROXINE) (25656)Indication: Hypothyroidism On: : Request TSH (21973)Indication: Hypothyroidism On: : Request Anti-TPO Antibody (16643)Indication: Hypothyroidism On: :25 Request T4, TOTAL (75369)Indication: Hypothyroidism On: :25 Request T3, TOTAL (TRIDOTHYRONINE) (19356)Indication: Hypothyroidism On: :25 Request T3, FREE (TRIDOTHYRONINE) (13280)Indication: Hypothyroidism On: :24 Request T-3 UPTAKE (17679)Indication: Hypothyroidism On: :24 Request FREE TRIDOTHYRONINE (T3) (12357)Indication: T3 low in serum On: :08 Request TSH (59301)Indication: Hypothyroidism On: :18 Request T4, FREE (THYROXINE) (11548)Indication: Hypothyroidism On: :18 Request T3, FREE (TRIDOTHYRONINE) (13392)Indication: Hypothyroidism On: :18 Request T4, FREE (THYROXINE) (65634)Indication: T3 low in serum On: :37 Request T3, FREE (TRIDOTHYRONINE) (45960)Indication: T3 low in serum On: :37 Request T4, FREE (THYROXINE) (98557)Indication: Hypothyroidism On: :46 Request T3, FREE (TRIDOTHYRONINE) (25442)Indication: Hypothyroidism On: :46 Request TSH (THYROID STIMULATING HORMONE) (15302)Indication: Hypothyroidism On: :45 Request LIPID PANEL (42152)Indication: Encounter for screening for lipid disorder On: :44 Request LIPID PANEL (42221)Indication: Encounter for screening for lipid disorder On: :47 Request T3, FREE (TRIDOTHYRONINE) (82969)Indication: Hypothyroidism On: :48 Request T4, FREE (THYROXINE) (51771)Indication: Hypothyroidism On: :48 Request TSH (33734)Indication: Hypothyroidism On: :48 Request T4, FREE (THYROXINE) (58913)Indication: Hypothyroidism On: 91-Suo-184952:02 Request T3, FREE (TRIDOTHYRONINE) (00528)Indication: Hypothyroidism On: 22-Mli-976674:01 Request METABOLIC PANEL, COMPREHENSIVE (56356)Indication: Elevated blood pressure (not hypertension) On: 7-Tqa-868349:58 Request LIPID PANEL (14612)Indication: Low HDL (under 40) On: :34 Request TSH (42248)Indication: Hypothyroidism On: :34 Request CBC W/AUTO DIFF WBC (36949)Indication: Migraine On: :34 Request METABOLIC PANEL, COMPREHENSIVE (91619)Indication: Migraine On: :34 Request METABOLIC PANEL, COMPREHENSIVE (60414)Indication: Migraine On: 85-Sqr-867670:48 Request TSH (49592)Indication: Hypothyroidism On: 57-Kuo-048198:48 Request LIPID PANEL (68787)Indication: Low HDL (under 40) On: 63-Mcx-179598:48 Request TSH (48304)Indication: Hypothyroidism On: 1-Bic-030750:57 Request LIPID PANEL (74193)Indication: Low HDL (under 40) On: 9-Gxu-197073:57 Request T3, FREE (TRIDOTHYRONINE) (71780)Indication: Hypothyroidism On: 08-Uor-240613:43 Request T4, FREE (THYROXINE) (25941)Indication: Hypothyroidism On: 87-Mjo-357216:43 Request Anti-TPO Antibody (95284)Indication: Hypothyroidism On: 45-Vmq-589447:43 Request TSH (93570)Indication: Hypothyroidism On: 20-Smk-156908:43 Request TSH (77653)Indication: Abnormal TSH On: 8-Ixr-861781:43 Request Lipid Panel (54367)Indication: Low HDL (under 40) On: 1-Fsa-904123:43 Request Metabolic Panel, Comprehensive (34599)Indication: Elevated blood pressure (not hypertension) On: 0-Mrb-666215:43 Request LIPID PANEL (08006)Indication: Low HDL (under 40) On: 0-Mlj-107063:58 Request TSH (56106)Indication: Abnormal TSH On: 96-Hyg-087742:07 Request T4, FREE (THYROXINE) (02380)Indication: Abnormal TSH On: 34-Xqt-664746:07 Request T3, FREE (TRIDOTHYRONINE) (25171)Indication: Abnormal TSH On: 69-Xlq-731684:07 Request LIPID PANEL (78243)Indication: Low HDL (under 40) On: 79-Hwf-252314:38 Request METABOLIC PANEL, COMPREHENSIVE (66549)Indication: Elevated blood pressure (not hypertension) On: :38 Request T4, FREE (THYROXINE) (46231)Indication: Abnormal TSH On: :10 Request T3, FREE (TRIDOTHYRONINE) (38982)Indication: Abnormal TSH On: :10 Request Anti-TPO Antibody (33306)Indication: Abnormal TSH On: :10 Request TSH (98833)Indication: Abnormal TSH On: :09 Request LIPID PANEL ([id number])Indication: Elevated blood pressure (not hypertension) On: :54 Request TSH ([id number])Indication: Elevated blood pressure (not hypertension) On: :54 Request URINALYSIS, W/ MICRO ([id number])Indication: Elevated blood pressure (not hypertension) On: :53 Request METABOLIC PANEL, COMPREHENSIVE ([id number])Indication: Elevated blood pressure (not hypertension) On: :53 Request CBC WITH MANUAL DIFF ([id number])Indication: Elevated blood pressure (not hypertension) On: :53 Request Planned Procedures PHYSICAL THERAPY ([id number])By: Nguyễn On: 28-May-2018 Intent Rissa Comments: Order given for dry needling Eprescribed prescriptions ([id number])By: On: 01-Sep-2013 Intent Elo Jung LPN Eprescribed prescriptions ([id number])By: On: 11-Aug-2013 Intent Leticia Loera Eprescribed prescriptions ([id number])By: On: 09-Feb-2013 Intent Leticia Loera MAMMOGRAM, SCREENING, BOTH BREASTS On: 17-Mar-2012 Intent ([id number])By: Fast DO, Kassie A Eprescribed prescriptions ([id number])By: On: 09-Sep-2011 Intent Fast DO, Kassie A TDAP VACCINE >7 IM ([id number])By: On: 09-Sep-2011 Intent Leticia Loera Comments: work FLU VAC, SPLIT, >3 YEARS, INTRAMUSC On: 09-Sep-2011 Intent ([id number])By: Leticia Loera Comments: work Instructions Name Dates [...] down 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
--- OUTSIDE RECORDS SUMMARY | 2018-11-07 08:47 | XMS RPT_ITS | Continuity of Care Document ---
:1970 Author Organization [facility] Address [address] [place] [address] Phone Care Team Providers Name Role Phone [...] Status: Active Medications Name Dates Details CALCIUM, [id number] (Oral Tablet) Active 1 (one) daily (600-200 [...] days Quantity: 90 {Tablet} Refills: 3 Ordered:01-Jul-2018 Kibmerley Diaz DO, DO, Kathleen Start : 01-Jul-2018 [...] (5-240 MG) End : 17-Mar-2012 Discontinued CORTISPORIN, 3.5-01478-5 (Otic Solution) 4 Drop(s) tid or qid [...] - PT Result: Comments: See Note; NOTES: [facility] Physical Therapy [facility] [facility]. [address] [place] [address] Fax REHABILITATION SERVICES INITIAL EVALUATION MR#: [id number] Acct: [id number] Name: RISSA MCWILLIAMS Rep #: [id number] : 1970 47 From: Pat Lock DPT Referring Dr.: EVIE Adrian Status: REG RCR Insurance: [facility] SELF PAY INSURANCE Patient's Visit [...] grab does not stay. 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 No [...] to be FAXED BACK to us at [phone] for Medicare purposes. Please let me know if there are questions or concerns regarding this plan of care. Physician Signature: Date: <Electronically signed by Pat Lock DPT> 06/01/18 1150 CC: EVIE Diaz DO ELR Signed For Medicare only, by signing this I certify the plan of care. Physicians Signature Date 16-Oct-2017 SCREENING MAMM (CAD), BILAT Result: Comments: See Note; NOTES: [facility] Imaging Services [address] [place] [address] SCREENING MAMM (CAD), BILAT MR#: [id number] Acct: [id number] Name: RISSA MCWILLIAMS Rep #: [id number] : 1970 F 46 From: Wayne Mascorro MD PCP: Whitney Diaz DO Status: [facility] CLI Study: SCREENING MAMM (CAD), BILAT Date of Exam: 10/16/17 Exam# [id number] Ordering Dr: Sherry Wilson MD MAMMOGRAPHY - [...] delay biopsy of a clinically suspicious abnormality. [id number] Electronically Signed: Wayne Mascorro MD at 10:53 EST Tel [phone], Service support , CC: Sherry Wilson MD; Whitney Diaz DO Script Supervisor: Signed 27-Sep-2016 Bilat Scrn Digital AND CAD Result: Comments: See Note; NOTES: [facility] Imaging Services [address] [place] [address] Verdana 4d Bilat Scrn Digital AND CAD MR#: [id number] Acct: [id number] Name: RISSA MCWILLIAMS Rep #: [id number] : 1970 F 45 From: Wayne Mascorro MD PCP: Whitney Diaz DO Status: REG CLI Study: Bilat Scrn Digital AND CAD Date of Exam: 09/27/16 Exam# [id number] Ordering Dr: Sherry Wilson MD MAMMOGRAPHY - [...] biopsy of a clinic ally suspicious abnormality. [id number] Electronically Signed: Wayne Mascorro MD at 12:38 EST Tel [phone], Service support [phone], CC: Sherry Wilson MD; Birdie Diaz DO Script Supervisor: Signed 25-Aug-2015 Bilat Scrn Digital AND CAD Result: Comments: See Note; NOTES: [facility] Imaging Services [address] [place] [address] Verdana 4d Bilat Scrn Digital AND CAD MR#: [id number] Acct: [id number] Name: RISSA MCWILLIAMS Rep #: [id number] : 1970 F 44 From: Wayne Mascorro MD PCP: Kassie Hassan DO Status: REG CLI Study: Bilat Scrn Digital AND CAD Date of Exam: 08/25/15 Exam# [id number] Ordering Dr: Sherry Wilson MD MAMMOGRAPHY - [...] Wayne Mascorro MD at 15:37 EST Tel [phone], Service support [phone], CC: Sherry Wilson MD; Kassie Hassan DO Script Supervisor: Signed 17-Apr-2015 Emergency Department Summary Result: Comments: See Note; NOTES: [facility] Medical Records Department [address] [place] [address] Emergency Department Summary MR#: [id number] Acct: [id number] Name: RISSA MCWILLIAMS Rep #: [id number] : 1970 44 From: Finesse Yancey MD [...] infection. Finesse Yancey MD T: NTS JOB: [id number] 04/17/15 0130 <Electronically signed by Finesse Yancey MD> Date Finesse Yancey MD CC: Kassie Hassan DO Date Dictated: 04/16/15658 Date Transcribed: 04/16/15658 Script Supervisor: Signed 16-Apr-2015 Discharge Instruction Result: Comments: See Note; NOTES: [facility] Medical Records Department [address] [facility] [address] Discharge Instruction 04/16/15658 MR#: [id number] Acct: [id number] Name: RISSA MCWILLIAMS Rep #: [id number] : 1970 44 From: Finesse Yancey MD [...] contact your doctor. C all Doctors Registry ([phone]) or report to the closest Emergency Room. Call 911 if necessary. 04/16/15 0701 <Electronically signed by Finesse Yancey MD> Date ___ Finesse Yancey MD Cosigner Signature (If Indicated): Date CC: Kassie Hassan DO 16-Apr-2015 Discharge Instruction Result: Comments: See Note; NOTES: [facility] Medical Records Department [address] [place] [address] Discharge Instruction 04/16/15 0656 MR#: [id number] Acct: [id number] Name: RISSA MCWILLIAMS Rep #: [id number] : 1970 44 From: Finesse Yancey MD [...] problems, contact your doctor. Call Doctors Registry ([phone]) or report to the closest Emergency Room. Call 911 if necessary. 04/16/15 0657 <Electron ically signed by Finesse Yancey MD> Date Finesse Yancey MD Cosigner Signature (If Indicated): Date CC: Kassie Hassan 05-Aug-2014 Bilat Scrn Digital & CAD Result: Comments: See Note; NOTES: [facility] Imaging Services [address] [place] [address] Breast Imaging Report MR#: [id number] Acct: [id number] Name: RISSA MCWILLIAMS Rep #: [id number] : 1970 F 43 From: Wayne Mascorro MD PCP: Kassie Hassan DO Status: REG CLI Exam# [id number] Ordering Dr: Sherry Wilson MD MAMMOGRAPHY - [...] Wayne Mascorro MD at 11:32 EDT Tel [phone], Service support [phone], CC: Sherry Wilson MD; Kassie Hassan DO Script Supervisor: Signed Family History Unknown Family Member Name [...] Description Value Details :30 Free T3 Comments: [facility] [address] [place], [place], [id number] FREE T3 2.7 pg/mL (Normal) Range: 2.18-3.98 :30 T4 Free Direct Comments: [facility] [address] [place], [address] T4 FREE DIRECT 0.68 ng/dL (Abnormal) Range: 0.76-1.46 :30 Thyroid Stim Hormone (TSH) Comments: [facility] [address] [place], [place], [address] TSH 0.19 {uIU/mL} (Abnormal) Range: 0.358-3.74 :35 Free T3 Comments: Has Patient had X-rays with Contrast this admission? [facility] [address] [place], [id number] FREE T3 2.6 pg/mL (Normal) Range: 2.18-3.98 :35 T3 Total - Triiodothyronine Comments: [facility] [address] [place], [address] T3 Total 0.96 ng/mL (Normal) Range: 0.6-1.81 :35 T3 Uptake Comments: Has Patient had X-rays with Contrast this admission? [facility] [address] [place], [address] T7 (FTI) 1.8 (Normal) Range: 1.4-4.5 T3 UPTAKE 30 % (Normal) Range: 30-39 :35 T4 Free Direct Comments: Has Patient had X-rays with Contrast this admission? [facility] [address] [place], [address] T4 FREE DIRECT 0.72 ng/dL (Abnormal) Range: 0.76-1.46 :35 T4 Total, Thyroxin Comments: Has Patient had X-rays with Contrast this admission? [facility] [address] [place], [address] T4 THYROXIN 6.0 ug/dL (Normal) Range: 4.8-13.9 :35 Thyroid Peroxidase AB Comments: [facility] (refer to report for specific site)refer to report for address and phone number TPO AB [phone] 27 {IU/mL} (Normal) Range: 0-34 Comments: Performed at: [address] [id number] Director: Alirio Mishra PhD, Phone: [phone] :35 Thyroid Stim Hormone (TSH) Comments: Has Patient had X-rays with Contrast this admission? [facility] [address] [place], [address] TSH 0.20 {uIU/mL} (Abnormal) Range: 0.358-3.74 :05 Free T3 Comments: [facility] [address] [place], [address] FREE T3 2.1 pg/mL (Abnormal) Range: 2.18-3.98 :05 T4 Free Direct Comments: [facility] [address] [place], [address] T4 FREE DIRECT 0.81 ng/dL (Normal) Range: 0.76-1.46 :05 Thyroid Stim Hormone (TSH) Comments: [facility] [address] [place], [address] TSH 2.73 {uIU/mL} (Normal) Range: 0.358-3.74 :31 Free T3 Comments: [facility] [address] [place], [address] FREE T3 1.8 pg/mL (Abnormal) Range: 2.18-3.98 22-Dxz-18016:31 Lipid Profile Comments: [facility] [address] [place], [address] VLDL 16 mg/dL (Normal) Range: 5-40 LDL [...] High Risk :31 T4 Free Direct Comments: [facility] [address] [place], [place], [address] T4 FREE DIRECT 1.06 ng/dL (Normal) Range: 0.76-1.46 68-Lsg-47630:31 Thyroid Stim Hormone (TSH) Comments: [facility] [address] [place], [place], [address] TSH 3.36 {uIU/mL} (Normal) Range: 0.358-3.74 12-Zou-135477:30 PAP I-G w/rfx hrHPV Comments: CYTOLOGY INFORMATION:- CLINICAL INFORMATION:- DATE LMP/MENOPAUSE: IUD 09/06/17 LMP- COLLECTION VIAL: Thin Prep Vial- SURGICAL APPLIANCES SALESPERSON SOURCE: CERVICAL/ENDOCERVICAL- COLLECTION TECHNIQUE: BRUSH/SPATULASp ecimen Comme nt: [id number] Comment: No. of containers..01 ThinPrep VialLabCorp (refer to report for specific site)refer to report for address and phone number HPV RFLX Comment (Normal) Comments: The HPV DNA reflex criteria were not met with this specimenresult therefore, no HPV testing was performed.Performed at: [address] [place] [id number] Director: Shiloh Walker MD, Phone: [phone] PAPSMR Comment (Normal) Comments: The Pap smear [...] system. PERFORM Comment (Normal) Comments: Uvaldo Carlin, Newborn Photographer (ASCP) ADEQ Comment (Normal) Comments: Satisfactory for evaluation. Endocervical and/or squamous metaplasticcells (endocervical component) are present. DIAGN Comment (Normal) Comments: NEGATIVE FOR INTRAEPITHELIAL LESION AND MALIGNANCY.PLEASE INDICATE LMP ON FUTURE PATIENT'S REQUEST FORMS. 36-Rln-408211:07 Free T3 Comments: [facility] [address] [facility]. [place], [place], [address] FREE T3 1.8 pg/mL (Abnormal) Range: 2.18-3.98 43-Rvn-714905:07 Lipid Profile Comments: [facility] [address] [facility]. [place], [place], [address] VLDL 14 mg/dL (Normal) Range: 5-40 LDL [...] 200-240 mg/dL Borderline >240 mg/dL High Risk 70-Xpy-656099:07 T4 Free Direct Comments: [facility] [address] [place], [place], [address] T4 FREE DIRECT 0.93 ng/dL (Normal) Range: 0.76-1.46 64-Beb-681649:07 Thyroid Stim Hormone (TSH) Comments: [facility] [address] [place], [place], [address] TSH 2.43 {uIU/mL} (Normal) Range: 0.358-3.74 24-Dxu-465421:30 PAP I-G w/rfx hrHPV Comments: CYTOLOGY INFORMATION:- CLINICAL INFORMATION:- DATE LMP/MENOPAUSE: IUD NO MENSES GIVEN LMP- COLLECTION VIAL: Thin Prep Vial- SURGICAL APPLIANCES SALESPERSON SOURCE: CERVICAL/ENDOCERVICAL- COLLECTION TECHNIQUE: BRUSH/SPATULASpecime n Comment: [id number] Comment: No. of containers..01 CYTYC Thin Prep VialLabCorp (refer to report for specific site)refer to report for address and phone number HPV RFLX Comment (Normal) Comments: The HPV DNA reflex criteria were not met with this specimenresult therefore, no HPV testing was performed.Performed at: [address], [place] [id number] Director: Shiloh Walker MD, Phone: [phone] PAPSMR Comment (Normal) Comments: The Pap smear [...] system. PERFORM Comment (Normal) Comments: Angel Yates, Newborn Photographer (ASCP) ADEQ Comment (Normal) Comments: Satisfactory for evaluation. Endocervical and/or squamous metaplasticcells (endocervical component) are present. DIAGN Comment (Normal) Comments: NEGATIVE FOR INTRAEPITHELIAL LESION AND MALIGNANCY. 09-Ugx-431050:30 CT/NG WCH BY PCR Comments: [facility] [address] [place], [address] NG by PCR Negative (Normal) [facility] PCR Negative (Normal) 89-Pwt-950572:30 PAP I-G w/rfx hrHPV Comments: CYTOLOGY INFORMATION:- CLINICAL INFORMATION:- DATE LMP/MENOPAUSE: IUD/NO MENSES GIVEN LMP- COLLECTION VIAL: Thin Prep Vial- SURGICAL APPLIANCES SALESPERSON SOURCE: CERVICAL/ENDOCERVICAL- COLLECTION TECHNIQUE: BRUSH/SPATULACYTOLOG Y INFORMATION:- CLINICAL INFORMATION:- DATE LMP/MENOPAUSE: IUD/NO MENSES GIVEN LMP- COLLECTION VIAL: Thin Prep Vial- SURGICAL APPLIANCES SALESPERSON SOURCE: CERVICAL/ENDOCERVICAL- COLLECTION TECHNIQUE: BRUSH/SPATULASpecimen Comme nt: [id number] Comment: No. of containers..01 CYTYC Thin Prep VialLabCorp (refer to report for specific site)refer to report for address and phone number HPV HC,HGH RISK Negative Comments: This high-risk HPV test detects thirteen high-risk types(16/18/31/33/35/39/45/51/52/56/58/59/68) withoutdifferentiation.Performed at: - [facility] [id number] (Normal) b Director: Shiloh Walker MD, Phone: [phone] at: = - [facility] [address] [id number] Director: Shiloh Walker MD, Phone: [phone] HPV RFLX Comment Comments: See below for [...] Pathologist (Normal) PERFORM Comment Comments: Nohemi He, Newborn Photographer (ASCP) (Normal) ADEQ Comment Comments: Satisfactory for evaluation. Endocervical and/or squamous metaplasticcells (endocervical component) are present. (Normal) DIAGN Comment Comments: EPITHELIAL CELL ABNORMALITY.ATYPICAL SQUAMOUS CELLS OF UNDETERMINED SIGNIFICANCE. (Abnormal) 05-Ujr-05552:52 Thyroxine (T4) Free, Comments: PATIENT WAS FASTINGPERFORMED BY: Hmall.ma [facility] [id number] Information: [id number] Direct, S T4,Free(Direct) 1.20 ng/dL Range: 0.82-1.77 (Normal) 07-Jun-2016 Triiodothyronine,Free,Seru 2.3 pg/mL (Normal) Comments: PATIENT WAS FASTINGPERFORMED BY: [facility] Owsrtv1749 [facility] [id number] 9:52 m Range: 2.0-4.4 07-Jun-2016 Written Authorization WAR (Normal) Comments: PATIENT WAS FASTINGPERFORMED BY: [facility] Iosivx7741 [facility] [id number] 9:52 Comments: Written Authorization Received.Authorization received from SIGNATURE ON FILE 98-02-0920Rfzwnc by Shaina Mcneal 83-Zqw-79480:52 METABOLIC PANEL, COMPREHENSIVE Comments: PATIENT WAS FASTINGPERFORMED BY: [facility] Aqrhsz9353 [facility] [id number] ([id number]) ALT (SGPT) 15 [iU]/L (Normal) Range: 0-32 [...] Glucose, Serum 87 mg/dL (Normal) Range: 65-99 48-Dgg-76312:52 CBC, PLATELETS & AUT DIFF Comments: PATIENT WAS FASTINGPERFORMED BY: [facility] UnionTdtshy9242 [facility] [id number] Information: [id number] (26470) Immature Grans (Abs) 0.0 {x10E3/uL} (Normal) Range: [...] {x10E3/uL} (Normal) Range: 3.4-10.8 :52 LIPID PANEL (40769) Comments: PATIENT WAS FASTINGPERFORMED BY: [facility] [id number] LDL/HDL Ratio 1.9 {ratio_units} (Normal) Range: 0.0-3.2 [...] 148 mg/dL (Normal) Range: 100-199 :52 TSH (34771) Comments: PATIENT WAS FASTINGPERFORMED BY: [employer]6370 [facility] [id number] TSH 2.770 {uIU/mL} (Normal) Range: 0.450-4.500 51-Uvz-119730:00 PAP I-G w/rfx hrHPV Comments: CYTOLOGY INFORMATION:- CLINICAL INFORMATION:- DATE LMP/MENOPAUSE: IUD LMP- COLLECTION VIAL: Thin Prep Vial- SURGICAL APPLIANCES SALESPERSON SOURCE: CERVICAL/ENDOCERVICAL- COLLECTION TECHNIQUE: BRUSH/SPATULASpecimen Comment: CO-CW [id number] Comment: No. of containers..01 CYTYC Thin Prep VialLabCorp (refer to report for specific site)refer to report for address and phone number HPV RFLX Comment (Normal) Comments: The HPV DNA reflex criteria were not met with this specimenresult therefore, no HPV testing was performed.Performed at: [address], [place] [id number] Director: Alfredo Alejandre MD, Phone: [phone] PAPSMR Comment (Normal) Comments: The Pap smear [...] system. PERFORM Comment (Normal) Comments: Govind Zhang, Newborn Photographer (ASCP) ADEQ Comment (Normal) Comments: Satisfactory for evaluation. Endocervical and/or squamous metaplasticcells (endocervical component) are present. DIAGN Comment (Normal) Comments: NEGATIVE FOR INTRAEPITHELIAL LESION AND MALIGNANCY. 56-Nhr-999478:48 CBC W/Diff, Automated Comments: Test performed at:[facility] [address] [place], [place] [id number] ; Non- emergent till apt Absolute Lymph [...] 4.2-5.4 WBC 6.2 K/mm3 (Normal) Range: 4.4-11.0 19-Pxk-308597:48 Comprehensive Metabolic Profil Comments: Test performed at:[facility] [address] [place], [place] [address] GAP 5 (Normal) Range: 5-15 CO2 24.0 [...] Comments: Please note revised CREATININE reference range /22/2015. BUN 17 mg/dL (Normal) Range: 7-18 GLU 78 mg/dL (Normal) Range: 70-110 26-Skw-877536:48 Lipid Profile Comments: Test performed at:[facility] [address] [place] [address] VLDL 14 mg/dL (Normal) Range: [...] 200-240 mg/dL Borderline >240 mg/dL High Risk 12-Lux-137047:48 Thyroid Stim Hormone (TSH) Comments: Test performed at:[facility] [address] [place] [address] TSH 1.74 {uIU/mL} (Normal) Range: 0.358-3.74 16-Apr-20156:30 Urinalysis, Complete Comments: Order Date: 04/16/15How was Urine Obtained? CLEAN CATCHTest performed at:[facility] [address] [facility] [place] [address] ; ordered by sharmaine MUCUS, [...] CLARITY Sl. Cloudy (Normal) COLOR Yellow (Normal) 50-Kkn-151297:15 PAPIG5 Comments: CYTOLOGY INFORMATION:- CLINICAL INFORMATION:- DATE LMP/MENOPAUSE: NO MENSES/IUD LMP- COLLECTION VIAL: Thin Prep Vial- SURGICAL APPLIANCES SALESPERSON SOURCE: CERVICAL/ENDOCERVICAL- COLLECTION TECHNIQUE: BRUSH/SPATULASpecimen Comm ent: [id number] Comment: No. of containers..01 CYTYC Thin Prep Vial tHPVRFLX Comment (Normal) Comments: The HPV DNA reflex criteria were not met with this specimenresult therefore, no HPV testing was performed.Performed at: [address] [id number] Director: Alfredo Alejandre MD, Phone: [phone] [facility] Comment (Normal) Comments: The Pap smear [...] system. tPERFORM Comment (Normal) Comments: Lio Ulloa, Newborn Photographer (ASCP) tADEQ Comment (Normal) Comments: Satisfactory for evaluation. Endocervical and/or squamous metaplasticcells (endocervical component) are present. tDIAG Comment (Normal) Comments: NEGATIVE FOR INTRAEPITHELIAL LESION AND MALIGNANCY. 91-Qsn-08165:28 CMP GAP 7 (Normal) Range: 5-15 CO2 [...] CHOL 148 mg/dL (Normal) Comments: <200 mg/dL Uimmxwilq451-101 mg/dL Borderline>240 mg/dL High Risk HDL 46 [...] CHOL 164 mg/dL (Normal) Comments: <200 mg/dL Xxoncalyn443-820 mg/dL Borderline>240 mg/dL High Risk :13 TSH 1.21 {uIU/mL} (Normal) Range: 0.358-3.74 67-Jqe-869836:19 FT3 2.5 pg/mL (Normal) Range: 2.18-3.98 :19 T4F 1.02 ng/dL (Normal) Range: 0.76-1.46 :19 TPO 10 {IU/mL} (Normal) Range: 0-34 Comments: Performed at: - [facility] [id number] Director: Zac Khanna PhD, Phone: [phone] :19 TSH 1.74 {uIU/mL} (Normal) Range: 0.358-3.74 [...] CHOL 159 mg/dL (Normal) Comments: <200 mg/dL Gfupyrrel720-528 mg/dL Borderline>240 mg/dL High Risk HDL 41 mg/dL (Normal) Comments: Reference RangeHDL <40 mg/dL Low HDL CholesterolHDL >or= 60 mg/dL High HDL Cholesterol TRIG 114 mg/dL (Normal) Comments: Serum Triglycerides Reference IntervalNormal <150 mg/dLBorderline high 150 - 199 mg/dLHigh 200 - 499 mg/ dLVery High > or = 500 mg/dL 19-Zri-60618:42 TSH 3.77 {uIU/mL} (Abnormal) Range: 0.358-3.74 29-Ydf-17979:26 BILAT SCRN DIGITAL & CAD Radiology Report [...] Mascorro M.D.June 10, 2012 at 9:55:07 AM [id number] Signed GP/G P If you are the referring physician and would like to consult with theradiologist who provided this interpretation, please contact Eedlmira Juarez at [phone]. If this radiologist is unavai lable, youwill [...] 06/10/12 1002 Sign by: Wayne Mascorro MD 68-Qii-58338:36 CUUR Comments: appt 03/17/12 URC See Note {CFU/mL} (Normal) Comments: COLONY COUNT 1000-10,000 :36 FT3 2.5 pg/mL (Normal) Comments: appt 03/17/12 Range: 2.18-3.98 :36 T4F 0.85 ng/dL (Normal) Range: 0.76-1.46 :36 TSH 2.86 {uIU/mL} (Normal) Range: 0.358-3.74 66-Fsr-180052:06 URINE LAFREDO CULTURE-EDWARD COL Comments: PERFORMED BY: [facility] [id number] Information: SRC: URETHRA COUNT (69325) Result 1 ECV (Normal) Comments: Escherichia coli, identified by an automated biochemical system.1,000 Colonies/mLMixed urogenital epysa437 Colonies/mL S = Susceptible; I = Intermediate; R = Resistant P = Positive; N = Negative MICS are expressed in micrograms per mL Antibiotic RSLT#1 RSLT#2 RSLT#3 RSLT#4Amoxicillin/Clavulanic Acid [facility] RCefazolin SCefepime SCeftriaxone SCefuroxime SCephalothin ICiprofloxacin SESBL NErtapenem SGentamicin SImipenem SLevofloxacin SNitrofurantoin SPiperacillin RTetracycline RTobramycin STrimethoprim/Sulfa S Urine Final report (Normal) Culture,Comprehensiv e 73-Wuh-648254:19 Urinalysis, Office (85204) UA - BILIRUBIN Negative (Normal) UA - [...] (Normal) Range: 0-34 57 Comments: Performed at: [place] [id number] Director: Ashleigh Abraham MD, Phone: [phone] : TSH 3.55 {uIU/mL} (Normal) Range: 0.358-3.74 57 52-Uvo-071697:09 Urinalysis, Office (41702) UA - BILIRUBIN Negative (Normal) UA - BLOOD Hemolyzed Trace (Normal) UA - GLUCOSE Negative (Normal) UA - KETONES Negative mg/dL (Normal) UA - LEUKOCYTE ESTERASE Negative (Normal) UA - NITRITE Negative (Normal) UA - PH 7.0 (Normal) UA - PROTEIN Negative mg/dL (Normal) UA - SPECIFIC GRAVITY 1.020 (Normal) URINE UROBILINGN EDWARD TIMED Normal mg/dL (Normal) 23-Fet-044529:49 CBCD,SMEAR DIFF RED CELL MORPH SeeNote {NORMAL} [...] 4.2-5.4 WBC 5.9 K/mm3 (Normal) Range: 4.4-11.0 65-Dlb-348637:40 BILAT SCRN DIGITAL & CAD Radiology Report [...] TSH 5.38 {uIU/mL} Range: 0.358-3.74 :31 (Abnormal) 30-Kzn-005638:19 COMPLETE UA MUCUS, URINE 0 SEEN {/hpf} [...] Low HDL (under 40) Planned Observations PROLACTIN (99508)Indication: Hypothyroidism On: :43 Request FSH AND LH (31621)Indication: Hypothyroidism On: :43 Request TSH (57689)Indication: Hypothyroidism On: :52 Request T4, FREE (THYROXINE) (75263)Indication: Hypothyroidism On: :52 Request T3, FREE (TRIDOTHYRONINE) (59595)Indication: Hypothyroidism On: :52 Request T4, FREE (THYROXINE) (09616)Indication: Hypothyroidism On: :25 Request TSH (45271)Indication: Hypothyroidism On: :25 Request Anti-TPO Antibody (21700)Indication: Hypothyroidism On: :25 Request T4, TOTAL (48403)Indication: Hypothyroidism On: :25 Request T3, TOTAL (TRIDOTHYRONINE) (71318)Indication: Hypothyroidism On: :25 Request T3, FREE (TRIDOTHYRONINE) (03048)Indication: Hypothyroidism On: :24 Request T-3 UPTAKE (45392)Indication: Hypothyroidism On: :24 Request FREE TRIDOTHYRONINE (T3) (95249)Indication: T3 low in serum On: :08 Request TSH (69529)Indication: Hypothyroidism On: 33-Tmw-185673:18 Request T4, FREE (THYROXINE) (99174)Indication: Hypothyroidism On: 49-Ozo-878652:18 Request T3, FREE (TRIDOTHYRONINE) (48381)Indication: Hypothyroidism On: 90-Qek-316411:18 Request T4, FREE (THYROXINE) (73720)Indication: T3 low in serum On: 38-Rph-212038:37 Request T3, FREE (TRIDOTHYRONINE) (20206)Indication: T3 low in serum On: 80-Aus-779432:37 Request T4, FREE (THYROXINE) (82555)Indication: Hypothyroidism On: :46 Request T3, FREE (TRIDOTHYRONINE) (70928)Indication: Hypothyroidism On: :46 Request TSH (THYROID STIMULATING HORMONE) (18927)Indication: Hypothyroidism On: :45 Request LIPID PANEL ([id number])Indication: Encounter for screening for lipid disorder On: :44 Request LIPID PANEL ([id number])Indication: Encounter for screening for lipid disorder On: :47 Request T3, FREE (TRIDOTHYRONINE) ([id number])Indication: Hypothyroidism On: :48 Request T4, FREE (THYROXINE) ([id number])Indication: Hypothyroidism On: :48 Request TSH ([id number])Indication: Hypothyroidism On: :48 Request T4, FREE (THYROXINE) ([id number])Indication: Hypothyroidism On: :02 Request T3, FREE (TRIDOTHYRONINE) ([id number])Indication: Hypothyroidism On: 33-Luc-169631:01 Request METABOLIC PANEL, COMPREHENSIVE ([id number])Indication: Elevated blood pressure (not hypertension) On: :58 Request LIPID PANEL ([id number])Indication: Low HDL (under 40) On: :34 Request TSH ([id number])Indication: Hypothyroidism On: :34 Request CBC W/AUTO DIFF WBC ([id number])Indication: Migraine On: :34 Request METABOLIC PANEL, COMPREHENSIVE ([id number])Indication: Migraine On: :34 Request METABOLIC PANEL, COMPREHENSIVE ([id number])Indication: Migraine On: :48 Request TSH ([id number])Indication: Hypothyroidism On: :48 Request LIPID PANEL ([id number])Indication: Low HDL (under 40) On: 16-Ztv-270637:48 Request TSH ([id number])Indication: Hypothyroidism On: 8-Xnj-112519:57 Request LIPID PANEL ([id number])Indication: Low HDL (under 40) On: :57 Request T3, FREE (TRIDOTHYRONINE) ([id number])Indication: Hypothyroidism On: :43 Request T4, FREE (THYROXINE) ([id number])Indication: Hypothyroidism On: :43 Request Anti-TPO Antibody ([id number])Indication: Hypothyroidism On: :43 Request TSH ([id number])Indication: Hypothyroidism On: :43 Request TSH ([id number])Indication: Abnormal TSH On: :43 Request Lipid Panel ([id number])Indication: Low HDL (under 40) On: 9-Brn-160717:43 Request Metabolic Panel, Comprehensive ([id number])Indication: Elevated blood pressure (not hypertension) On: 2-Qpz-840236:43 Request LIPID PANEL ([id number])Indication: Low HDL (under 40) On: 2-Fjw-767329:58 Request TSH ([id number])Indication: Abnormal TSH On: 76-Ggf-483472:07 Request T4, FREE (THYROXINE) ([id number])Indication: Abnormal TSH On: 60-Tsp-174267:07 Request T3, FREE (TRIDOTHYRONINE) ([id number])Indication: Abnormal TSH On: 83-Twc-225992:07 Request LIPID PANEL ([id number])Indication: Low HDL (under 40) On: 50-Qxy-004383:38 Request METABOLIC PANEL, COMPREHENSIVE ([id number])Indication: Elevated blood pressure (not hypertension) On: 14-Txy-314051:38 Request T4, FREE (THYROXINE) ([id number])Indication: Abnormal TSH On: :10 Request T3, FREE (TRIDOTHYRONINE) ([id number])Indication: Abnormal TSH On: 24-Xcr-789914:10 Request Anti-TPO Antibody ([id number])Indication: Abnormal TSH On: 60-Rvc-661579:10 Request TSH ([id number])Indication: Abnormal TSH On: 35-Hce-749502:09 Request LIPID PANEL ([id number])Indication: Elevated blood pressure (not hypertension) On: 74-Hnh-68136:54 Request TSH ([id number])Indication: Elevated blood pressure (not hypertension) On: :54 Request URINALYSIS, W/ MICRO ([id number])Indication: Elevated blood pressure (not hypertension) On: :53 Request METABOLIC PANEL, COMPREHENSIVE ([id number])Indication: Elevated blood pressure (not hypertension) On: :53 Request CBC WITH MANUAL DIFF ([id number])Indication: Elevated blood pressure (not hypertension) On: :53 Request Planned Procedures PHYSICAL THERAPY ([id number])By: Nguyễn On: 28-May-2018 Intent Rissa Comments: Order given for dry needling Eprescribed prescriptions ([id number])By: On: 01-Sep-2013 Intent Elo Jung LPN Eprescribed prescriptions ([id number])By: On: 11-Aug-2013 Intent Leticia Loera Eprescribed prescriptions ([id number])By: On: 09-Feb-2013 Intent Leticia Loera MAMMOGRAM, SCREENING, BOTH BREASTS On: 17-Mar-2012 Intent ([id number])By: Mo AUGUSTIN Kassie A Eprescribed prescriptions ([id number])By: On: 09-Sep-2011 Intent Mo AUGUSTIN Kassie A TDAP VACCINE >7 IM ([id number])By: On: 09-Sep-2011 Intent Leticia Loera Comments: work FLU VAC, SPLIT, >3 YEARS, INTRAMUSC On: 09-Sep-2011 Intent ([id number])By: Leticia Loera Comments: work Instructions Name Dates [...] down 14 po ounds and training for [employer]- and feels good doing it - and [...] Note for Wrist pain: Seen Ortho at [facility] and she wasnt impressed with [...] Atypical Nevus(238.2) [facility] [employer]; a guarantor
--- OUTSIDE RECORDS SUMMARY | 2018-11-07 08:48 | XMS RPT_ITS | Continuity of Care Document ---
:1970 Author Organization [facility] Address [address] [place] [address] Phone Care Team Providers Name Role Phone [...] Status: Active Medications Name Dates Details CALCIUM, [id number]-[id number] (Oral Tablet) Active 1 (one) daily (600-200 [...] (5-240 MG) End : 17-Mar-2012 Discontinued CORTISPORIN, 3.5-58345-6 (Otic Solution) 4 Drop(s) tid or qid [...] - PT Result: Comments: See Note; NOTES: [facility] Physical Therapy [facility] [facility] [place] [address] Fax REHABILITATION SERVICES INITIAL EVALUATION MR#: [id number] Acct: [id number] Name: RISSA MCWILLIAMS Rep #: [id number] [...] grab does not stay. 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 [...] to be FAXED BACK to us at [phone] for Medicare purposes. Please let me know if there are questions or concerns regarding this plan of care. Physician Signature: Date: <Electronically signed by Pat Lock DPT> 06/01/18 1150 CC: EVIE Diaz DO ELR Signed For Medicare only, by signing this I certify the plan of care. Physicians Signature Date 16-Oct-2017 SCREENING MAMM (CAD), BILAT Result: Comments: See Note; NOTES: [facility] Imaging Services [address] [place] [address] SCREENING MAMM (CAD), BILAT MR#: [id number] Acct: [id number] Name: RISSA MCWILLIAMS Rep #: [id number] : 1970 F 46 From: Wayne Mascorro MD PCP: Whitney Diaz DO Status: REG CLI Study: SCREENING MAMM (CAD), BILAT Date of Exam: 10/16/17 Exam# [id number] Ordering Dr: Sherry Wilson MD MAMMOGRAPHY - [...] no significant change since the prior study. [facility]/SCR EENING MAMM (CAD), BILAT IMPRESSION: Stable bilateral screening mammogram. Yearly follow-up mammogram recommended. (A) ASSESSMENT CATEGORY: BIRADS Category 2: Benig n. A letter regarding these results will be sent to the patient by the facility within 30 days. Approximately 10% of breast cancers are not detected by mammography. A normal mammogram should not delay biopsy of a clinically suspicious abnormality. [id number] Electronically Signed: Wayne Mascorro MD at 10:53 EST Tel [phone], Service support , CC: Sherry Wilson MD; Whitney Diaz DO Office Technology Professor: Signed 27-Sep-2016 Bilat Scrn Digital AND CAD Result: Comments: See Note; NOTES: [facility] Imaging Services [address] [place] [address] Verdana 4d Bilat Scrn Digital AND CAD MR#: [id number] Acct: [id number] Name: RISSA MCWILLIAMS Rep #: [id number] : 1970 F 45 From: Wayne Mascorro MD PCP: Whitney Diaz DO Status: REG CLI Study: Bilat Scrn Digital AND CAD Date of Exam: 09/27/16 Exam# [id number] Ordering Dr: Sherry Wilson MD MAMMOGRAPHY - [...] biopsy of a clinic ally suspicious abnormality. [id number] Electronically Signed: Wayne Mascorro MD at 12:38 EST Tel [phone], Service support [phone], CC: Sherry Wilson MD; Birdie Diaz DO Office Technology Professor: Signed 25-Aug-2015 Bilat Scrn Digital AND CAD Result: Comments: See Note; NOTES: [facility] Imaging Services [address] [place] [address] Verdana 4d Bilat Scrn Digital AND CAD MR#: [id number] Acct: [id number] Name: RISSA MCWILLIAMS Rep #: [id number] : 1970 F 44 From: Wayne Mascorro MD PCP: Kassie Hassan DO Status: [facility] CL Study: Bilat Scrn Digital AND CAD Date of Exam: 08/25/15 Exam# [id number] Ordering Dr: Sherry Wilson MD MAMMOGRAPHY - [...] Wayne Mascorro MD at 15:37 EST Tel [phone], Service support [phone], CC: Sherry Wilson MD; Kassie Hassan DO Office Technology Professor: Signed 17-Apr-2015 Emergency Department Summary Result: Comments: See Note; NOTES: [facility] Medical Records Department [address] [place] [address] Emergency Department Summary MR#: [id number] Acct: [id number] Name: RISSA MCWILLIAMS Rep #: [id number] : 1970 44 From: Finesse Yancey MD [...] infection. Finesse Yancey MD T: NTS JOB: [id number] 04/17/15 0130 <Electronically signed by Finesse Yancey MD> Date Finesse Yancey MD CC: Kassie Hassan DO Date Dictated: 04/16/15658 Date Transcribed: 04/16/15658 Office Technology Professor: Signed 16-Apr-2015 Discharge Instruction Result: Comments: See Note; NOTES: [facility] Medical Records Department [address] [place] [address] Discharge Instruction 04/16/15658 MR#: [id number] Acct: [id number] Name: RISSA MCWILLIAMS Rep #: [id number] : 1970 44 From: Finesse Yancey MD [...] contact your doctor. C all Doctors Registry ([phone]) or report to the closest Emergency Room. Call 911 if necessary. 04/16/15 0701 <Electronically signed by Finesse Yancey MD> Date ___ Finesse Yancey MD Cosigner Signature (If Indicated): Date CC: Kassie Hassan DO 16-Apr-2015 Discharge Instruction Result: Comments: See Note; NOTES: [facility] Medical Records Department [address] [place] [address] Discharge Instruction 04/16/15 0656 MR#: [id number] Acct: [id number] Name: RISSA MCWILLIAMS Rep #: [id number] : 1970 44 From: Finesse Yancey MD [...] problems, contact your doctor. Call Doctors Registry ([phone]) or report to the closest Emergency Room. Call 911 if necessary. 04/16/15 0657 <Electron ically signed by Finesse Yancey MD> Date Finesse Yancey MD Cosigner Signature (If Indicated): Date CC: Kassie Hassan 05-Aug-2014 Bilat Scrn Digital & CAD Result: Comments: See Note; NOTES: [facility] Imaging Services [address] [place] [address] Breast Imaging Report MR#: [id number] Acct: [id number] Name: RISSA MCWILLIAMS Rep #: [id number] : 1970 F 43 From: Wayne Mascorro MD PCP: Kassie Hassan DO Status: REG CLI Exam# [id number] Ordering Dr: Sherry Wilson MD MAMMOGRAPHY - [...] Wayne Mascorro MD at 11:32 EDT Tel [phone], Service support [phone], CC: Sherry Wilson MD; Kassie Hassan DO Office Technology Professor: Signed Family History Unknown Family Member Name [...] Description Value Details :05 Free T3 Comments: [facility] [address] [facility] [place], [address] FREE T3 2.1 pg/mL (Abnormal) Range: 2.18-3.98 :05 T4 Free Direct Comments: [facility] [address] [place], [address] T4 FREE DIRECT 0.81 ng/dL (Normal) Range: 0.76-1.46 :05 Thyroid Stim Hormone (TSH) Comments: [facility] [address] [place], [address] TSH 2.73 {uIU/mL} (Normal) Range: 0.358-3.74 :31 Free T3 Comments: [facility] [address] [facility] [place], [address] FREE T3 1.8 pg/mL (Abnormal) Range: 2.18-3.98 :31 Lipid Profile Comments: [facility] [address] [place], [address] VLDL 16 mg/dL (Normal) Range: 5-40 LDL [...] 200-240 mg/dL Borderline >240 mg/dL High Risk 31-Arn-61319:31 T4 Free Direct Comments: [facility] [address] [place], [place], [address] T4 FREE DIRECT 1.06 ng/dL (Normal) Range: 0.76-1.46 92-Hhq-33386:31 Thyroid Stim Hormone (TSH) Comments: [facility] [address] [place], [place], [address] TSH 3.36 {uIU/mL} (Normal) Range: 0.358-3.74 83-Sch-350288:30 PAP I-G w/rfx hrHPV Comments: CYTOLOGY INFORMATION:- CLINICAL INFORMATION:- DATE LMP/MENOPAUSE: IUD 09/06/17 LMP- COLLECTION VIAL: Thin Prep Vial- RECORDING STUDIO INTERNSHIP SOURCE: CERVICAL/ENDOCERVICAL- COLLECTION TECHNIQUE: BRUSH/SPATULASp ecimen Comme nt: [id number] Comment: No. of containers..01 ThinPrep VialLabCorp (refer to report for specific site)refer to report for address and phone number HPV RFLX Comment (Normal) Comments: The HPV DNA reflex criteria were not met with this specimenresult therefore, no HPV testing was performed.Performed at: [address] [id number] Director: Shiloh Walker MD, Phone: [phone] PAPSMR Comment (Normal) Comments: The Pap smear [...] system. PERFORM Comment (Normal) Comments: Uvaldo Carlin, Tipple Tender (ASCP) ADEQ Comment (Normal) Comments: Satisfactory for evaluation. Endocervical and/or squamous metaplasticcells (endocervical component) are present. DIAGN Comment (Normal) Comments: NEGATIVE FOR INTRAEPITHELIAL LESION AND MALIGNANCY.PLEASE INDICATE LMP ON FUTURE PATIENT'S REQUEST FORMS. 01-Ofh-294148:07 Free T3 Comments: [facility] [address] [place], [id number] FREE T3 1.8 pg/mL (Abnormal) Range: 2.18-3.98 20-Mji-518628:07 Lipid Profile Comments: [facility] [address] [place], [address] VLDL 14 mg/dL (Normal) Range: 5-40 LDL [...] 200-240 mg/dL Borderline >240 mg/dL High Risk 51-Jih-905628:07 T4 Free Direct Comments: [facility] [address] [place], [id number] T4 FREE DIRECT 0.93 ng/dL (Normal) Range: 0.76-1.46 66-Ieo-884431:07 Thyroid Stim Hormone (TSH) Comments: [facility] [address] [place], [id number] TSH 2.43 {uIU/mL} (Normal) Range: 0.358-3.74 38-Lcq-981687:30 PAP I-G w/rfx hrHPV Comments: CYTOLOGY INFORMATION:- CLINICAL INFORMATION:- DATE LMP/MENOPAUSE: IUD NO MENSES GIVEN LMP- COLLECTION VIAL: Thin Prep Vial- RECORDING STUDIO INTERNSHIP SOURCE: CERVICAL/ENDOCERVICAL- COLLECTION TECHNIQUE: BRUSH/SPATULASpecime n Comment: [id number] Comment: No. of containers..01 CYTYC Thin Prep VialLabCorp (refer to report for specific site)refer to report for address and phone number HPV RFLX Comment (Normal) Comments: The HPV DNA reflex criteria were not met with this specimenresult therefore, no HPV testing was performed.Performed at: [address] [place], [place] [id number] Director: Shiloh Walker MD, Phone: [phone] PAPSMR Comment (Normal) Comments: The Pap smear [...] system. PERFORM Comment (Normal) Comments: Angel Yates, Tipple Tender (ASCP) ADEQ Comment (Normal) Comments: Satisfactory for evaluation. Endocervical and/or squamous metaplasticcells (endocervical component) are present. DIAGN Comment (Normal) Comments: NEGATIVE FOR INTRAEPITHELIAL LESION AND MALIGNANCY. 64-Izo-060145:30 CT/NG WCH BY PCR Comments: [facility] [address] [place], [address] NG by PCR Negative (Normal) [facility] PCR Negative (Normal) 00-Qdb-203342:30 PAP I-G w/rfx hrHPV Comments: CYTOLOGY INFORMATION:- CLINICAL INFORMATION:- DATE LMP/MENOPAUSE: IUD/NO MENSES GIVEN LMP- COLLECTION VIAL: Thin Prep Vial- RECORDING STUDIO INTERNSHIP SOURCE: CERVICAL/ENDOCERVICAL- COLLECTION TECHNIQUE: BRUSH/SPATULACYTOLOG Y INFORMATION:- CLINICAL INFORMATION:- DATE LMP/MENOPAUSE: IUD/NO MENSES GIVEN LMP- COLLECTION VIAL: Thin Prep Vial- RECORDING STUDIO INTERNSHIP SOURCE: CERVICAL/ENDOCERVICAL- COLLECTION TECHNIQUE: BRUSH/SPATULASpecimen Comme nt: [id number] Comment: No. of containers..01 CYTYC Thin Prep VialLabCorp (refer to report for specific site)refer to report for address and phone number HPV HC,HGH RISK Negative Comments: This high-risk HPV test detects thirteen high-risk types(16/18/31/33/35/39/45/51/52/56/58/59/68) withoutdifferentiation.Performed at: - [facility] [id number] (Normal) b Director: Shiloh Walker MD, Phone: [phone] at: = - [facility] [id number] Director: Shiloh Walker MD, Phone: [phone] HPV RFLX Comment Comments: See below for [...] Pathologist (Normal) PERFORM Comment Comments: Nohemi He, Tipple Tender (ASCP) (Normal) ADEQ Comment Comments: Satisfactory for evaluation. Endocervical and/or squamous metaplasticcells (endocervical component) are present. (Normal) DIAGN Comment Comments: EPITHELIAL CELL ABNORMALITY.ATYPICAL SQUAMOUS CELLS OF UNDETERMINED SIGNIFICANCE. (Abnormal) 93-Jpr-45033:52 Thyroxine (T4) Free, Comments: PATIENT WAS FASTINGPERFORMED BY: [facility] CenterQnvjpz3048 [facility] [id number] Information: [id number] Direct, S T4,Free(Direct) 1.20 ng/dL Range: 0.82-1.77 (Normal) 07-Jun-2016 Triiodothyronine,Free,Seru 2.3 pg/mL (Normal) Comments: PATIENT WAS FASTINGPERFORMED BY: [facility]6[address] [facility] [id number] 9:52 m Range: 2.0-4.4 07-Jun-2016 Written Authorization WAR (Normal) Comments: PATIENT WAS FASTINGPERFORMED BY: [facility]6[address] [facility] [id number] 9:52 Comments: Written Authorization Received.Authorization received from SIGNATURE ON FILE [id number] by Shaina Mcneal 17-Luj-94219:52 METABOLIC PANEL, COMPREHENSIVE Comments: PATIENT WAS FASTINGPERFORMED BY: [facility] [id number] (23382) ALT (SGPT) 15 [iU]/L (Normal) Range: 0-32 [...] AUT DIFF Comments: PATIENT WAS FASTINGPERFORMED BY: [facility] (formerly [facility])[facility] CenterJztocv8039 [facility] [id number] Information: [id number] (35416) Immature Grans (Abs) 0.0 {x10E3/uL} (Normal) Range: [...] {x10E3/uL} (Normal) Range: 3.4-10.8 :52 LIPID PANEL (85807) Comments: PATIENT WAS FASTINGPERFORMED BY: [facility]6[address] [facility] [id number] LDL/HDL Ratio 1.9 {ratio_units} (Normal) Range: 0.0-3.2 [...] Cholesterol, Total 148 mg/dL (Normal) Range: 100-199 64-Yji-90305:52 TSH (29028) Comments: PATIENT WAS FASTINGPERFORMED BY: [facility] Dvkakn0477 [facility] [id number] TSH 2.770 {uIU/mL} (Normal) Range: 0.450-4.500 84-Mvp-293488:00 PAP I-G w/rfx hrHPV Comments: CYTOLOGY INFORMATION:- CLINICAL INFORMATION:- DATE LMP/MENOPAUSE: IUD LMP- COLLECTION VIAL: Thin Prep Vial- RECORDING STUDIO INTERNSHIP SOURCE: CERVICAL/ENDOCERVICAL- COLLECTION TECHNIQUE: BRUSH/SPATULASpecimen Comment: COJAJA [id number] Comment: No. of containers..01 CYTYC Thin Prep VialLabCorp (refer to report for specific site)refer to report for address and phone number HPV RFLX Comment (Normal) Comments: The HPV DNA reflex criteria were not met with this specimenresult therefore, no HPV testing was performed.Performed at: [address] [id number] Director: Alfredo Alejandre MD, Phone: [phone] PAPSMR Comment (Normal) Comments: The Pap smear [...] system. PERFORM Comment (Normal) Comments: Govind Zhang, Tipple Tender (ASCP) ADEQ Comment (Normal) Comments: Satisfactory for evaluation. Endocervical and/or squamous metaplasticcells (endocervical component) are present. DIAGN Comment (Normal) Comments: NEGATIVE FOR INTRAEPITHELIAL LESION AND MALIGNANCY. 86-Mft-425375:48 CBC W/Diff, Automated Comments: Test performed at:[facility] [address] [place] [address] ; Non- emergent till apt Absolute Lymph [...] 4.2-5.4 WBC 6.2 K/mm3 (Normal) Range: 4.4-11.0 67-Wke-255580:48 Comprehensive Metabolic Profil Comments: Test performed at:[facility] [address] [place] [address] GAP 5 (Normal) Range: 5-15 CO2 [...] Comments: Please note revised CREATININE reference range ehhbpkytv72/22/2015. BUN 17 mg/dL (Normal) Range: 7-18 GLU 78 mg/dL (Normal) Range: 70-110 29-Yfd-595702:48 Lipid Profile Comments: Test performed at:[facility] [address] [place] [id number] VLDL 14 mg/dL (Normal) Range: 5-40 LDL [...] 200-240 mg/dL Borderline >240 mg/dL High Risk 26-Ohp-756821:48 Thyroid Stim Hormone (TSH) Comments: Test performed at:[facility] [address] [place], [place] [address] TSH 1.74 {uIU/mL} (Normal) Range: 0.358-3.74 16-Apr-20156:30 Urinalysis, Complete Comments: Order Date: 04/16/15How was Urine Obtained? CLEAN CATCHTest performed at:[facility] [address] [facility] [place], [place] [address] ; ordered by sharmaine MUCUS, URINE 0 [...] CLARITY Sl. Cloudy (Normal) COLOR Yellow (Normal) 51-Qax-191781:15 PAPIG5 Comments: CYTOLOGY INFORMATION:- CLINICAL INFORMATION:- DATE LMP/MENOPAUSE: NO MENSES/IUD LMP- COLLECTION VIAL: Thin Prep Vial- RECORDING STUDIO INTERNSHIP SOURCE: CERVICAL/ENDOCERVICAL- COLLECTION TECHNIQUE: BRUSH/SPATULASpecimen Comm ent: [id number] Comment: No. of containers..01 CYTYC Thin Prep Vial tHPVRFLX Comment (Normal) Comments: The HPV DNA reflex criteria were not met with this specimenresult therefore, no HPV testing was performed.Performed at: [address] [place] [id number] Director: Alfredo Alejandre MD, Phone: [phone] tPAPSMR Comment (Normal) Comments: The Pap smear [...] system. tPERFORM Comment (Normal) Comments: Lio Ulloa, Tipple Tender (ASCP) tADEQ Comment (Normal) Comments: Satisfactory for evaluation. Endocervical and/or squamous metaplasticcells (endocervical component) are present. tDIAG Comment (Normal) Comments: NEGATIVE FOR INTRAEPITHELIAL LESION AND MALIGNANCY. 54-Mbi-96768:28 CMP GAP 7 (Normal) Range: 5-15 CO2 [...] CHOL 148 mg/dL (Normal) Comments: <200 mg/dL Vhshpysuw803-440 mg/dL Borderline>240 mg/dL High Risk HDL 46 [...] CHOL 164 mg/dL (Normal) Comments: <200 mg/dL Jgmedzxjx280-389 mg/dL Borderline>240 mg/dL High Risk :13 TSH 1.21 {uIU/mL} (Normal) Range: 0.358-3.74 :19 FT3 2.5 pg/mL (Normal) Range: 2.18-3.98 :19 T4F 1.02 ng/dL (Normal) Range: 0.76-1.46 :19 TPO 10 {IU/mL} (Normal) Range: 0-34 Comments: Performed at: [facility] [address] [id number] Director: Zac Khanna PhD, Phone: [phone] :19 TSH 1.74 {uIU/mL} (Normal) Range: 0.358-3.74 [...] CHOL 159 mg/dL (Normal) Comments: <200 mg/dL Vqxnmxpiq712-710 mg/dL Borderline>240 mg/dL High Risk HDL 41 [...] Mascorro M.D.June 10, 2012 at 9:55:07 AM [id number] Signed GP/G P If you are the referring physician and would like to consult with theradiologist who provided this interpretation, please contact Edelmira Juarez at [phone]. If this radiologist is yovani rob, youwill be directed to another radiologist to assist. If you are a patient with a question regarding this report, pleasecontactyour referring physician directly. Professional Interpretation Provi ded By: [facility], Phone , These documents contain legally protected [...] 06/10/12 1002 Sign by: Wayne Mascorro MD 09-Chj-29181:36 CUUR Comments: appt 03/17/12 URC See Note {CFU/mL} (Normal) Comments: COLONY COUNT 1000-10,000 :36 FT3 2.5 pg/mL (Normal) Comments: appt 03/17/12 Range: 2.18-3.98 :36 T4F 0.85 ng/dL (Normal) Range: 0.76-1.46 :36 TSH 2.86 {uIU/mL} (Normal) Range: 0.358-3.74 93-Mln-251849:06 URINE ALFREDO CULTURE-EDWARD COL Comments: PERFORMED BY: [facility] CenterXdfaqr1287 [facility] [id number] Information: SRC: URETHRA COUNT (89638) Result 1 ECV (Normal) Comments: Escherichia coli, identified by an automated biochemical system.1,000 Colonies/mLMixed urogenital bmgof160 Colonies/mL S = Susceptible; I = Intermediate; R = Resistant P = Positive; N = Negative MICS are expressed in micrograms per mL Antibiotic RSLT#1 RSLT#2 RSLT#3 RSLT#4Amoxicillin/Clavulanic Acid SAmpicillin RCefazolin SCefepime SCeftriaxone SCefuroxime SCephalothin ICiprofloxacin SESBL NErtapenem SGentamicin SImipenem SLevofloxacin SNitrofurantoin SPiperacillin RTetracycline RTobramycin STrimethoprim/Sulfa S Urine Final report (Normal) Culture,Comprehensiv e 22-Uti-764023:19 Urinalysis, Office (50572) UA - BILIRUBIN Negative (Normal) UA - [...] (Normal) Range: 0-34 57 Comments: Performed at: [address] [id number] Director: Ashleigh Abraham MD, Phone: [phone] : TSH 3.55 {uIU/mL} (Normal) Range: 0.358-3.74 57 :09 Urinalysis, Office (76366) UA - BILIRUBIN Negative (Normal) UA - [...] 4.2-5.4 WBC 5.9 K/mm3 (Normal) Range: 4.4-11.0 95-Wcp-207016:40 BILAT SCRN DIGITAL & CAD Radiology Report [...] TSH 5.38 {uIU/mL} Range: 0.358-3.74 :31 (Abnormal) 73-Ght-468373:19 COMPLETE UA MUCUS, URINE 0 SEEN {/hpf} [...] (under 40) Planned Observations FREE TRIDOTHYRONINE (T3) (82322)Indication: T3 low in serum On: 31-Udr-087357:08 Request TSH (00544)Indication: Hypothyroidism On: 85-Cpb-530214:18 Request T4, FREE (THYROXINE) (25799)Indication: Hypothyroidism On: 74-Qxl-680343:18 Request T3, FREE (TRIDOTHYRONINE) (73231)Indication: Hypothyroidism On: 87-Vpk-109014:18 Request T4, FREE (THYROXINE) (49485)Indication: T3 low in serum On: 28-Fgd-024538:37 Request T3, FREE (TRIDOTHYRONINE) (54722)Indication: T3 low in serum On: 54-Yrd-625306:37 Request T4, FREE (THYROXINE) (82579)Indication: Hypothyroidism On: :46 Request T3, FREE (TRIDOTHYRONINE) (12405)Indication: Hypothyroidism On: :46 Request TSH (THYROID STIMULATING HORMONE) (16273)Indication: Hypothyroidism On: :45 Request LIPID PANEL (97048)Indication: Encounter for screening for lipid disorder On: :44 Request LIPID PANEL (11487)Indication: Encounter for screening for lipid disorder On: :47 Request T3, FREE (TRIDOTHYRONINE) (12569)Indication: Hypothyroidism On: :48 Request T4, FREE (THYROXINE) (41264)Indication: Hypothyroidism On: :48 Request TSH (33736)Indication: Hypothyroidism On: :48 Request T4, FREE (THYROXINE) (69523)Indication: Hypothyroidism On: :02 Request T3, FREE (TRIDOTHYRONINE) (63634)Indication: Hypothyroidism On: 61-Apb-737988:01 Request METABOLIC PANEL, COMPREHENSIVE (73136)Indication: Elevated blood pressure (not hypertension) On: 1-Mte-586624:58 Request LIPID PANEL (19889)Indication: Low HDL (under 40) On: :34 Request TSH (78993)Indication: Hypothyroidism On: :34 Request CBC W/AUTO DIFF WBC (66117)Indication: Migraine On: :34 Request METABOLIC PANEL, COMPREHENSIVE (59319)Indication: Migraine On: :34 Request METABOLIC PANEL, COMPREHENSIVE (42535)Indication: Migraine On: :48 Request TSH (77420)Indication: Hypothyroidism On: 83-Nyo-835856:48 Request LIPID PANEL (37784)Indication: Low HDL (under 40) On: :48 Request TSH (41315)Indication: Hypothyroidism On: 8-Rqx-509440:57 Request LIPID PANEL (65953)Indication: Low HDL (under 40) On: :57 Request T3, FREE (TRIDOTHYRONINE) (50071)Indication: Hypothyroidism On: :43 Request T4, FREE (THYROXINE) (37172)Indication: Hypothyroidism On: :43 Request Anti-TPO Antibody (98228)Indication: Hypothyroidism On: :43 Request TSH (89088)Indication: Hypothyroidism On: :43 Request TSH (18540)Indication: Abnormal TSH On: :43 Request Lipid Panel (76274)Indication: Low HDL (under 40) On: :43 Request Metabolic Panel, Comprehensive (34904)Indication: Elevated blood pressure (not hypertension) On: :43 Request LIPID PANEL (63791)Indication: Low HDL (under 40) On: 0-Beh-371150:58 Request TSH (00565)Indication: Abnormal TSH On: 74-Eub-168446:07 Request T4, FREE (THYROXINE) (25216)Indication: Abnormal TSH On: :07 Request T3, FREE (TRIDOTHYRONINE) (20430)Indication: Abnormal TSH On: 61-Kkk-568421:07 Request LIPID PANEL (56175)Indication: Low HDL (under 40) On: :38 Request METABOLIC PANEL, COMPREHENSIVE (23953)Indication: Elevated blood pressure (not hypertension) On: 46-Ket-791404:38 Request T4, FREE (THYROXINE) (52297)Indication: Abnormal TSH On: :10 Request T3, FREE (TRIDOTHYRONINE) (98435)Indication: Abnormal TSH On: :10 Request Anti-TPO Antibody (82708)Indication: Abnormal TSH On: 02-Fwy-473741:10 Request TSH (15089)Indication: Abnormal TSH On: :09 Request LIPID PANEL (78346)Indication: Elevated blood pressure (not hypertension) On: :54 Request TSH (86323)Indication: Elevated blood pressure (not hypertension) On: :54 Request URINALYSIS, W/ MICRO (73601)Indication: Elevated blood pressure (not hypertension) On: :53 Request METABOLIC PANEL, COMPREHENSIVE (62679)Indication: Elevated blood pressure (not hypertension) On: :53 Request CBC WITH MANUAL DIFF (02239)Indication: Elevated blood pressure (not hypertension) On: :53 Request Planned Procedures PHYSICAL THERAPY (77868)By: Nguyễn On: 28-May-2018 Intent Rissa Comments: Order given for dry needling Eprescribed prescriptions (G8553)By: On: 01-Sep-2013 Intent Elo Jung LPN Eprescribed prescriptions (G8553)By: On: 11-Aug-2013 Intent Leticia Loera Eprescribed prescriptions ([id number])By: On: 09-Feb-2013 Intent Leticia Loera MAMMOGRAM, SCREENING, BOTH BREASTS On: 17-Mar-2012 Intent ([id number])By: Fast DO, Kassie A Eprescribed prescriptions ([id number])By: On: 09-Sep-2011 Intent Fast DO, Kassie A TDAP VACCINE >7 IM ([id number])By: On: 09-Sep-2011 Intent Leticia Loera Comments: work FLU VAC, SPLIT, >3 YEARS, INTRAMUSC On: 09-Sep-2011 Intent ([id number])By: Leticia Loera Comments: work Instructions Name Dates [...] down 14 po ounds and training for [employer]- and feels good doing it - and [...] Note for Wrist pain: Seen Ortho at [facility] and she wasnt impressed with what [...] thinks could use something for sleep-[facility]-and had breast bx 2007- on right benignEncounter Diagnosis: Headache, tension (307.81), Migraine (346.80), Kidney stone (592.0), Elevated Blood Pressure(796.2), Atypical Nevus(238.2) [facility] [employer]; a guarantor
--- OUTSIDE RECORDS SUMMARY | 2018-11-07 08:48 | XMS RPT_ITS | Continuity of Care Document ---
:1970 Author Organization [facility] Address [address] [place] [address] Phone Care Team Providers Name Role Phone [...] Status: Active Medications Name Dates Details CALCIUM, 327-055MD-LDHN (Oral Tablet) Active 1 (one) daily (600-200 [...] (5-240 MG) End : 17-Mar-2012 Discontinued CORTISPORIN, 3.5-18683-4 (Otic Solution) 4 Drop(s) tid or qid [...] - PT Result: Comments: See Note; NOTES: [facility] Physical Therapy [facility] [place] [address] Fax REHABILITATION SERVICES INITIAL EVALUATION MR#: [id number] Acct: [id number] Name: RISSA MCWILLIAMS Rep #: [id number] : 1970 47 From: Pat Lock DPT Referring Dr.: EVIE Adrian Status: REG RCR Insurance: [facility] SELF PAY INSURANCE Patient's Visit Information RISSA [...] grab does not stay. 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 [...] to be FAXED BACK to us at [phone] for Medicare purposes. Please let me know if there are questions or concerns regarding this plan of care. Physician Signature: Date: <Electronically signed by Pat Lock DPT> 06/01/18 1150 CC: EVIE Adrian; Whitney Diaz DO ELR Signed For Medicare only, by signing this I certify the plan of care. Physicians Signature Date 16-Oct-2017 SCREENING MAMM (CAD), BILAT Result: Comments: See Note; NOTES: [facility] Imaging Services [address] [place] [address] SCREENING MAMM (CAD), BILAT MR#: [id number] Acct: [id number] Name: RISSA MCWILLIAMS Rep #: [id number] : 1970 F 46 From: Wayne Mascorro MD PCP: Whitney Diaz DO Status: REG CLI Study: SCREENING MAMM (CAD), BILAT Date of Exam: 10/16/17 Exam# [id number] Ordering Dr: Sherry Wilson MD MAMMOGRAPHY - [...] delay biopsy of a clinically suspicious abnormality. [id number] Electronically Signed: Wayne Mascorro MD at 10:53 EST Tel [phone], Service support , CC: Sherry Wilson MD; Whitney Diaz DO Bee Rancher: Signed 27-Sep-2016 Bilat Scrn Digital AND CAD Result: Comments: See Note; NOTES: [facility] Imaging Services [address] [place] [address] Verdana 4d Bilat Scrn Digital AND CAD MR#: [id number] Acct: [id number] Name: RISSA MCWILLIAMS Rep #: [id number] : 1970 F 45 From: Wayne Mascorro MD PCP: Whitney Diaz DO Status: REG CLI Study: Bilat Scrn Digital AND CAD Date of Exam: 09/27/16 Exam# [id number] Ordering Dr: Sherry Wilson MD MAMMOGRAPHY - [...] biopsy of a clinic ally suspicious abnormality. [id number] Electronically Signed: Wayne Mascorro MD at 12:38 EST Tel [phone], Service support [phone], CC: Sherry Wilson MD; Birdie Diaz DO Bee Rancher: Signed 25-Aug-2015 Bilat Scrn Digital AND CAD Result: Comments: See Note; NOTES: [facility] Imaging Services [address] [place] [address] Verdana 4d Bilat Scrn Digital AND CAD MR#: [id number] Acct: [id number] Name: RISSA MCWILLIAMS Rep #: [id number] : 1970 F 44 From: Wayne Mascorro MD PCP: Kassie Hassan DO Status: REG CLI Study: Bilat Scrn Digital AND CAD Date of Exam: 08/25/15 Exam# [id number] Ordering Dr: Sherry Wilson MD MAMMOGRAPHY - [...] Wayne Mascorro MD at 15:37 EST Tel [phone], Service support [phone], CC: Sherry Wilson MD; Kassie Hassan DO Bee Rancher: Signed 17-Apr-2015 Emergency Department Summary Result: Comments: See Note; NOTES: [facility] Medical Records Department [address] [place] [address] Emergency Department Summary MR#: [id number] Acct: [id number] Name: RISSA MCWILLIAMS Rep #: [id number] : 1970 44 From: Finesse Yancey MD [...] infection. Finesse Yancey MD T: NTS JOB: [id number] 04/17/15 0130 <Electronically signed by Finesse Yancey MD> Date Finesse Yancey MD CC: Kassie Hassan DO Date Dictated: 04/16/15658 Date Transcribed: 04/16/15658 Bee Rancher: Signed 16-Apr-2015 Discharge Instruction Result: Comments: See Note; NOTES: [facility] Medical Records Department [address] [place] [address] Discharge Instruction 04/16/15658 MR#: [id number] Acct: [id number] Name: RISSA MCWILLIAMS Rep #: [id number] : 1970 44 From: Finesse Yancey MD [...] contact your doctor. C all Doctors Registry ([phone]) or report to the closest Emergency Room. Call 911 if necessary. 04/16/15 07 <Electronically signed by Finesse Yancey MD> Date ___ Finesse Yancey MD Cosigner Signature (If Indicated): Date CC: Kassie Hassan DO 16-Apr-2015 Discharge Instruction Result: Comments: See Note; NOTES: [facility] Medical Records Department [address] [place] [address] Discharge Instruction 04/16/15 0656 MR#: [id number] Acct: [id number] Name: RISSA MCWILLIAMS Rep #: [id number] : 1970 44 From: Finesse Yancey MD [...] problems, contact your doctor. Call Doctors Registry ([phone]) or report to the closest Emergency Room. Call 911 if necessary. 04/16/15 0657 <Electron ically signed by Finesse Yancey MD> Date Finesse Yancey MD Cosigner Signature (If Indicated): Date CC: Kassie Hassan 05-Aug-2014 Bilat Scrn Digital & CAD Result: Comments: See Note; NOTES: [facility] Imaging Services [address] [place] [address] Breast Imaging Report MR#: [id number] Acct: [id number] Name: JEANCARLOSRISSA Fuentes Rep #: [id number] : 1970 F 43 From: Wayne Mascorro MD PCP: Kassie Hassan DO Status: REG CLI Exam# [id number] Ordering Dr: Sherry Wilson MD MAMMOGRAPHY - [...] Wayne Mascorro MD at 11:32 EDT Tel [phone], Service support [phone], CC: Sherry Wilson MD; Kassie Hassan DO Bee Rancher: Signed Family History Unknown Family Member Name [...] Patient had X-rays with Contrast this admission? [facility] [address] [place], [place], [phone] T3 2.6 pg/mL (Normal) Range: 2.18-3.98 :35 T3 Total - Triiodothyronine Comments: [address] [place], [place], [phone] T3 Total 0.96 ng/mL (Normal) Range: 0.6-1.81 :35 T3 Uptake Comments: Has Patient had X-rays with Contrast this admission? [facility] [address] [place], [place], [phone] (FTI) 1.8 (Normal) Range: 1.4-4.5 T3 UPTAKE 30 % (Normal) Range: 30-39 :35 T4 Free Direct Comments: Has Patient had X-rays with Contrast this admission? [facility] [address] [place], [place], [phone] T4 FREE DIRECT 0.72 ng/dL (Abnormal) Range: 0.76-1.46 :35 T4 Total, Thyroxin Comments: Has Patient had X-rays with Contrast this admission? [facility] [address] [place], [place], [address] T4 THYROXIN 6.0 ug/dL (Normal) Range: 4.8-13.9 :35 Thyroid Peroxidase AB Comments: [facility] (refer to report for specific site)refer to report for address and phone number TPO AB 4681 27 {IU/mL} (Normal) Range: 0-34 Comments: Performed at: - [facility] [id number] Director: Alirio Mishra PhD, Phone: [phone] :35 Thyroid Stim Hormone (TSH) Comments: Has Patient had X-rays with Contrast this admission? [facility] [address] [place], [address] TSH 0.20 {uIU/mL} (Abnormal) Range: 0.358-3.74 :05 Free T3 Comments: [facility] [address] [place], [address] FREE T3 2.1 pg/mL (Abnormal) Range: 2.18-3.98 :05 T4 Free Direct Comments: [facility] [address] [place], [place], [address] T4 FREE DIRECT 0.81 ng/dL (Normal) Range: 0.76-1.46 :05 Thyroid Stim Hormone (TSH) Comments: [facility] [address] [place], [place], [address] TSH 2.73 {uIU/mL} (Normal) Range: 0.358-3.74 :31 Free T3 Comments: [facility] [address] [place], [place], [address] FREE T3 1.8 pg/mL (Abnormal) Range: 2.18-3.98 :31 Lipid Profile Comments: [facility] [address] [place], [place], [address] VLDL 16 mg/dL (Normal) Range: 5-40 LDL [...] 200-240 mg/dL Borderline >240 mg/dL High Risk 63-Ine-42262:31 T4 Free Direct Comments: [facility] [address] [facility] [address] [place], [place], [address] T4 FREE DIRECT 1.06 ng/dL (Normal) Range: 0.76-1.46 88-Fdg-60032:31 Thyroid Stim Hormone (TSH) Comments: [facility] [address] [facility] [address] [place], [place], [address] TSH 3.36 {uIU/mL} (Normal) Range: 0.358-3.74 91-Lfe-258245:30 PAP I-G w/rfx hrHPV Comments: CYTOLOGY INFORMATION:- CLINICAL INFORMATION:- DATE LMP/MENOPAUSE: IUD 09/06/17 LMP- COLLECTION VIAL: Thin Prep Vial- SURGICAL TECHNOLOGIST SOURCE: CERVICAL/ENDOCERVICAL- COLLECTION TECHNIQUE: BRUSH/SPATULASp ecimen Comme nt: [id number] Comment: No. of containers..01 ThinPrep VialLabCorp (refer to report for specific site)refer to report for address and phone number HPV RFLX Comment (Normal) Comments: The HPV DNA reflex criteria were not met with this specimenresult therefore, no HPV testing was performed.Performed at: [address] [id number] Director: Sihloh Walker MD, Phone: [phone] PAPSMR Comment (Normal) Comments: The Pap smear [...] system. PERFORM Comment (Normal) Comments: Uvaldo Carlin, [employer] (ASCP) ADEQ Comment (Normal) Comments: Satisfactory for evaluation. Endocervical and/or squamous metaplasticcells (endocervical component) are present. DIAGN Comment (Normal) Comments: NEGATIVE FOR INTRAEPITHELIAL LESION AND MALIGNANCY.PLEASE INDICATE LMP ON FUTURE PATIENT'S REQUEST FORMS. 54-Nsd-246410:07 Free T3 Comments: [facility] [address] [place], [place], [address] FREE T3 1.8 pg/mL (Abnormal) Range: 2.18-3.98 80-Azp-082381:07 Lipid Profile Comments: [facility] [address] [place], [place], [address] VLDL 14 mg/dL (Normal) Range: 5-40 LDL [...] 200-240 mg/dL Borderline >240 mg/dL High Risk 62-Akn-029642:07 T4 Free Direct Comments: [facility] [address] [place], [place], [address] T4 FREE DIRECT 0.93 ng/dL (Normal) Range: 0.76-1.46 03-Zqj-559862:07 Thyroid Stim Hormone (TSH) Comments: [facility] [address] [place], [place], [address] TSH 2.43 {uIU/mL} (Normal) Range: 0.358-3.74 57-Hxa-223155:30 PAP I-G w/rfx hrHPV Comments: CYTOLOGY INFORMATION:- CLINICAL INFORMATION:- DATE LMP/MENOPAUSE: IUD NO MENSES GIVEN LMP- COLLECTION VIAL: Thin Prep Vial- SURGICAL TECHNOLOGIST SOURCE: CERVICAL/ENDOCERVICAL- COLLECTION TECHNIQUE: BRUSH/SPATULASpecime n Comment: [id number] Comment: No. of containers..01 CYTYC Thin Prep VialLabCorp (refer to report for specific site)refer to report for address and phone number HPV RFLX Comment (Normal) Comments: The HPV DNA reflex criteria were not met with this specimenresult therefore, no HPV testing was performed.Performed at: [address], [place] [id number] Director: Shiloh Walker MD, Phone: [phone] PAPSMR Comment (Normal) Comments: The Pap smear [...] system. PERFORM Comment (Normal) Comments: Angel Yates, [employer] (ASCP) ADEQ Comment (Normal) Comments: Satisfactory for evaluation. Endocervical and/or squamous metaplasticcells (endocervical component) are present. DIAGN Comment (Normal) Comments: NEGATIVE FOR INTRAEPITHELIAL LESION AND MALIGNANCY. 08-Vua-669516:30 CT/NG [facility] BY PCR Comments: [facility] [address] [facility] [place], [address] NG by PCR Negative (Normal) [facility] PCR Negative (Normal) 37-Oao-114072:30 PAP I-G w/rfx hrHPV Comments: CYTOLOGY INFORMATION:- CLINICAL INFORMATION:- DATE LMP/MENOPAUSE: IUD/NO MENSES GIVEN LMP- COLLECTION VIAL: Thin Prep Vial- SURGICAL TECHNOLOGIST SOURCE: CERVICAL/ENDOCERVICAL- COLLECTION TECHNIQUE: BRUSH/SPATULACYTOLOG Y INFORMATION:- CLINICAL INFORMATION:- DATE LMP/MENOPAUSE: IUD/NO MENSES GIVEN LMP- COLLECTION VIAL: Thin Prep Vial- SURGICAL TECHNOLOGIST SOURCE: CERVICAL/ENDOCERVICAL- COLLECTION TECHNIQUE: BRUSH/SPATULASpecimen Comme nt: [id number] Comment: No. of containers..01 CYTYC Thin Prep VialLabCorp (refer to report for specific site)refer to report for address and phone number HPV HC,HGH RISK Negative Comments: This high-risk HPV test detects thirteen high-risk types(16/18/31/33/35/39/45/51/52/56/58/59/68) withoutdifferentiation.Performed at: [address] [id number] (Normal) b Director: Shiloh Walker MD, Phone: [phone] at: =[facility] [id number] Director: Shiloh Walker MD, Phone: [phone] HPV RFLX Comment Comments: See below for [...] Pathologist (Normal) PERFORM Comment Comments: Nohemi He, [employer] (ASCP) (Normal) ADEQ Comment Comments: Satisfactory for evaluation. Endocervical and/or squamous metaplasticcells (endocervical component) are present. (Normal) DIAGN Comment Comments: EPITHELIAL CELL ABNORMALITY.ATYPICAL SQUAMOUS CELLS OF UNDETERMINED SIGNIFICANCE. (Abnormal) 73-Prt-70849:52 Thyroxine (T4) Free, Comments: PATIENT WAS FASTINGPERFORMED BY: [facility] CenterFvqatt0377 [facility] [id number] Information: [id number] Direct, S T4,Free(Direct) 1.20 ng/dL Range: 0.82-1.77 (Normal) 07-Jun-2016 Triiodothyronine,Free,Seru 2.3 pg/mL (Normal) Comments: PATIENT WAS FASTINGPERFORMED BY: [facility]6[address] [facility] [id number] 9:52 m Range: 2.0-4.4 07-Jun-2016 Written Authorization WAR (Normal) Comments: PATIENT WAS FASTINGPERFORMED BY: [facility]6[address] [facility] [id number] 9:52 Comments: Written Authorization Received.Authorization received from SIGNATURE ON FILE [id number] by Shaina Mcneal 27-Myj-07236:52 METABOLIC PANEL, COMPREHENSIVE Comments: PATIENT WAS FASTINGPERFORMED BY: [facility]6[address] [facility] [id number] ([id number]) ALT (SGPT) 15 [iU]/L (Normal) Range: 0-32 [...] AUT DIFF Comments: PATIENT WAS FASTINGPERFORMED BY: [facility]Saint [facility] CenterAlnnet8530 [facility] [id number] Information: [id number] (41308) Immature Grans (Abs) 0.0 {x10E3/uL} (Normal) Range: [...] {x10E3/uL} (Normal) Range: 3.4-10.8 :52 LIPID PANEL (21567) Comments: PATIENT WAS FASTINGPERFORMED BY: [facility]6[address] [facility] [id number] LDL/HDL Ratio 1.9 {ratio_units} (Normal) Range: 0.0-3.2 [...] Cholesterol, Total 148 mg/dL (Normal) Range: 100-199 86-Ovq-43517:52 TSH (88145) Comments: PATIENT WAS FASTINGPERFORMED BY: [facility]6[address] [facility] [id number] TSH 2.770 {uIU/mL} (Normal) Range: 0.450-4.500 28-Oll-701391:00 PAP I-G w/rfx hrHPV Comments: CYTOLOGY INFORMATION:- CLINICAL INFORMATION:- DATE LMP/MENOPAUSE: IUD LMP- COLLECTION VIAL: Thin Prep Vial- SURGICAL TECHNOLOGIST SOURCE: CERVICAL/ENDOCERVICAL- COLLECTION TECHNIQUE: BRUSH/SPATULASpecimen Comment: CO-PARISA [id number] Comment: No. of containers..01 CYTYC Thin Prep VialAd[facility]-Nerv[facility]ylum (refer to report for specific site)refer to report for address and phone number HPV RFLX Comment (Normal) Comments: The HPV DNA reflex criteria were not met with this specimenresult therefore, no HPV testing was performed.Performed at: [address] [id number] Director: Alfredo Alejandre MD, Phone: [phone] PAPSMR Comment (Normal) Comments: The Pap smear [...] system. PERFORM Comment (Normal) Comments: Govind Zhang, [employer] (ASCP) ADEQ Comment (Normal) Comments: Satisfactory for evaluation. Endocervical and/or squamous metaplasticcells (endocervical component) are present. DIAGN Comment (Normal) Comments: NEGATIVE FOR INTRAEPITHELIAL LESION AND MALIGNANCY. 38-Kgq-209993:48 CBC W/Diff, Automated Comments: Test performed at:[facility] [address] [place], [place] [address] ; Non- emergent till apt Absolute Lymph [...] 4.2-5.4 WBC 6.2 K/mm3 (Normal) Range: 4.4-11.0 04-Jiz-658004:48 Comprehensive Metabolic Profil Comments: Test performed at:[facility] [address] [facility] [place] [address] GAP 5 (Normal) Range: 5-15 CO2 24.0 [...] Comments: Please note revised CREATININE reference range qtjmvpurk78/22/2015. BUN 17 mg/dL (Normal) Range: 7-18 GLU 78 mg/dL (Normal) Range: 70-110 75-Phx-448739:48 Lipid Profile Comments: Test performed at:[facility] [address] [facility]. [place], [place] [address] VLDL 14 mg/dL (Normal) Range: 5-40 LDL [...] 200-240 mg/dL Borderline >240 mg/dL High Risk 77-Lad-229070:48 Thyroid Stim Hormone (TSH) Comments: Test performed at:[facility] [address] [place], [place] [address] TSH 1.74 {uIU/mL} (Normal) Range: 0.358-3.74 16-Apr-20156:30 Urinalysis, Complete Comments: Order Date: 04/16/15How was Urine Obtained? CLEAN CATCHTest performed at:[facility] [address] [facility]. [place], [place] [address] ; ordered by sharmaine MUCUS, URINE 0 [...] CLARITY Sl. Cloudy (Normal) COLOR Yellow (Normal) 43-Gvv-645218:15 PAPIG5 Comments: CYTOLOGY INFORMATION:- CLINICAL INFORMATION:- DATE LMP/MENOPAUSE: NO MENSES/IUD LMP- COLLECTION VIAL: Thin Prep Vial- SURGICAL TECHNOLOGIST SOURCE: CERVICAL/ENDOCERVICAL- COLLECTION TECHNIQUE: BRUSH/SPATULASpecimen Comm ent: [id number] Comment: No. of containers..01 CYTYC Thin Prep Vial tHPVRFLX Comment (Normal) Comments: The HPV DNA reflex criteria were not met with this specimenresult therefore, no HPV testing was performed.Performed at: [address] [id number] Director: Alfredo Alejandre MD, Phone: [phone] tPAPSMR Comment (Normal) Comments: The Pap smear [...] system. tPERFORM Comment (Normal) Comments: Lio Ulloa, [employer] (ASCP) tADEQ Comment (Normal) Comments: Satisfactory for evaluation. Endocervical and/or squamous metaplasticcells (endocervical component) are present. tDIAG Comment (Normal) Comments: NEGATIVE FOR INTRAEPITHELIAL LESION AND MALIGNANCY. 98-Hgt-39570:28 CMP GAP 7 (Normal) Range: 5-15 CO2 [...] CHOL 148 mg/dL (Normal) Comments: <200 mg/dL Xcxghrgkw958-664 mg/dL Borderline>240 mg/dL High Risk HDL 46 [...] CHOL 164 mg/dL (Normal) Comments: <200 mg/dL Isomlhtcu362-946 mg/dL Borderline>240 mg/dL High Risk :13 TSH 1.21 {uIU/mL} (Normal) Range: 0.358-3.74 :19 FT3 2.5 pg/mL (Normal) Range: 2.18-3.98 :19 T4F 1.02 ng/dL (Normal) Range: 0.76-1.46 :19 TPO 10 {IU/mL} (Normal) Range: 0-34 Comments: Performed at: [facility] [address] [id number] Director: Zac Khanna PhD, Phone: [phone] :19 TSH 1.74 {uIU/mL} (Normal) Range: 0.358-3.74 [...] CHOL 159 mg/dL (Normal) Comments: <200 mg/dL Irkhhlodl049-754 mg/dL Borderline>240 mg/dL High Risk HDL 41 [...] not delay biopsy of a clinically suspiciousabnormality. Signed:aWyne Mascorro M.D.June 10, 2012 at 9:55:07 AM [phone] Signed GP/G P If you are the referring physician and would like to consult with theradiologist who provided this interpretation, please contact Edelmira Juarez at [phone]. If this radiologist is yovani rob, youwill be directed to another radiologist to assist. If you are a patient with a question regarding this report, pleasecontactyour referring physician directly. Professional Interpretation Provi ded By: [facility], Phone , These documents contain legally protected [...] :36 TSH 2.86 {uIU/mL} (Normal) Range: 0.358-3.74 10-Slw-590653:06 URINE ALFREDO CULTURE-EDWARD COL Comments: PERFORMED BY: NO[facility] [address] [facility] [id number] Information: SRC: URETHRA COUNT (00982) Result 1 ECV (Normal) Comments: Escherichia coli, identified by an automated biochemical system.1,000 Colonies/mLMixed urogenital hagjj171 Colonies/mL S = Susceptible; I = Intermediate; R = Resistant P = Positive; N = Negative MICS are expressed in micrograms per mL Antibiotic RSLT#1 RSLT#2 RSLT#3 RSLT#4Amoxicillin/Clavulanic Acid SAmpicillin RCefazolin SCefepime SCeftriaxone SCefuroxime SCephalothin ICiprofloxacin SESBL NErtapenem SGentamicin SImipenem SLevofloxacin SNitrofurantoin SPiperacillin RTetracycline RTobramycin STrimethoprim/Sulfa S Urine Final report (Normal) Culture,Comprehensiv e 65-Leq-080469:19 Urinalysis, Office (83579) UA - BILIRUBIN Negative (Normal) UA - [...] Range: 0-34 57 Comments: Performed at: - [address] [id number] Director: Ashleigh Abraham MD, Phone: [phone] : TSH 3.55 {uIU/mL} (Normal) Range: 0.358-3.74 57 :09 Urinalysis, Office (36410) UA - BILIRUBIN Negative (Normal) UA - [...] 4.2-5.4 WBC 5.9 K/mm3 (Normal) Range: 4.4-11.0 16-Ifg-029075:40 BILAT SCRN DIGITAL & CAD Radiology Report [...] TSH 5.38 {uIU/mL} Range: 0.358-3.74 :31 (Abnormal) 28-Ile-062270:19 COMPLETE UA MUCUS, URINE 0 SEEN {/hpf} [...] Low HDL (under 40) Planned Observations TSH (03204)Indication: Hypothyroidism On: 57-Hkk-485653:52 Request T4, FREE (THYROXINE) (49436)Indication: Hypothyroidism On: :52 Request T3, FREE (TRIDOTHYRONINE) (97609)Indication: Hypothyroidism On: :52 Request T4, FREE (THYROXINE) (74462)Indication: Hypothyroidism On: : Request TSH (72796)Indication: Hypothyroidism On: : Request Anti-TPO Antibody (51401)Indication: Hypothyroidism On: : Request T4, TOTAL (05417)Indication: Hypothyroidism On: : Request T3, TOTAL (TRIDOTHYRONINE) (79201)Indication: Hypothyroidism On: : Request T3, FREE (TRIDOTHYRONINE) (55933)Indication: Hypothyroidism On: : Request T-3 UPTAKE (80301)Indication: Hypothyroidism On: : Request FREE TRIDOTHYRONINE (T3) (00480)Indication: T3 low in serum On: 06-Aks-868633:08 Request TSH (41843)Indication: Hypothyroidism On: 94-Ozz-958847:18 Request T4, FREE (THYROXINE) (48889)Indication: Hypothyroidism On: :18 Request T3, FREE (TRIDOTHYRONINE) (16062)Indication: Hypothyroidism On: 51-Snh-315432:18 Request T4, FREE (THYROXINE) (09813)Indication: T3 low in serum On: 56-Oyh-920123:37 Request T3, FREE (TRIDOTHYRONINE) (82645)Indication: T3 low in serum On: 33-Jbt-777366:37 Request T4, FREE (THYROXINE) (02528)Indication: Hypothyroidism On: :46 Request T3, FREE (TRIDOTHYRONINE) (10717)Indication: Hypothyroidism On: :46 Request TSH (THYROID STIMULATING HORMONE) (92658)Indication: Hypothyroidism On: :45 Request LIPID PANEL (16676)Indication: Encounter for screening for lipid disorder On: :44 Request LIPID PANEL (48313)Indication: Encounter for screening for lipid disorder On: :47 Request T3, FREE (TRIDOTHYRONINE) (32784)Indication: Hypothyroidism On: :48 Request T4, FREE (THYROXINE) (77984)Indication: Hypothyroidism On: :48 Request TSH (62331)Indication: Hypothyroidism On: :48 Request T4, FREE (THYROXINE) (67082)Indication: Hypothyroidism On: :02 Request T3, FREE (TRIDOTHYRONINE) (59169)Indication: Hypothyroidism On: 22-Kss-626619:01 Request METABOLIC PANEL, COMPREHENSIVE (37801)Indication: Elevated blood pressure (not hypertension) On: 9-Kje-993563:58 Request LIPID PANEL (06503)Indication: Low HDL (under 40) On: :34 Request TSH (78004)Indication: Hypothyroidism On: :34 Request CBC W/AUTO DIFF WBC (54124)Indication: Migraine On: :34 Request METABOLIC PANEL, COMPREHENSIVE (64128)Indication: Migraine On: :34 Request METABOLIC PANEL, COMPREHENSIVE (75607)Indication: Migraine On: 54-Ozt-051170:48 Request TSH (82533)Indication: Hypothyroidism On: 14-Vig-568239:48 Request LIPID PANEL (98974)Indication: Low HDL (under 40) On: 34-Rst-277179:48 Request TSH (35880)Indication: Hypothyroidism On: 6-Urh-658361:57 Request LIPID PANEL (68959)Indication: Low HDL (under 40) On: 0-Jdq-851162:57 Request T3, FREE (TRIDOTHYRONINE) (09879)Indication: Hypothyroidism On: 91-Xdw-158841:43 Request T4, FREE (THYROXINE) (36683)Indication: Hypothyroidism On: :43 Request Anti-TPO Antibody (18099)Indication: Hypothyroidism On: 43-Eaa-471713:43 Request TSH (80356)Indication: Hypothyroidism On: 40-Xev-152135:43 Request TSH (48084)Indication: Abnormal TSH On: 2-Lkh-403828:43 Request Lipid Panel (38553)Indication: Low HDL (under 40) On: :43 Request Metabolic Panel, Comprehensive (60852)Indication: Elevated blood pressure (not hypertension) On: :43 Request LIPID PANEL (77169)Indication: Low HDL (under 40) On: 5-Npy-648673:58 Request TSH (29893)Indication: Abnormal TSH On: :07 Request T4, FREE (THYROXINE) (92897)Indication: Abnormal TSH On: :07 Request T3, FREE (TRIDOTHYRONINE) (04342)Indication: Abnormal TSH On: 68-Owm-564941:07 Request LIPID PANEL (18305)Indication: Low HDL (under 40) On: :38 Request METABOLIC PANEL, COMPREHENSIVE (28424)Indication: Elevated blood pressure (not hypertension) On: :38 Request T4, FREE (THYROXINE) (71958)Indication: Abnormal TSH On: :10 Request T3, FREE (TRIDOTHYRONINE) (06915)Indication: Abnormal TSH On: 94-Ima-811045:10 Request Anti-TPO Antibody (11065)Indication: Abnormal TSH On: :10 Request TSH (51463)Indication: Abnormal TSH On: :09 Request LIPID PANEL (36904)Indication: Elevated blood pressure (not hypertension) On: :54 Request TSH (45882)Indication: Elevated blood pressure (not hypertension) On: :54 Request URINALYSIS, W/ MICRO (62170)Indication: Elevated blood pressure (not hypertension) On: :53 Request METABOLIC PANEL, COMPREHENSIVE (93518)Indication: Elevated blood pressure (not hypertension) On: :53 Request CBC WITH MANUAL DIFF (78101)Indication: Elevated blood pressure (not hypertension) On: :53 Request Planned Procedures PHYSICAL THERAPY (02334)By: Nguyễn, On: 28-May-2018 Intent Rissa Comments: Order given for dry needling Eprescribed prescriptions (G8553)By: On: 01-Sep-2013 Intent Elo Jung LPN Eprescribed prescriptions (G8553)By: On: 11-Aug-2013 Intent Leticia Loera Eprescribed prescriptions (G8553)By: On: 09-Feb-2013 Intent Leticia Loera MAMMOGRAM, SCREENING, BOTH BREASTS On: 17-Mar-2012 Intent (58259)By: Fast DO, Kassie A Eprescribed prescriptions (G8553)By: On: 09-Sep-2011 Intent Mo DO, Kassie A TDAP VACCINE >7 IM (15201)By: On: 09-Sep-2011 Intent Leticia Loera Comments: work FLU VAC, SPLIT, >3 YEARS, INTRAMUSC On: 09-Sep-2011 Intent (35179)By: Leticia Loera Comments: work Instructions Name Dates [...] down 14 po ounds and training for basno- and feels good doing it - and [...] Note for Wrist pain: Seen Ortho at [facility] and she wasnt impressed with what [...] Atypical Nevus(238.2) [facility] [employer]; a guarantor
--- OUTSIDE RECORDS SUMMARY | 2018-11-07 08:49 | XMS RPT_ITS ---
:1970 Author Organization [facility] Care Team Providers Name Role Phone DOCTOR, OUT OF TOWN Attending Unavailable Fast, Kassie Primary Care Unavailable Shriner, Sherry Attending Unavailable Joe, Whitney Primary Care Unavailable Shriner, Sherry Referring Unavailable Joe, Whitney Attending Unavailable Joe, Whitney Referring Unavailable Joe, Whitney Primary Care Unavailable Rissa Adrian CORRECTIONAL LIEUTENANT-C Attending Unavailable Rissa Adrian CORRECTIONAL LIEUTENANT-C Referring Unavailable Joe, Whitney Primary Care Unavailable [...] M54.9 - Rissa Adrian Active [facility] Dorsalbrenda, CORRECTIONAL LIEUTENANT-C Community unspecified / Hospital M54.9(ICD-10) Repository 10/16/2017 Unknown Z12.31 - Sherry Wilson Active [facility] Encounter for [facility] mammogram for Repository malignant neoplasm of breast / Z12.31(ICD-10) PROCEDURES PROCEDURES No Procedure Records FoundRESULTS RESULTS FREE T3 Collected: 09/14/2018 Status: F Source: [place] 8:30 AM [facility] REPOSITORY TYPE CODE TESTS RESULT OUT OF RANGE REFERENCE UNITS LAB L501.45790 2.18-3.98 pg/mL Normal FREE T3 2.7 Performed By: #### L501.10719, L501.9520, L506.0400 #### [facility] [address] [place], [address] THYROID STIM HORMONE Collected: 09/14/2018 Status: F Source: [place] (TSH) 8:30 AM [facility] REPOSITORY TYPE CODE TESTS RESULT OUT OF RANGE REFERENCE UNITS LAB L501.9520 0.358-3.74 uIU/mL Low TSH 0.19 Performed By: #### L501.66703, L501.9520, L506.0400 #### [facility] [address] [place], [address] T4 FREE DIRECT Collected: 09/14/2018 Status: F Source: [place] 8:30 AM [facility] REPOSITORY TYPE CODE TESTS RESULT OUT OF REFERENCE UNITS RANGE LAB L506.0400 0.76-1.46 ng/dL Low T4 FREE 0.68 DIRECT Performed By: #### L501.39680, L501.9520, L506.0400 #### [facility] [address] [place], [address] FREE T3 Collected: 09/10/2018 Status: F Source: [place] 8:35 AM [facility] REPOSITORY Order Comment: Has Patient had X-rays with Contrast this admission? N TYPE CODE TESTS RESULT OUT OF RANGE REFERENCE UNITS LAB L501.43490 2.18-3.98 pg/mL Normal FREE T3 2.6 Performed By: #### L501.50537, L501.9195, L501.9310, L501.9520, L506.0400 #### [facility] [address] [place], [address] T3 UPTAKE Collected: 09/10/2018 Status: F Source: [place] 8:35 AM [facility] REPOSITORY Order Comment: Has Patient had X-rays with Contrast this admission? N TYPE CODE TESTS RESULT OUT OF RANGE REFERENCE UNITS LAB L501.9210 30-39 % Normal T3 UPTAKE 30 LAB L501.9410 1.4-4.5 Normal T7 (FTI) 1.8 Performed By: #### L501.70674, L501.9195, L501.9310, L501.9520, L506.0400 #### [facility] [address] [place], [address] T4 TOTAL, THYROXIN Collected: 09/10/2018 Status: F Source: [place] 8:35 AM [facility] REPOSITORY Order Comment: Has Patient had X-rays with Contrast this admission? N TYPE CODE TESTS RESULT OUT OF RANGE REFERENCE UNITS LAB L501.9310 4.8-13.9 ug/dL T4 Normal THYROXIN 6.0 Performed By: #### L501.82863, L501.9195, L501.9310, L501.9520, L506.0400 #### [facility] [address] [facility] [place], [place], [address] THYROID STIM HORMONE Collected: 09/10/2018 Status: F Source: [place] (TSH) 8:35 AM [facility] REPOSITORY Order Comment: Has Patient had X-rays with Contrast this admission? N TYPE CODE TESTS RESULT OUT OF RANGE REFERENCE UNITS LAB L501.9520 0.358-3.74 uIU/mL Low TSH 0.20 Performed By: #### L501.44319, L501.9195, L501.9310, L501.9520, L506.0400 #### [facility] [place], [place], [address] T4 FREE DIRECT Collected: 09/10/2018 Status: F Source: [place] 8:35 AM [facility] REPOSITORY Order Comment: Has Patient had X-rays with Contrast this admission? N TYPE CODE TESTS RESULT OUT OF REFERENCE UNITS RANGE LAB L506.0400 0.76-1.46 ng/dL Low T4 FREE 0.72 DIRECT Performed By: #### L501.87121, L501.9195, L501.9310, L501.9520, L506.0400 #### [facility] [place], [place], [address] T3 TOTAL - TRIIODOTHYRONINE Collected: 09/10/2018 Status: F Source: [place] 8:35 AM [facility] REPOSITORY TYPE CODE TESTS RESULT OUT OF RANGE REFERENCE UNITS LAB L501.9186 0.6-1.81 ng/mL Normal T3 Total 0.96 Performed By: #### L501.9186 #### [facility] [place], [place], [address] THYROID PEROXIDASE AB Collected: 09/10/2018 Status: F Source: [place] 8:35 AM [facility] REPOSITORY TYPE CODE TESTS RESULT OUT OF RANGE REFERENCE UNITS LAB L3300.6900 0-34 IU/mL Normal TPO AB 27 6676 Result Comment: Performed at: - [facility] [address] [id number] Community Health Specialist: Alirio Mishra PhD, Phone: [phone] Performed By: #### L3300.6900 #### [facility] (refer to report for specific site) refer to report for address and phone number FREE T3 Collected: 07/28/2018 Status: F Source: [place] 9:05 AM [facility] REPOSITORY TYPE CODE TESTS RESULT OUT OF RANGE REFERENCE UNITS LAB L501.35982 2.18-3.98 pg/mL Low FREE T3 2.1 Performed By: #### L501.91047, L501.9520, L506.0400 #### [facility] [address] [facility]. [place], [place], [address] THYROID STIM HORMONE Collected: 07/28/2018 Status: F Source: [place] (TSH) 9:05 AM [facility] REPOSITORY TYPE CODE TESTS RESULT OUT OF RANGE REFERENCE UNITS LAB L501.9520 0.358-3.74 uIU/mL Normal TSH 2.73 Performed By: #### L501.05786, L501.9520, L506.0400 #### [facility] [address] [facility] [place], [place], [address] T4 FREE DIRECT Collected: 07/28/2018 Status: F Source: [place] 9:05 AM [facility] REPOSITORY TYPE CODE TESTS RESULT OUT OF RANGE REFERENCE UNITS LAB L506.0400 0.76-1.46 ng/dL Normal T4 FREE 0.81 DIRECT Performed By: #### L501.55209, L501.9520, L506.0400 #### [facility] [address] [facility] [place], [place], [address] LIPID PROFILE Collected: 06/03/2018 Status: F Source: [place] 8:31 AM [facility] REPOSITORY TYPE CODE TESTS RESULT OUT OF [...] Normal VLDL 16 Performed By: #### L500.4100, L501.12220, L501.9520, L506.0400 #### [facility] [address] [facility] [place], [place], [address] FREE T3 Collected: 06/03/2018 Status: F Source: [place] 8:31 AM [facility] REPOSITORY TYPE CODE TESTS RESULT OUT OF RANGE REFERENCE UNITS LAB L501.00579 2.18-3.98 pg/mL Low FREE T3 1.8 Performed By: #### L500.4100, L501.67554, L501.9520, L506.0400 #### [facility] [address] [facility] [place], [place], [address] THYROID STIM HORMONE Collected: 06/03/2018 Status: F Source: [place] (TSH) 8:31 AM [facility] REPOSITORY TYPE CODE TESTS RESULT OUT OF RANGE REFERENCE UNITS LAB L501.9520 0.358-3.74 uIU/mL Normal TSH 3.36 Performed By: #### L500.4100, L501.30172, L501.9520, L506.0400 #### [facility] [address] [facility] [place], [address] T4 FREE DIRECT Collected: 06/03/2018 Status: F Source: [place] 8:31 AM [facility] REPOSITORY TYPE CODE TESTS RESULT OUT OF RANGE REFERENCE UNITS LAB L506.0400 0.76-1.46 ng/dL Normal T4 FREE 1.06 DIRECT Performed By: #### L500.4100, L501.24069, L501.9520, L506.0400 #### [facility] [address] [place], [address] INITAL EVALUATION (1) Observed: 06/01/2018 Status: F Source: [place] - PT 11:50 AM [facility] REPOSITORY [facility] [address] [place] [address] Fax REHABILITATION SERVICES INITIAL EVALUATION MR#: [id number] Acct: [id number] Name: RISSA ARSHAD Rep #: [id number] : 1970 47 From: Pat Lock DPT Referring Dr.: EVIE Adrian Status: REG RCR Insurance: [facility] SELF PAY INSURANCE Patient's Visit [...] grab does not stay. 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 [...] to be FAXED BACK to us at [phone] for Medicare purposes. Please let me know if there are questions or concerns regarding this plan of care. Physician Signature: Date: <Electronically signed by Pat Lock DPT> 06/01/18 1150 CC: EVIE Adrian; Whitney Diaz DO ELR Signed For Medicare only, by signing this I certify the plan of care. Physicians Signature Date SCREENING MAMM (CAD), Observed: 10/16/2017 Status: F Source: [facility] 8:58 AM [facility] REPOSITORY [facility] Imaging Services [address] [place] [id number] SCREENING MAMM (CAD), BIL MR#: [id number] Acct: [id number] Name: RISSA ARSHAD Rep #: [id number] : 1970 F 46 From: Wayne Mascorro MD PCP: Whitney Diaz DO Status: [facility] CL Study: SCREENING MAMM (CAD), BILAT Date of Exam: 10/16/17 Exam# [id number] Ordering Dr: Sherry Wilson MD MAMMOGRAPHY - [...] delay biopsy of a clinically suspicious abnormality. [id number] Electronically Signed: Wayne Mascorro MD at 10:53 EST Tel [phone], Service support , CC: Sherry Wilson MD; Whitney Diaz DO Java Android Developer: Signed ALLERGIES ALLERGIES DATE TYPE / CODE NAME / CODE REACTION SEVERITY SOURCE 04/16/2015 Drug Sulfa Rash Unknown [place] [facility] Allergy/4160 ([facility]ulf[facility] 00323(SNOMED Antibiotics)/ Repository CT) [id number](RX NORM) ENCOUNTERS ENCOUNTERS ADMIT/DISCHARGE ACCOUNT ADMITTING ENCOUNTER LOCATION SOURCE NUMBER CLASS 09/28/2018 [id number] Ambulatory [place] 1 [facility] ing:MASS Repository 09/15/2018 [id number] Ambulatory [place] 4 [facility] ing:LAB.FUTUR Repository E 09/14/2018 [id number] Ambulatory [place] 2 [facility] ing:MTLAB Repository 09/10/2018 [id number] Ambulatory [place] 6 [facility] ing:MTLAB Repository 07/28/2018 [id number] Ambulatory [place] 2 [facility] ing:MTLAB Repository 06/03/2018/ [id number] Ambulatory [place] 8 1 [facility] ing:PT Repository 06/03/2018 [id number] Ambulatory [place] 9 [facility] ing:LAB.FUTUR Repository E 10/16/2017 [id number] Ambulatory [place] 0 [facility] ing:BI Repository PAYERS PAYERS ENCOUNTER GUARANTOR PAYER SUBSCRIBER SOURCE 09/28/2018 Rissa Fuentes Primary NOT GIVENUNK [place] [id number] [address] Insurance:SELF PAY [place] [address]Tel: Number: Effective Repository Date:2015-10-16 (HP) 09/15/2018 Rissa Fuentes Primary GERARDO D WHITEDOB: [place] [id number] [place] Insurance:MEDICAL [id number] [address]Qdn: Number: Repository [id number] (HP) Date:0554-73-30PR [address] [address]KK: 09/15/2018 Secondary NOT GIVENUNK [place] Insurance:SELF PAY [facility] Number: Effective Repository Date:2018-09-15 09/14/2018 Rissa Fuentes Primary GERARDO D WHITEDOB: [place] [id number] [place] Insurance:MEDICAL [id number] [facility] [address]Gxp: Number: Repository [id number] (HP) Date:0254-11-25KM [place] [id number]: 09/14/2018 Secondary NOT GIVENUNK [place] Insurance:SELF PAY [facility] Number: Effective Repository Date:2018-09-14 09/10/2018 Rissa Fuentes Primary GERARDO D WHITEDOB: [place] [id number] [place] Insurance:MEDICAL [id number] Hospital [address]Kga: Number: Repository [id number] (HP) Date:9390-21-12WF [address] [place], [place] [address]: 09/10/2018 Secondary NOT GIVENUNK [place] Insurance:SELF PAY [facility] Number: Effective Repository Date:2018-09-10 07/28/2018 Rissa Alfredo Primary GERARDO D WHITEDOB: [place] [id number] [place] Insurance:MEDICAL [id number] [id number]: Number: Repository [id number] (HP) Date:1910-12-28CG [place] [id number]: 07/28/2018 Secondary NOT GIVENUNK [place] Insurance:SELF PAY [facility] Number: Effective Repository Date:2018-07-28 06/03/2018 Rissa Fuentes Primary GERARDO D WHITEDOB: [place] [id number] [place] Insurance:MEDICAL [id number] [facility] [address]Inr: Number: Repository [id number] (HP) Date:3370-66-33IC [address] [place] [address]HF: 06/03/2018 Secondary NOT GIVENUNK [place] Insurance:SELF PAY [facility] Number: Effective Repository Date:2018-05-28 06/03/2018 Rissa Fuentes Primary GERARDO D WHITEDOB: [place] [id number] [place] Insurance:MEDICAL [id number] Christ Hospital [address]Tro: Number: Repository [id number] (HP) Date:5912-24-69DY [address] [address]DQ: 06/03/2018 Secondary NOT GIVENUNK [place] Insurance:SELF PAY [facility] Number: Effective Repository Date:2018-03-23 10/16/2017 Rissa Fuentes Primary Gerardo ChavezB: [place] [id number] [place] Insurance:MEDICAL [id number] [facility] Hospital [address]Mmr: Number: Repository [id number] () Date:6290-63-49IV [address] [address]GK: 10/16/2017 Secondary NOT GIVENUNK [place] Insurance:SELF PAY [facility] Number: Effective Repository Date:2017-09-10
== END ==
PROVIDERS: Family Provider Internal Medicine; PCP Internal Medicine; Referring Provider Internal Medicine; Visit Provider Internal Medicine
DX: E03.9 Hypothyroidism, unspecified (principal)
CPT/HCPCS: 36415; 84439; 84443; 84481

== ENCOUNTER → 2018-10-21 12:26 | Outpatient (CLI) | payer OTHER, SELFPAY ==
[2018-10-21 15:08] LABS: Vitamin D,25 Hydroxy 31.8 ng/mL (29.95-100.01)
[2018-10-21 15:09] LABS: CPK Total, Creatine Kinase 43 U/L (26-192); Free T3 4.6 pg/mL (2.18-3.98); Thyroid Stim Hormone (TSH) 0.04 uIU/mL (0.358-3.74)
[2018-10-23 08:12] LABS: DHEA Sulfate 119.2 ug/dL (41.2-243.7); Insulin Like Growth Factor 213 ng/mL (57-195)
[2018-10-23 12:32] LABS: Anti-Thyroglobulin AB < 1.0 IU/mL (0.0-0.9); Thyroglobulin, Serum Qt. 10.4 ng/mL (1.5-38.5); Thyroid Peroxidase AB 39 IU/mL (0-34)
== END ==
PROVIDERS: Family Provider Internal Medicine; PCP Internal Medicine
DX: E03.8 Other specified hypothyroidism (principal); E23.6 Other disorders of pituitary gland; E55.9 Vitamin D deficiency, unspecified
CPT/HCPCS: 36415; 82306; 82550; 82627; 84305; 84432; 84439; 84443; 84481; 86376; 86800; 82626

== ENCOUNTER → 2018-11-20 07:30 | Outpatient (CLI) | payer OTHER, SELFPAY ==
[2018-11-20 10:50] LABS: Free T3 2.5 pg/mL (2.18-3.98); T4 Free Direct 0.79 ng/dL (0.76-1.46); Thyroid Stim Hormone (TSH) 0.06 uIU/mL (0.358-3.74)
[2018-11-23 16:07] LABS: DHEA Sulfate 105.2 ug/dL (41.2-243.7)
[2018-11-24 11:05] LABS: Adrenocorticotropic Hormone 28.3 pg/mL (7.2-63.3); Insulin Like Growth Factor 230 ng/mL (57-195)
== END ==
PROVIDERS: Family Provider Internal Medicine; PCP Internal Medicine; Referring Provider Internal Medicine Endocrinology, Diabetes & Metabolism; Visit Provider Internal Medicine Endocrinology, Diabetes & Metabolism
DX: E03.8 Other specified hypothyroidism (principal); E23.6 Other disorders of pituitary gland
CPT/HCPCS: 36415; 82024; 82627; 84305; 84439; 84443; 84481; 82626

== ENCOUNTER → 2018-12-01 06:56 | Outpatient (CLI) | payer OTHER, SELFPAY | PROVIDERS: Family Provider Internal Medicine; PCP Internal Medicine; Referring Provider Internal Medicine Endocrinology, Diabetes & Metabolism; Visit Provider Internal Medicine Endocrinology, Diabetes & Metabolism | DX: E23.6 Other disorders of pituitary gland (principal) | CPT/HCPCS: 36415 ==

== ENCOUNTER → 2018-12-03 14:00 | Outpatient (CLI) | payer OTHER, SELFPAY ==
[2018-12-07 15:43] LABS: HPV Reflexed? NOT INDICATED
== END ==
PROVIDERS: Family Provider Internal Medicine; PCP Internal Medicine; Visit Provider Obstetrics & Gynecology
DX: Z12.4 Encounter for screening for malignant neoplasm of cervix (principal)
CPT/HCPCS: 88175; G0145

== ENCOUNTER → 2018-12-07 09:24 | Outpatient (CLI) | payer OTHER, SELFPAY ==
--- NOTE | 2018-12-07 09:45 | MRI_ITS ---
STUDY: MRI BRAIN WITH AND WITHOUT CONTRAST (ATTENTION PITUITARY GLAND) REASON FOR EXAM: Female, 48 years old. Abnormal thyroid labs TECHNIQUE: Standardized multiplanar fat and water weighted pulse sequences were obtained. Gadavist 10 IV was administered for the contrast portion of the examination. COMPARISON: None. FINDINGS: A small T1 isointense, enhancing nodule is present in the left side of the adenohypophysis superiorly, best seen on image 8 of series 13 and image 9 of series 10. This measures approximately 4 mm in diameter. A pituitary microadenoma cannot be excluded. There is no evidence of extension into the cavernous sinus. The adjacent cavernous segment of the ICA is patent. Normal infundibular stalk and suprasellar cistern. Normal optic chiasm and hypothalamus. Normal size of the ventricles and extra-axial spaces for the patient's age. Normal white matter tracts of the supratentorial brain. Normal bilateral basal ganglia. Normal thalami. Normal flow voids within the major intracranial circulation suggesting patency by spin echo criteria. Normal venous enhancement. There is no enhancing intra-axial or extra-axial abnormality. There is no extra-axial fluid accumulation. Normal tectal plate and pineal gland. Normal midbrain, she and medulla. Normal cerebellum. Normal basal cisterns. Normal bilateral temporal bones. Normal bilateral internal auditory canals. No demonstrated orbital abnormality, within the constraints of a routine brain study. Normal visualized paranasal sinuses. Normal calvarium and skull base. Normal visualized upper cervical spine. Normal visualized soft tissue structures. MRI/Brain W/WO Contrast IMPRESSION: A 4 mm left-sided adenohypophysis nodule is noted which may be a pituitary microadenoma. The adjacent cavernous sinus is intact. Continued MRI follow-up may be indicated. No evidence of intra-axial pathology. Electronically Signed: Tye Sow MD at 16:09 EST Tel , Service support ,
== END ==
PROVIDERS: Family Provider Internal Medicine; PCP Internal Medicine; Referring Provider Internal Medicine Endocrinology, Diabetes & Metabolism; Visit Provider Internal Medicine Endocrinology, Diabetes & Metabolism
DX: E23.6 Other disorders of pituitary gland (principal)
CPT/HCPCS: 70553; A9585

== ENCOUNTER → 2018-12-10 13:30 | Outpatient (CLI) | payer OTHER, SELFPAY ==
--- NOTE | 2018-12-10 13:32 | BI_ITS ---
MAMMOGRAPHY - BILATERAL SCREENING REASON FOR EXAM: Female, 48 years old. Routine annual screening examination. PERTINENT HISTORY: Aunt with breast cancer. Remote right excisional breast biopsy. TECHNIQUE: Digital bilateral breast lukasz (3D mammographic acquisition) in the CC and MLO projections. 2-D mediolateral oblique (MLO) and craniocaudad (CC) views of both breasts were obtained. CAD: Full Field Digital Mammography with Computer Added Detection was performed. COMPARISON: Comparison is made with prior study dated October 16, 2017 and on September 27, 2016. FINDINGS: Breast Composition: There are scattered areas of fibroglandular density. There are no dominant masses or suspicious calcifications. A tissue clip marker is once again seen in the central medial aspect of the right breast. Stable small bilateral axillary lymph nodes. No other significant abnormalities are identified. There has been no significant change since the prior study. BI/SCREENING MAMM (CAD), BILAT IMPRESSION: Stable bilateral screening mammogram. Yearly follow-up mammogram recommended. (A) ASSESSMENT CATEGORY: BIRADS Category 2: Benign. A letter regarding these results will be sent to the patient by the facility within 30 days. Approximately 10% of breast cancers are not detected by mammography. A normal mammogram should not delay biopsy of a clinically suspicious abnormality. [id number] Electronically Signed: Wayne Mascorro, at 14:59 EST , Service support ,
== END ==
PROVIDERS: Family Provider Internal Medicine; PCP Internal Medicine; Referring Provider Obstetrics & Gynecology; Visit Provider Obstetrics & Gynecology
DX: Z12.31 Encounter for screening mammogram for malignant neoplasm of breast (principal)
CPT/HCPCS: 77063; 77067

== ENCOUNTER → 2019-01-05 08:42 | Outpatient (CLI) | payer OTHER, SELFPAY ==
[2019-01-05 11:00] LABS: Free T3 1.8 pg/mL (2.18-3.98); T4 Total, Thyroxin 6.6 ug/dL (4.8-13.9); Thyroid Stim Hormone (TSH) 2.36 uIU/mL (0.358-3.74)
== END ==
PROVIDERS: Family Provider Internal Medicine; PCP Internal Medicine; Referring Provider Internal Medicine Endocrinology, Diabetes & Metabolism; Visit Provider Internal Medicine Endocrinology, Diabetes & Metabolism
DX: E03.8 Other specified hypothyroidism (principal)
CPT/HCPCS: 36415; 84436; 84443; 84481

== ENCOUNTER → 2019-01-14 08:46 | Outpatient (CLI) | payer OTHER, SELFPAY ==
[2019-01-13 08:37] VITALS: BMI 32.5
== END ==
PROVIDERS: Family Provider Internal Medicine; PCP Internal Medicine; Referring Provider Internal Medicine Cardiovascular Disease; Visit Provider Internal Medicine Cardiovascular Disease
DX: R00.1 Bradycardia, unspecified (principal)
CPT/HCPCS: 93225; 93226

== ENCOUNTER → 2019-02-12 | Outpatient (CLI) | payer OTHER, SELFPAY ==
[2019-01-13 08:37] VITALS: BMI 32.5
[2019-02-12 10:46] LABS: T3 Total - Triiodothyronine 0.72 ng/mL (0.6-1.81)
[2019-02-12 10:49] LABS: T4 Total, Thyroxin 7.2 ug/dL (4.8-13.9); Thyroid Stim Hormone (TSH) 3.27 uIU/mL (0.358-3.74)
== END | disposition home or self-care (01) ==
LOC: MTLAB 08:31
PROVIDERS: Family Provider Internal Medicine; PCP Internal Medicine; Referring Provider Internal Medicine Endocrinology, Diabetes & Metabolism; Visit Provider Internal Medicine Endocrinology, Diabetes & Metabolism
DX: E03.8 Other specified hypothyroidism (principal)
CPT/HCPCS: 36415; 84436; 84443; 84480

== ENCOUNTER → 2019-02-15 | Outpatient (CLI) | payer OTHER, SELFPAY ==
[2019-01-13 08:37] VITALS: BMI 32.5
--- NOTE | 2019-02-15 12:43 | ECHOD_ITS ---
Reason For Study: Arrhythmia Procedure This was a 2D Doppler, Color Flow transthoracic echocardiogram. Exam performed in department. Left Ventricle Normal LV size. Left ventricular systolic function is normal. The estimated ejection fraction is 60 %. Normal diastology for age. No regional wall motion abnormalities noted. Right Ventricle Normal RV size. Normal systolic function. Atria Normal left atrium. Normal right atrium. Bubble contrast study negative for right to left interatrial shunt. Mitral Valve Normal mitral valve. Tricuspid Valve Normal tricuspid valve. Aortic Valve Trisinus/trileaflet aortic valve. Normal aortic valve. Pulmonic Valve Normal pulmonic valve. Great Vessels Normal aortic root. The pulmonary artery is normal size. Normal inferior vena cava. Pericardium/Pleural No pericardial effusion. Medication Performed a rapid injection of agitated mix of 9 cc saline and 1cc air to assess for atrial septal defect. MMode/2D Measurements & Calculations LVIDd: 4.7 cm IVSd: 1.0 cm Ao root diam: 3.1 cm LVIDs: 2.6 cm LVPWd: 0.80 cm RVDd: 3.7 cm FS: 43.8 % LAV(MOD-bp): 37.5 ml LVAd ap4: 27.8 cm2 SV(MOD-sp4): 53.0 ml LAV(MOD-bp) Indexed: 18.6 ml/m2 EDV(MOD-sp4): 77.9 ml LAV(MOD-sp2): 41.0 ml EDV(sp4-el): 81.1 ml LAV(MOD-sp4): 34.9 ml LVAs ap4: 13.5 cm2 ESV(MOD-sp4): 24.9 ml ESV(sp4-el): 24.4 ml EF(MOD-sp4): 68.0 % EF(sp4-el): 69.9 % SV(sp4-el): 56.7 ml LA A4 area: 14.9 cm2 LA dimension(2D): 3.5 cm RA A4 area: 14.4 cm2 Doppler Measurements & Calculations MV E max pasquale: 100.8 cm/sec Lat Peak E' Pasquale: 16.2 cm/sec Med Peak E' Pasquale: 8.9 cm/sec MV A max pasquale: 45.3 cm/sec E/E' lat: 6.2 E/E' med: 11.3 MV E/A: 2.2 Ao V2 max: 138.6 cm/sec LV V1 max: 122.2 cm/sec PA V2 max: 91.5 cm/sec Ao max P.7 mmHg LV V1 max P.0 mmHg Ao V2 mean: 94.1 cm/sec Ao mean P.9 mmHg Ao V2 VTI: 31.0 cm TR max pasquale: 222.9 cm/sec TR max P.9 mmHg Interpretation Summary Normal LV size. Left ventricular systolic function is normal. The estimated ejection fraction is 60 %. Normal diastology for age. Bubble contrast study negative for right to left interatrial shunt. Structurally normal valves. Ordering Physician: Gaudencio Wren Referring Physician: Kassie Hassan Performed By: Sanaz Reno, LUIS ENRIQUE, RVT
== END | disposition home or self-care (01) ==
LOC: CVS 12:42
PROVIDERS: Family Provider Internal Medicine; PCP Internal Medicine; Referring Provider Internal Medicine Cardiovascular Disease; Visit Provider Internal Medicine Cardiovascular Disease
DX: R00.1 Bradycardia, unspecified (principal)
CPT/HCPCS: 93306; A4216

== ENCOUNTER → 2019-03-29 | Outpatient (CLI) | payer OTHER, SELFPAY ==
[2019-01-13 08:37] VITALS: BMI 32.5
[2019-03-29 12:57] LABS: Free T3 1.8 pg/mL (2.18-3.98); T4 Free Direct 1.01 ng/dL (0.76-1.46); Thyroid Stim Hormone (TSH) 2.15 uIU/mL (0.358-3.74)
== END | disposition home or self-care (01) ==
LOC: MTLAB 10:25
PROVIDERS: Family Provider Internal Medicine; PCP Internal Medicine; Referring Provider Internal Medicine Endocrinology, Diabetes & Metabolism; Visit Provider Internal Medicine Endocrinology, Diabetes & Metabolism
DX: E03.8 Other specified hypothyroidism (principal)
CPT/HCPCS: 36415; 84439; 84443; 84481

== ENCOUNTER → 2019-05-28 | Outpatient (CLI) | payer OTHER, SELFPAY ==
[2019-01-13 08:37] VITALS: BMI 32.5
[2019-05-28 11:50] LABS: AST(SGOT) 13 U/L (15-37); Alanine Aminotransfer ALT/SGPT 27 U/L (13-56); Albumin, Serum 3.2 g/dL (3.2-5.0); Alkaline Phosphatase 54 U/L (45-117); Anion Gap 4 (5-15); BUN 16 mg/dL (7-18); Calcium,Total 8.2 mg/dL (8.5-10.1); Chloride 109 mmol/L (98-107); Creatinine, Serum 0.76 mg/dL (0.55-1.02); EST Glomerular Filtration Rate 86 mL/min (>60); Est Glom Filt Rate - Afr Amer 104 mL/min (>60); Free T3 2.1 pg/mL (2.18-3.98); Globulin 3.1 g/dL (2.2-4.2); Glucose 93 mg/dL (74-106); Potassium 3.9 mmol/L (3.5-5.1); Protein, Total 6.3 g/dL (6.4-8.2); Sodium Level 140 mmol/L (136-145); T4 Free Direct 0.98 ng/dL (0.76-1.46); Thyroid Stim Hormone (TSH) 2.55 uIU/mL (0.358-3.74)
== END | disposition home or self-care (01) ==
LOC: MTLAB 09:23
PROVIDERS: Family Provider Internal Medicine; PCP Internal Medicine; Referring Provider Internal Medicine Endocrinology, Diabetes & Metabolism; Visit Provider Internal Medicine Endocrinology, Diabetes & Metabolism
DX: E03.8 Other specified hypothyroidism (principal)
CPT/HCPCS: 36415; 80053; 84439; 84443; 84481

== ENCOUNTER → 2019-08-30 08:19 | Outpatient (CLI) | payer OTHER, SELFPAY ==
[2019-01-13 08:37] VITALS: BMI 32.5
[2019-08-30 11:12] LABS: AST(SGOT) 16 U/L (15-37); Alanine Aminotransfer ALT/SGPT 27 U/L (13-56); Albumin, Serum 3.4 g/dL (3.2-5.0); Alkaline Phosphatase 58 U/L (45-117); Anion Gap 7 (5-15); BUN 19 mg/dL (7-18); BUN/Creat Ratio 22.8 RATIO (10-20); Calcium,Total 8.6 mg/dL (8.5-10.1); Chloride 107 mmol/L (98-107); Creatinine, Serum 0.83 mg/dL (0.55-1.02); EST Glomerular Filtration Rate 77 mL/min (>60); Est Glom Filt Rate - Afr Amer 94 mL/min (>60); Globulin 3.3 g/dL (2.2-4.2); Glucose 85 mg/dL (74-106); Potassium 3.7 mmol/L (3.5-5.1); Prolactin 42.4 ng/mL; Protein, Total 6.7 g/dL (6.4-8.2); Sodium Level 141 mmol/L (136-145); T4 Free Direct 1.09 ng/dL (0.76-1.46); Thyroid Stim Hormone (TSH) 6.14 uIU/mL (0.358-3.74)
== END ==
PROVIDERS: Family Provider Internal Medicine; PCP Internal Medicine; Referring Provider Internal Medicine Endocrinology, Diabetes & Metabolism; Visit Provider Internal Medicine Endocrinology, Diabetes & Metabolism
DX: E23.6 Other disorders of pituitary gland (principal); E03.8 Other specified hypothyroidism
CPT/HCPCS: 36415; 80053; 84146; 84439; 84443

== ENCOUNTER → 2019-09-06 11:12 | Outpatient (CLI) | payer OTHER, SELFPAY ==
[2019-01-13 08:37] VITALS: BMI 32.5
[2019-09-06 12:14] LABS: Internal QC Validated? YES +Cl - CLEAR BKGD; Pregnancy, Urine Negative Negative
== END ==
PROVIDERS: Family Provider Internal Medicine; PCP Internal Medicine; Referring Provider Internal Medicine Endocrinology, Diabetes & Metabolism; Visit Provider Internal Medicine Endocrinology, Diabetes & Metabolism
DX: E22.1 Hyperprolactinemia (principal)
CPT/HCPCS: 81025

== ENCOUNTER → 2019-09-29 10:19 | Outpatient (CLI) | payer OTHER, SELFPAY ==
[2019-09-13 10:56] VITALS: BMI 32.5
--- NOTE | 2019-09-29 10:29 | MRI_ITS ---
HISTORY: Hypo-functioning pituitary. Pituitary nodule. Hypothyroidism. Most recent comparison MRI of the brain is from December 07, 2018 Technique: Sagittal T1, coronal T2, thin slice coronal through the sella turcica, there is slight limited sagittal through the sella turcica images were obtained through the brain. Following the uneventful administration of intravenous contrast axial T1-weighted images were obtained through the brain. Coronal and sagittal T1 post gadolinium images were obtained through the sella turcica. Findings: Atrophy is trace. No ventriculomegaly. No significant white matter disease. No acute ischemia. Paranasal sinuses and mastoid air cells are free of disease. Flow is present within major central intracranial arteries. There are no masses, herniations, nor deviations. The pituitary stalk is normal in appearance and within the midline. The pituitary gland is present within the inferior margin of the sella turcica. It may be slightly decreased in size. There is CSF above the sella turcica with a concave margin of the sella turcica relative to the above CSF. The appearance of the pituitary gland is the same as that of the previous study. On the previous study, and the current study there is a tiny amount of T1-weighted hyperintensity signal within the posterior margin of the sella turcica and pituitary gland. This is likely represents proteinaceous fluid within the neurohypophysis inferiorly on the right pituitary gland. This was present on the previous study. On the superior lateral aspect of the left side of the pituitary gland, in the same location as on the previous study, series 10 image 7 on the current study, series 8 image 3 on the current study there is a probable 4 mm nodule. Is the same in size as previous study there is no evidence of extension of the tumor out of the sella turcica. The optic chiasm remains normal. The optic nerves remain normal. Adjacent arteries are without perceived aneurysm. Beginnings of the optic tracts are normal. The clivus is normal in marrow signal. MRI/Brain W/WO Contrast IMPRESSION: Small pituitary gland within the inferior aspect of the sella turcica with a concave border between the above CSF extending down into the pituitary gland. This is the same as previous study. There is an infundibulum within the midline that enhances similarly to the normal pituitary. There is normal enhancing pituitary gland as was seen on the previous study. On the superior lateral margin of the pituitary gland there is a 4 mm area of nodular thickening. This tissue enhances similarly to the adjacent pituitary parenchyma. It is feasible that this is a pituitary adenoma. No change. at 0148 Reported and signed by: John Lees MD Electronically Signed: John Lees MD at 1:46 EST Tel , Service support ,
== END ==
PROVIDERS: Family Provider Internal Medicine; PCP Internal Medicine; Referring Provider Internal Medicine Endocrinology, Diabetes & Metabolism; Visit Provider Internal Medicine Endocrinology, Diabetes & Metabolism
DX: E23.6 Other disorders of pituitary gland (principal); R51 Headache
CPT/HCPCS: 70553; A9575

== ENCOUNTER 2019-10-07 12:00 | Outpatient (RCR) | payer OTHER, SELFPAY ==
[2019-09-13 10:56] VITALS: BMI 32.5
--- NOTE | 2019-10-07 13:21 | HP.PTEVAL ---
Patient's Visit Information LUCIANA ARSHAD is a 48 year old F referred to Physical Therapy by Paradise Singh DC with a diagnosis of L shoulder impingment. Date of Evaluation: 09/21/19 Physical Therapist: Royal Soto DPT - Visit Plan Frequency: 2x /Week Duration: 4-6 Weeks Plan: Start with stretcing of L shoulder, add in inferior glides and capsule stretching. Progress HEP as tolerated. - Subjective Findings: Pt. is here today for her initial evaluation with diagnosis of L shoulder impingment. Pt. reports having symptoms for a few months now. She went and saw her chiropractor who referred her to PT. Pt. reports no mech of injury, but has been having more and more difficulty raising her L arm over her head. Pt. reports pain at subacromial space and into deltoid region. Pt. denies N/T and no neck pain. Pt. has not done any exercises at this point in time. Pt. is an ER nurse. Pt. is having difficulty sleeping. Pt. is hopeful to reduce her L shoulder pain and get back to all work and recreational activities with out limitations. - Pain L shoulder Pain Intensity (Out of 10): 2 Pain Intensity Range: 0, 4 - Objective POSTURE: Pt. has good posture in stance, slight anterior shoulders. PALPATION: Pt. has slight atnerior shoulder pain with palpation. NEURO: normal throughout bilateral UEs. ROM: R shoulder- full ROm throughout. L shoulder- flexion 160deg with shoulder elevation, abd 160deg with shoudler elevation, functional ER C1, functional IR PSIS aberrant. Pt. has end range pain with all over head motions. MMT: 5/5 throughout withotu increase in symptoms B UEs. - Special Tests L Shoulder Lift Off Test - Subscapular Tear: Negative L Shoulder Empty Can - SS: Negative L Shoulder Belly Press - SupScap: Negative L Shoulder Neer - Impingement: Positive L Shoulder Segura Luis Manuel - Impingement: Positive L Shoulder Biceps Load Test - Labrum: Negative L Shoulder Yeargasons - SLAP: Negative L Shoulder Lateral Scapular Slide Test - Scap Dysfunction: Positive - Goals Goal 1:: Pt. to be I with HEP. Goal Time Frame: 4-6 Weeks Goal 2:: Pt. to have full L shoulder ROM with out increase in symptoms. Goal Time Frame: 4-6 Weeks Goal 3:: Pt. to sleep without increase in symptoms. Goal Time Frame: 4-6 Weeks Goal 4:: Pt. to resume all work related activities without limitations. Goal Time Frame: 4-6 Weeks - Rehabilitation Potential Physical Therapy Diagnosis: Pt. has signs and L shoulder impingment, but I believe this is do to adhesive capsulitis. Pt. would benefit from PT to increase stretching and ROM fo her L shoulder. Rehabilitation Potential: Excellent - Anticipated Interventions Patient/Client Instruction: Educate patient on: Condition, Plan of Care, Risk Factors, Benefits of Fitness Program For the Purpose of:: To improve decision making, To facilitate caregiver knowledge, To improve self management, To prevent re-injury, To improve ability to perform tasks related to life management, To improve tolerance to ADL's Therapeutic Exercise to Include: Strength training, Power training, Endurance training, Flexibilty training, Gait and locomotor training, Passive ROM, Active ROM For the Purpose of:: To decrease pain, To increase ROM, To improve nutrient delivery to tissue, To increase oxygenation perfusion, To improve muscle performance and motor function Manual Therapy Techniques to Include: Mobilization, Manipulation, Passive ROM For the Purpose of:: To decrease pain, To decrease swelling/inflammation, To increase ROM Thank you for the opportunity to evaluate your patient. For Medicare and Medicare HMO plans, please review the plan of care and approve it. It will need to be FAXED BACK to us at [phone] for Medicare purposes. For Medicare only, by signing this I certify the plan of care. Please let me know if there are questions or concerns regarding this plan of care. Physician Signature: Date:
--- NOTE | 2020-03-29 13:52 | HP.PT.NRP ---
LUCIANA ARSHAD was seen in my office for initial evaluation on 09/21/19. The following Plan of Care was established for this patient: Initial Frequency: 2x /Week Initial Duration: 4-6 Weeks Patient/Client Instruction: Educate patient on: Condition, Plan of Care, Risk Factors, Benefits of Fitness Program For the Purpose of:: To improve decision making, To facilitate caregiver knowledge, To improve self management, To prevent re-injury, To improve ability to perform tasks related to life management, To improve tolerance to ADL's Therapeutic Exercise to Include: Strength training, Power training, Endurance training, Flexibilty training, Gait and locomotor training, Passive ROM, Active ROM For the Purpose of:: To decrease pain, To increase ROM, To improve nutrient delivery to tissue, To increase oxygenation perfusion, To improve muscle performance and motor function Manual Therapy Techniques to Include: Mobilization, Manipulation, Passive ROM For the Purpose of:: To decrease pain, To decrease swelling/inflammation, To increase ROM This patient was last seen in our office 10/07/19. Pertinent comments regarding their Physical therapy will appear below: Pt. was seen for her L shoulder impingmenet. Pt. was doing well at her last appointment by 95% better. Pt. was to follow up with PT in 2-3 weeks if needed. Pt. has not been seen in several months and will be DC from PT at this point intime. At this point I will be discontinuing this patient from physical therapy. I would be happy to see this patient again in the future if found appropriate by the physician. Thank you! Royal Soto DPT
== END 2019-10-07 19:00 | disposition home or self-care (01) ==
LOC: PT 12:00
PROVIDERS: Family Provider Internal Medicine; PCP Internal Medicine; Referring Provider Chiropractor; Visit Provider Chiropractor
DX: M75.42 Impingement syndrome of left shoulder (principal)
CPT/HCPCS: 97110; 97161

== ENCOUNTER → 2019-10-21 08:17 | Outpatient (CLI) | payer OTHER, SELFPAY ==
[2019-09-13 10:56] VITALS: BMI 32.5
[2019-10-21 10:24] LABS: Vitamin D,25 Hydroxy 36.7 ng/mL (29.95-100.01)
[2019-10-21 10:31] LABS: ALB/GLOB Ratio 1.1 RATIO (0.9-2.4); AST(SGOT) 17 U/L (15-37); Alanine Aminotransfer ALT/SGPT 31 U/L (13-56); Albumin, Serum 3.4 g/dL (3.2-5.0); Alkaline Phosphatase 46 U/L (45-117); Anion Gap 4 (5-15); BUN 17 mg/dL (7-18); BUN/Creat Ratio 21.9 RATIO (10-20); Calcium,Total 8.6 mg/dL (8.5-10.1); Chloride 109 mmol/L (98-107); Creatinine, Serum 0.78 mg/dL (0.55-1.02); EST Glomerular Filtration Rate 84 mL/min (>60); Est Glom Filt Rate - Afr Amer 102 mL/min (>60); Globulin 3.2 g/dL (2.2-4.2); Glucose 95 mg/dL (74-106); Prolactin 8.6 ng/mL; Protein, Total 6.6 g/dL (6.4-8.2); Sodium Level 139 mmol/L (136-145)
== END ==
PROVIDERS: Family Provider Internal Medicine; PCP Internal Medicine
DX: E03.8 Other specified hypothyroidism (principal); E55.9 Vitamin D deficiency, unspecified; E22.1 Hyperprolactinemia
CPT/HCPCS: 36415; 80053; 82306; 84146; 84439; 84443

== ENCOUNTER → 2019-11-09 09:53 | Outpatient (CLI) | payer OTHER, SELFPAY ==
[2019-09-13 10:56] VITALS: BMI 32.5
[2019-11-09 12:17] LABS: Hematocrit 42.4 % (37-47); Mean Corpuscular Hgb 30.6 pg (27.0-32.0); Mean Corpuscular Volume 92.6 fL (81-99); Mean Platelet Vol. 9.8 fl (6.2-12.0); Platelet Count 254 K/mm3 (150-450); RBC Distribution Width CV 12.1 % (11.6-14.6); RBC Distribution Width SD 41.3 fl (35.1-43.9); Red Blood Count 4.58 M/mm3 (4.2-5.4); White Blood Count 6.7 K/mm3 (4.4-11.0)
[2019-11-09 12:43] LABS: Vitamin B12 579 pg/mL (211-911)
[2019-11-09 12:49] LABS: Cholesterol 157 mg/dL (200); High Density Lipoprotein 49 mg/dL; Triglycerides 118 mg/dL; Very Low Density Lipoprotein 24 mg/dL (5-40)
== END ==
PROVIDERS: PCP Internal Medicine; Referring Provider Internal Medicine; Visit Provider Internal Medicine
DX: R53.83 Other fatigue (principal); Z13.220 Encounter for screening for lipoid disorders
CPT/HCPCS: 36415; 80061; 82607; 85027

== ENCOUNTER → 2019-12-14 12:29 | Outpatient (CLI) | payer OTHER, SELFPAY ==
[2019-09-13 10:56] VITALS: BMI 32.5
[2019-11-30 09:36] VITALS: BMI 32.5
--- NOTE | 2019-12-14 12:30 | BI_ITS ---
MAMMOGRAPHY - BILATERAL SCREENING REASON FOR EXAM: Female, 49 years old. Routine annual screening examination. PERTINENT HISTORY: Aunt with breast cancer. TECHNIQUE: Digital bilateral breast ayaka (3D mammographic acquisition) in the CC and MLO projections. 2-D mediolateral oblique (MLO) and craniocaudad (CC) views of both breasts were obtained. CAD: Full Field Digital Mammography with Computer Added Detection was performed. COMPARISON: Comparison is made with prior study dated December 02, 2018 and October 16, 2017. FINDINGS: Breast Composition: There are scattered areas of fibroglandular density. There are no dominant masses or suspicious calcifications. A patient marker is once again seen in the central medial aspect of the right breast. No other significant abnormalities are identified. There has been no significant change since the prior study. BI/SCREEN MAMM (CAD) W/AYAKA BILAT IMPRESSION: Stable bilateral screening mammogram. Yearly follow-up mammogram recommended. (A) ASSESSMENT CATEGORY: BIRADS Category 2: Benign. A letter regarding these results will be sent to the patient by the facility within 30 days. Approximately 10% of breast cancers are not detected by mammography. A normal mammogram should not delay biopsy of a clinically suspicious abnormality. [id number] Electronically Signed: Wayne Mascorro, at 14:00 EST , Service support ,
== END ==
PROVIDERS: Family Provider Internal Medicine; PCP Internal Medicine; Referring Provider Obstetrics & Gynecology; Visit Provider Obstetrics & Gynecology
DX: Z12.31 Encounter for screening mammogram for malignant neoplasm of breast (principal)
CPT/HCPCS: 77063; 77067

== ENCOUNTER → 2020-02-01 09:08 | Outpatient (CLI) | payer OTHER, SELFPAY ==
[2019-11-30 09:36] VITALS: BMI 32.5
[2020-02-01 10:11] LABS: Prolactin 12.5 ng/mL; T4 Free Direct 1.18 ng/dL (0.76-1.46); Thyroid Stim Hormone (TSH) 2.24 uIU/mL (0.358-3.74)
== END ==
PROVIDERS: PCP Internal Medicine; Referring Provider Internal Medicine Endocrinology, Diabetes & Metabolism; Visit Provider Internal Medicine Endocrinology, Diabetes & Metabolism
DX: E03.8 Other specified hypothyroidism (principal); E06.3 Autoimmune thyroiditis; E22.1 Hyperprolactinemia
CPT/HCPCS: 36415; 84146; 84439; 84443

== ENCOUNTER → 2020-04-04 08:45 | Outpatient (CLI) | payer OTHER, SELFPAY ==
[2019-11-30 09:36] VITALS: BMI 32.5
[2020-04-04 13:05] LABS: Prolactin 16.9 ng/mL; T4 Free Direct 1.06 ng/dL (0.76-1.46); Thyroid Stim Hormone (TSH) 2.88 uIU/mL (0.358-3.74)
== END ==
PROVIDERS: PCP Internal Medicine; Referring Provider Internal Medicine Endocrinology, Diabetes & Metabolism; Visit Provider Internal Medicine Endocrinology, Diabetes & Metabolism
DX: E03.8 Other specified hypothyroidism (principal); E06.3 Autoimmune thyroiditis; E22.1 Hyperprolactinemia
CPT/HCPCS: 36415; 84146; 84439; 84443

== ENCOUNTER → 2020-04-17 | Outpatient (CLI) | payer OTHER, SELFPAY ==
[2020-04-17 15:45] VITALS: BMI 32.5
[2020-04-25 04:39] LABS: HPV APTIMA, High Risk Negative (Negative)
== END | disposition home or self-care (01) ==
PROVIDERS: PCP Internal Medicine; Referring Provider Obstetrics & Gynecology; Visit Provider Obstetrics & Gynecology
DX: Z12.4 Encounter for screening for malignant neoplasm of cervix (principal)
CPT/HCPCS: 87624; 88175; G0145

== ENCOUNTER → 2020-04-24 13:17 | Outpatient (CLI) | payer OTHER, SELFPAY ==
[2020-04-17 15:45] VITALS: BMI 32.5
--- NOTE | 2020-04-24 13:18 | US_ITS ---
STUDY: ULTRASOUND OF THE FEMALE PELVIS - COMPLETE REASON FOR EXAM: Female, 49 years old. DYSMENORRHEA LMP: March 30, 2020. TECHNIQUE: Transabdominal and Transvaginal TECHNICAL QUALITY: Adequate. COMPARISON: None. FINDINGS: The uterus is anteverted and is in a midline position. The uterus measures 8.2 cm x 3.9 cm x 4.3 cm. Normal uterine cervix. The endometrium measures 6.0 mm in thickness, and is hyperechoic. There is no demonstrated endometrial mass. There is no demonstrated myometrial mass. I.U.D. - The patient does have an I.U.D. The IUD is seen within the fundal aspect of the endometrium. The right ovary is visualized. The right ovary measures 3.9 cm x 3.1 cm x 2.3 cm. There is a 1.7 cm x 1.7 cm x 2 cm complex cyst in the right ovary. This may represent an hemorrhagic cyst. Follow-up is recommended. There is no visualized right adnexal mass or complex lesion. There is normal arterial and normal venous vascularity. The left ovary is visualized. The left ovary measures 2.3 cm x 1.6 cm x 1.0 cm. There is no left ovarian cyst or ovarian mass. There is no visualized left adnexal mass or complex lesion. There is normal arterial and normal venous vascularity. There is no fluid in the cul-de-sac. The pre void volume of the bladder was 121 ml. Polycystic ovary disease: No. US/Transvaginal Non- IMPRESSION: There is a 1.7 cm x 1.7 cm x 2 cm cyst with low-level echoes within it in the right ovary as described. This may represent an hemorrhagic cyst. Follow-up is recommended. IUD is seen within the endometrium. Electronically Signed: Wayne Mascorro, at 15:43 EDT , Service support ,
--- NOTE | 2020-04-24 13:18 | US_ITS ---
STUDY: ULTRASOUND OF THE FEMALE PELVIS - COMPLETE REASON FOR EXAM: Female, 49 years old. DYSMENORRHEA LMP: March 30, 2020. TECHNIQUE: Transabdominal and Transvaginal TECHNICAL QUALITY: Adequate. COMPARISON: None. FINDINGS: The uterus is anteverted and is in a midline position. The uterus measures 8.2 cm x 3.9 cm x 4.3 cm. Normal uterine cervix. The endometrium measures 6.0 mm in thickness, and is hyperechoic. There is no demonstrated endometrial mass. There is no demonstrated myometrial mass. I.U.D. - The patient does have an I.U.D. The IUD is seen within the fundal aspect of the endometrium. The right ovary is visualized. The right ovary measures 3.9 cm x 3.1 cm x 2.3 cm. There is a 1.7 cm x 1.7 cm x 2 cm complex cyst in the right ovary. This may represent an hemorrhagic cyst. Follow-up is recommended. There is no visualized right adnexal mass or complex lesion. There is normal arterial and normal venous vascularity. The left ovary is visualized. The left ovary measures 2.3 cm x 1.6 cm x 1.0 cm. There is no left ovarian cyst or ovarian mass. There is no visualized left adnexal mass or complex lesion. There is normal arterial and normal venous vascularity. There is no fluid in the cul-de-sac. The pre void volume of the bladder was 121 ml. Polycystic ovary disease: No. US/Pelvic (Non ) IMPRESSION: There is a 1.7 cm x 1.7 cm x 2 cm cyst with low-level echoes within it in the right ovary as described. This may represent an hemorrhagic cyst. Follow-up is recommended. IUD is seen within the endometrium. Electronically Signed: Wayne Mascroro, at 15:43 EDT , Service support ,
== END ==
PROVIDERS: PCP Internal Medicine; Referring Provider Obstetrics & Gynecology; Visit Provider Obstetrics & Gynecology
DX: N94.6 Dysmenorrhea, unspecified (principal)
CPT/HCPCS: 76830; 76856

== ENCOUNTER → 2020-11-21 09:18 | Outpatient (CLI) | payer OTHER, SELFPAY ==
[2020-04-17 15:45] VITALS: BMI 32.5
[2020-11-21 08:54] VITALS: BMI 28.5
[2020-11-21 14:38] LABS: ALB/GLOB Ratio 1.1 RATIO (0.9-2.4); AST(SGOT) 20 U/L (15-37); Alanine Aminotransfer ALT/SGPT 36 U/L (13-56); Albumin, Serum 3.4 g/dL (3.2-5.0); Alkaline Phosphatase 56 U/L (45-117); Anion Gap 4 (5-15); BUN 22 mg/dL (7-18); BUN/Creat Ratio 27.4 RATIO (10-20); Calcium,Total 8.2 mg/dL (8.5-10.1); Chloride 109 mmol/L (98-107); Cholesterol 129 mg/dL (200); EST Glomerular Filtration Rate 80 mL/min (>60); Est Glom Filt Rate - Afr Amer 97 mL/min (>60); Globulin 3.2 g/dL (2.2-4.2); Glucose 91 mg/dL (74-106); High Density Lipoprotein 53 mg/dL; Prolactin 9.2 ng/mL; Protein, Total 6.6 g/dL (6.4-8.2); Sodium Level 139 mmol/L (136-145); T4 Free Direct 1.35 ng/dL (0.76-1.46); Thyroid Stim Hormone (TSH) 0.86 uIU/mL (0.358-3.74); Triglycerides 39 mg/dL; Very Low Density Lipoprotein 8 mg/dL (5-40)
== END ==
PROVIDERS: Internal Medicine Endocrinology, Diabetes & Metabolism; PCP Internal Medicine; Referring Provider Internal Medicine; Visit Provider Internal Medicine
DX: E03.8 Other specified hypothyroidism (principal); E06.3 Autoimmune thyroiditis; E22.1 Hyperprolactinemia; E78.2 Mixed hyperlipidemia; Z13.220 Encounter for screening for lipoid disorders
CPT/HCPCS: 36415; 80053; 80061; 84146; 84439; 84443

== ENCOUNTER → 2021-04-30 15:26 | Outpatient (CLI) | payer OTHER, SELFPAY ==
[2021-04-24 09:03] VITALS: BMI 28.5
--- NOTE | 2021-04-30 15:29 | BI_ITS ---
MAMMOGRAPHY - BILATERAL SCREENING REASON FOR EXAM: Female, 50 years old. Routine annual screening examination. PERTINENT HISTORY: Aunt with breast cancer. TECHNIQUE: Digital bilateral breast ayaka (3D mammographic acquisition) in the CC and MLO projections. 2-D mediolateral oblique (MLO) and craniocaudad (CC) views of both breasts were obtained. CAD: Full Field Digital Mammography with Computer Added Detection was performed. COMPARISON: Comparison is made with prior examination dated 12/14/2019 and 12/10/2018. FINDINGS: Breast Composition: There are scattered areas of fibroglandular density. There are no dominant masses or suspicious calcifications. Stable 5.3 mm nodule in the inferior slightly medial aspect of the right breast. Correlation with ultrasound is recommended. A tissue clip marker is seen within the faint density in the medial anterior aspect of the right breast. No other significant abnormalities are identified. BI/SCRN MAMM (CAD)W/AYAKA BILAT IMPRESSION: 5.3 mm nodule in the inferior slightly medial aspect of the right breast. Correlation with ultrasound is recommended. ASSESSMENT CATEGORY: BIRADS Category 0: Incomplete. Need additional imaging evaluation. A letter regarding these results will be sent to the patient by the facility within 30 days. Approximately 10% of breast cancers are not detected by mammography. A normal mammogram should not delay biopsy of a clinically suspicious abnormality. [id number] Electronically Signed: Wayne Mascorro MD at 8:35 EDT , Service support ,
== END ==
PROVIDERS: PCP Internal Medicine; Referring Provider Obstetrics & Gynecology; Visit Provider Obstetrics & Gynecology
DX: Z12.31 Encounter for screening mammogram for malignant neoplasm of breast (principal)
CPT/HCPCS: 77063; 77067

== ENCOUNTER → 2021-05-04 08:57 | Outpatient (CLI) | payer OTHER, SELFPAY ==
[2021-04-24 09:03] VITALS: BMI 28.5
--- NOTE | 2021-05-04 08:59 | US_ITS ---
STUDY: ULTRASOUND BREAST - RIGHT REASON FOR EXAM: Female, 50 years old. Abnormal screening mammogram. TECHNIQUE: Axial and longitudinal images of the RIGHT breast were performed with a high resolution ultrasound transducer. # OF IMAGES: 20 COMPARISON: Comparison is made with prior mammogram dated 04/30/2021. FINDINGS: RIGHT Breast: Multiple cysts are seen at T5 and 6 o''clock positions of the breast. The largest cyst measures 7 mm x 7 mm x 5 mm. US/Breast Limited Unilateral IMPRESSION: Mammographic abnormality corresponds to small cysts. ASSESSMENT CATEGORY: BIRADS Category 2: Benign. A letter regarding these results will be sent to the patient by the facility within 30 days. Electronically Signed: Wayne Mascorro MD at 11:17 EDT , Service support ,
== END ==
PROVIDERS: PCP Internal Medicine; Referring Provider Obstetrics & Gynecology; Visit Provider Obstetrics & Gynecology
DX: R92.8 Other abnormal and inconclusive findings on diagnostic imaging of breast (principal)
CPT/HCPCS: 76642

== ENCOUNTER → 2021-09-20 08:56 | Outpatient (CLI) | payer OTHER, SELFPAY ==
[2021-09-20 11:46] LABS: AST(SGOT) 21 U/L (15-37); Alanine Aminotransfer ALT/SGPT 29 U/L (13-56); Albumin, Serum 3.3 g/dL (3.2-5.0); Alkaline Phosphatase 52 U/L (45-117); Anion Gap 5 (5-15); BUN 15 mg/dL (7-18); BUN/Creat Ratio 18.9 RATIO (10-20); Calcium,Total 8.9 mg/dL (8.5-10.1); Chloride 110 mmol/L (98-107); Creatinine, Serum 0.79 mg/dL (0.55-1.02); EST Glomerular Filtration Rate 81 mL/min (>60); Est Glom Filt Rate - Afr Amer 98 mL/min (>60); Globulin 3.3 g/dL (2.2-4.2); Glucose 84 mg/dL (74-106); Potassium 3.9 mmol/L (3.5-5.1); Prolactin 10.2 ng/mL; Protein, Total 6.6 g/dL (6.4-8.2); Sodium Level 140 mmol/L (136-145); T4 Free Direct 1.14 ng/dL (0.76-1.46); Thyroid Stim Hormone (TSH) 0.63 uIU/mL (0.358-3.74)
== END ==
PROVIDERS: PCP Internal Medicine; Referring Provider Internal Medicine Endocrinology, Diabetes & Metabolism; Visit Provider Internal Medicine Endocrinology, Diabetes & Metabolism
DX: E03.8 Other specified hypothyroidism (principal); E06.3 Autoimmune thyroiditis; E22.1 Hyperprolactinemia
CPT/HCPCS: 36415; 80053; 84146; 84439; 84443

== ENCOUNTER → 2021-09-26 08:18 | Outpatient (CLI) | payer OTHER, SELFPAY ==
--- NOTE | 2021-09-26 08:24 | BD_ITS ---
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 COMPARISON: None. FINDINGS: Lumbar Spine (L1-L4): g/cm2 (0.980) / T-score (-0.6) / Z-score (0.2) Findings are suggestive of normal bone density with a low fracture risk. Left Femur Total: g/cm2 (1.067) / T-score (1.0) / Z-score (1.5) Left Femoral Neck: g/cm2 (0.967) / T-score (1.1) / Z-score (1.9) Right Femur Total: g/cm2 (1.109) / T-score (1.4) / Z-score (1.9) Right Femoral Neck: g/cm2 (0.973) / T-score (1.1) / Z-score (1.9) BD/Dexa Bone Density Study IMPRESSION: The patient is considered normal as outlined below according to World [place] Organization (WHO) criteria with a low fracture risk. Reference Information: The T-score is the number of standard deviations above or below the standard which is normal for young adults at their peak bone mineral density. The World Health Organization (WHO) interprets the T-scores as follows: Above -1 Normal bone density Between -1 and -2.5 Osteopenia Equal to / or below -2.5 Osteoporosis As a practical clinical guideline, osteopenia may be graded as follows: Mild -1 through -1.5 Moderate -1.6 through -2.0 Severe -2.1 through -2.4 The Z-score is the number of standard deviations above or below age-matched controls. A Z-score of less than -1.5 would be considered abnormal. References: 1. NIH Osteoporosis and Related Bone Diseases www osteo.org 2. International Society for Clinical Densitometry www iscd.org 3. National Osteoporosis Foundation www nof.org Electronically Signed: Wayne Mascorro MD at 13:39 EST , Service support ,
== END ==
PROVIDERS: PCP Internal Medicine; Referring Provider Internal Medicine Endocrinology, Diabetes & Metabolism; Visit Provider Internal Medicine Endocrinology, Diabetes & Metabolism
DX: E22.1 Hyperprolactinemia (principal); E03.8 Other specified hypothyroidism; E06.3 Autoimmune thyroiditis
CPT/HCPCS: 77080

== ENCOUNTER → 2022-05-24 | Outpatient (CLI) | payer OTHER, SELFPAY ==
--- NOTE | 2022-05-24 12:30 | BI_ITS ---
MAMMOGRAPHY - BILATERAL SCREENING REASON FOR EXAM: Female, 51 years old. Routine annual screening examination. PERTINENT HISTORY: Aunt with breast cancer. TECHNIQUE: Digital bilateral breast ayaka (3D mammographic acquisition) in the CC and MLO projections. 2-D mediolateral oblique (MLO) and craniocaudad (CC) views of both breasts were obtained. CAD: Full Field Digital Mammography with Computer Added Detection was performed. COMPARISON: Comparison mammogram from 04/30/2021, 12/14/2019. Right breast diagnostic ultrasound from 05/04/2021. FINDINGS: Breast Composition: There are scattered areas of fibroglandular density. There are no dominant masses or suspicious calcifications. Stable 5 mm nodule in the right inferior breast. Stable right breast biopsy clips. No other significant abnormalities are identified. There has been no significant change since the prior study. BI/SCRN MAMM (CAD)W/AYAKA BILAT IMPRESSION: Stable bilateral screening mammogram. Yearly follow-up mammogram recommended. (A) ASSESSMENT CATEGORY: BIRADS Category 2: Benign. A letter regarding these results will be sent to the patient by the facility within 30 days. Approximately 10% of breast cancers are not detected by mammography. A normal mammogram should not delay biopsy of a clinically suspicious abnormality. Electronically Signed: Sarbjit Nolan, at 15:23 EDT ,
== END | disposition home or self-care (01) ==
LOC: OPBI 12:29
PROVIDERS: PCP Internal Medicine; Referring Provider Obstetrics & Gynecology; Visit Provider Obstetrics & Gynecology
DX: Z12.31 Encounter for screening mammogram for malignant neoplasm of breast (principal)
CPT/HCPCS: 77063; 77067

== ENCOUNTER → 2022-09-28 | Outpatient (CLI) | payer OTHER, SELFPAY ==
[2022-09-28 09:52] LABS: ALB/GLOB Ratio 1.1 RATIO (0.9-2.4); AST(SGOT) 27 U/L (15-37); Alanine Aminotransfer ALT/SGPT 56 U/L (13-56); Albumin, Serum 3.5 g/dL (3.2-5.0); Alkaline Phosphatase 59 U/L (45-117); Anion Gap 5 (5-15); BUN 19 mg/dL (7-18); BUN/Creat Ratio 24.1 RATIO (10-20); Calcium,Total 8.9 mg/dL (8.5-10.1); Chloride 109 mmol/L (98-107); Cholesterol 157 mg/dL (200); Creatinine, Serum 0.79 mg/dL (0.55-1.02); EST Glomerular Filtration Rate 82 mL/min (>60); Est Glom Filt Rate - Afr Amer 99 mL/min (>60); Follicle Stimulating Hormone 65.3 mIU/mL; Globulin 3.3 g/dL (2.2-4.2); Glucose 90 mg/dL (74-106); High Density Lipoprotein 57 mg/dL; Luteinizing Hormone 45.3 mIU/mL; Prolactin 9.5 ng/mL; Protein, Total 6.8 g/dL (6.4-8.2); Sodium Level 140 mmol/L (136-145); T4 Free Direct 1.17 ng/dL (0.76-1.46); Thyroid Stim Hormone (TSH) 0.53 uIU/mL (0.358-3.74); Triglycerides 85 mg/dL; Very Low Density Lipoprotein 17 mg/dL (5-40)
== END | disposition home or self-care (01) ==
LOC: LAB 08:07
PROVIDERS: PCP Internal Medicine; Visit Provider Internal Medicine Endocrinology, Diabetes & Metabolism
DX: E22.1 Hyperprolactinemia (principal); Z13.220 Encounter for screening for lipoid disorders; E03.8 Other specified hypothyroidism; E06.3 Autoimmune thyroiditis
CPT/HCPCS: 36415; 80053; 80061; 83001; 83002; 84146; 84439; 84443

== ENCOUNTER → 2023-05-29 | Outpatient (CLI) | payer OTHER, SELFPAY ==
--- NOTE | 2023-05-29 15:42 | BI_ITS ---
MAMMOGRAPHY - BILATERAL SCREENING REASON FOR EXAM: Female, 52 years old. Routine annual screening examination. PERTINENT HISTORY: Aunt with breast cancer. TECHNIQUE: Digital bilateral breast ayaka (3D mammographic acquisition) in the CC and MLO projections. 2-D mediolateral oblique (MLO) and craniocaudad (CC) views of both breasts were obtained. CAD: Full Field Digital Mammography with Computer Added Detection was performed. COMPARISON: Comparison is made with prior study dated May 24, 2022 and April 30, 2021. FINDINGS: Breast Composition: There are scattered areas of fibroglandular density. There are no dominant masses or suspicious calcifications. Stable 5 mm well-defined nodule in the inferior slightly medial aspect of the right breast. A tissue clip marker is seen within the faint density in the medial anterior aspect of the right breast. No other significant abnormalities are identified. There has been no significant change since the prior study. BI/SCRN MAMM (CAD)W/AYAKA BILAT IMPRESSION: Stable bilateral screening mammogram. Yearly follow-up mammogram recommended. (A) ASSESSMENT CATEGORY: BIRADS Category 2: Benign. A letter regarding these results will be sent to the patient by the facility within 30 days. Approximately 10% of breast cancers are not detected by mammography. A normal mammogram should not delay biopsy of a clinically suspicious abnormality. [id number] Electronically Signed: Wayne Mascorro MD at 9:55 EDT ,
== END | disposition home or self-care (01) ==
LOC: OPBI 15:41
PROVIDERS: PCP Internal Medicine; Referring Provider Obstetrics & Gynecology; Visit Provider Obstetrics & Gynecology
DX: Z12.31 Encounter for screening mammogram for malignant neoplasm of breast (principal); Z80.3 Family history of malignant neoplasm of breast
CPT/HCPCS: 77063; 77067

== ENCOUNTER → 2023-09-29 | Outpatient (CLI) | payer OTHER, SELFPAY ==
[2023-09-29 13:11] LABS: Prolactin 15.4 ng/mL; T4 Free Direct 1.35 ng/dL (0.76-1.46); Thyroid Stim Hormone (TSH) 0.04 uIU/mL (0.358-3.74)
== END | disposition home or self-care (01) ==
LOC: MTLAB 07:08
PROVIDERS: PCP Internal Medicine; Referring Provider Internal Medicine Endocrinology, Diabetes & Metabolism; Visit Provider Internal Medicine Endocrinology, Diabetes & Metabolism
DX: E03.8 Other specified hypothyroidism (principal); E22.1 Hyperprolactinemia; E06.3 Autoimmune thyroiditis
CPT/HCPCS: 36415; 84146; 84439; 84443

== ENCOUNTER → 2023-12-16 | Outpatient (CLI) | payer OTHER, SELFPAY ==
--- OUTSIDE RECORDS SUMMARY | 2023-12-16 07:24 | XMS RPT_ITS | CCD ---
Author Name Unknown Address [address] [place] [address] Organization [facility] Care Team Providers Care Research Professional Name Role Phone Whitney Diaz Unavailable Rissa Lee Unavailable Unavailable Unavailable Unavailable Nabeel Daniels Unavailable Unavailable Whitney Diaz Unavailable Rissa Lee Unavailable Unavailable Nabeel Daniels Unavailable Unavailable Unavailable Unavailable Unavailable Primary Care Provider Unavailabl e Richelle Lei Unavailable Unavailable Rissa Lee Unavailable Unavailable Alirio Damon Unavailable Amalia Brand Unavailable Unavailable Whitney Diaz DO Unavailable Dr. Alirio Damon Unavailable Richelle Lei CMA Unavailable Unavailable Amalia Brand LPN Unavailable Unavailable Rissa Lee RN Unavailable Unavailable Unavailable Unavailable Carleen Manzo LPN Unavailable Unavailable Tabitha TRUSS PULLER HELPER, Kayela Unavailable Unavailable Allergies Allergy Classification Reported Allergen(s) Allergy Type Date of Onset Reaction(s) Facility NSAIDs (1 source) nabumetone; Translations: [Nabumetone *ANALGESICS - ANTI-INFLAMMATO RY*] Drug Allergy Abdominal pain, Diarrhea [facility]; [facility] Work Phone: Medications Completed/Discontinued Medications Medication Drug Class(es) Dates Sig (Normalized) Sig (Original) amitriptyline hydrochloride 10 mg oral tablet (11 sources) Tricyclic Antidepressant Start: 04-16-2011 End: 04-16-2011 take 1-2 tablets by mouth once daily at bedtime AMITRIPTYLINE HCL, 10MG (Oral Tablet) 1-2 Tablet qhs for 0 days Quantity: 60 {Tablet} Refills: 3 Ordered: 16-Apr-2011 MARINE Lockhart LPN Start : 16-Apr-2011 End : 16-Apr-2011 Inactive Comments: extreme fatigue and daytime sleepiness Problems Active Problems Problem Classification Problem Date Documented Da te Episodic/Chronic Abdominal pain (13 sources) Abdominal pain, unspecified site; Translations: [Abdominal pain] Resolved: 02-09-2013 06-02-2017 Episodic
[2023-12-16 10:49] LABS: T4 Free Direct 1.19 ng/dL (0.76-1.46); Thyroid Stim Hormone (TSH) 0.18 uIU/mL (0.358-3.74)
[2023-12-16 11:02] LABS: Cholesterol 161 mg/dL (200); High Density Lipoprotein 56 mg/dL; Triglycerides 62 mg/dL; Very Low Density Lipoprotein 12 mg/dL (5-40)
== END | disposition home or self-care (01) ==
LOC: MTLAB 07:03
PROVIDERS: PCP Internal Medicine; Referring Provider Internal Medicine Endocrinology, Diabetes & Metabolism; Visit Provider Internal Medicine Endocrinology, Diabetes & Metabolism
DX: Z13.220 Encounter for screening for lipoid disorders (principal); E22.1 Hyperprolactinemia; E03.8 Other specified hypothyroidism; E06.3 Autoimmune thyroiditis
CPT/HCPCS: 36415; 80061; 84439; 84443

== ENCOUNTER → 2024-06-01 | Outpatient (CLI) | payer OTHER, SELFPAY ==
--- NOTE | 2024-06-01 09:43 | BI_ITS ---
MAMMOGRAPHY - BILATERAL SCREENING REASON FOR EXAM: Female, 53 years old. Routine annual screening examination. PERTINENT HISTORY: Aunt with breast cancer. Remote right excisional breast biopsy. TECHNIQUE: Digital bilateral breast ayaka (3D mammographic acquisition) in the CC and MLO projections. 2-D mediolateral oblique (MLO) and craniocaudad (CC) views of both breasts were obtained. CAD: Full Field Digital Mammography with Computer Added Detection was performed. COMPARISON: Comparison is made with prior study May 29, 2023 and May 24, 2022. FINDINGS: Breast Composition: There are scattered areas of fibroglandular density. There are no dominant masses or suspicious calcifications. A tissue clip marker is once again seen in the central medial aspect of the right breast. Stable 5 mm well-defined nodule in the inferior slightly medial aspect of the right breast. No other significant abnormalities are identified. There has been no significant change since the prior study. BI/SCRN MAMM (CAD)W/AYAKA BILAT IMPRESSION: Stable bilateral screening mammogram. Yearly follow-up mammogram recommended. (A) ASSESSMENT CATEGORY: BIRADS Category 2: Benign. A letter regarding these results will be sent to the patient by the facility within 30 days. Approximately 10% of breast cancers are not detected by mammography. A normal mammogram should not delay biopsy of a clinically suspicious abnormality. [id number] Electronically Signed: Wayne Mascorro MD at 10:53 EDT ,
== END | disposition home or self-care (01) ==
LOC: OPBI 09:43
PROVIDERS: PCP Internal Medicine; Referring Provider Obstetrics & Gynecology; Visit Provider Obstetrics & Gynecology
DX: Z12.31 Encounter for screening mammogram for malignant neoplasm of breast (principal); Z80.3 Family history of malignant neoplasm of breast
CPT/HCPCS: 77063; 77067

== ENCOUNTER → 2024-12-04 | Outpatient (CLI) | payer OTHER, SELFPAY ==
[2024-12-04 09:31] LABS: AST(SGOT) 26 U/L (15-37); Alanine Aminotransfer ALT/SGPT 44 U/L (13-56); Albumin, Serum 3.4 g/dL (3.2-5.0); Alkaline Phosphatase 80 U/L (45-117); Anion Gap 5 (5-15); BUN 19 mg/dL (7-18); BUN/Creat Ratio 24.2 RATIO (10-20); Chloride 112 mmol/L (98-107); Cholesterol 167 mg/dL (200); Creatinine, Serum 0.78 mg/dL (0.55-1.02); EST Glomerular Filtration Rate 81 mL/min (>60); Est Glom Filt Rate - Afr Amer 98 mL/min (>60); Globulin 3.4 g/dL (2.2-4.2); Glucose 94 mg/dL (74-106); High Density Lipoprotein 61 mg/dL; Potassium 3.8 mmol/L (3.5-5.1); Protein, Total 6.8 g/dL (6.4-8.2); Sodium Level 141 mmol/L (136-145); T4 Free Direct 1.05 ng/dL (0.76-1.46); Thyroid Stim Hormone (TSH) 0.534 uIU/mL (0.358-3.740); Triglycerides 87 mg/dL; Very Low Density Lipoprotein 17 mg/dL (5-40)
[2024-12-04 09:38] LABS: Absolute Lymphocyte Count 1.62 X10^3/uL (0.83-4.51); Absolute Neutrophil Count 2.9 X10^3/uL (2.0-7.7); Basophil# 0.04 X10^3/uL; Basophil% 0.8 % (0-1); Eosinophil# 0.11 X10^3/uL; Eosinophils% 2.2 % (0-5); Hematocrit 41.6 % (37-47); Hemoglobin 13.9 g/dL (12.0-15.0); Lymphocyte # 1.62 X10^3/ul (0.83-4.51); Lymphocyte % 31.8 % (19-41); Mean Corp Hgb Conc 33.4 g/dL (32-36); Mean Corpuscular Hgb 30.8 pg (27.0-32.0); Mean Platelet Vol. 10.4 fl (6.2-12.0); Monocyte# 0.45 X10^3/uL; Monocyte% 8.8 % (0-10); NRBC Flagged by Analyzer 0 % (0-5); Neutrophil # 2.86 X10^3/uL (2.7-7.7); Platelet Count 245 K/mm3 (150-450); RBC Distribution Width SD 40.9 fl (35.1-43.9); Red Blood Count 4.52 M/mm3 (4.2-5.4); White Blood Count 5.1 K/mm3 (4.4-11.0)
== END | disposition home or self-care (01) ==
LOC: LAB 08:22
PROVIDERS: PCP Internal Medicine; Referring Provider Internal Medicine Endocrinology, Diabetes & Metabolism; Visit Provider Internal Medicine
DX: Z13.220 Encounter for screening for lipoid disorders (principal); R00.1 Bradycardia, unspecified; E03.8 Other specified hypothyroidism; E06.3 Autoimmune thyroiditis
CPT/HCPCS: 36415; 80053; 80061; 84439; 84443; 85025

== ENCOUNTER → 2025-05-30 | Outpatient (CLI) | payer OTHER, SELFPAY ==
--- OUTSIDE RECORDS SUMMARY | 2025-05-30 23:05 | XMS RPT_ITS | CCD ---
Author Organization [facility] Care Team Providers Care Ict Analyst Name Role Phone Whitney Goins Unavailable MessengerLuciana Unavailable Unavailable Unavailable Unavailable Nabeel Daniels Unavailable Unavailable Whitney Goins Unavailable MessengerLuciana Unavailable Unavailable Nabeel Daniels Unavailable Unavailable Unavailable Unavailable Unavailable Primary Care Provider Unavailabl e GravRichelle hammer Unavailable Unavailable Messenger, Luciana Unavailable Unavailable Alirio Damon Unavailable Amalia Brand Unavailable Unavailable Whitney Goins DO Unavailable Dr. Alirio Damon Unavailable Gravius LIGHT BULB ASSEMBLER, Richelle Unavailable Unavailable Amalia Brand LPN Unavailable Unavailable Messenger Luciana JACKSON Unavailable Unavailable Unavailable Unavailable Carleen Manzo LPN Unavailable Unavailable Tabitha DASHAWN, Kayela Unavailable Unavailable Dr. Whitney Goins Primary Care Provider [phone] Dr. Whitney Goins Referring Provider [phone] Charlotte Rinaldi Attending Provider [phone] [phone] Dr. Whitney Goins Primary Care Provider 1(330 ) Dr. Whitney Goins Referring Provider Dr. Charlotte Rinaldi Attending Provider 1(330 ) Dr. Whitney Goins Primary Care Provider 1(330 ) Dr. Whitney Goins Referring Provider [phone] Laurent Christianson Attending Provider Dr. Whitney Goins DO Primary Care Provider Dr. Whitney Goins DO Attending Provider 1(330 [phone] Dr. Laurent Christianson MD Referring Provider [phone] Whitney Gonis DO Referring Provider Dr. Laurent Christianson MD Attending Provider Charlotte Rinaldi Attending Unavailable Buster, Whitney Referring Unavailable Buster, Whitney Primary Care Unavailable Marcanthony, Charlotte Attending Unavailable Marcanthony, Charlotte Referring Unavailable Buster, Whitney Primary Care Unavailable Marcanthony, Charlotte Attending Unavailable Buster, Whitney Primary Care Unavailable Buster, Whitney Referring Unavailable Laurent Christianson Attending Unavailable Buster, Whitney Referring Unavailable Buster, Whitney Primary Care Unavailable Charlotte Rinaldi Attending Unavailable Marcanthony, Charlotte Referring Unavailable Buster, Whitney Primary Care Unavailable Sammy, Laurent Referring Unavailable Buster, Whitney Primary Care Unavailable Buster, Whitney Attending Unavailable Buster AUGUSTIN, Dr. Olson Primary Care Provider Dr. Whitney Goins DO Referring Provider Dr. Charlotte Rinaldi MD Attending Provider Allergies Allergy Classification Reported Allergen(s) Allergy Type Date of Onset Reaction(s) Facility NSAIDs (1 source) nabumetone; Translations: [Nabumetone *ANALGESICS - ANTI-INFLAMMATOR Y*] Drug Allergy Abdominal pain, Diarrhea [facility] Work Phone: Comment on above: bloating, heartburn Sulfonamides (antibiotic) (1 source) Sulfonamides (Antibiotic); Translations: [Sulfa Drugs] Drug Allergy Rash [facility]; [facility] Work Phone: (16 sources) nabumetone; Translations: [Nabumetone *ANALGESICS - ANTI-INFLAMMATOR Y*] Drug Allergy 09-28-20 21 Abdominal pain, Diarrhea [facility] Work Phone: Comment on above: bloating, heartburn (10 sources) Sulfonamides (Antibiotic); Translations: [Sulfa Drugs] allergy to substance Rash [facility] Work Phone: (6 sources) Sulfonamides (Antibiotic) Allergy to substance 09-28-20 21 Rash [facility] (1 source) nabumetone Drug Allergy 12-15-19 [facility] Repository (1 source) Sulfonamides (Antibiotic) Drug allergy (disorder) 12-15-19 [facility] Repository Medications Current Medications Medication Drug Class(es) Dates Sig (Normalized) Sig (Original) calcium carbonate 1250 mg / cholecalciferol 200 unt oral tablet (14 sources) Vitamin D Start: 11-25-2019 Calcium Carbonate-Vitamin D3 (Calcium 500 + D) 500 mg(1,250mg) -200 unit tablet Active 1 {tbl} PO DAILY November 25, 2019 1:00am Start: 01-06-2019 End: 01-13-2019 Calcium Carbonate-Vitamin D3 600 mg calcium- 200 unit capsule Discontinued NMA PO 0 January 06, 2019 12:00am January 13, 2019 11:30am take 1 tablet by stephanie th once daily CALCIUM, [id number] (Oral Tablet) 1 (one) daily (600-200 MG-UNIT) Active Comments: plus vit d3 Comment on above: plus vit d3 estrogen testosterone pellet (2 sources) Start: 05-30-2025 estrogen testosterone pellet Active SC May 30, 2025 11:19am Start: 05-30-2025 End: 05-30-2025 estrogen testosterone pellet Discontinued TD May 30, 2025 12:00am May 30, 2025 11:21am Multivitamin preparation (3 sources) Start: 05-26-2023 take 1 tablet by mouth once daily Multivitamin Active 1 TABLET PO DAILY May 25, 2023 11:00pm Start: 05-26-2023 take 1 tablet by stephanie th once daily Multivitamin Active 1 TABLET PO DAILY May 26, 2023 12:00am Multivitamin tablet (2 sources) Start: 05-26-2023 Multivitamin t ablet Active 1 {tbl} PO DAILY May 26, 2023 12:00am Start: 05-26-2023 Multivitamin t ablet Active 1 {tbl} PO DAILY May 25, 2023 11:00pm progesterone 200 mg oral capsule (1 source) Progesterone Start: 05-30-2025 take 1 capsule by mouth at bedtime Progesterone Micronized 200 mg capsule Active 200 mg PO AT BEDTIME May 30, 2025 12:00am levothyroxine sodium 0.112 mg oral tablet (20 sources) l-Thyroxine Start: 12-16-2023 End: 12-14-2024 take 0.5 tablet by mouth once daily Levothyroxine 112 mcg tablet Active 112 ug PO .qd 1/2 on SundaysDecember 14, 2024 4:34pm Start: 09-30-2023 End: 12-16-2023 take 1 tablet by mouth once daily Levothyroxine 112 mcg tablet Discontinued 112 ug PO DAILY December 11, 2023 4:51pm December 16, 2023 2:03pm Start: 10-28-2019 End: 09-30-2023 take 1 tablet by mouth once daily Levothyroxine 125 mcg tablet Discontinued 125 ug PO DAILY November 19, 2021 2:16pm October 03, 2022 11:08am Start: 01-13-2019 End: 11-25-2019 take 1 capsule by mouth once daily Levothyroxine 100 mcg capsule Discontinued 100 ug PO DAILY January 13, 2019 12:00am November 25, 2019 5:16pm Start: 04-16-2015 End: 01-13-2019 take 1 tablet by mouth once daily Levothyroxine 75 MCG tablet Discontinued 75 ug PO DAILY April 16, 2015 12:00am January 13, 2019 11:30am topiramate 25 mg oral tablet (20 sources) Anti-epileptic Agent Start: 05-30-2025 take 1 tablet by mouth once daily Topiramate 25 mg tablet Active 25 mg PO DAILY May 30, 2025 11:12am Start: 05-28-2024 End: 05-30-2025 take 2 tablets by mouth once daily Topiramate 25 mg tablet Discontinued 50 mg PO DAILY May 28, 2024 9:19am May 30, 2025 11:15am Start: 11-25-2019 End: 05-28-2024 take 1 tablet by mouth once daily Topiramate 25 mg tablet Discontinued 25 mg PO DAILY November 25, 2019 5:16pm May 28, 2024 9:19am Start: 01-13-2019 End: 11-25-2019 take 1 tablet by mouth every other day as needed Topiramate 25 mg tablet Discontinued 25 mg PO .QOD as needed January 13, 2019 11:39am November 25, 2019 5:19pm Start: 07-01-2018 End: 01-13-2019 take 1 tablet by mouth twice daily Topiramate 25 mg tablet Discontinued 25 mg PO TWICE A DAY January 06, 2019 3:52pm January 13, 2019 11:40am Start: 04-16-2015 End: 01-06-2019 Topiramate 25 MG tablet Disc ontinued 25 mg DAILY April 16, 2015 12:00am January 06, 2019 3:55pm Completed/Discontinued Medications Medication Drug Class(es) Dates Sig [...] Inactive Comments: extreme fatigue and daytime sleepiness Comment on above: extreme fatigue and daytime sleepiness cabergoline 0.5 mg oral tablet (20 sources) Ergot Derivative Start: 11-16-2020 End: 09-19-2021 take 0.5 tablet by mouth every week Cabergoline 0.5 MG Oral Tablet 1/2 (one half) Tablet qo week for 0 days Quantity: 4 {Tablet} Refills: 0 Ordered: 19-Sep-2021 Start : 16-Nov-2020 End : 19-Sep-2021 Inactive Start: 04-17-2020 End: 04-24-2021 take 1 tablet by mouth two times weekly Cabergoline 0.5 mg tablet Discontinued 0.25 mg PO TWICE A WEEK April 17, 2020 3:22pm April 24, 2021 9:02am Start: 04-17-2020 End: 04-24-2021 take 0.25 mg by mouth two times weekly Cabergoline Discontinued 0.25 MG PO TWICE A WEEK April 17, 2020 2:22pm April 24, 2021 8:02am Start: 11-30-2019 End: 04-17-2020 take 0.25 mg by mouth every week Cabergoline Discontinued 0.25 MG PO .weekly November 30, 2019 5:10pm April 17, 2020 2:22pm Start: 11-30-2019 End: 04-17-2020 take 1 tablet by mouth every week Cabergoline 0.5 mg tablet Discontinued 0.25 mg PO .weekly 6 2 November 30, 2019 6:10pm April 17, 2020 3:22pm Start: 11-25-2019 End: 11-30-2019 take 1 tablet by mouth two times weekly Cabergoline 0.5 mg tablet Discontinued 0.5 mg PO TWICE A WEEK November 25, 2019 1:00am November 30, 2019 10:36am calcium (9 sources) Phosphate Binder, Calcium take 1 tablet by mouth once daily CALCIUM, [id number] (Oral Tablet) 1 (one) daily (600-200 MG-UNIT) Active Comments: plus vit d3 Comment on above: plus vit d3 calcium carbonate 1500 mg oral tablet (6 sources) Start: 01-14-20 End: 11-25-19 20 take 1 tablet by mouth once daily Calcium Carbonate (Calcium 600) 600 mg calcium (1,500 mg) tablet Discontinued 600 mg PO DAILY January 13, 2019 12:00am November 25, 2019 5:16pm cholecalciferol 0.05 mg oral tablet (20 sources) Vitamin D Start: 11-25-19 End: 05-21-20 take 1 tablet by mouth once daily Cholecalciferol (Vitamin D3) 50 mcg (2,000 unit) tablet Discontinued 2000 U PO DAILY November 25, 2019 1:00am May 21, 2022 10:04am Start: 01-13-2019 End: 11-25-2019 take 1 capsule by mouth once daily Cholecalciferol (Vitamin D3) 1,000 unit capsule Discontinued 1000 U PO DAILY January 13, 2019 12:00am November 25, 2019 5:16pm take 1 capsule by mo ut once daily Vitamin D (Cholecalciferol) 25 MCG (1000 UT) Oral Capsule qd (25 MCG (1000 UT)) Inactive take 1 capsule by mo uth once daily VITAMIN D3, 2000UNIT (Oral Capsule) 1 cap qd (2000 UNIT) Inactive ciprofloxacin 500 mg oral tablet (17 sources) Quinolone Antimicrobial Start: 04-16-2015 End: 01-06-2019 take 1 tablet by mouth twice daily Ciprofloxacin Hcl 500 MG tablet Discontinued 500 mg PO TWICE A DAY 6 0 April 16, 2015 12:00am January 06, 2019 3:51pm cyclobenzaprine hydrochloride 10 mg oral tablet (17 sources) Muscle Relaxant Start: 05-28-2018 End: 10-28-2019 take 1 tablet by mouth three times daily as needed Cyclobenzaprine 10 mg tablet Discontinued 10 mg PO THREE TIMES A DAY as needed January 06, 2019 12:00am January 13, 2019 11:57am 24 hr desloratadine 5 mg / pseudoephedrine sulfate 240 mg extended release oral tablet (11 sources) alpha-Adrenergic Agonist, Histamine-1 Receptor Antagonist End: 03-17-2012 take 1 tablet by mouth every twenty-four hours CLARINEX-D 24 HOUR, 5-240MG (Oral Tablet Extended Release 24 Hour) 1 tab qd (5-240 MG) End : 17-Mar-2012 Discontinued End: 03-17-2012 take 5-240 mg by mouth once daily CLARINEX-D 24 HOUR, 5-240MG (Oral Tablet Extended Release 24 Hour) 1 tab qd (5-240 MG) End : 17-Mar-2012 Discontinued doxycycline hyclate 100 mg oral capsule (11 sources) Tetracycline-class Drug Start: 09-25-2011 End: 03-17-2012 take 1 capsule by mouth twice daily DOXYCYCLINE HYCLATE, 100MG (Oral Capsule) 1 Capsule bid for 0 days Quantity: 20 {Capsule} Refills: 0 Ordered: 17-Mar-2012 Leticia Loera Start : 25-Sep-2011 End : 17-Mar-2012 Inactive FLUoxetine 20 mg oral tablet (11 sources) Serotonin Reuptake Inhibitor Start: 08-11-2013 End: 08-11-2013 take 1 tablet by mouth every other week FLUOXETINE HCL, 20MG (Oral Tablet) 1 Tablet two weeks out of month for 0 days Quantity: 30 {Tablet} Refills: 4 Ordered: 11-Aug-2013 Kassie Hassan DO Start : 11-Aug-2013 End : 11-Aug-2013 Discontinued hydrocortisone 10 mg/ml / neomycin 3.5 mg/ml / polymyxin b 40096 unt/ml otic solution (11 sources) Aminoglycoside Antibacterial, Polymyxin-class Antibacterial, Corticosteroid Start: 09-01-2013 End: 06-10-2014 CORTISPORIN, 3.5-39199-6 (Otic Solution) 4 Drop(s) tid or qid for 0 days Quantity: 1 {Solution} Refills: 0 Ordered: 10-Jun-2014 Leticia Loera Start : 01-Sep-2013 End : 10-Jun-2014 Discontinued levonorgestrel 0.389467 mg/hr intrauterine system (6 sources) Progestin, Progestin-containing Intrauterine Device Start: 04-17-2020 End: 12-14-2024 Levonorgestrel (Mirena) 20 mcg/24 hours (5 yrs) 52 mg intrauterine device Discontinued 1 NMA INTRA-UTER ONCE April 17, 2020 12:00am December 14, 2024 4:29pm as a single dose Start: 04-17-2020 Levonorgestrel (Mirena) 20 mcg/24 hours (5 yrs) 52 mg intrauterine device Active 1 DEVICE INTRA-UTER ONCE April 16, 2020 11:00pm as a single dose mometasone furoate 0.05 mg/actuat metered dose nasal spray (11 sources) Corticosteroid Start: 09-01-2013 End: 06-10-2014 NASONEX, 50MCG/ACT (Nasal Suspension) 2 (two) Puff(s) daily for 0 days Quantity: 1 {Suspension} Refills: 0 Ordered: 10-Jun-2014 Leticia Loera Start : 01-Sep-2013 End : 10-Jun-2014 Discontinued Multivitamin Oral Tablet (3 sources) Multivitamin Ora l Tablet qd Active phenazopyridine hydrochloride 200 mg oral tablet (6 sources) Start: 04-16-2015 End: 01-06-2019 take 1 tablet by mouth twice daily as needed for pain Phenazopyridine 200 MG tablet Discontinued 200 mg PO TWICE DAILY NEEDED as needed for Pain 10 0 April 16, 2015 12:00am January 06, 2019 3:52pm liothyronine sodium 0.025 mg oral tablet (17 sources) l-Triiodothyronine Start: 09-14-2018 End: 10-28-2019 take 1 tablet by mouth once daily Liothyronine (Cytomel) 25 mcg tablet Discontinued 12.5 ug PO DAILY January 06, 2019 12:00am January 13, 2019 11:34am Start: 07-23-2018 take 0.5 tablet by m outh once daily Cytomel 25 MCG Oral Tablet 1/2 Tablet daily for 90 days Quantity: 45 {Tablet} Refills: 1 Ordered: 23-Jul-2018 Whitney Goins DO, DO, Kathleen Start : 23-Jul-2018 Active Problems Active Problems Problem Classification Problem Date Documented Da te Episodic/Chronic Abdominal pain (13 sources) Abdominal pain, unspecified site; Translations: [Abdominal pain] Resolved: 3 06-02-2017 Episodic Comment on above: pressure Calculus of urinary tract (20 sources) Calcium renal calculus ; Translations: [Kidney stone] Resolved: 7 06-02-2017 Episodic Comment on above: had sep 20- and pass ed it- and potentially again last nov Cardiac dysrhythmias (9 sources) Bradycardia; Translations: [Bradycardia] 11-16-2020 Chronic Comment on above: off cytomel and HR i ssues resolved -- echo and holter ok exc for rocael Cardiac dysrhythmias (20 sources) Bradycardia; Translations: [Bradycardia] 11-16-2020 Episodic Comment on above: off cytomel and HR i ssues resolved -- echo and holter ok exc for rocael stalbe -- echo and h olter ok exc for rocael Contraceptive and procreative management (3 sources) Patient encounter status; Translations: [Encounter for removal of intrauterine contraceptive device] Onset: 4 05-28-2024 Episodic Genitourinary symptoms and ill-defined conditions (13 sources) Abnormal urine; Translations: [Abnormal urine] Resolved: 2 06-02-2017 Episodic Headache, including migraine (20 sources) Migraine; Translations: [Migraine] Resolved: 7 06-10-2018 Chronic Comment on above: topamax works wonder fully Headache, including migraine (18 sources) Headache, including migraine Immunizations and screening for infectious disease (15 sources) Need for prophylactic vaccination and inoculation against influenza; Translations: [Needs influenza immunization] Resolved: 3 07-18-2015 Episodic Malaise and fatigue (9 sources) Fatigue; Translations: [Fatigue, unspecified type] Resolved: 1 11-16-2020 Episodic Menopausal disorders (2 sources) Menopausal syndrome; Translations: [Menopausal and female climacteric states] 05-30-2025 Chronic Comment on above: on bioidentical HRT, discussed risks/benefits offered FDA approved scripts. 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] Resolved: 7 06-02-2017 Episodic Open wounds of head; neck; and trunk (13 sources) Open wound(s) (multiple) of unspecified site(s), complicated; Translations: [WOUND OPEN, SITE NOS W/COMPLICATION] Resolved: 2 06-02-2017 Episodic Comment on above: R lower extemity Other and unspecified benign neoplasm (16 sources) Pituitary adenoma; Translations: [Pituitary adenoma] 11-16-2020 Episodic Comment on above: Dr King annks it w as more an empty sella -- and no w/u or active management unless develops sx Other bone disease and musculoskeletal deformities (17 sources) Segmental and somatic dysfunction; Translations: [Segmental and somatic dysfunction of lumbar region] 2019 Episodic Other circulatory disease (20 sources) Elevated blood-pressure reading without diagnosis of hypertension; Translations: [Elevated blood pressure (not hypertension)] Resolved: 6 06-02-2017 Episodic Other connective tissue disease (20 sources) Plantar fasciitis; Translations: [Plantar fasciitis] Resolved: 7 06-02-2017 Episodic Comment on above: s/p surgery R and le ft flares occassionally Other connective tissue disease (6 sources) Impingement syndrome of shoulder region; Translations: [Impingement syndrome of left shoulder] 09-13-2019 Episodic Other endocrine disorders (20 sources) Hyperprolactinemia; Translations: [Hyperprolactinemia] 11-16-2020 Chronic Comment on above: Dr christianson- ended up go ng off lmeds - terrible side effects Other gastrointestinal disorders (8 sources) Occult blood in stools; Translations: [Positive fecal occult blood test] 12-08-2020 Episodic Other non-traumatic joint disorders (20 sources) Shoulder pain; Translations: [Shoulder pain] Resolved: 3 06-02-2017 Episodic Other non-traumatic joint disorders (13 sources) Pain in wrist; Translations: [Wrist pain, right] Resolved: 6 06-02-2017 Episodic Other nutritional; endocrine; and metabolic disorders (20 sources) Body mass index 30+ - obesity; Translations: [BMI 35.0-35.9,adult] Resolved: 2 06-10-2018 Chronic Other nutritional; endocrine; and metabolic disorders (20 sources) Cholesterol level - finding; Translations: [Low HDL (under 40)] Resolved: 7 06-02-2017 Chronic Otitis media and related conditions (13 sources) Chronic serous otitis media; Translations: [Chronic serous otitis media, unspecified laterality] Resolved: 4 06-02-2017 Chronic Otitis media and related conditions (13 sources) Dysfunction of eustachian tube; Translations: [Eustachian tube dysfunction] Resolved: 6 06-02-2017 Episodic Residual codes; unclassified (18 sources) Non-smoker; Translations: [Nonsmoker] 11-16-2020 Episodic Skin and subcutaneous tissue infections (13 sources) Cellulitis and abscess of lower limb; Translations: [Cellulitis and abscess of leg] Resolved: 2 06-02-2017 Episodic Spondylosis; intervertebral disc disorders; other back problems (20 sources) Backache; Translations: [Spasm of back muscles] Resolved: 8 06-10-2018 Episodic Thyroid disorders (20 sources) Hypothyroidism; Translations: [Hypothyroidism] 06-10-2018 Chronic Comment on above: seeing dr King abran louie e will order lab Unclassified (20 sources) Other specified abnormal findings of blood chemistry; Translations: [Decreased triiodothyronine level] Onset: 2 Resolved: 8 06-10-2018 Episodic Comment on above: 2020 normal -- very redundant /twisted colon and never again - very difficult Unclassified (20 sources) Unclassified (18 sources) Elevated blood pressure (not hypertension) Unclassified (18 sources) Low HDL (under 40) Unclassified (20 sources) BMI 35.0-35.9,adult Unclassified (20 sources) Nonsmoker; Translations: [Non-smoker] 06-10-2018 Unclassified (20 sources) Abnormal TSH (794.5) Unclassified (20 sources) screening Resolved: 3 02-09-2013 Unclassified (20 sources) T3 low in serum Unclassified (20 sources) Low HDL (272.5) Unclassified (20 sources) perimenstrual dysphoric sx 06-10-2018 Unclassified (20 sources) Elevated Blood Pressure(796.2) Unclassified (9 sources) Wrist pain, right (719.43) Unclassified (9 sources) Abdominal Pain,Unspecified Site (789.00) Unclassified (20 sources) Encounter for screening for lipid disorder Unclassified (6 sources) Colon cancer screening (Renamed from Encounter for screening for malignant neoplasm of colon) Unclassified (5 sources) Fatigue, unspecified type Past or Other Problems Problem Classification Problem Date Documented Date Episodic/Chronic Headache, including migraine (7 sources) Tension-type headache; Translations: [Tension headache] Resolved: 06-02-2017 06-02-2017 Episodic Unclassified (7 sources) Needs influenza immunization; Translations: [Need for prophylactic vaccination and inoculation against influenza] Resolved: 02-09-2013 07-18-2015 Episodic Unclassified (7 sources) Pregnancies (); Translations: [Pregnancies ()] 06-10-2018 Comment on above: 0. Unclassified (9 sources) Atypical Nevus(238.2) Unclassified (15 sources) Patient encounter status; Translations: [Encounter for screening for lipid disorder] 06-10-2018 Unclassified (20 sources) Unspecified Diagnosis Resolved: 09-09-2011 06-10-2018 Unclassified (9 sources) OTITIS EXTERNA, UNSPECIFIED (380.10) Unclassified (9 sources) Eustachian tube dysfunction (381.81) Unclassified (9 sources) Back pain, acute Unclassified (9 sources) WOUND OPEN, SITE NOS W/COMPLICATION (879.9) Unclassified (9 sources) Cellulitis/ Abcess of leg (682.6) Unclassified (9 sources) Urine, Abnormal (791.9) Unclassified (6 sources) Non-smoker; Translations: [Nonsmoker] 06-10-2018 Unclassified (5 sources) Immunity status testing Unclassified (4 sources) Positive fecal occult blood test Unclassified (4 sources) Pregnancies (); Translations: [Pregnancies ()] 11-16-2020 Comment on above: 0. Unclassified (6 sources) plantar fasciitis repair 05-11-2022 Unclassified (6 sources) r ulnar radius reconstruction 05-11-2022 Results Test Name Value Interpretation Reference Range Facility Endocrinology Visit Reporton 12-14-2024 Endocrinology Visit Report [facility] [address] [place] [address] OFFICE VISIT Date of Service: 12/14/24 MR#: [id number] Acct: [id number] Name: LUCIANA ARSHAD Rep #: [id number] : 1970 Provider: Kb Lal Age/Sex: 54/F Location: [facility] [place] Status: Signed Intake Vital Signs 12/11/23 15:24 05/28/24 09:23 12/14/24 15:27 Height 5 ft 6 in 5 ft 6 in 5 ft 6 in Weight: 192 lb 8 oz BMI 31.0 BP 118/76 Blood Pressure Location Rt brachial Position Sitting Pulse 47 L Pulse Source Monitor Pulse Oximetry (%) 98 Oxygen Delivery Method room air Intake Visit Reasons: 1 Y FU Chief Complaint: Thyroid Is patient in pain?: No Allergies nabumetone Allergy (Severe, Verified 12/14/24 15:29) abdominal pain, diarrhea, bloating, heartburn Sulfa (Sulfonamide Antibiotics) Allergy (Verified 12/14/24 15:29) Rash Medications ???Medication ???Instructions ???Recorded ???Confirmed ???Type calcium 500 mg (as 1 tab PO DAILY 11/25/19 12/14/24 H istory carbonate)-vitamin D3 5 mcg (200 unit) tablet (Calcium 500 + D) multivitamin 1 tab PO DAILY 05/26/23 12/14/24 H istory topiramate 25 mg tablet 50 mg PO DAILY 05/28/24 12/14/24 [facility] istory levothyroxine 112 mcg tablet 112 mcg PO .qd 1/2 on Sundays #90 12/14/24 12/14/24 Rx tabs PFSH Medical History History of kidney stones Bilateral headaches Pituitary microadenoma Migraine Obesity Hypothyroidism Surgical History H/O oral surgery r ulnar radius reconstruction History of breast biopsy plantar fasciitis repair Family History Grandfather Heart disease Diabetes Grandmother Heart disease Diabetes Mother Thyroid disorder Social History household members: spouse and children number of children: 1 current occupational status: employed current occupation: RN history of recent travel: No sexually active: Yes Smoking Status: Never smoker alcohol intake: current alcohol intake frequency: a few times a month Alcohol type: wine substance use type: does not use caffeine: Yes what type of physical activity do you participate in: walking and running frequency: 5-6 times per week seatbelt use: always do you feel safe at home: Yes HPI HPI Chief Complaint: Thyroid Details: LUCIANA ARSHAD, is a 54 F who presents to the office today for follow up. She has hypothyroidism. She is taking levothyroxine. She is feeling well. She has hot flashes. TSH is 0.5 ROS Const Constitutional: No fatigue or weight change ENT ENT: No dizziness/vertigo Cardio Cardiology: No chest pain at rest, chest pain with exertion, shortness of breath or palpitations Skin Skin: No wounds Endo Endocrine: No fatigue or weight change Exam Const General: cooperative, healthy appearing, comfortable, no acute distress, well developed and not cushingoid Nutritional Appearance: well nourished Orientation: alert, awake and oriented x3 HENMT Head: normal to inspection Ears: hearing grossly normal bilaterally Nose: external nose normal Mouth: oral mucosae normal Eyes General: appearance normal, both eyes and all related structures Alignment and Position: alignment normal Periorbital: periorbital findings normal Eyelids: eyelids normal Conjunctivae: conjunctivae normal Neck Neck: normal visual inspection Neck mass: No Thyroid: thyroid normal Lymphatic: no lymphadenopathy noted Chest Chest palpation inspection: normal inspection of the chest Resp Effort Inspection: normal respiratory effort, able to speak in complete sentences, symmetric chest movement, no audible wheezes and no cough Cardio Rate: regular rate Rhythm: regular rhythm Skin General: no rashes or lesions noted Neuro General: patient alert, patient awake and patient oriented x3 Cranial Nerves: CN's II-XI intact bilaterally Cognition: normal cognition Speech: speech normal Gait: normal gait Motor: muscle tone normal throughout Extrem General: no edema Psych Appearance: grossly normal Mental Status: mental status grossly normal Mood: congruent mood Affect: normal affect Speech and Movement: speech and movement normal Attitude: cooperative Thought Process: normal Thought Content: normal Judgment: judgment good Assessment and Plan Assessment and Plan (1) 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 Then wait 30-60 minutes before consuming any other food or beverage, especially coffee. Separate levothyroxine f (more content not included)... Normal [facility] Absolute neutrophil countOrd ered By: Laurent Christianson on 12-04-2024 Neutrophils (Bld) [#/Vol] 2.9 10*3/uL 2.0-7.7 [facility] Albumin to globulin ratioOrd ered By: Laurent Christianson on 12-04-2024 Albumin/Globulin [Mass ratio] 1.0 {ratio} 0.9-2.4 [facility] Basophil percentageOrdered B y: Laurent Christianson on 12-04-2024 Basophils/100 WBC (Bld) 0.8 % 0-1 [facility] Bilirubin, totalOrdered By: Laurent Christianson on 12-04-2024 Bilirubin [Mass/Vol] 0.80 mg/dL 0.20-1.00 [facility] Comment on above: For patients on eltr ombopag therapy, use of Dimension Omega TBIL is not recommended. Blood urea nitrogen (BUN)/cr eatinine ratioOrdered By: Laurent Christianson on 12-04-2024 Urea nitrogen/Creatinine [Mass ratio] 24.2 mg/mg High 10-20 [facility] CBC W/Diff, Automatedon 11-14 Absolute Lymph 1.62 X10 3/uL Normal 0.83-4.51 [facility] Comment on above: Order Comment: DR SHLOMO JUAREZ TSH, FT4 DR GOINS ORDERED CMP, LIPID, CBCD Performed By: #### L 506.0400, L100.0100, L500.4050, L501.9520, L500.4100 #### [facility] [address] [place], [address] Absolute Neut 2.9 X10 3/uL Normal 2.0-7.7 [facility] Comment on above: Order Comment: DR SHLOMO JUAREZ TSH, FT4 DR GOINS ORDERED CMP, LIPID, CBCD Performed By: #### L 506.0400, L100.0100, L500.4050, L501.9520, L500.4100 #### [facility] [address] [place], [address] Basophils/100 WBC (Bld) 0.8 % Normal 0-1 [facility] Comment on above: Order Comment: DR SHLOMO JUAREZ TSH, FT4 DR GOINS ORDERED CMP, LIPID, CBCD Performed By: #### L 506.0400, L100.0100, L500.4050, L501.9520, L500.4100 #### [facility] [address] [place], [address] Eosinophils/100 WBC (Bld) 2.2 % Normal 0-5 [facility] Comment on above: Order Comment: DR SHLOMO JUAREZ TSH, FT4 DR GOINS ORDERED CMP, LIPID, CBCD Performed By: #### L 506.0400, L100.0100, L500.4050, L501.9520, L500.4100 #### [facility] [address] [place], [address] Erythrocyte distribution width (RBC) [Ratio] 12.0 % Normal 11.6-14.6 [facility] Comment on above: Order Comment: DR SHLOMO JUAREZ TSH, FT4 DR GOINS ORDERED CMP, LIPID, CBCD Performed By: #### L 506.0400, L100.0100, L500.4050, L501.9520, L500.4100 #### [facility] [address] [place], [address] Hematocrit (Bld) [Volume fraction] 41.6 % Normal 37-47 [facility] Comment on above: Order Comment: DR SHLOMO JUAREZ TSH, FT4 DR GOINS ORDERED CMP, LIPID, CBCD Performed By: #### L 506.0400, L100.0100, L500.4050, L501.9520, L500.4100 #### [facility] [address] [place], [address] Hemoglobin (Bld) [Mass/Vol] 13.9 g/dL Normal 12.0-15.0 [facility] Comment on above: Order Comment: DR SHLOMO JUAREZ TSH, FT4 DR GOINS ORDERED CMP, LIPID, CBCD Performed By: #### L 506.0400, L100.0100, L500.4050, L501.9520, L500.4100 #### [facility] [address] [place], [address] IG% 0.400 Normal 0.0-0.9 [facility] Comment on above: Order Comment: DR SHLOMO JUAREZ TSH, FT4 DR GOINS ORDERED CMP, LIPID, CBCD Result Comment: IG% - Immature Granulocytes (promyelocytes, myelocytes and metamyelocytes) > 1% indicates that a LEFT SHIFT is Present. Performed By: #### L 506.0400, L100.0100, L500.4050, L501.9520, L500.4100 #### [facility] [address] [place], [address] Lymphocytes/100 WBC (Bld) 31.8 % Normal 19-41 [facility] Comment on above: Order Comment: DR SHLOMO JUAREZ TSH, FT4 DR GOINS ORDERED CMP, LIPID, CBCD Performed By: #### L 506.0400, L100.0100, L500.4050, L501.9520, L500.4100 #### [facility] [address] [place], [address] MCH (RBC) [Entitic mass] 30.8 pg Normal 27.0-32.0 [facility] Comment on above: Order Comment: DR SHLOMO JUAREZ TSH, FT4 DR GOINS ORDERED CMP, LIPID, CBCD Performed By: #### L 506.0400, L100.0100, L500.4050, L501.9520, L500.4100 #### [facility] [address] [place], [address] MCHC (RBC) [Mass/Vol] 33.4 g/dL Normal 32-36 [facility] Comment on above: Order Comment: DR SHLOMO JUAREZ TSH, FT4 DR GOINS ORDERED CMP, LIPID, CBCD Performed By: #### L 506.0400, L100.0100, L500.4050, L501.9520, L500.4100 #### [facility] [address] [place], [address] MCV (RBC) [Entitic vol] 92.0 fL Normal 81-99 [facility] Comment on above: Order Comment: DR SHLOMO JUAREZ TSH, FT4 DR GOINS ORDERED CMP, LIPID, CBCD Performed By: #### L 506.0400, L100.0100, L500.4050, L501.9520, L500.4100 #### [facility] [address] [facility], [address] Monocytes/100 WBC (Bld) 8.8 % Normal 0-10 [facility] Comment on above: Order Comment: DR SHLOMO JUAREZ TSH, FT4 DR GOINS ORDERED CMP, LIPID, CBCD Performed By: #### L 506.0400, L100.0100, L500.4050, L501.9520, L500.4100 #### [facility] [address] [place], [address] Neutrophils/100 WBC (Bld) 56.0 % Normal 47-70 [facility] Comment on above: Order Comment: DR SHLOMO JUAREZ TSH, FT4 DR GOINS ORDERED CMP, LIPID, CBCD Performed By: #### L 506.0400, L100.0100, L500.4050, L501.9520, L500.4100 #### [facility] [address] [place], [address] Nucleated RBC (Bld) [#/Vol] 0 10*3/uL Normal 0-5 [facility] Comment on above: Order Comment: DR SHLOMO JUAREZ TSH, FT4 DR GOINS ORDERED CMP, LIPID, CBCD Performed By: #### L 506.0400, L100.0100, L500.4050, L501.9520, L500.4100 #### [facility] [address] [place], [address] Platelet mean volume (Bld) [Entitic vol] 10.4 fL Normal 6.2-12.0 [facility] Comment on above: Order Comment: DR SHLOMO JUAREZ TSH, FT4 DR GOINS ORDERED CMP, LIPID, CBCD Performed By: #### L 506.0400, L100.0100, L500.4050, L501.9520, L500.4100 #### [facility] [address] [place], [address] Platelets (Bld) [#/Vol] 245 10*3/uL Normal 150-450 [facility] Comment on above: Order Comment: DR SHLOMO JUAREZ TSH, FT4 DR GOINS ORDERED CMP, LIPID, CBCD Performed By: #### L 506.0400, L100.0100, L500.4050, L501.9520, L500.4100 #### [facility] [address] [place], [address] RBC (Bld) [#/Vol] 4.52 10*6/uL Normal 4.2-5.4 [facility] Comment on above: Order Comment: DR SHLOMO JUAREZ TSH, FT4 DR GOINS ORDERED CMP, LIPID, CBCD Performed By: #### L 506.0400, L100.0100, L500.4050, L501.9520, L500.4100 #### [facility] [address] [place], [address] RDW SD 40.9 fl Normal 35.1-43.9 [facility] Comment on above: Order Comment: DR SHLOMO JUAREZ TSH, FT4 DR GOINS ORDERED CMP, LIPID, CBCD Performed By: #### L 506.0400, L100.0100, L500.4050, L501.9520, L500.4100 #### [facility] [address] [place], [address] WBC (Bld) [#/Vol] 5.1 10*3/uL Normal 4.4-11.0 [facility] Comment on above: Order Comment: DR SHLOMO JUAREZ TSH, FT4 DR GOINS ORDERED CMP, LIPID, CBCD Performed By: #### L 506.0400, L100.0100, L500.4050, L501.9520, L500.4100 #### [facility] [address] [place], [address] Carbon dioxide measurementOr dered By: Laurent Christianson on 12-04-2024 CO2 [Moles/Vol] 24.0 mmol/L 21.0-32.0 [facility] Chloride measurementOrdered By: Laurent Christianson on 12-04-2024 Chloride [Moles/Vol] 112 mmol/L High 98-107 [facility] Comprehensive Metabolic Prof ilon 12-04-2024 Albumin [Mass/Vol] 3.4 g/dL Normal 3.2-5.0 [facility] Comment on above: Order Comment: DR SHLOMO JUAREZ TSH, FT4 DR GOINS ORDERED CMP, LIPID, CBCD Performed By: #### L 506.0400, L100.0100, L500.4050, L501.9520, L500.4100 #### [facility] [address] [place], [address] Albumin/Globulin [Mass ratio] 1.0 {ratio} Normal 0.9-2.4 [facility] Comment on above: Order Comment: DR SHLOMO JUAREZ TSH, FT4 DR GOINS ORDERED CMP, LIPID, CBCD Performed By: #### L 506.0400, L100.0100, L500.4050, L501.9520, L500.4100 #### [facility] [address] [place], [address] ALK P 80 U/L Normal 45-117 [facility] Comment on above: Order Comment: DR SHLOMO JUAREZ TSH, FT4 DR GOINS ORDERED CMP, LIPID, CBCD Performed By: #### L 506.0400, L100.0100, L500.4050, L501.9520, L500.4100 #### [facility] [address] [place], [address] ALT [Catalytic activity/Vol] 44 U/L Normal 13-56 [facility] Comment on above: Order Comment: DR SHLOMO JUAREZ TSH, FT4 DR GOINS ORDERED CMP, LIPID, CBCD Performed By: #### L 506.0400, L100.0100, L500.4050, L501.9520, L500.4100 #### [facility] [address] [place], [address] AST [Catalytic activity/Vol] 26 U/L Normal 15-37 [facility] Comment on above: Order Comment: DR SHLOMO JUAREZ TSH, FT4 DR GOINS ORDERED CMP, LIPID, CBCD Performed By: #### L 506.0400, L100.0100, L500.4050, L501.9520, L500.4100 #### [facility] [address] [place], [address] Bilirubin [Mass/Vol] 0.80 mg/dL Normal 0.20-1.00 [facility] Comment on above: Order Comment: DR SHLOMO JUAREZ TSH, FT4 DR GOINS ORDERED CMP, LIPID, CBCD Result Comment: For patients on eltrombopag therapy, use of Dimension Omega TBIL is not recommended. Performed By: #### L 506.0400, L100.0100, L500.4050, L501.9520, L500.4100 #### [facility] [address] [place], [address] BUN/CRE 24.2 RATIO High 10-20 [facility] Comment on above: Order Comment: DR SHLOMO JUAREZ TSH, FT4 DR GOINS ORDERED CMP, LIPID, CBCD Performed By: #### L 506.0400, L100.0100, L500.4050, L501.9520, L500.4100 #### [facility] [address] [place], [address] CA,Total 9.0 mg/dL Normal 8.5-10.1 [facility] Comment on above: Order Comment: DR SHLOMO JUAREZ TSH, FT4 DR GOINS ORDERED CMP, LIPID, CBCD Performed By: #### L 506.0400, L100.0100, L500.4050, L501.9520, L500.4100 #### [facility] [address] [place], [address] Chloride [Moles/Vol] 112 mmol/L High 98-107 [facility] Comment on above: Order Comment: DR SHLOMO JUAREZ TSH, FT4 DR GOINS ORDERED CMP, LIPID, CBCD Performed By: #### L 506.0400, L100.0100, L500.4050, L501.9520, L500.4100 #### [facility] [address] [place], [address] CO2 [Moles/Vol] 24.0 mmol/L Normal 21.0-32.0 [facility] Comment on above: Order Comment: DR SHLOMO JUAREZ TSH, FT4 DR GOINS ORDERED CMP, LIPID, CBCD Performed By: #### L 506.0400, L100.0100, L500.4050, L501.9520, L500.4100 #### [facility] [address] [place], [address] Creatinine [Mass/Vol] 0.78 mg/dL Normal 0.55-1.02 [facility] Comment on above: Order Comment: DR SHLOMO JUAREZ TSH, FT4 DR GOINS ORDERED CMP, LIPID, CBCD Result Comment: The validity of the calculated GFR GFRAA in patients over 70 years has not been determined. Clinical correlation is essential. Performed By: #### L 506.0400, L100.0100, L500.4050, L501.9520, L500.4100 #### [facility] [address] [place], [address] EST GFR - AA 98 mL/min Normal >60 [facility] Comment on above: Order Comment: DR SHLOMO JUAREZ TSH, FT4 DR GOINS ORDERED CMP, LIPID, CBCD Result Comment: Afri can Tajik GFR Calc Performed By: #### L 506.0400, L100.0100, L500.4050, L501.9520, L500.4100 #### [facility] [address] [place], [address] GAP 5 Normal 5-15 [facility] Comment on above: Order Comment: DR SHLOMO JUAREZ TSH, FT4 DR GOINS ORDERED CMP, LIPID, CBCD Performed By: #### L 506.0400, L100.0100, L500.4050, L501.9520, L500.4100 #### [facility] [address] [place], [address] GFR/1.73 sq M.predicted among non-blacks MDRD (S/P/Bld) [Vol rate/Area] 81 mL/min/{1.73_m2} Normal >60 [facility] Comment on above: Order Comment: DR SHLOMO JUAREZ TSH, FT4 DR GOINS ORDERED CMP, LIPID, CBCD Result Comment: Non- GFR Calc Performed By: #### L 506.0400, L100.0100, L500.4050, L501.9520, L500.4100 #### [facility] [address] [place], [address] Globulin (S) [Mass/Vol] 3.4 g/dL Normal 2.2-4.2 [facility] Comment on above: Order Comment: DR SHLOMO JUAREZ TSH, FT4 DR GOINS ORDERED CMP, LIPID, CBCD Performed By: #### L 506.0400, L100.0100, L500.4050, L501.9520, L500.4100 #### [facility] [address] [place], [address] Glucose [Mass/Vol] 94 mg/dL Normal 74-106 [facility] Comment on above: Order Comment: DR SHLOMO JUAREZ TSH, FT4 DR GOINS ORDERED CMP, LIPID, CBCD Performed By: #### L 506.0400, L100.0100, L500.4050, L501.9520, L500.4100 #### [facility] [address] [place], [address] Potassium [Moles/Vol] 3.8 mmol/L Normal 3.5-5.1 [facility] Comment on above: Order Comment: DR SHLOMO JUAREZ TSH, FT4 DR GOINS ORDERED CMP, LIPID, CBCD Performed By: #### L 506.0400, L100.0100, L500.4050, L501.9520, L500.4100 #### [facility] [address] [place], [address] Sodium [Moles/Vol] 141 mmol/L Normal 136-145 [facility] Comment on above: Order Comment: DR SHLOMO JUAREZ TSH, FT4 DR GOINS ORDERED CMP, LIPID, CBCD Performed By: #### L 506.0400, L100.0100, L500.4050, L501.9520, L500.4100 #### [facility] [address] [place], [address] T PROT 6.8 g/dL Normal 6.4-8.2 [facility] Comment on above: Order Comment: DR SHLOMO JUAREZ TSH, FT4 DR GOINS ORDERED CMP, LIPID, CBCD Performed By: #### L 506.0400, L100.0100, L500.4050, L501.9520, L500.4100 #### [facility] [address] [place], [address] Urea nitrogen [Mass/Vol] 19 mg/dL High 7-18 [facility] Comment on above: Order Comment: DR SHLOMO BRUSHED TSH, FT4 DR GOINS ORDERED CMP, LIPID, CBCD Performed By: #### L 506.0400, L100.0100, L500.4050, L501.9520, L500.4100 #### [facility] [address] [place], [place], [id number] Direct serum free thyroxine (FT4) measurementOrdered By: Laurent Christianson on 12-04-2024 Free T4 [Mass/Vol] 1.05 ng/dL 0.76-1.46 [facility] Eosinophil percentageOrdered By: Lauernt Christianson on 12-04-2024 Eosinophils/100 WBC (Bld) 2.2 % 0-5 [facility] Erythrocyte distribution wid th ratioOrdered By: Laurent Christianson on 12-04-2024 Erythrocyte distribution width (RBC) [Ratio] 12.0 % 11.6-14.6 [facility] Erythrocyte distribution wid th standard deviationOrdered By: Laurent Christianson on 12-04-2024 Erythrocyte distribution width (RBC) [Entitic vol] 40.9 fL 35.1-43.9 [facility] Estimated glomerular filtrat ion rate (GFR) AmericanOrdered By: Laurent Christianson on 12-04-2024 Estimated GFR (MDRD) Amer 98 mL/min >60 [facility] Comment on above: GFR Calc Glomerular filtration rate ( GFR) estimationOrdered By: Laurent Christianson on 12-04-2024 Estimated GFR (MDRD) Non-Af Amer 81 mL/min >60 [facility] Comment on above: Non- GFR Calc Glucose measurementOrdered B y: Laurent Christianson on 12-04-2024 Glucose [Mass/Vol] 94 mg/dL 74-106 [facility] Hematocrit Auto (Bld) [Volum e fraction]Ordered By: Laurent Christianson on 12-04-2024 Hematocrit (Bld) [Volume fraction] 41.6 % 37-47 [facility] Hemoglobin measurementOrdere d By: Laurent Christianson on 12-04-2024 Hemoglobin (Bld) [Mass/Vol] 13.9 g/dL 12.0-15.0 [facility] High density lipoprotein (HD L) measurementOrdered By: Laurent Christianson on 12-04-2024 Cholesterol in HDL [Mass/Vol] 61 mg/dL >40 [facility] Comment on above: The drugs N-Acetylcy steine and Metamizole may falsely depress this assay. Reference Range HDL <40 mg/dL Low HDL Cholesterol HDL >or= 60 mg/dL High HDL Cholesterol Immature granulocytes/100 WB C Auto (Bld)Ordered By: Laurent Christianson on 12-04-2024 Immature granulocytes/100 WBC (Bld) 0.400 % 0.0-0.9 [facility] Comment on above: IG% - Immature Granu locytes (promyelocytes, myelocytes and metamyelocytes) > 1% indicates that a LEFT SHIFT is Present. Laboratory - Chemistry and C hemistry - challengeOrdered By: Laurent Christiasnon on 12-04-2024 AST [Catalytic activity/Vol] 26 U/L 15-37 [facility] Lipid Profileon 12-04-2024 Cholesterol [Mass/Vol] 167 mg/dL Normal 200 [facility] Comment on above: Order Comment: DR SHLOMO BRUSHED TSH, FT4 DR GOINS ORDERED CMP, LIPID, CBCD Result Comment: <200 mg/dL Desirable 200-240 mg/dL Borderline >240 mg/dL High Risk Performed By: #### L 506.0400, L100.0100, L500.4050, L501.9520, L500.4100 #### [facility] [address] [place], [address] Cholesterol in HDL [Mass/Vol] 61 mg/dL Normal [facility] Comment on above: Order Comment: DR SHLOMO JUAREZ TSH, FT4 DR GOINS ORDERED CMP, LIPID, CBCD Result Comment: The drugs N-Acetylcysteine and Metamizole may falsely depress this assay. Reference Range HDL <40 mg/dL Low HDL Cholesterol HDL >or= 60 mg/dL High HDL Cholesterol Performed By: #### L 506.0400, L100.0100, L500.4050, L501.9520, L500.4100 #### [facility] [address] [place], [address] Cholesterol in LDL [Mass/Vol] 89 mg/dL Normal 0-130 [facility] Comment on above: Order Comment: DR SHLOMO JUAREZ TSH, FT4 DR GOINS ORDERED CMP, LIPID, CBCD Performed By: #### L 506.0400, L100.0100, L500.4050, L501.9520, L500.4100 #### [facility] [address] [place], [address] Cholesterol in VLDL [Mass/Vol] 17 mg/dL Normal 5-40 [facility] Comment on above: Order Comment: DR SHLOMO JUAREZ TSH, FT4 DR GOINS ORDERED CMP, LIPID, CBCD Performed By: #### L 506.0400, L100.0100, L500.4050, L501.9520, L500.4100 #### [facility] [address] [place], [address] Triglyceride [Mass/Vol] 87 mg/dL Normal [facility] Comment on above: Order Comment: DR SHLOMO JUAREZ TSH, FT4 DR GOINS ORDERED CMP, LIPID, CBCD Result Comment: The drugs N-Acetylcysteine and Metamizole may falsely depress this assay. Serum Triglycerides Reference Interval Normal <150 mg/dL Borderline high 150 - 199 mg/dL High 200 - 499 mg/dL Very High > or = 500 mg/dL Performed By: #### L 506.0400, L100.0100, L500.4050, L501.9520, L500.4100 #### [facility] [address] [place], [address] Low density lipoprotein (LDL ) cholesterol measurementOrdered By: Laurent Christianson on 12-04-2024 Cholesterol in LDL [Mass/Vol] 89 mg/dL 0-130 [facility] Lymphocytes Auto (Unsp spec) [#/Vol]Ordered By: Laurent Christianson on 12-04-2024 Lymphocytes (Bld) [#/Vol] 1.62 10*3/uL 0.83-4.5 1 [facility] Lymphocytes/100 WBC Auto (Un sp spec)Ordered By: Laurent Christianson on 12-04-2024 Lymphocytes/100 WBC (Bld) 31.8 % 19-41 [facility] MCV (mean corpuscular volume ) determinationOrdered By: Laurent Christianson on 12-04-2024 MCV (RBC) [Entitic vol] 92.0 fL 81-99 [facility] Mean corpuscular hemoglobin (MCH) determinationOrdered By: Laurent Christianson on 12-04-2024 MCH (RBC) [Entitic mass] 30.8 pg 27.0-32.0 [facility] Mean corpuscular hemoglobin concentration (MCHC) determinationOrdered By: Laurent Christianson on 12-04-2024 MCHC (RBC) [Mass/Vol] 33.4 g/dL 32-36 [facility] Mean platelet volume determi nationOrdered By: Laurent Christianson on 12-04-2024 Platelet mean volume (Bld) [Entitic vol] 10.4 fL 6.2-12.0 [facility] Monocyte percentageOrdered B y: Laurent Christianson on 12-04-2024 Monocytes/100 WBC (Bld) 8.8 % 0-10 [facility] Neutrophil percentageOrdered By: Laurent Christianson on 12-04-2024 Neutrophils/100 WBC (Bld) 56.0 % 47-70 [facility] Nucleated red blood cell per centageOrdered By: Laurent Christianson on 12-04-2024 Nucleated RBC/100 WBC (Bld) [Ratio] 0 % 0-5 [facility] Platelet countOrdered By: Myles Christianson on 12-04-2024 Platelets (Bld) [#/Vol] 245 10*3/uL 150-450 [facility] Potassium measurementOrdered By: Laurent Christianson on 12-04-2024 Potassium [Moles/Vol] 3.8 mmol/L 3.5-5.1 [facility] RBC Auto (Bld) [#/Vol]Ordere d By: Laurent Christianson on 12-04-2024 RBC (Bld) [#/Vol] 4.52 10*6/uL 4.2-5.4 [facility] Serum anion gap measurementO rdered By: Laurent Christianson on 12-04-2024 Anion gap [Moles/Vol] 5 mmol/L 5-15 [facility] Serum globulin measurementOr dered By: Laurent Christianson on 12-04-2024 Globulin (S) [Mass/Vol] 3.4 g/dL 2.2-4.2 [facility] Serum or plasma alanine holden otransferase (ALT) measurementOrdered By: Laurent Christianson on 12-04-2024 ALT [Catalytic activity/Vol] 44 U/L 13-56 [facility] Serum or plasma albumin josselyn urement (mass/volume)Ordered By: Laurent Christianson on 12-04-2024 Albumin [Mass/Vol] 3.4 g/dL 3.2-5.0 [facility] Serum or plasma alkaline anastasiya sphatase measurementOrdered By: Laurent Christianson on 12-04-2024 ALP [Catalytic activity/Vol] 80 U/L 45-117 [facility] Serum or plasma calcium josselyn urement (mass/volume)Ordered By: Laurent Christianson on 12-04-2024 Calcium [Mass/Vol] 9.0 mg/dL 8.5-10.1 [facility] Serum or plasma cholesterol measurement (mass/volume)Ordered By: Laurent Christianson on 12-04-2024 Cholesterol [Mass/Vol] 167 mg/dL <200 [facility] Comment on above: <200 mg/dL Desirable 200-240 mg/dL Borderline >240 mg/dL High Risk Serum or plasma creatinine m easurement (mass/volume)Ordered By: Laurent Christianson on 12-04-2024 Creatinine [Mass/Vol] 0.78 mg/dL 0.55-1.02 [facility] Comment on above: The validity of the calculated GFR & GFRAA in patients over 70 years has not been determined. Clinical correlation is essential. Serum or plasma urea nitroge n measurement (mass/volume)Ordered By: Laurent Christianson on 02-22-2025 Urea nitrogen [Mass/Vol] 19 mg/dL High 7-18 [facility] Sodium levelOrdered By: Laurent Christianson on 12-04-2024 Sodium [Moles/Vol] 141 mmol/L 136-145 [facility] T4 Free Directon 12-04-2024 T4 FREE DIRECT 1.05 ng/dL Normal 0.76-1.46 [facility] Comment on above: Order Comment: DR SHLOMO BRUSHED TSH, FT4 DR GOINS ORDERED CMP, LIPID, CBCD Performed By: #### L 506.0400, L100.0100, L500.4050, L501.9520, L500.4100 #### [facility] [address] [place], [place], [id number] (068) TSH QnOrdered By: Laurent Christianson on 12-04-2024 Thyroid Stimulating Hormone (TSH) 0.534 uIU/mL 0.358-3.74 0 [facility] Thyroid Stim Hormone (TSH)on 12-04-2024 TSH 0.534 uIU/mL Normal 0.358-3.74 0 [facility] Comment on above: Order Comment: DR SHLOMO BRUSHED TSH, FT4 DR GOINS ORDERED CMP, LIPID, CBCD Performed By: #### L 506.0400, L100.0100, L500.4050, L501.9520, L500.4100 #### [facility] [address] [place], [place], [id number] Total proteinOrdered By: Darci Christianson on 12-04-2024 Protein [Mass/Vol] 6.8 g/dL 6.4-8.2 [facility] Triglycerides measurementOrd ered By: Laurent Christianson on 12-04-2024 Triglyceride [Mass/Vol] 87 mg/dL <199 [facility] Comment on above: The drugs N-Acetylcy steine and Metamizole may falsely depress this assay.Serum Triglycerides Reference Interval Normal <150 mg/dL Borderline high 150 - 199 mg/dL High 200 - 499 mg/dL Very High > or = 500 mg/dL Very low density lipoprotein (VLDL) cholesterol measurementOrdered By: Laurent Christianson on 12-04-2024 VLDL Cholesterol 17 mg/dL 5-40 [facility] White blood cell (WBC) count Ordered By: Laurent Christianson on 12-04-2024 WBC (Bld) [#/Vol] 5.1 10*3/uL 4.4-11.0 [facility] SCRN MAMM (CAD)W/AYAKA BILATo n 06-01-2024 SCRN MAMM (CAD)W/AYAKA BILAT [facility] Services [address] [place], [place] [address] SCRN MAMM (CAD)W/AYAKA BILAT MR#: [id number] Acct: [id number] Name: LUCIANA ARSHAD FREIDA Rep #: [id number] : 1970 F 53 From: Wayne lopez MD PCP: Dr. Whitney Goins, DO Status: [facility] Study: SCRN MAMM (CAD)W/AYAKA BILAT Date of Exam: 05/14 Exam# [id number] Ordering Dr: Charlotte Rinaldi [id number] MAMMOGRAPHY - BILATERAL SCREENING REASON FOR EXAM: Female, 53 years old. Routine annual screening examination. PERTINENT HISTORY: Aunt with breast cancer. Remote right excisional breast biopsy. TECHNIQUE: Digital bilateral breast ayaka (3D mammographic acquisition) in the CC and MLO projections. 2-D mediolateral oblique (MLO) and craniocaudad (CC) views of both breasts were obtained. CAD: Full Field Digital Mammography with Computer Added Detection was performed. COMPARISON: Comparison is made with prior study May 29, 2023 and May 24, 2022. FINDINGS: Breast Composition: There are scattered areas of fibroglandular density. There are no dominant masses or suspicious calcifications. A tissue clip marker is once again seen in the central medial aspect of the right breast. Stable 5 mm well-defined nodule in the inferior slightly medial aspect of the right breast. No other significant abnormalities are identified. There has been no significant change since the prior study. BI/SCRN MAMM (CAD)W/AYAKA BILAT IMPRESSION: Stable bilateral screening mammogram. Yearly follow-up mammogram recommended. (A) ASSESSMENT CATEGORY: BIRADS Category 2: Benign. A letter regarding these results will be sent to the patient by the facility within 30 days. Approximately 10% of breast cancers are not detected by mammography. A normal mammogram should not delay biopsy of a clinically suspicious abnormality. [id number] Electronically Signed: Wayne Mascorro MD at 10:53 EDT Reading Location ID and State: [address] [place] [address] , Service support , CC: Dr. Whitney Goins DO; Dr. Charlotte Rinaldi MD Clothes Marker: Signed Normal [facility] Crop Pest Control Specialist Office Visit Reporton 05-28-2024 Crop Pest Control Specialist Office Visit Report [facility] [address], [address] [place] [address] OFFICE VISIT Date of Service: 05/28/24 MR#: [id number] Acct: [id number] Name: LUCIANA ARSHAD FREIDA Rep #: [id number] : 1970 Provider: Dr. Charlotte hu MD Age/Sex: 53/F [place] [facility] [place]: [place] Intake Vital Signs 05/26/23 08:46 12/11/23 15:24 05/28/24 09:18 05/28/24 09:23 Height 5 ft 6 in 5 ft 6 in 5 ft 6 in 5 ft 6 in Weight: 188 lb 194 lb BMI 30.3 31.3 BP 123/79 H 106/68 Blood Pressure Location Lt brachial Position Sitting Pulse 68 Pulse Source Monitor Pulse Oximetry (%) 99 Oxygen Delivery Method room air Intake Visit Reasons: Annual (DATA ARCHITECT) [employer] Required: No Is patient in pain?: No Allergies nabumetone Allergy (Severe, Verified 05/28/24 09:19) abdominal pain, diarrhea, bloating, heartburn Sulfa (Sulfonamide Antibiotics) Allergy (Verified 05/28/24 09:19) Rash Medications ???Medication ???Instructions ???Recorded ???Confirmed ???Type calcium carbonate 500 mg-vitamin 1 tab PO DAILY 11/25/19 05/28/24 History D3 5 mcg (200 unit) tablet (Calcium 500 + D) levonorgestrel 21 mcg/24 hr (up to 1 device intrauterine ONCE 04/17/20 05/28/24 History 8 years) 52 mg intrauterine device (Mirena) multivitamin 1 tab PO DAILY 05/26/23 05/28/24 History levothyroxine 112 mcg tablet 112 mcg PO .qd 10/14 on Sundays #90 12/16/23 05/28/24 Rx tabs topiramate 25 mg tablet 50 mg PO DAILY 05/28/24 05/28/24 History Is last menstrual period known: No Post menopausal: Yes (King moy mejia - menopause ) Patient : No : No Control Method: Menopause Nurse's Note: Patient would like to discuss removing IUD PFSH Medical History History of kidney stones Bilateral headaches Pituitary microadenoma Migraine Obesity Hypothyroidism Surgical History H/O oral surgery r ulnar radius reconstruction History of breast biopsy plantar fasciitis repair Family History Grandfather Heart disease Diabetes Grandmother Heart disease Diabetes Mother Thyroid disorder Social History household members: spouse and children number of children: 1 current occupational status: employed current occupation: RN history of recent travel: No sexually active: Yes Smoking Status: Never smoker alcohol intake: current alcohol intake frequency: a few times a month Alcohol type: wine substance use type: does not use caffeine: Yes what type of physical activity do you participate in: walking and running frequency: 5-6 times per week seatbelt use: always do you feel safe at home: Yes History 0 Elective abortions Hx Para 0 Spontaneous abortions Hx # Term Pregnancies Ectopic pregnancies Hx # Pregnancies Multiple births # of living children Past Pregnancies Del. Date Name GA/Weeks Outcome Route Bth Weight Gen Labor Lgth Anesthesia Del Locatn Provider FOB 04/13/07 [place] - adopted HPI Encounter for routine gynecological examination Details: LUCIANA ARSHAD is a 53 year old who presents for annual exam.no menses, on iud, labs showed postmenopausal Last PAP: 2019 History of abnormal PAP: Last mammogram: scheduled for next week History of abnormal mammogram: Colon cancer screening: up to date Other preventative health care screenings: Buster screening labs done with with PCP Female Reproductive History Questions: metorrhagia: No, sexually active: Yes, dyspareunia: No and PCB: No Menopausal Symptoms: Yes hot flashes, Yes night sweats, No weight change, No mood changes, No difficulty concentrating, No sleep problems and No change in libido ROS Const Constitutional: Reports as per HPI and night sweats; Denies fatigue, increased appetite, poor appetite, weight gain or weight loss Cardio Card: Denies chest pain Resp Resp: Denies cough or dyspnea GI GI: Reports as per HPI; Denies abdominal pain, bloating, constipation, nausea or vomiting : Reports as per HPI, hot flashes and other; Denies difficulty voiding, dysuria, hematuria, nipple discharge, pelvic pain, prolapse symptoms, urinary frequency, urinary incontinence, urinary urgency, vaginal discharge, vaginal dryness, vaginal odor or vaginal pruritus Skin Skin/Breast: Denies changing lesions, breast mass, breast pain, breast skin changes or nipple discharge Psych Psych: Denies anxiety, change in libido, depression or difficulty concentrating Exam Const General: cooperative, healthy appearing, comfortable, no acute distress, well developed and well groomed [facility] (more content not included)... Normal [facility] Basophil percentageOrdered B y: Whitney Goins on 12-16-2023 Cholesterol [Mass/Vol] 161 mg/dL <200 [facility] Comment on above: <200 mg/dL Desirable 200-240 mg/dL Borderline >240 mg/dL High Risk Triglyceride [Mass/Vol] 62 mg/dL <199 [facility] Comment on above: The drugs N-Acetylcy steine and Metamizole may falsely depress this assay.Serum Triglycerides Reference Interval Normal <150 mg/dL Borderline high 150 - 199 mg/dL High 200 - 499 mg/dL Very High > or = 500 mg/dL Laboratory - Chemistry and C hemistry - challengeOrdered By: Whitney Goins on 12-16-2023 Cholesterol in HDL [Mass/Vol] 56 mg/dL >40 [facility] Comment on above: The drugs N-Acetylcy steine and Metamizole may falsely depress this assay. Reference Range HDL <40 mg/dL Low HDL Cholesterol HDL >or= 60 mg/dL High HDL Cholesterol Cholesterol in LDL [Mass/Vol] 93 mg/dL 0-130 [facility] No Panel InformationOrdered By: Whitney Goins on 12-16-2023 VLDL Cholesterol 12 mg/dL 5-40 [facility] Serum or plasma thyroid stim ulating hormone (TSH) measurement (units/volume)Ordered By: Laurent Christianson on 12-16-2023 TSH Qn 0.18 uIU/mL 0.358-3.74 [facility] Thin prep Papanicolaou smear with manual screeningOrdered By: Laurent Christianson on 12-16-2023 Thin prep Papanicolaou smear with manual screening 1.19 ng/dL 0.76-1.46 [facility] Laboratory - Chemistry and C hemistry - challengeOrdered By: Laurent Christianson on 09-29-2023 Free T4 [Mass/Vol] 1.35 ng/dL 0.76-1.46 [facility] No Panel InformationOrdered By: Laurent Christianson on 09-29-2023 Thyroid Stimulating Hormone (TSH) 0.04 uIU/mL 0.358-3.74 [facility] Serum or plasma prolactin me asurement (mass/volume)Ordered By: Laurent Christianson on 09-29-2023 Prolactin [Mass/Vol] 15.4 ng/mL [facility] Comment on above: NORMAL REFERENCE RAN GES FEMALE NON- 2.2 - 30.3 ng/mL 8.1 - 347.6 ng/mL POST-MENOPAUSAL 0.7 - 31.5 ng/mL MALE 2.5 - 17.4 ng/mL SARS-CoV-2 Antibody, IgGOrde red By: International Nurse on 02-24-2020 SARS-CoV-2 Antibody, IgG Positive Normal [facility]; [facility] Work Phone: Comment on above: Results suggest rece nt or prior infection with SARS-CoV-2. Correlationwith epidemiologic risk factors and other clinical and laboratoryfindings is recommended. Serologic results should not be used as thesole basis to diagnose or exclude recent SARS-CoV-2 infection. Falsepositive results infrequently occur due to prior infection with otherhuman Coronaviruses.This assay was performed using the Lima SARS-CoV-2 IgG assay. Test(s) [id number]- CoV-2 Antibody, IgGhas not been FDA cleared or approved. This test hasbeen authorized by FDA under an Emergency Use Authorization(EUA). This test is only authorized for the duration of thedeclaration that circumstances exist justifying the authorizationof emergency use of in vitro diagnostics for detection and/ordiagnosis of COVID-19 under Section 564(b)(1) of the Act, 21U.S.C. 360bbb-3(b)(1), unless the authorization is terminated orrevoked sooner. This test has been authorized only for detectingthe presence of antibodies against SARS-CoV-2, not for any otherviruses or pathogens.PATIENT NOT FASTINGPERFORMED BY: [address] [id number] SARS-CoV-2 Antibody, IgG Positive Normal [facility]; [facility] Work Phone: Comment on above: Results suggest rece nt or prior infection with SARS-CoV-2. Correlationwith epidemiologic risk factors and other clinical and laboratoryfindings is recommended. Serologic results should not be used as thesole basis to diagnose or exclude recent SARS-CoV-2 infection. Falsepositive results infrequently occur due to prior infection with otherhuman Coronaviruses.This assay was performed using the [employer]ima SARS-CoV-2 IgG assay. Test(s) [id number]- CoV-2 Antibody, IgGhas not been FDA cleared or approved. This test hasbeen authorized by FDA under an Emergency Use Authorization(EUA). This test is only authorized for the duration of thedeclaration that circumstances exist justifying the authorizationof emergency use of in vitro diagnostics for detection and/ordiagnosis of COVID-19 under Section 564(b)(1) of the Act, 21U.S.C. 360bbb-3(b)(1), unless the authorization is terminated orrevoked sooner. This test has been authorized only for detectingthe presence of antibodies against SARS-CoV-2, not for any otherviruses or pathogens.PATIENT NOT FASTINGPERFORMED BY: [facility] [id number] Free G2Njyvcek By: System Arias solano on 09-14-2018 T3 free mass conc 2.7 pg/mL Normal 2.18-3.98 [facility] Work Phone: T4 Free DirectOrdered By: Sy stem Gerontology Aide on 09-14-2018 T4 free mass conc 0.68 ng/dL Abnormal 0.76-1.46 [facility] Work Phone: Thyroid Stim Hormone (TSH)Or dered By: International Nurse on 09-14-2018 Thyrotropin Qn 0.19 {uIU/mL} Abnormal 0.358-3.74 [facility] Work Phone: Free M5Iuwjdpe By: System Arias solano on 09-10-2018 T3 free mass conc 2.6 pg/mL Normal 2.18-3.98 [facility] Work Phone: T3 Total - TriiodothyronineO rdered By: International Nurse on 09-10-2018 T3 mass conc 0.96 ng/mL Normal 0.6-1.81 [facility] Work Phone: T3 UptakeOrdered By: International Nurse on 09-10-2018 T3 UPTAKE 30 % Normal 30-39 [facility] Work Phone: T7 (FTI) 1.8 1 Normal 1.4-4.5 [facility] Work Phone: T4 Free DirectOrdered By: Sy stem Gerontology Aide on 09-10-2018 T4 free mass conc 0.72 ng/dL Abnormal 0.76-1.46 [facility] Work Phone: T4 Total, ThyroxinOrdered By : International Nurse on 09-10-2018 T4 mass conc 6.0 ug/dL Normal 4.8-13.9 [facility] Work Phone: Thyroid Peroxidase ABOrdered By: International Nurse on 09-10-2018 Thyroperoxidase Ab Qn 27 {IU/mL} Normal 0-34 [facility] Work Phone: Comment on above: Performed at: [address] [id number] Director: Alirio Mishra PhD, Phone: [phone] Thyroid Stim Hormone (TSH)Or dered By: International Nurse on 09-10-2018 Thyrotropin Qn 0.20 {uIU/mL} Abnormal 0.358-3.74 [facility] Work Phone: Free N2Runhtpp By: System Arias solano on 07-28-2018 T3 free mass conc 2.1 pg/mL Abnormal 2.18-3.98 [facility] Work Phone: T4 Free DirectOrdered By: Sy stem Gerontology Aide on 07-28-2018 T4 free mass conc 0.81 ng/dL Normal 0.76-1.46 [facility] Work Phone: Thyroid Stim Hormone (TSH)Or dered By: International Nurse on 07-28-2018 Thyrotropin Qn 2.73 {uIU/mL} Normal 0.358-3.74 [facility] Work Phone: Free F0Qakwmha By: System Arias solano on 06-03-2018 T3 free mass conc 1.8 pg/mL Abnormal 2.18-3.98 [facility] Work Phone: Lipid ProfileOrdered By: Agnes tem Gerontology Aide on 06-03-2018 Cholesterol in HDL mass conc 40 mg/dL Normal [facility] Work Phone: Comment on above: The drugs N-Acetylcy steine and Metamizole may falselydepress this assay. Reference Range HDL <40 mg/dL Low HDL Cholesterol HDL >or= 60 mg/dL High HDL Cholesterol Cholesterol in LDL mass conc 72 mg/dL Normal 0-130 [facility] Work Phone: Cholesterol in VLDL mass conc 16 mg/dL Normal 5-40 [facility] Work Phone: Cholesterol mass conc 128 mg/dL Normal [facility] Work Phone: Comment on above: <200 mg/dL Desirable 200-240 mg/dL Borderline >240 mg/dL High Risk Triglyceride mass conc 81 mg/dL Normal Co [facility] Work Phone: Comment on above: The drugs N-Acetylcy steine and Metamizole may falselydepress this assay.Serum Triglycerides Reference Interval Normal <150 mg/dL Borderline high 150 - 199 mg/dL High 200 - 499 mg/dL Very High > or = 500 mg/dL T4 Free DirectOrdered By: [employer] stem Gerontology Aide on 06-03-2018 T4 free mass conc 1.06 ng/dL Normal 0.76-1.46 [facility] Work Phone: Thyroid Stim Hormone (TSH)Or dered By: International Nurse on 06-03-2018 Thyrotropin Qn 3.36 {uIU/mL} Normal 0.358-3.74 [facility] Work Phone: PAP I-G w/rfx hrHPVOrdered B y: International Nurse on 09-10-2017 COMM . Normal [facility] Work Phone: PAPSMR Comment Normal [facility] Work Phone: Comment on above: The Pap smear is a s creening test designed to aid in thedetection of premalignant and malignant conditions of theuterine cervix. It is not a diagnostic procedure andshould not be used as the sole means of detecting cervicalcancer. Both false-positive and false-negative reports dooccur. This liquid based Th inPrep(R) pap test was screened withthe use of an image guided system. Uvaldo Carlin, [facility] otechnologist (ASCP) Satisfactory for reji luation. Endocervical and/or squamous metaplasticcells (endocervical component) are present. NEGATIVE FOR INTRAEP ITHELIAL LESION AND MALIGNANCY.PLEASE INDICATE LMP ON FUTURE PATIENT'S REQUEST FORMS. The HPV DNA reflex c senait were not met with this specimenresult therefore, no HPV testing was performed.Performed at: [address] [id number] Director: Shiloh Walker MD, Phone: [phone] Free C5Adxingz By: System Arias solano on 06-03-2017 T3 free mass conc 1.8 pg/mL Abnormal 2.18-3.98 [facility] Work Phone: Lipid ProfileOrdered By: Agnes tem Gerontology Aide on 06-03-2017 Cholesterol in HDL mass conc 46 mg/dL Normal [facility] Work Phone: Comment on above: The drugs N-Acetylcy steine and Metamizole may falsely deressthis assay. Reference Range HDL <40 mg/dL Low HDL Cholesterol HDL >or= 60 mg/dL High HDL Cholesterol Cholesterol in LDL mass conc 86 mg/dL Normal 0-130 [facility] Work Phone: Cholesterol in VLDL mass conc 14 mg/dL Normal 5-40 [facility] Work Phone: Cholesterol mass conc 146 mg/dL Normal [facility] Work Phone: Comment on above: <200 mg/dL Desirable 200-240 mg/dL Borderline >240 mg/dL High Risk Triglyceride mass conc 70 mg/dL Normal [facility] Work Phone: Comment on above: The drugs N-Acetylcy steine and Metamizole may falsely deressthis assay.Serum Triglycerides Reference Interval Normal <150 mg/dL Borderline high 150 - 199 mg/dL High 200 - 499 mg/dL Very High > or = 500 mg/dL T4 Free DirectOrdered By: Glen stem Gerontology Aide on 06-03-2017 T4 free mass conc 0.93 ng/dL Normal 0.76-1.46 [facility] Work Phone: Thyroid Stim Hormone (TSH)Or dered By: International Nurse on 06-03-2017 Thyrotropin Qn 2.43 {uIU/mL} Normal 0.358-3.74 [facility] Work Phone: PAP I-G w/rfx hrHPVOrdered B y: International Nurse on 03-03-2017 COMM . Normal [facility] Work Phone: HPV RFLX Comment Normal [facility] Work Phone: Comment on above: The HPV DNA reflex c riteria were not met with this specimenresult therefore, no HPV testing was performed.Performed at: [facility] [address] [id number] Director: Shiloh Walker MD, Phone: [phone] Satisfactory for reji luation. Endocervical and/or squamous metaplasticcells (endocervical component) are present. NEGATIVE FOR INTRAEP ITHELIAL LESION AND MALIGNANCY. The Pap smear is a s creening test designed to aid in thedetection of premalignant and malignant conditions of theuterine cervix. It is not a diagnostic procedure andshould not be used as the sole means of detecting cervicalcancer. Both false-positive and false-negative reports dooccur. Angel Yates Cytot echnologist ([facility]) This liquid based Th inPrep(R) pap test was screened withthe use of an image guided system. CT/NG [facility] BY PCROrdered By: International Nurse on 08-28-2016 NG by PCR Negative Normal [facility] Work Phone: PAP I-G w/rfx hrHPVOrdered B y: International Nurse on 08-28-2016 COMM . Normal [facility] Work Phone: HPV HC,HGH RISK Negative Normal [facility] Work Phone: Comment on above: This high-risk HPV t est detects thirteen high-risk types(16/18/31/33/35/39/45/51/52/56/58/59/68) withoutdifferentiation.Performed at: [facility] [address] [id number] Director: Shiloh Walker MD, Phone: [phone] at: =[address] [id number] Director: Shiloh Walker MD, Phone: [phone] PERFORM Comment Normal [facility] Work Phone: Comment on above: Nohemi He, System Engineer (ASCP) Satisfactory for reji luation. Endocervical and/or squamous metaplasticcells (endocervical component) are present. This liquid based Th inPrep(R) pap test was screened withthe use of an image guided system. Kassie Jin MD, P athologist EPITHELIAL CELL ABNO RMALITY.ATYPICAL SQUAMOUS CELLS OF UNDETERMINED SIGNIFICANCE. The Pap smear is a s creening test designed to aid in thedetection of premalignant and malignant conditions of theuterine cervix. It is not a diagnostic procedure andshould not be used as the sole means of detecting cervicalcancer. Both false-positive and false-negative reports dooccur. See below for HPV te sting results. Protein mass conc Comment Normal [facility] Work Phone: Comment on above: R87.610 CBC, PLATELETS & AUT DIFF ([id number])Ordered By: International Nurse on 06-07-2016 Basophils (Bld) [#/Vol] 0.0 {x10E3/uL} Normal 0.0-0.2 [facility] Work Phone: Comment on above: PATIENT WAS FASTINGP ERFORMED BY: [employer] [facility] TherapeuticsAt[facility] [id number] Information: [id number] Basophils (Bld) [#/Vol] 0.0 10*3/uL Normal 0.0-0.2 [facility]; [facility] Work Phone: Comment on above: PATIENT WAS FASTINGP ERFORMED BY: [employer] [facility] [id number] Information: [id number] Basophils Auto #/vol (Bld) 0.0 {x10E3/uL} Normal 0.0-0.2 [facility] Work Phone: Basophils/100 WBC (Bld) 0 % Normal C omprehensive Internal Medicine Work Phone: Comment on above: PATIENT WAS FASTINGP ERFORMED BY: [facility] [employer] [id number] Information: [id number] Basophils/100 WBC Auto (Bld) 0 % Normal [facility] Work Phone: Eosinophils (Bld) [#/Vol] 0.1 {x10E3/uL} Normal 0.0-0. 4 [facility] Work Phone: Comment on above: PATIENT WAS FASTINGP ERFORMED BY: NOELLE AguilarHannah V[place] 4126970 [facility] [id number] Information: [id number] Eosinophils (Bld) [#/Vol] 0.1 10*3/uL Normal 0.0-0.4 [facility]; [facility] Work Phone: Comment on above: PATIENT WAS FASTINGP ERFORMED BY: [place] [id number] [facility] [id number] Information: [id number] Eosinophils Auto #/vol (Bld) 0.1 {x10E3/uL} Normal 0.0-0.4 [facility] Work Phone: Eosinophils/100 WBC (Bld) 1 % Normal [facility] Work Phone: Comment on above: PATIENT WAS FASTINGP ERFORMED BY: [place] 3731570 [facility] [id number] Information: [id number] Eosinophils/100 WBC Auto (Bld) 1 % Normal [facility] Work Phone: Erythrocyte distribution width (RBC) [Ratio] 13.2 % Normal 12.3-15.4 Comprehensiv e Internal Medicine Work Phone: Comment on above: PATIENT WAS FASTINGP ERFORMED BY: [address] [id number] Information: [id number] Erythrocyte distribution width Auto Ratio (RBC) 13.2 % Normal 12.3-15.4 Comprehen sive Internal Medicine Work Phone: Hematocrit (Bld) [Volume fraction] 39.4 % Normal 34.0-46.6 [facility] Work Phone: Comment on above: PATIENT WAS FASTINGP ERFORMED BY: [address] [id number] Information: [id number] Hematocrit Auto Volume Fraction (Bld) 39.4 % Normal 34.0-46.6 [facility] Work Phone: Hemoglobin mass conc (Bld) 13.4 g/dL Normal 11.1-15.9 [facility] Work Phone: Comment on above: PATIENT WAS FASTINGP ERFORMED BY: [address] [id number] Information: [id number] Immature granulocytes #/vol (Bld) 0.0 {x10E3/uL} Normal 0.0-0.1 [facility] Work Phone: Comment on above: PATIENT WAS FASTINGP ERFORMED BY: [address] [id number] Information: [id number] Immature granulocytes (Bld) [#/Vol] 0.0 10*3/uL Normal 0.0-0.1 [facility]; [facility] Work Phone: Comment on above: PATIENT WAS FASTINGP ERFORMED BY: [address] [id number] Information: [id number] Immature granulocytes/100 WBC (Bld) 0 % Normal [facility] Work Phone: Comment on above: PATIENT WAS FASTINGP ERFORMED BY: [address] [id number] Information: [id number] Lymphocytes (Bld) [#/Vol] 1.6 {x10E3/uL} Normal 0.7-3. 1 [facility] Work Phone: Comment on above: PATIENT WAS FASTINGP ERFORMED BY: [address] [id number] Information: [id number] Lymphocytes (Bld) [#/Vol] 1.6 10*3/uL Normal 0.7-3.1 [facility]; [facility] Work Phone: Comment on above: PATIENT WAS FASTINGP ERFORMED BY: [place] 3731570 [facility] [id number] Information: [id number] Lymphocytes Auto #/vol (Bld) 1.6 {x10E3/uL} Normal 0.7-3.1 [facility] Work Phone: Lymphocytes/100 WBC (Bld) 32 % Normal [facility] Work Phone: Comment on above: PATIENT WAS FASTINGP ERFORMED BY: [address] [id number] Information: [id number] Lymphocytes/100 WBC Auto (Bld) 32 % Normal [facility] Work Phone: MCH (RBC) [Entitic mass] 30.9 pg Normal 26.6-33.0 [facility] Work Phone: Comment on above: PATIENT WAS FASTINGP ERFORMED BY: [address] [id number] Information: [id number] MCH Auto Entitic mass (RBC) 30.9 pg Normal 26.6-33.0 [facility] Work Phone: MCHC (RBC) [Mass/Vol] 34.0 g/dL Normal 31.5-35.7 [facility] prehensive Internal Medicine Work Phone: Comment on above: PATIENT WAS FASTINGP ERFORMED BY: [address] [id number] Information: [id number] MCHC Auto mass conc (RBC) 34.0 g/dL Normal 31.5-35.7 [facility] Work Phone: MCV (RBC) [Entitic vol] 91 fL Normal 79-97 C omprehensive Internal Medicine Work Phone: Comment on above: PATIENT WAS FASTINGP ERFORMED BY: [address] [id number] Information: [id number] MCV Auto Entitic volume (RBC) 91 fL Normal 79-97 [facility] Work Phone: Monocytes (Bld) [#/Vol] 0.5 {x10E3/uL} Normal 0.1-0.9 [facility] Work Phone: Comment on above: PATIENT WAS FASTINGP ERFORMED BY: [address] [id number] Information: [id number] Monocytes (Bld) [#/Vol] 0.5 10*3/uL Normal 0.1-0.9 [facility]; [facility] Work Phone: Comment on above: PATIENT WAS FASTINGP ERFORMED BY: [address] [id number] Information: [id number] Monocytes Auto #/vol (Bld) 0.5 {x10E3/uL} Normal 0.1-0.9 [facility] Work Phone: Monocytes/100 WBC (Bld) 10 % Normal [facility] Work Phone: Comment on above: PATIENT WAS FASTINGP ERFORMED BY: [address] [id number] Information: [id number] Monocytes/100 WBC Auto (Bld) 10 % Normal [facility] Work Phone: Neutrophils (Bld) [#/Vol] 2.8 {x10E3/uL} Normal 1.4-7. 0 [facility] Work Phone: Comment on above: PATIENT WAS FASTINGP ERFORMED BY: [address] [id number] Information: [id number] Neutrophils (Bld) [#/Vol] 2.8 10*3/uL Normal 1.4-7.0 [facility]; [facility] Work Phone: Comment on above: PATIENT WAS FASTINGP ERFORMED BY: [facility]6370 [facility] [id number] Information: [id number] Neutrophils Auto #/vol (Bld) 2.8 {x10E3/uL} Normal 1.4-7.0 [facility] Work Phone: Neutrophils/100 WBC (Bld) 57 % Normal [facility] Work Phone: Comment on above: PATIENT WAS FASTINGP ERFORMED BY: [place] 3731570 [facility] [id number] Information: [id number] Neutrophils/100 WBC Auto (Bld) 57 % Normal [facility] Work Phone: Platelets (Bld) [#/Vol] 238 {x10E3/uL} Normal 150-379 [facility] Work Phone: Comment on above: PATIENT WAS FASTINGP ERFORMED BY: [place] 3731570 [facility] [id number] Information: [id number] Platelets (Bld) [#/Vol] 238 10*3/uL Normal 150-379 [facility]; [facility] Work Phone: Comment on above: PATIENT WAS FASTINGP ERFORMED BY: [place] 3731570 [facility] [id number] Information: [id number] Platelets Auto #/vol (Bld) 238 {x10E3/uL} Normal 150-379 [facility] Work Phone: RBC (Bld) [#/Vol] 4.33 {x10E6/uL} Normal 3.77-5.28 [facility] Internal Medicine Work Phone: Comment on above: PATIENT WAS FASTINGP ERFORMED BY: [place] [id number] [facility] [id number] Information: [id number] RBC (Bld) [#/Vol] 4.33 10*6/uL Normal 3.77-5.28 [facility] Internal Medicine; [facility] Work Phone: Comment on above: PATIENT WAS FASTINGP ERFORMED BY: NOELLE Chikisgenaro Wmwlgc1777 [facility] [id number] Information: [id number] RBC Auto #/vol (Bld) 4.33 {x10E6/uL} Normal 3.77-5.28 [facility] Work Phone: WBC (Bld) [#/Vol] 5.0 {x10E3/uL} Normal 3.4-10.8 [facility] Internal Medicine Work Phone: Comment on above: PATIENT WAS FASTINGP ERFORMED BY: NOELLE JeffDwayne Bgyuei6558 [facility] [id number] Information: [id number] WBC (Bld) [#/Vol] 5.0 10*3/uL Normal 3.4-10.8 [facility] Internal Medicine; [facility] Work Phone: Comment on above: PATIENT WAS FASTINGP ERFORMED BY: NOELLE Chikisgenaro Bfnbat6791 [facility] [id number] Information: [id number] WBC Auto #/vol (Bld) 5.0 {x10E3/uL} Normal 3.4-10.8 [facility] Internal Medicine Work Phone: LIPID PANEL ([id number])Ordered B y: International Nurse on 06-07-2016 Cholesterol in HDL mass conc 46 mg/dL Normal [facility] Work Phone: Comment on above: According to ATP-III Guidelines, HDL-C >59 mg/dL is considered anegative risk factor for CHD. PATIENT WAS FASTINGP ERFORMED BY: NOELLE Chikis Gxaflo5790 [facility] [id number] Cholesterol in LDL mass conc 88 mg/dL Normal 0-99 [facility] Work Phone: Comment on above: PATIENT WAS FASTINGP ERFORMED BY: NOELLE AdYouNetTrinitas HospitalDpabbi5330 [facility] [id number] Cholesterol in LDL/Cholesterol in HDL mass ratio 1.9 {ratio_units} Normal 0.0-3.2 [facility] Work Phone: Comment on above: LDL/HDL Ratio Men Wo men 1/2 Avg.Risk 1.0 1.5 Avg.Risk 3.6 3.2 2X Avg.Risk 6.2 5.0 3X Avg.Risk 8.0 6.1 PATIENT WAS FASTINGP ERFORMED BY: NOELLE LabDwayne CarvalhoYcbzmo9645 [facility] [id number] Cholesterol in VLDL mass conc 14 mg/dL Normal 5-40 [facility] Work Phone: Comment on above: PATIENT WAS FASTINGP ERFORMED BY: NOELLE LabDwayne CarvalhoChhjfr3907 [facility] [id number] Cholesterol mass conc 148 mg/dL Normal 100-199 Com prehensive Internal Medicine Work Phone: Comment on above: PATIENT WAS FASTINGP ERFORMED BY: NOELLE Carvalholin6370 [facility] [id number] Triglyceride mass conc 70 mg/dL Normal 0-149 Co mprehensive [facility] Work Phone: Comment on above: PATIENT WAS FASTINGP ERFORMED BY: NOELLE Carvalholin6370 [facility] [id number] METABOLIC PANEL, COMPREHENSI VE ([id number])Ordered By: International Nurse on 06-07-2016 Albumin mass conc 4.0 g/dL Normal 3.5-5.5 Compreh ensive Internal Medicine Work Phone: Comment on above: PATIENT WAS FASTINGP ERFORMED BY: NOELLE LabDwayne Zsyhbd5408 [facility] [id number] Albumin/Globulin mass ratio 1.6 {ratio} Normal 1.1-2.5 [facility] Work Phone: Comment on above: PATIENT WAS FASTINGP ERFORMED BY: NOELLE LabDwayne CarvalhoIzlddj1704 [facility] [id number] ALP [Catalytic activity/Vol] 54 U/L Normal 39-117 [facility]; [facility] Work Phone: Comment on above: PATIENT WAS FASTINGP ERFORMED BY: NOELLE [facility] Hdkvou87[address] RoadDublin [place] [id number] ALP enzyme act/vol 54 [iU]/L Normal 39-117 [facility] Internal Medicine Work Phone: Comment on above: PATIENT WAS FASTINGP ERFORMED BY: NOELLE [facility] Xbptmr01[address] Live RoadDublin [place] [id number] ALT [Catalytic activity/Vol] 15 U/L Normal 0-32 [facility] Internal Medicine; [facility] Internal Medicine Work Phone: Comment on above: PATIENT WAS FASTINGP ERFORMED BY: NOELLE [facility] Ainlts6[address] RoadDublin [place] [id number] ALT enzyme act/vol 15 [iU]/L Normal 0-32 [facility] Internal Medicine Work Phone: Comment on above: PATIENT WAS FASTINGP ERFORMED BY: NOELLE [facility] Ntvwvv6083 Live RoadDublin [place] [id number] AST [Catalytic activity/Vol] 21 U/L Normal 0-40 [facility] Internal Medicine; [facility] Internal Medicine Work Phone: Comment on above: PATIENT WAS FASTINGP ERFORMED BY: NOELLE [facility] Jmujxm9707 Live RoadCaromont Regional [facility] [place] [id number] AST enzyme act/vol 21 [iU]/L Normal 0-40 [facility] Internal Medicine Work Phone: Comment on above: PATIENT WAS FASTINGP ERFORMED BY: NOELLE [facility] Gamspx4250 Live RoadDuin [place] [id number] Bilirubin mass conc 1.1 mg/dL Normal 0.0-1.2 [facility] Internal Medicine Work Phone: Comment on above: PATIENT WAS FASTINGP ERFORMED BY: NOELLE [facility] Ygtbln0602 Live RoadDublin [place] [id number] Calcium mass conc 8.8 mg/dL Normal 8.7-10.2 [facility] Internal Medicine Work Phone: Comment on above: PATIENT WAS FASTINGP ERFORMED BY: NOELLE [facility] Yqyztz6[address] RoadDublin [place] [id number] Chloride molar conc 104 mmol/L Normal 97-108 Compr ehensive Internal Medicine Work Phone: Comment on above: PATIENT WAS FASTINGP ERFORMED BY: LabBri Pgdwpc4206 [facility] [id number] CO2 molar conc 19 mmol/L Normal 18-29 Comprehens alexander Internal Medicine Work Phone: Comment on above: PATIENT WAS FASTINGP ERFORMED BY: [facility]6370 [facility] [id number] Creatinine mass conc 0.92 mg/dL Normal 0.57-1.00 Comp rehensive Internal Medicine Work Phone: Comment on above: PATIENT WAS FASTINGP ERFORMED BY: [facility]6370 [facility] [id number] GFR/1.73 sq M predicted among blacks CKD-EPI vol rate/area (S/P/Bld) 87 mL/min/1.73 Normal Comprehensiv e Internal Medicine Work Phone: Comment on above: PATIENT WAS FASTINGP ERFORMED BY: [facility]6370 [facility] [id number] GFR/1.73 sq M predicted among non-blacks CKD-EPI vol rate/area (S/P/Bld) 75 mL/min/1.73 Normal Comprehe nsive Internal Medicine Work Phone: Comment on above: PATIENT WAS FASTINGP ERFORMED BY: [facility]6370 [facility] [id number] Globulin (S) [Mass/Vol] 2.5 g/dL Normal 1.5-4.5 C omprehensive Internal Medicine Work Phone: Comment on above: PATIENT WAS FASTINGP ERFORMED BY: [facility]6370 [facility] [id number] Globulin Calculated mass conc (S) 2.5 g/dL Normal 1.5-4.5 [facility] Work Phone: Glucose mass conc 87 mg/dL Normal 65-99 Compreh ensive Internal Medicine Work Phone: Comment on above: PATIENT WAS FASTINGP ERFORMED BY: NOELLE Melva Valencia6370 [facility] [id number] Potassium molar conc 4.2 mmol/L Normal 3.5-5.2 Comp rehensive Internal Medicine Work Phone: Comment on above: PATIENT WAS FASTINGP ERFORMED BY: NOELLE Melva Valencia6370 [facility] [id number] Protein mass conc 6.5 g/dL Normal 6.0-8.5 Compreh ensive Internal Medicine Work Phone: Comment on above: PATIENT WAS FASTINGP ERFORMED BY: NOELLE Chikisgenaro CarvalhoIktsrq3028 [facility] [id number] Sodium molar conc 142 mmol/L Normal 134-144 Compreh ensive Internal Medicine Work Phone: Comment on above: PATIENT WAS FASTINGP ERFORMED BY: NOELLE Carvalholin6370 [facility] [id number] Urea nitrogen mass conc 19 mg/dL Normal 6-24 C omprehensive Internal Medicine Work Phone: Comment on above: PATIENT WAS FASTINGP ERFORMED BY: NOELLE Chikisgenaro Qpwefm2313 [facility] [id number] Urea nitrogen/Creatinine mass ratio 21 mg/mg Normal 9-23 [facility] Work Phone: Comment on above: PATIENT WAS FASTINGP ERFORMED BY: NOELLE Carvalholin6370 [facility] [id number] TSH ([id number])Ordered By: Syste m Gerontology Aide on 06-07-2016 Thyrotropin Qn 2.770 {uIU/mL} Normal 0.450-4.50 0 [facility] Work Phone: Comment on above: PATIENT WAS FASTINGP ERFORMED BY: NOELLE JeffDwayne CarvalhoWgwkcd5796 [facility] [id number] Thyroxine (T4) Free, Direct, SOrdered By: International Nurse on 06-07-2016 T4 free mass conc 1.20 ng/dL Normal 0.82-1.77 Compreh ensive Internal Medicine Work Phone: Triiodothyronine,Free,SerumO rdered By: International Nurse on 06-07-2016 T3 free mass conc 2.3 pg/mL Normal 2.0-4.4 Compreh ensive Internal Medicine Work Phone: Written AuthorizationOrdered By: International Nurse on 06-07-2016 Written Authorization WAR Normal Com prehensive Internal Medicine Work Phone: Comment on above: Written Authorizatio n Received.Authorization received from SIGNATURE ON FILE [id number] by Shaina Mcneal PAP I-G w/rfx hrHPVOrdered B y: International Nurse on 08-02-2015 COMM . Normal [facility] Work Phone: DIAGN Comment Normal [facility] Work Phone: Comment on above: NEGATIVE FOR INTRAEP ITHELIAL LESION AND MALIGNANCY. Satisfactory for reji luation. Endocervical and/or squamous metaplasticcells (endocervical component) are present. Govind Zhang [employer] hnologist (ASCP) This liquid based Th inPrep(R) pap test was screened withthe use of an image guided system. The Pap smear is a s creening test designed to aid in thedetection of premalignant and malignant conditions of theuterine cervix. It is not a diagnostic procedure andshould not be used as the sole means of detecting cervicalcancer. Both false-positive and false-negative reports dooccur. The HPV DNA reflex c senait were not met with this specimenresult therefore, no HPV testing was performed.Performed at: [facility], [place] [id number] Director: Alfredo Alejandre MD, Phone: [phone] CBC W/Diff, AutomatedOrdered By: International Nurse on 05-26-2015 Absolute Lymph 1.52 {X10_3/ul} Normal 0.83-4.51 Compr ehensive Internal Medicine Work Phone: Absolute Neut 4.1 {X10_3/uL} Normal 2.0-7.7 Compreh ensive Internal Medicine Work Phone: Basophils/100 WBC Auto (Bld) 0.3 % Normal 0-1 [facility] Internal Medicine Work Phone: Eosinophils/100 WBC Auto (Bld) 1.3 % Normal 0-5 [facility] Internal Medicine Work Phone: Erythrocyte distribution width Auto Ratio (RBC) 12.9 % Normal 11.6-14.6 Comprehen siv Internal Medicine Work Phone: Hematocrit Auto Volume Fraction (Bld) 40.6 % Normal 37-47 [facility] Internal Medicine Work Phone: Hemoglobin mass conc (Bld) 13.4 g/dL Normal 12.0-15.0 [facility] Internal Medicine Work Phone: IM GRAN % 0.200 % Normal 0.0-0.9 [facility] Internal Medicine Work Phone: Comment on above: IG% - Immature Granu locytes (promyelocytes, myelocytes andmetamyelocytes) > 1% indicates that a LEFT SHIFT is Present. Lymphocytes Auto #/vol (Bld) 1.52 {X10_3/ul} Normal 0.83-4.51 [facility] Internal Medicine Work Phone: Lymphocytes/100 WBC Auto (Bld) 24.5 % Normal 19-41 [facility] Internal Medicine Work Phone: MCH Auto Entitic mass (RBC) 31.1 pg Normal 27.0-32.0 [facility] Internal Medicine Work Phone: MCHC Auto mass conc (RBC) 33.0 {g/gl} Normal 32-36 [facility] Internal Medicine Work Phone: MCV Auto Entitic volume (RBC) 94.2 fL Normal 81-99 [facility] Internal Medicine Work Phone: Monocytes/100 WBC Auto (Bld) 8.4 % Normal 0-10 [facility] Internal Medicine Work Phone: Neutrophils/100 WBC Auto (Bld) 65.3 % Normal 47-70 [facility] Internal Medicine Work Phone: Platelet mean volume Auto Entitic volume (Bld) 10.7 fL Normal 6.2-12.0 Comprehensi ve Internal Medicine Work Phone: Platelets Auto #/vol (Bld) 220 10*3/uL Normal 150-450 [facility] Work Phone: RBC Auto #/vol (Bld) 4.31 {M/mm3} Normal 4.2-5.4 Co mprehensive Internal Medicine Work Phone: RDW SD 43.3 fL Normal 35.1-43.9 [facility] Work Phone: WBC Auto #/vol (Bld) 6.2 10*3/uL Normal 4.4-11.0 Com prehensive Internal Medicine Work Phone: Comprehensive Metabolic Prof ilOrdered By: International Nurse on 05-26-2015 Comprehensive metabolic 2000 panel 17 mg/dL Normal 7-18 [facility] Work Phone: Comprehensive metabolic 2000 panel 78 mg/dL Normal 70-110 [facility] Work Phone: Comprehensive metabolic 2000 panel 3.2 g/dL Normal 2.3-3.5 [facility] Work Phone: Comprehensive metabolic 2000 panel 1.1 {RATIO} Normal 0.9-2.4 [facility] Work Phone: Comprehensive metabolic 2000 panel 8.3 mg/dL Abnormal 8.5-10.1 [facility] Work Phone: Comprehensive metabolic 2000 panel 3.6 g/dL Normal 3.4-5.0 [facility] Work Phone: Comprehensive metabolic 2000 panel 56 U/L Normal 50-136 [facility] Work Phone: Comprehensive metabolic 2000 panel 0.90 mg/dL Normal 0.20-1.00 [facility] Work Phone: Comprehensive metabolic 2000 panel 6.8 g/dL Normal 6.4-8.2 [facility] Work Phone: Comprehensive metabolic 2000 panel 19.8 {RATIO} Normal 10-20 [facility] Work Phone: Comprehensive metabolic 2000 panel 140 mmol/L Normal 136-145 [facility] Work Phone: Comprehensive metabolic 2000 panel 3.9 mmol/L Normal 3.5-5.1 [facility] Work Phone: Comprehensive metabolic 2000 panel 111 mmol/L Abnormal 98-107 [facility] Work Phone: Comprehensive metabolic 2000 panel 24.0 mmol/L Normal 21.0-32.0 [facility] Work Phone: Comprehensive metabolic 2000 panel 5 1 Normal 5-15 [facility] Work Phone: Comprehensive metabolic 2000 panel 92 mL/min Normal [facility] Work Phone: Comprehensive metabolic 2000 panel 76 mL/min Normal [facility] Work Phone: Comprehensive metabolic 2000 panel 19 U/L Normal 15-37 [facility] Work Phone: Comprehensive metabolic 2000 panel 26 U/L Normal 12-78 [facility] Work Phone: Comprehensive metabolic 2000 panel 0.86 mg/dL Normal 0.55-1.20 [facility] Work Phone: Comment on above: Please note revised CREATININE reference range [id number]/22/2015. Lipid ProfileOrdered By: Agnes tem Gerontology Aide on 05-26-2015 Cholesterol in HDL mass conc 44 mg/dL Normal [facility] Work Phone: Comment on above: Reference Range HDL <40 mg/dL Low HDL Cholesterol HDL >or= 60 mg/dL High HDL Cholesterol Cholesterol in LDL mass conc 77 mg/dL Normal 0-130 [facility] Work Phone: Cholesterol in VLDL mass conc 14 mg/dL Normal 5-40 [facility] Work Phone: Cholesterol mass conc 135 mg/dL Normal Com prehensive Internal Medicine Work Phone: Comment on above: <200 mg/dL Desirable 200-240 mg/dL Borderline >240 mg/dL High Risk Triglyceride mass conc 70 mg/dL Normal Co mprehensive Internal Medicine Work Phone: Comment on above: Serum Triglycerides Reference Interval Normal <150 mg/dL Borderline high 150 - 199 mg/dL High 200 - 499 mg/dL Very High > or = 500 mg/dL Thyroid Stim Hormone (TSH)Or dered By: International Nurse on 05-26-2015 Thyrotropin Qn 1.74 {uIU/mL} Normal 0.358-3.74 Compreh ensive Internal Medicine Work Phone: Urinalysis, CompleteOrdered By: International Nurse on 04-16-2015 BACTERIA 2+ Normal [facility] Work Phone: CLARITY Sl. Cloudy Normal [facility] Work Phone: COLOR Yellow Normal [facility] Work Phone: GLUCOSE, UR Normal Normal [facility] Work Phone: KETONE UR Negative Normal [facility] Work Phone: LEUK ESTERASE 500 /ul Abnormal Comprehensi ve Internal Medicine Work Phone: MUCUS, URINE 0 SEEN Normal Comprehensiv e Internal Medicine Work Phone: OCCULT BLOOD-UR 150 /ul Abnormal Comprehen sive Internal Medicine Work Phone: pH UR 6.0 1 Normal 5.0 - 8.0 [facility] Work Phone: PROT DIPSTX 30 mg/dL Abnormal [facility] Work Phone: RBC Test strip #/vol (U) 10-25 SEEN Normal 0-5 Comprehensive Internal Medicine Work Phone: RENAL EPI 0-5 SEEN Normal 5-10 [facility] Work Phone: SP.GR. DIPSTX 1.020 1 Normal 1.002-1.03 0 [facility] Work Phone: WBC >100 SEEN Normal 0-5 [facility] Work Phone: [id number] By: System Man ager on 07-22-2014 PAPIG5 Comment Normal [facility] Work Phone: Comment on above: The HPV DNA reflex param sapp were not met with this specimenresult therefore, no HPV testing was performed.Performed at: [address] [id number] Director: Alfredo Alejandre MD, Phone: [phone] The Pap smear is a s creening test designed to aid in thedetection of premalignant and malignant conditions of theuterine cervix. It is not a diagnostic procedure andshould not be used as the sole means of detecting cervicalcancer. Both false-positive and false-negative reports dooccur. NEGATIVE FOR INTRAEP ITHELIAL LESION AND MALIGNANCY. Satisfactory for reji luation. Endocervical and/or squamous metaplasticcells (endocervical component) are present. Lio Ulloa, Cyto technologist (ASCP) This liquid based Th inPrep(R) pap test was screened withthe use of an image guided system. PAPIG5 . Normal [facility] Internal Medicine Work Phone: CMPOrdered By: System Manage r on 06-02-2014 Albumin mass conc 3.4 g/dL Normal 3.4-5.0 Compreh [facility] Internal Medicine Work Phone: Albumin/Globulin mass ratio 1.0 {RATIO} Normal 0.9-2.4 [facility] Medicine Work Phone: ALP enzyme act/vol 67 U/L Normal 45-117 [facility] Internal Medicine Work Phone: ALT enzyme act/vol 36 U/L Normal 12-78 [facility] Internal Medicine Work Phone: AST enzyme act/vol 25 U/L Normal 15-37 [facility] Internal Medicine Work Phone: Bilirubin mass conc 0.90 mg/dL Normal 0.00-1.00 [facility] Internal Medicine Work Phone: Calcium mass conc 8.4 mg/dL Abnormal 8.5-10.1 Compreh [facility] Internal Medicine Work Phone: Chloride molar conc 107 mmol/L Normal 98-107 [facility] Internal Medicine Work Phone: CO2 molar conc 26.0 mmol/L Normal 21.0-32.0 [facility] Work Phone: Creatinine mass conc 0.8 mg/dL Normal 0.6-1.0 Comp [facility] Internal Medicine Work Phone: GFR/1.73 sq M predicted among non-blacks MDRD vol rate/area (S/P/Bld) 83 mL/min/{1.73_m2} Normal Comprehe nsive Internal Medicine Work Phone: Globulin Calculated mass conc (S) 3.4 g/dL Normal 2.7-4.2 [facility] Work Phone: Glucose mass conc 86 mg/dL Normal 70-110 [facility] Work Phone: Potassium molar conc 3.8 mmol/L Normal 3.5-5.1 Comp rehensive [facility] Work Phone: Protein mass conc 6.8 g/dL Normal 6.4-8.2 [facility] Work Phone: Sodium molar conc 140 mmol/L Normal 136-145 [facility] Work Phone: Urea nitrogen mass conc 17 mg/dL Normal 7-18 [facility] Work Phone: Urea nitrogen/Creatinine mass ratio 21.3 {RATIO} Abnormal 10-20 [facility] Work Phone: CMP 101 mL/min Normal [facility] Work Phone: CMP 7 1 Normal 5-15 [facility] Work Phone: LIPIDOrdered By: Preston finney on 06-02-2014 Cholesterol in HDL mass conc 46 mg/dL Normal [facility] Work Phone: Comment on above: Reference RangeHDL < 40 mg/dL Low HDL CholesterolHDL >or= 60 mg/dL High HDL Cholesterol Cholesterol in LDL mass conc 85 mg/dL Normal 0-130 [facility] Work Phone: Cholesterol mass conc 148 mg/dL Normal Com prehensive [facility] Work Phone: Comment on above: <200 mg/dL Desirable 200-240 mg/dL Borderline>240 mg/dL High Risk Triglyceride mass conc 84 mg/dL Normal 0-199 [facility] Work Phone: Comment on above: Serum Triglycerides Reference IntervalNormal <150 mg/dLBorderline high 150 - 199 mg/dLHigh 200 - 499 mg/dLVery High > or = 500 mg/dL LIPID 17 mg/dL Normal 5-40 [facility] Work Phone: TSHOrdered By: System Manage r on 06-02-2014 Thyrotropin Qn 1.82 {uIU/mL} Normal 0.358-3.74 Compreh [facility] Internal Medicine Work Phone: CMPOrdered By: System Manage r on 08-05-2013 Albumin mass conc 3.5 g/dL Normal 3.4-5.0 Compreh [facility] Internal Medicine Work Phone: Albumin/Globulin mass ratio 1.0 {RATIO} Normal 0.9-2.4 [facility] Medicine Work Phone: ALP enzyme act/vol 73 U/L Normal 50-136 Compre [facility] Internal Medicine Work Phone: ALT enzyme act/vol 30 U/L Normal 12-78 Compre [facility] Internal Medicine Work Phone: AST enzyme act/vol 23 U/L Normal 15-37 Compre [facility] Internal Medicine Work Phone: Bilirubin mass conc 0.70 mg/dL Normal 0.00-1.00 Compr [facility] Internal Medicine Work Phone: Calcium mass conc 8.6 mg/dL Normal 8.5-10.1 Compreh [facility] Internal Medicine Work Phone: Chloride molar conc 108 mmol/L Abnormal 98-107 Compr [facility] Internal Medicine Work Phone: CO2 molar conc 24.0 mmol/L Normal 21.0-32.0 [facility] Work Phone: Creatinine mass conc 0.9 mg/dL Normal 0.6-1.0 Comp [facility] Internal Medicine Work Phone: GFR/1.73 sq M predicted among non-blacks MDRD vol rate/area (S/P/Bld) 73 mL/min/{1.73_m2} Normal Comprehe [facility] Internal Medicine Work Phone: Globulin Calculated mass conc (S) 3.4 g/dL Normal 2.7-4.2 [facility] Internal Medicine Work Phone: Glucose mass conc 88 mg/dL Normal 70-110 Compreh ensive [facility] Work Phone: Potassium molar conc 4.1 mmol/L Normal 3.5-5.1 Comp rehensive [facility] Work Phone: Protein mass conc 6.9 g/dL Normal 6.4-8.2 Compre[facility] Work Phone: Sodium molar conc 142 mmol/L Normal 136-145 [facility]pre[facility] Work Phone: Urea nitrogen mass conc 13 mg/dL Normal 7-18 [facility] Work Phone: Urea nitrogen/Creatinine mass ratio 14.4 {RATIO} Normal 10-20 [facility] Work Phone: CMP 88 mL/min Normal [facility] Work Phone: CMP 10 1 Normal 5-15 [facility] Work Phone: LIPIDOrdered By: System Yancy sharmin on 08-05-2013 Cholesterol in HDL mass conc 40 mg/dL Normal [facility] Work Phone: Comment on above: Reference RangeHDL < 40 mg/dL Low HDL CholesterolHDL >or= 60 mg/dL High HDL Cholesterol Cholesterol in LDL mass conc 91 mg/dL Normal 0-130 [facility] Work Phone: Cholesterol mass conc 164 mg/dL Normal Com [facility]hens[facility] Work Phone: Comment on above: <200 mg/dL Desirable 200-240 mg/dL Borderline>240 mg/dL High Risk Triglyceride mass conc 166 mg/dL Normal 0-199 [facility] Work Phone: Comment on above: Serum Triglycerides Reference IntervalNormal <150 mg/dLBorderline high 150 - 199 mg/dLHigh 200 - 499 mg/dLVery High > or = 500 mg/dL LIPID 33 mg/dL Normal 5-40 [facility] Work Phone: TSHOrdered By: System [employer] r on 08-05-2013 Thyrotropin Qn 1.21 {uIU/mL} Normal 0.358-3.74 Compreh ens[facility] Work Phone: [id number] By: System Manage r on 03-24-2013 FT3 2.5 pg/mL Normal 2.18-3.98 [facility] Work Phone: [id number] By: System Manage r on 03-24-2013 T4F 1.02 ng/dL Normal 0.76-1.46 [facility] Work Phone: TPOOrdered By: System Manage r on 03-24-2013 TPO 10 {IU/mL} Normal 0-34 [facility] Work Phone: Comment on above: Performed at: [place] [id number] Director: Zac Khanna PhD, Phone: [phone] TSHOrdered By: System Manage r on 03-24-2013 Thyrotropin Qn 1.74 {uIU/mL} Normal 0.358-3.74 Compre[facility] Work Phone: CMPOrdered By: System Manage r on 02-02-2013 Albumin mass conc 3.5 g/dL Normal 3.4-5.0 Compre[facility] ens[facility] Work Phone: ALT enzyme act/vol 25 U/L Normal 12-78 Compre hensive [facility] Work Phone: AST enzyme act/vol 15 U/L Normal 15-37 Compre hensive [facility] Work Phone: Calcium mass conc 8.9 mg/dL Normal 8.5-10.1 Compreh ens[facility] Work Phone: Chloride molar conc 107 mmol/L Normal 98-107 Compr ehensive [facility] Work Phone: CO2 molar conc 25.0 mmol/L Normal 21.0-32.0 Comprehen sive [facility] Work Phone: Creatinine mass conc 0.8 mg/dL Normal 0.6-1.0 Comp rehensive [facility] Work Phone: GFR/1.73 sq M predicted among non-blacks MDRD vol rate/area (S/P/Bld) 84 mL/min/{1.73_m2} Normal Comprehe nsive [facility] Work Phone: Globulin Calculated mass conc (S) 3.3 g/dL Normal 2.7-4.2 [facility] Work Phone: Glucose mass conc 91 mg/dL Normal 70-110 Compreh ens[facility] Work Phone: Potassium molar conc 4.2 mmol/L Normal 3.5-5.1 Comp rehens[facility] Work Phone: Protein mass conc 6.8 g/dL Normal 6.4-8.2 Compreh ens[facility] Work Phone: Sodium molar conc 140 mmol/L Normal 136-145 Compre[facility] ens[facility] Work Phone: Urea nitrogen mass conc 16 mg/dL Normal 7-18 [facility] Work Phone: CMP 0.90 mg/dL Normal 0.00-1.00 [facility] Work Phone: CMP 64 U/L Normal 50-136 [facility] Work Phone: CMP 8 1 Normal 5-15 [facility] Work Phone: CMP 20.0 {RATIO} Normal 10-20 [facility] e [facility] Work Phone: CMP 102 mL/min Normal [facility] Work Phone: CMP 1.1 {RATIO} Normal 0.9-2.4 [facility] Work Phone: LIPIDOrdered By: Preston finney on 02-02-2013 Cholesterol in HDL mass conc 41 mg/dL Normal [facility] Work Phone: Comment on above: Reference RangeHDL < 40 mg/dL Low HDL CholesterolHDL >or= 60 mg/dL High HDL Cholesterol Cholesterol in LDL mass conc 95 mg/dL Normal 0-130 [facility] Work Phone: Cholesterol mass conc 159 mg/dL Normal Com [facility] Work Phone: Comment on above: <200 mg/dL Desirable 200-240 mg/dL Borderline>240 mg/dL High Risk Triglyceride mass conc 114 mg/dL Normal [facility] Work Phone: Comment on above: Serum Triglycerides Reference IntervalNormal <150 mg/dLBorderline high 150 - 199 mg/dLHigh 200 - 499 mg/dLVery High > or = 500 mg/dL LIPID 23 mg/dL Normal 5-40 [facility] Work Phone: TSHOrdered By: System Manage r on 02-02-2013 Thyrotropin Qn 3.77 {uIU/mL} Abnormal 0.358-3.74 Compreh ens[facility] Work Phone: BILAT SCRN DIGITAL & CADOrde red By: International Nurse on 06-10-2012 BILAT SCRN DIGITAL & CAD See Note Normal [facility] Work Phone: Comment on above: MAMMOGRAPHY - BILATE RAL SCREENING REASON FOR EXAM: Female, 41 years old. Routine annual screeningexamination. PERTINENT HISTORY: Non-contributory. TECHNIQUE: Digital examination. Mediolateral oblique (MLO) andcraniocaudad (CC) views of both breasts were obtained. CAD: CAD wasperformed on this study. COMPARISON: Comparison is made with prior study dated June 072007. FINDINGS:The breast composition is composed of scattered fibroglandular densities. There are no dominant masses or suspicious calcifications. EKG monitorclip is seen in the mid medial aspect of the right breast. No other significant abnormalities are identified. There has been nosignificant change since the prior study. IMPRESSION:Stable bilateral screening mammogram. Yearly follow-up recommended. (A) ASSESSMENT CATEGORY:BIRADS Category 2: Benign finding(s). A letter regarding these resultswill be sent to the patient by the facility within 30 days. Approximately 10% of breast cancers are not detected by mammography. Anormal mammogram should not delay biopsy of a clinically suspiciousabnormality. Signed:Wayne Mascorro M.D.June 10, 2012 at 9:55:07 AM [id number] Signed GP/GP If you are the referring physician and would like to consult with theradiologist who provided this interpretation, please contact Edelmira Juarez at [phone]. If this radiologist is unavailable, youwill be directed to another radiologist to assist. If you are a patient with a question regarding this report, pleasecontactyour referring physician directly. Professional Interpretation Provided By: [employer], Phone , These documents contain legally protected and confidential healthinformation intended only for the use of the individual or entity namedabove. If you are not the intended recipient, you are hereby notifiedthatany disclosure, copying, distribution, or other use of these documents isstrictly prohibited. If you have received this information in error,pleasenotify the sender immediately and arrange for the return or destructionofthese documents. Dictated on 06/10/12 0926 by Subha CRESPO,Elranscribed on 06/10/12 1001 by ITS IMPORTSign by Subha CRESPO,Wayne on 06/10/12 1002 Sign by: Wayne Mascorro MD CUUROrdered By: System Manag er on 03-06-2012 CUUR See Note Normal [facility] Work Phone: Comment on above: COLONY COUNT 1000-10 ,000 [id number] By: System Manage r on 03-06-2012 FT3 2.5 pg/mL Normal 2.18-3.98 [facility] Work Phone: [id number] By: System Manage r on 03-06-2012 T4 free mass conc 0.85 ng/dL Normal 0.76-1.46 Compreh ensive [facility] Work Phone: TSHOrdered By: System Manage r on 03-06-2012 Thyrotropin Qn 2.86 {uIU/mL} Normal 0.358-3.74 Compreh ens[facility] Work Phone: URINE ALFREDO CULTURE-EDWARD COL C OUNT ([id number])Ordered By: International Nurse on 09-09-2011 Bacteria identified Cx Nom (U) Final report Normal [facility] Work Phone: Comment on above: PERFORMED BY: [id number] [id number] [facility] [id number] Information: SRC: URETHRA Bacteria identified Cx Nom (U) ECV Normal [facility] Work Phone: Comment on above: Escherichia coli, id entified by an automated biochemical system.1,000 Colonies/mLMixed urogenital [id number] Colonies/mL S = Susceptible; I = Intermediate; R = Resistant P = Positive; N = Negative MICS are expressed in micrograms per mL Antibiotic RSLT#1 RSLT#2 RSLT#3 RSLT#4Amoxicillin/Clavulanic Acid SAmpicillin RCefazolin SCefepime SCeftriaxone SCefuroxime SCephalothin ICiprofloxacin SESBL NErtapenem SGentamicin SImipenem SLevofloxacin SNitrofurantoin SPiperacillin RTetracycline RTobramycin STrimethoprim/Sulfa S PERFORMED BY: Tok3n [id number] Live RoadAt[facility] Health [facility] [id number] Information: SRC: URETHRA Urinalysis, Office ([id number])Or dered By: Leticia Loera on 09-09-2011 Bilirubin Ql (U) Negative Normal Comprehe ns[facility] Work Phone: Bilirubin Ql (U) Negative Normal Comprehe nsive [facility]; [facility] Work Phone: Glucose Test strip (U) [Mass/Vol] Negative Normal [facility]; [facility] Work Phone: Glucose Test strip mass conc (U) Negative Normal [facility] Work Phone: Hemoglobin Ql (U) Non Hemolyzed Trace Normal [facility] Work Phone: Hemoglobin Test strip Ql (U) Non Hemolyzed Trace Normal Comprehens[facility] e [facility] Work Phone: Ketones Ql (U) Negative Normal [facility] Work Phone: Ketones Ql (U) Negative Normal [facility]; [facility] Work Phone: Leukocyte esterase Test strip Ql (U) Negative Normal [facility] Work Phone: Leukocyte esterase Test strip Ql (U) Negative Normal [facility]; [facility] Work Phone: Nitrite Ql (U) Negative Normal [facility] Work Phone: Nitrite Ql (U) Negative Normal [facility]; [facility] Work Phone: Nitrite Test strip Ql (U) Negative Normal [facility] Work Phone: pH (U) 6.5 [pH] Normal [facility] Work Phone: pH Test strip (U) 6.5 [pH] Normal Compreh ens[facility] Work Phone: Protein Ql (U) Negative Normal [facility] Work Phone: Protein Ql (U) Negative Normal [facility]; [facility] Work Phone: Protein Test strip Ql (U) Negative Normal [facility] Work Phone: Specific gravity Relative Density (U) 1.025 1 Normal [facility] Work Phone: Urobilinogen mass/time (24H U) Normal Normal [facility] Work Phone: FREE [id number] By: Preston solano on 07-08-2011 T3 free mass conc 2.2 pg/mL Normal 2.18-3.98 Compre[facility] ens[facility] Work Phone: T4 FREE DIRECTOrdered By: Sy stem Gerontology Aide on 07-08-2011 T4 free mass conc 0.87 ng/dL Normal 0.76-1.46 Compreh ensive [facility] Work Phone: TPO AB [id number] By: Syste m Gerontology Aide on 07-08-2011 TPO AB [id number] 7 {IU/mL} Normal 0-34 [facility] Work Phone: Comment on above: Performed at: [address] [id number] Director: Ashleigh Abraham MD, Phone: [phone] TSHOrdered By: System Manage r on 07-08-2011 Thyrotropin Qn 3.55 {uIU/mL} Normal 0.358-3.74 Compreh ensive [facility] Work Phone: Urinalysis, Office ([id number])Or dered By: Fatoumata Thao on 06-10-2011 Bilirubin Ql (U) Negative Normal Compre[facility] ns[facility] Work Phone: Glucose Test strip mass conc (U) Negative Normal [facility] Work Phone: Hemoglobin Test strip Ql (U) Hemolyzed Trace Normal [facility] Work Phone: Ketones Ql (U) Negative Normal [facility] Work Phone: Leukocyte esterase Test strip Ql (U) Negative Normal [facility] Work Phone: Nitrite Test strip Ql (U) Negative Normal [facility] Work Phone: pH Test strip (U) 7.0 [pH] Normal Compre[facility] ens[facility] Work Phone: Protein Test strip Ql (U) Negative Normal [facility] Work Phone: Specific gravity Relative Density (U) 1.020 1 Normal [facility] Work Phone: Urobilinogen mass/time (24H U) Normal Normal [facility] Work Phone: Urinalysis, Office ([id number])on 06-10-2011 Bilirubin Ql (U) Negative Normal Compre[facility] ns[facility]; [facility] Work Phone: Glucose Test strip (U) [Mass/Vol] Negative Normal [facility]; [facility] Work Phone: Hemoglobin Ql (U) Hemolyzed Trace Normal [facility] Work Phone: Ketones Ql (U) Negative Normal [facility]; [facility] Work Phone: Leukocyte esterase Test strip Ql (U) Negative Normal [facility]; [facility] Work Phone: Nitrite Ql (U) Negative Normal [facility] Work Phone: Nitrite Ql (U) Negative Normal [facility]; [facility] Work Phone: pH (U) 7.0 [pH] Normal [facility] Work Phone: Protein Ql (U) Negative Normal [facility] Work Phone: Protein Ql (U) Negative Normal [facility]; [facility] Work Phone: CBCD,SMEAR DIFFOrdered By: Reid ystem Gerontology Aide on 06-07-2011 Eosinophils/100 WBC Auto (Bld) 1 % Normal 0-5 [facility] Work Phone: Erythrocyte distribution width Auto Ratio (RBC) 13.6 % Normal 11.6-14.6 Comprehen sive [facility] Work Phone: Hematocrit Auto Volume Fraction (Bld) 38.6 % Normal 37-47 [facility] Work Phone: Hemoglobin mass conc (Bld) 13.3 g/dL Normal 12.0-16.0 [facility] Work Phone: Lymphocytes/100 WBC Auto (Bld) 42 % Abnormal 19-41 [facility] Work Phone: MCH Auto Entitic mass (RBC) 30.4 pg Normal 27.0-32.0 [facility] Work Phone: MCHC Auto mass conc (RBC) 34.4 g/dL Normal 32-36 [facility] Work Phone: MCV Auto Entitic volume (RBC) 88.6 fL Normal 81-99 [facility] Work Phone: Monocytes/100 WBC Auto (Bld) 5 % Normal 0-10 [facility] Work Phone: Neutrophils Auto #/vol (Bld) 3.5 3/uL Normal 2.0-7.7 [facility] Work Phone: Platelets Auto #/vol (Bld) 254 10*3/uL Normal 150-450 [facility] Work Phone: RBC Auto #/vol (Bld) 4.36 {M/mm3} Normal 4.2-5.4 [facility] Work Phone: WBC Auto #/vol (Bld) 5.9 10*3/uL Normal 4.4-11.0 [facility] Work Phone: CBCD,SMEAR DIFF SeeNote Normal [facility] Work Phone: Comment on above: Result: NORM C+C Result: Negative MAMMOGRAPHY - BILATE RAL SCREENING REASON FOR EXAM: Female, 40 years old. Routine annual screeningexamination. PERTINENT HISTORY: Non-contributory. The patient has a history ofpriorright excisional breast biopsy. TECHNIQUE: Digital examination. Mediolateral oblique (MLO) andcraniocaudad (CC) views of both breasts were obtained. CAD: CAD wasperformed on this study. COMPARISON: Comparison is made with prior examination dated March. FINDINGS:The breast composition is composed of scattered fibroglandular densities. There are no masses or suspicious microcalcifications. There is evidenceof focal architectural distortion in the upper outer aspect of the rightbreast. This is in keeping with the patient's history of priorexcisionalbiopsy. No other significant abnormalities are identified. IMPRESSION:Normal bilateral screening mammogram. One year follow-up recommended. (A) ASSESSMENT CATEGORY:BIRADS Category 2: Benign finding(s). A letter regarding these resultswill be sent to the patient by the facility within 30 days. Approximately 10% of breast cancers are not detected by mammography. Anormal mammogram should not delay biopsy of a clinically suspiciousabnormality. Dictated on 06/07/11 0949 by Subha CRESPO,FredeleTranscribed on 06/07/11 1404 by ITS IMPORTSign by Wayne Mascorro MD on 06/07/11 1405 Sign by: Wayne Mascorro MD Result: 0-5 SEEN Result: ADEQUATE CBCD,SMEAR DIFF 52 % Normal 47-70 [facility] Work Phone: CBCD,SMEAR DIFF 100 1 Normal [facility] Work Phone: COMPLETE UAOrdered By: Jt Bishop on 06-07-2011 RBC Test strip #/vol (U) SeeNote Normal 0-5 [facility] Work Phone: Comment on above: Result: 0-5 SEEN COMPLETE UA Yellow Normal [facility] Work Phone: COMPLETE UA Cloudy Normal [facility] Work Phone: COMPLETE UA 0 SEEN Normal [facility] Work Phone: COMPLETE UA 1+ Abnormal [facility] Work Phone: COMPLETE UA 3+ Abnormal [facility] Work Phone: COMPLETE UA 0.2 EU/dl Normal 0.2 - 1.0 [facility] Work Phone: COMPLETE UA 5.5 1 Normal 5.0-8.0 [facility] Work Phone: COMPLETE UA >=1.030 Normal 1.002-1.03 0 [facility] Work Phone: TSHOrdered By: System Manage r on 06-07-2011 Thyrotropin Qn 5.38 {uIU/mL} Abnormal 0.358-3.74 Compreh ensive [facility] Work Phone: Otheron 05-23-2008 CONVERTED FINAL DIAGNOSIS RIGHT BREAST, PARTIAL EXCISION - FIBROCYSTIC CHANGE. NEGATIVE FOR MALIGNANCY. COMMENT: Fibrocystic change includes fibrosis, adenosis, apocrine metaplasia, and small cyst formation. There is no evidence of malignancy. [facility] CONVERTED ORDERING PROVIDER Ordering Provider: ANETA GARCIA [facility] Thyroidon 05-23-2008 TSH Qn DARLYN GARNER M.D., PATHOLOGIST (Electronic signature on file) Final Signed Out: 05/23/2008 15:13 [facility] Vital Signs Date Time Vital Sign Value Performing Clinician Facility 05-30-2025 11:08-0400 Body height 167.[address] Whitney Goins DO Work Phone: [facility] 05-30-2025 11:08-0400 Body mass index (BMI) [Ratio] 30.9 kg/m2 Dr. Whitney Goins DO Work Phone: [facility] 05-30-2025 11:08-0400 Body weight 86.[address] Whitney Goins DO Work Phone: [facility] 05-30-2025 11:08-0400 Diastolic blood pressure 79 mm[Hg] Dr. Whitney Goins DO Work Phone: [facility] 05-30-2025 11:08-0400 Systolic blood pressure 120 mm[Hg] Dr. Whitney Goins DO Work Phone: [facility] 12-14-2024 15:27-0500 Body height 167.[address] Whitney Goins DO Work Phone: [facility] 12-14-2024 15:27-0500 Body mass index (BMI) [Ratio] 31 kg/m2 Dr. Whitney Goins DO Work Phone: [facility] 12-14-2024 15:27-0500 Body weight 87.[address] Whitney Goins DO Work Phone: [facility] 12-14-2024 15:27-0500 Diastolic blood pressure 76 mm[Hg] Dr. Whitney Goins DO Work Phone: [facility] 12-14-2024 15:27-0500 Heart rate 47 /min Dr. Whitney Goins DO Work Phone: [facility] 12-14-2024 15:27-0500 SaO2% (BldA) [Mass fraction] 98 % Dr. Whitney Goins DO Work Phone: [facility] 12-14-2024 15:27-0500 Systolic blood pressure 118 mm[Hg] Dr. Whitney Goins DO Work Phone: [facility] 12-11-2023 15:24-0500 Body height 167.[address] Whitney Goins Work Phone: [facility] 12-11-2023 15:24-0500 Body mass index (BMI) [Ratio] 30.3 kg/m2 Dr. Whitney Goins Work Phone: [facility] 12-11-2023 15:24-0500 Body weight 85.[address] Whitney Goins Work Phone: [facility] 12-11-2023 15:24-0500 Diastolic blood pressure 79 mm[Hg] Dr. Whitney Goins Work Phone: [facility] 12-11-2023 15:24-0500 Heart rate 68 /min Dr. Whitney Goins Work Phone: [facility] 12-11-2023 15:24-0500 SaO2% (BldA) [Mass fraction] 99 % Dr. Whitney Goins Work Phone: [facility] 12-11-2023 15:24-0500 Systolic blood pressure 123 mm[Hg] Dr. Whitney Goins Work Phone: [facility] 05-26-2023 08:46-0400 Body height 167.[address] Whitney Goins Work Phone: [facility] 05-26-2023 08:44-0400 Body mass index (BMI) [Ratio] 31 kg/m2 Dr. Whitney Goins Work Phone: [facility] 05-26-2023 08:44-0400 Body weight 87.[address] Whitney Goins Work Phone: [facility] 05-26-2023 08:44-0400 Diastolic blood pressure 70 mm[Hg] Dr. Whitney Goins Work Phone: [facility] 05-26-2023 08:44-0400 Systolic blood pressure 101 mm[Hg] Dr. Whitney Goins Work Phone: [facility] 09-16-2022 15:26-0500 Body height 167 cm [facility]; [facility] Work Phone: 09-16-2022 15:26-0500 Body mass index (BMI) [Ratio] 31.14 kg/m2 [facility]; [facility] Work Phone: 09-16-2022 15:26-0500 Body surface area Derived from formula 1.96 m2 [facility]; [facility] Work Phone: 09-16-2022 15:26-0500 Body temperature 96.5 [degF] [facility]; [facility] Work Phone: 09-16-2022 15:26-050 Body weight 86.86 kg [facility]; [facility] Work Phone: 09-16-2022 15:26-0500 Diastolic blood pressure 80 mm[Hg] [facility]; [facility] Work Phone: Comment on above: Patient Position: Sitting; Cuff Location : Left Arm; Cuff Size: Standard 09-16-2022 15:26-0500 Heart rate 50 /min [facility]; [facility] Work Phone: Comment on above: Pattern: Regular 09-16-2022 15:26-0500 Respiratory rate 16 /min [facility]; [facility] Work Phone: Comment on above: Pattern: Unlabored 09-16-2022 15:26-0500 SaO2% (BldA) [Mass fraction] 98 % [facility]; [facility] Work Phone: Comment on above: Room air 09-16-2022 15:26-0500 Systolic blood pressure 124 mm[Hg] [facility]; [facility] Work Phone: Comment on above: Patient Position: Sitting; Cuff Location : Left Arm; Cuff Size: Standard 05-21-2022 10:04-0400 Body height 167.[address] Whitney Goins Work Phone: [facility] Work Phone: 05-21-2022 10:04-0400 Body mass index (BMI) [Ratio] 28.5 kg/m2 Dr. Whitney Goins Work Phone: [facility] Work Phone: 05-21-2022 10:03-0400 Body weight 87.[address] Whitney Goins Work Phone: [facility] Work Phone: 05-21-2022 10:03-0400 Diastolic blood pressure 78 mm[Hg] Dr. Whitney Goins Work Phone: [facility] Work Phone: 05-21-2022 10:03-0400 Systolic blood pressure 112 mm[Hg] Dr. Whitney Goins Work Phone: [facility] Work Phone: 09-19-2021 09:27-0500 Body height 167 cm Whitney Goins DO Work Phone: [facility]; [facility] Work Phone: 09-19-2021 09:27-0500 Body mass index (BMI) [Ratio] 30.54 kg/m2 Whitney Goins DO Work Phone: [facility]; [facility] Work Phone: 09-19-2021 09:27-0500 Body surface area Derived from formula 1.94 m2 Whitney Goins DO Work Phone: [facility]; [facility] Work Phone: 09-19-2021 09:27-0500 Body temperature 97.1 [degF] Whitney Goins DO Work Phone: [facility]; [facility] Work Phone: Comment on above: Method: Infrared 09-19-2021 09:27-0500 Body weight 85.17 kg Whitney Goins DO Work Phone: [facility]; [facility] Work Phone: 09-19-2021 09:27-0500 Diastolic blood pressure 84 mm[Hg] Whitney Goins DO Work Phone: [facility]; [facility] Work Phone: Comment on above: Patient Position: Sitting; Cuff Location : Left Arm; Cuff Size: Standard 09-19-2021 09:27-0500 Heart rate 58 /min Whitney Goins DO Work Phone: [facility]; [facility] Work Phone: Comment on above: Pattern: Regular 09-19-2021 09:27-0500 Respiratory rate 16 /min Whitney Goins DO Work Phone: [facility]; [facility] Work Phone: Comment on above: Pattern: Unlabored 09-19-2021 09:27-0500 SaO2% (BldA) [Mass fraction] 98 % Whitney Goins DO Work Phone: [facility]; [facility] Work Phone: Comment on above: Room air 09-19-2021 09:27-0500 Systolic blood pressure 118 mm[Hg] Whitney Goins DO Work Phone: [facility]; [facility] Work Phone: Comment on above: Patient Position: Sitting; Cuff Location : Left Arm; Cuff Size: Standard 09-19-2021 09:09-0500 Body height 167 cm Carleen Manzo LPN [facility]; [facility] Work Phone: 09-19-2021 09:09-0500 Body mass index (BMI) [Ratio] 29.4 kg/m2 Carleen Manzo LPN [facility]; [facility] Work Phone: 09-19-2021 09:09-0500 Body surface area Derived from formula 1.91 m2 Carleen Manzo LPN [facility]; [facility] Work Phone: 09-19-2021 09:09-0500 Body weight 82 kg Carleen Manzo LPN [facility]; [facility] Work Phone: 11-16-2020 08:57-0500 BMI (Body Mass Index) 29.4 kg/m2 Richelle Lei [facility]; [facility] Work Phone: Comment on above: no vs taken as this is phone encounter d ue to covid 11-16-2020 08:57-0500 Body weight 82 kg Richelle Lei [facility]; [facility] Work Phone: Comment on above: no vs taken as this is phone encounter d ue to covid 11-16-2020 08:57-0500 BSA (Body Surface Area) 1.91 m2 Richelle Lei [facility]; [facility] Work Phone: Comment on above: no vs taken as this is phone encounter d ue to covid 11-16-2020 08:57-0500 Height 167 cm Richelle Lei [facility]; [facility] Work Phone: Comment on above: no vs taken as this is phone encounter d ue to covid 10-28-2019 12:16-0500 BMI (Body Mass Index) 35.68 kg/m2 Richelle Lei [facility]; [facility] Work Phone: 10-28-2019 12:16-0500 Body Temperature 97.1 [degF] Richelle Lei [facility]; [facility] Work Phone: Comment on above: Method: Temporal 10-28-2019 12:16-0500 Body weight 99.51 kg Richelle Lei [facility]; [facility] Work Phone: 10-28-2019 12:16-0500 BP Diastolic 72 mm[Hg] Richelle Lei [facility]; [facility] Work Phone: Comment on above: Patient Position: Sitting; Cuff Location : Left Arm; Cuff Size: Standard 10-28-2019 12:16-0500 BP Systolic 128 mm[Hg] Richelle Lei [facility]; [facility] Work Phone: Comment on above: Patient Position: Sitting; Cuff Location : Left Arm; Cuff Size: Standard 10-28-2019 12:16-0500 BSA (Body Surface Area) 2.07 m2 Richelle Lei CMA [facility]; [facility] Work Phone: 10-28-2019 12:16-0500 Height 167 cm Richelle Lei CMA [facility]; [facility] Work Phone: 10-28-2019 12:16-0500 Pulse (Heart Rate) 83 /min Richelle Lei CMA [facility]; [facility] Work Phone: Comment on above: Pattern: Regular 10-28-2019 12:16-0500 Pulse Oximetry 98 % Whitney Goins [facility]; [facility] Work Phone: Comment on above: Room air 10-28-2019 12:16-0500 Respiratory Rate 16 /min Richelle Lei CMA [facility]; [facility] Work Phone: Comment on above: Pattern: Unlabored 10-28-2019 12:16-0500 SaO2% (BldA) [Mass fraction] 98 % Richelle Lei [facility]; [facility] Work Phone: Comment on above: Room air 06-10-2018 09:47-0400 BMI (Body Mass Index) 35.03 kg/m2 Luciana Lee RN [facility] Work Phone: 06-10-2018 09:47-0400 Body weight 97.69 kg Luciana Lee RN [facility] Work Phone: 06-10-2018 09:47-0400 BP Diastolic 78 mm[Hg] Luciana Lee RN [facility] Work Phone: Comment on above: Patient Position: Sitting; Cuff Location : Left Arm; Cuff Size: Large 06-10-2018 09:47-0400 BP Systolic 128 mm[Hg] Luciana Lee RN [facility] Work Phone: Comment on above: Patient Position: Sitting; Cuff Location : Left Arm; Cuff Size: Large 06-10-2018 09:47-0400 BSA (Body Surface Area) 2.06 m2 Luciana Lee RN [facility] Work Phone: 06-10-2018 09:47-0400 Height 167 cm Luciana Lee RN [facility] Work Phone: 06-10-2018 09:47-0400 Pulse (Heart Rate) 61 /min Luciana Lee RN [facility] Work Phone: Comment on above: Pattern: Regular 06-10-2018 09:47-0400 Pulse Oximetry 97 % Whitney Goins [facility] Work Phone: Comment on above: Room air 06-10-2018 09:47-0400 Respiratory Rate 18 /min Luciana Lee RN [facility] Work Phone: Comment on above: Pattern: Unlabored 06-10-2018 09:47-0400 SaO2% (BldA) [Mass fraction] 97 % Luciana Lee RN [facility]; [facility] Work Phone: Comment on above: Room air 06-10-2018 09:47-0400 Weight 97.69 kg Whitney Jensenon [facility] Work Phone: 05-28-2018 13:37-0400 BMI (Body Mass Index) 35.29 kg/m2 Angela Mark [facility] Work Phone: 05-28-2018 13:37-0400 Body Temperature 96.9 [degF] Angela Mark [facility] Work Phone: Comment on above: Method: Temporal 05-28-2018 13:37-0400 Body weight 98.43 kg Angela Mark [facility] Work Phone: 05-28-2018 13:37-0400 BP Diastolic 68 mm[Hg] Angela Mark [facility] Work Phone: Comment on above: Patient Position: Sitting; Cuff Location : Left Arm; Cuff Size: Standard 05-28-2018 13:37-0400 BP Systolic 122 mm[Hg] Angela Mark [facility] Work Phone: Comment on above: Patient Position: Sitting; Cuff Location : Left Arm; Cuff Size: Standard 05-28-2018 13:37-0400 BSA (Body Surface Area) 2.07 m2 Angela Mark [facility] Work Phone: 05-28-2018 13:37-0400 Height 167 cm Angela Kennedylear [facility] Work Phone: 05-28-2018 13:37-0400 Pulse (Heart Rate) 72 /min Angela Mark [facility] Work Phone: Comment on above: Pattern: Regular 05-28-2018 13:37-0400 Pulse Oximetry 98 % Whitney Goins [facility] Work Phone: Comment on above: Room air 05-28-2018 13:37-0400 Respiratory Rate 16 /min Angela Mark [facility] Work Phone: Comment on above: Pattern: Unlabored 05-28-2018 13:37-0400 SaO2% (BldA) [Mass fraction] 98 % Angela Mark [facility]; [facility] Work Phone: Comment on above: Room air 05-28-2018 13:37-0400 Weight 98.43 kg Whitney Goins [facility] Work Phone: 06-03-2017 08:49-0400 BMI (Body Mass Index) 35.29 kg/m2 Elo Jung RN [facility] Work Phone: 06-03-2017 08:49-0400 Body Temperature 98.1 [degF] Eol Jung RN [facility] Work Phone: Comment on above: Method: Temporal 06-03-2017 08:49-0400 Body weight 98.43 kg Elo Jung RN [facility] Work Phone: 06-03-2017 08:49-0400 BP Diastolic 80 mm[Hg] Elo Jung RN [facility] Work Phone: Comment on above: Patient Position: Sitting; Cuff Location : Left Arm; Cuff Size: Standard 06-03-2017 08:49-0400 BP Systolic 116 mm[Hg] Elo Jung RN [facility] Work Phone: Comment on above: Patient Position: Sitting; Cuff Location : Left Arm; Cuff Size: Standard 06-03-2017 08:49-0400 BSA (Body Surface Area) 2.07 m2 Elo L Long RN [facility] Work Phone: 06-03-2017 08:49-0400 Height 167 cm Elo Jung RN [facility] Work Phone: 06-03-2017 08:49-0400 Pulse (Heart Rate) 64 /min Elo Jung RN [facility] Work Phone: Comment on above: Pattern: Regular 06-03-2017 08:49-0400 Pulse Oximetry 97 % Whitney Goins [facility] Work Phone: Comment on above: Room air 06-03-2017 08:49-0400 Respiratory Rate 16 /min Elo Jung RN [facility] Work Phone: Comment on above: Pattern: Unlabored 06-03-2017 08:49-0400 SaO2% (BldA) [Mass fraction] 97 % Elo Jung RN [facility]; [facility] Work Phone: Comment on above: Room air 06-03-2017 08:49-0400 Weight 98.43 kg Whitney Jensenon [facility] Work Phone: 06-07-2016 09:59-0400 BMI (Body Mass Index) 34.32 kg/m2 Luciana Lee RN [facility] Work Phone: 06-07-2016 09:59-0400 Body weight 95.71 kg Luciana Lee RN [facility] Work Phone: 06-07-2016 09:59-0400 BP Diastolic 78 mm[Hg] Luciana Lee RN [facility] Work Phone: Comment on above: Patient Position: Sitting; Cuff Location : Left Arm; Cuff Size: Large 06-07-2016 09:59-0400 BP Systolic 118 mm[Hg] Luciana Lee RN [facility] Work Phone: Comment on above: Patient Position: Sitting; Cuff Location : Left Arm; Cuff Size: Large 06-07-2016 09:59-0400 BSA (Body Surface Area) 2.04 m2 Luciana Lee RN [facility] Work Phone: 06-07-2016 09:59-0400 Height 167 cm Luciana Lee RN [facility] Work Phone: 06-07-2016 09:59-0400 Pulse (Heart Rate) 62 /min Luciana Lee RN [facility] Work Phone: Comment on above: Pattern: Regular 06-07-2016 09:59-0400 Pulse Oximetry 98 % Whitney Goins [facility] Work Phone: Comment on above: Room air 06-07-2016 09:59-0400 Respiratory Rate 18 /min Luciana Lee RN [facility] Work Phone: Comment on above: Pattern: Unlabored 06-07-2016 09:59-0400 SaO2% (BldA) [Mass fraction] 98 % Luciana Lee RN [facility]; [facility] Work Phone: Comment on above: Room air 06-07-2016 09:59-0400 Weight 95.71 kg Whitney Buster [facility] Work Phone: 05-31-2015 10:42-0400 BMI (Body Mass Index) 33.34 kg/m2 Leticia Loera [facility] Work Phone: 05-31-2015 10:42-0400 Body Temperature 98.9 [degF] Leticia Loera [facility] Work Phone: Comment on above: Method: Oral 05-31-2015 10:42-0400 Body weight 92.99 kg Leticia Loera [facility] Work Phone: 05-31-2015 10:42-0400 BP Diastolic 78 mm[Hg] Leticia Loera [facility] Work Phone: Comment on above: Patient Position: Sitting; Cuff Location : Left Arm; Cuff Size: Large 05-31-2015 10:42-0400 BP Systolic 106 mm[Hg] Leticia Loera [facility] Work Phone: Comment on above: Patient Position: Sitting; Cuff Location : Left Arm; Cuff Size: Large 05-31-2015 10:42-0400 BSA (Body Surface Area) 2.02 m2 Leticia Loera [facility] Work Phone: 05-31-2015 10:42-0400 Height 167 cm Leticia Loera [facility] Work Phone: 05-31-2015 10:42-0400 Pulse (Heart Rate) 68 /min Leticia Baermilagro [facility] Work Phone: Comment on above: Pattern: Regular 05-31-2015 10:42-0400 Respiratory Rate 16 /min Leticia Roeifeanyi [facility] Work Phone: Comment on above: Pattern: Unlabored 05-31-2015 10:42-0400 Weight 92.99 kg Whitney Goins [facility] Work Phone: 06-10-2014 12:05-0400 BMI (Body Mass Index) 35.45 kg/m2 Leticia Roeifeanyi [facility] Work Phone: 06-10-2014 12:05-0400 Body Temperature 99.1 [degF] Leticia Roeifeanyi [facility] Work Phone: 06-10-2014 12:05-0400 Body weight 98.88 kg Leticia Roeifeanyi [facility] Work Phone: 06-10-2014 12:05-0400 BP Diastolic 70 mm[Hg] Leticia Evaristo [facility] Work Phone: Comment on above: Patient Position: Sitting; Cuff Location : Left Arm; Cuff Size: Large 06-10-2014 12:05-0400 BP Systolic 100 mm[Hg] Leticia Roeifeanyi [facility] Work Phone: Comment on above: Patient Position: Sitting; Cuff Location : Left Arm; Cuff Size: Large 06-10-2014 12:05-0400 BSA (Body Surface Area) 2.07 m2 Leticia Roeifeanyi [facility] Work Phone: 06-10-2014 12:05-0400 Height 167 cm Leticia Evaristo [facility] Work Phone: 06-10-2014 12:05-0400 Pulse (Heart Rate) 78 /min Leticia Roecalvinner [facility] Work Phone: Comment on above: Pattern: Regular 06-10-2014 12:05-0400 Respiratory Rate 16 /min Leticia Evaristo [facility] Work Phone: Comment on above: Pattern: Unlabored 06-10-2014 12:05-0400 Weight 98.88 kg Whitney Jensenon [facility] Work Phone: 09-01-2013 09:27-0500 BMI (Body Mass Index) 37.73 kg/m2 Elo Jung RN [facility] Work Phone: 09-01-2013 09:27-0500 Body Temperature 98.2 [degF] Elo Jung RN [facility] Work Phone: Comment on above: Method: Temporal 09-01-2013 09:27-0500 Body weight 105.24 kg Elo Jung RN [facility] Work Phone: 09-01-2013 09:27-0500 BP Diastolic 74 mm[Hg] Elo Jung RN [facility] Work Phone: Comment on above: Patient Position: Sitting; Cuff Location : Left Arm; Cuff Size: Standard 09-01-2013 09:27-0500 BP Systolic 122 mm[Hg] Elo Jung RN [facility] Work Phone: Comment on above: Patient Position: Sitting; Cuff Location : Left Arm; Cuff Size: Standard 09-01-2013 09:27-0500 BSA (Body Surface Area) 2.12 m2 Elo Jung RN [facility] Work Phone: 09-01-2013 09:27-0500 Height 167 cm Elo Jung RN [facility] Work Phone: 09-01-2013 09:27-0500 Pulse (Heart Rate) 72 /min Elo Jung RN [facility] Work Phone: Comment on above: Pattern: Regular 09-01-2013 09:27-0500 Pulse Oximetry 98 % Whitney Jensenon [facility] Work Phone: Comment on above: Room air 11-20-2013 09:27-0500 Respiratory Rate 16 /min Elo Jung RN [facility] Work Phone: Comment on above: Pattern: Unlabored 09-01-2013 09:27-0500 SaO2% (BldA) [Mass fraction] 98 % Elo Jung RN [facility]; [facility] Work Phone: Comment on above: Room air 09-01-2013 09:27-0500 Weight 105.24 kg Whitney Goins [facility] Work Phone: 08-11-2013 11:23-0400 BMI (Body Mass Index) 37.73 kg/m2 Leticia Loera [facility] Work Phone: 08-11-2013 11:23-0400 Body Temperature 98.2 [degF] Leticia Loera [facility] Work Phone: 08-11-2013 11:23-0400 Body weight 105.24 kg Leticia Loera [facility] Work Phone: 08-11-2013 11:23-0400 BP Diastolic 70 mm[Hg] Leticia Loera [facility] Work Phone: Comment on above: Patient Position: Sitting; Cuff Location : Left Arm; Cuff Size: Large 08-11-2013 11:23-0400 BP Systolic 102 mm[Hg] Leticia Loera [facility] Work Phone: Comment on above: Patient Position: Sitting; Cuff Location : Left Arm; Cuff Size: Large 08-11-2013 11:23-0400 BSA (Body Surface Area) 2.12 m2 Leticia Loera [facility] Work Phone: 08-11-2013 11:23-0400 Height 167 cm Leticia Loera [facility] Work Phone: 08-11-2013 11:23-0400 Pulse (Heart Rate) 68 /min Leticia Loera [facility] Work Phone: Comment on above: Pattern: Regular 08-11-2013 11:23-0400 Respiratory Rate 16 /min Leticia Evaristo [facility] Work Phone: Comment on above: Pattern: Unlabored 08-11-2013 11:23-0400 Weight 105.24 kg Whitney Goins [facility] Work Phone: 02-09-2013 10:56-0400 Body Temperature 98.4 [degF] Kassie A Fast DO Work Phone: [facility] Work Phone: Comment on above: Method: Oral 02-09-2013 10:33-0400 BMI (Body Mass Index) 35.94 kg/m2 Leticia Loera [facility] Work Phone: 02-09-2013 10:33-0400 Body weight 100.25 kg Leticia Evaristo [facility] Work Phone: 02-09-2013 10:33-0400 BP Diastolic 84 mm[Hg] Leticia Loera [facility] Work Phone: Comment on above: Patient Position: Sitting; Cuff Location : Left Arm; Cuff Size: Large 02-09-2013 10:33-0400 BP Systolic 112 mm[Hg] Leticia Evaristo [facility] Work Phone: Comment on above: Patient Position: Sitting; Cuff Location : Left Arm; Cuff Size: Large 02-09-2013 10:33-0400 BSA (Body Surface Area) 2.08 m2 Leticia Loera [facility] Internal Medicine Work Phone: 02-09-2013 10:33-0400 Height 167 cm Leticia Loera [facility] Internal Medicine Work Phone: 02-09-2013 10:33-0400 Pulse (Heart Rate) 68 /min [facility] Work Phone: Comment on above: Pattern: Regular 02-09-2013 10:33-0400 Respiratory Rate 16 /min Leticia Loera [facility] Internal Medicine Work Phone: Comment on above: Pattern: Unlabored 02-09-2013 10:33-0400 Weight 100.25 kg Whitney Goins [facility] Internal Medicine Work Phone: 03-17-2012 11:07-0400 BMI (Body Mass Index) 34.15 kg/m2 Leticia Loera [facility] Internal Medicine Work Phone: 03-17-2012 11:07-0400 Body Temperature 98.5 [degF] Leticia Loera [facility] Internal Medicine Work Phone: 03-17-2012 11:07-0400 Body weight 95.26 kg Leticia Loera [facility] Internal Medicine Work Phone: 03-17-2012 11:07-0400 BP Diastolic 68 mm[Hg] Leticia Roecalvinmilagro [facility] Internal Medicine Work Phone: Comment on above: Patient Position: Sitting; Cuff Location : Left Arm; Cuff Size: Large 03-17-2012 11:07-0400 BP Systolic 108 mm[Hg] Leticia Baermilagro [facility] Internal Medicine Work Phone: Comment on above: Patient Position: Sitting; Cuff Location : Left Arm; Cuff Size: Large 03-17-2012 11:07-0400 BSA (Body Surface Area) 2.04 m2 Leticia Roeifeanyi [facility] Internal Medicine Work Phone: 03-17-2012 11:07-0400 Height 167 cm Leticia Roeifeanyi [facility] Internal Medicine Work Phone: 03-17-2012 11:07-0400 Pulse (Heart Rate) 64 /min Leticia Roeifeanyi [facility] Internal Medicine Work Phone: Comment on above: Pattern: Regular 03-17-2012 11:07-0400 Respiratory Rate 16 /min Leticia Roeifeanyi [facility] Internal Medicine Work Phone: Comment on above: Pattern: Unlabored 03-17-2012 11:07-0400 Weight 95.26 kg Whitney Goins [facility] Internal Medicine Work Phone: 09-25-2011 10:10-0500 BMI (Body Mass Index) 36.31 kg/m2 Luciana Lee RN [facility] Internal Medicine Work Phone: 09-25-2011 10:10-0500 Body Temperature 98.7 [degF] Luciana Lee RN [facility] Work Phone: Comment on above: Method: Oral 09-25-2011 10:10-0500 Body weight 101.27 kg Luciana Lee RN [facility] Work Phone: 09-25-2011 10:10-0500 BP Diastolic 72 mm[Hg] Luciana Lee RN [facility] Work Phone: Comment on above: Patient Position: Sitting; Cuff Location : Left Arm; Cuff Size: Standard 09-25-2011 10:10-0500 BP Systolic 118 mm[Hg] Luciana Lee RN [facility] Work Phone: Comment on above: Patient Position: Sitting; Cuff Location : Left Arm; Cuff Size: Standard 09-25-2011 10:10-0500 BSA (Body Surface Area) 2.09 m2 Luciana Lee RN [facility] Work Phone: 09-25-2011 10:10-0500 Height 167 cm Luciana Lee RN [facility] Work Phone: 09-25-2011 10:10-0500 Pulse (Heart Rate) 68 /min Luciana Lee RN [facility] Medicine Work Phone: Comment on above: Pattern: Regular 09-25-2011 10:10-0500 Respiratory Rate 18 /min Luciana Lee RN [facility] Work Phone: Comment on above: Pattern: Unlabored 09-25-2011 10:10-0500 Weight 101.27 kg Whitney Goins [facility] Work Phone: 09-09-2011 10:21-0500 BMI (Body Mass Index) 35.78 kg/m2 Leticia Loera [facility] Work Phone: 09-09-2011 10:21-0500 Body Temperature 98.5 [degF] Leticia Loera [facility] Work Phone: 09-09-2011 10:21-0500 Body weight 99.79 kg Leticia Loera [facility] Work Phone: 09-09-2011 10:21-0500 BP Diastolic 88 mm[Hg] Leticia Loera [facility] Internal Medicine Work Phone: Comment on above: Patient Position: Sitting; Cuff Location : Left Arm; Cuff Size: Large 09-09-2011 10:21-0500 BP Systolic 118 mm[Hg] Leticia Loera [facility] Internal Medicine Work Phone: Comment on above: Patient Position: Sitting; Cuff Location : Left Arm; Cuff Size: Large 09-09-2011 10:21-0500 BSA (Body Surface Area) 2.08 m2 Leticia Evaristo [facility] Internal Medicine Work Phone: 09-09-2011 10:21-0500 Height 167 cm Leticia Evaristo [facility] Internal Medicine Work Phone: 09-09-2011 10:21-0500 Pulse (Heart Rate) 76 /min Leticia Evaristo [facility] Internal Medicine Work Phone: Comment on above: Pattern: Regular 09-09-2011 10:21-0500 Respiratory Rate 16 /min Leticia Evaristo [facility] Internal Medicine Work Phone: Comment on above: Pattern: Unlabored 09-09-2011 10:21-0500 Weight 99.79 kg Whitney Goins [facility] Internal Medicine Work Phone: 06-10-2011 16:29-0400 BMI (Body Mass Index) 35.94 kg/m2 Leticia Evaristo [facility] Internal Medicine Work Phone: 06-10-2011 16:29-0400 Body Temperature 98.5 [degF] Leticia Evaristo [facility] Internal Medicine Work Phone: 06-10-2011 16:29-0400 Body weight 100.25 kg Leticia Evaristo [facility] Internal Medicine Work Phone: 06-10-2011 16:29-0400 BP Diastolic 88 mm[Hg] Leticia Evaristo [facility] Internal Medicine Work Phone: Comment on above: Patient Position: Sitting; Cuff Location : Left Arm; Cuff Size: Standard 06-10-2011 16:29-0400 BP Systolic 118 mm[Hg] Leticia Loera [facility] Internal Medicine Work Phone: Comment on above: Patient Position: Sitting; Cuff Location : Left Arm; Cuff Size: Standard 06-10-2011 16:29-0400 BSA (Body Surface Area) 2.08 m2 Leticia Loera [facility] Internal Medicine Work Phone: 06-10-2011 16:29-0400 Height 167 cm Leticia Loera [facility] Internal Medicine Work Phone: 06-10-2011 16:29-0400 Pulse (Heart Rate) 72 /min Leticia Loera [facility] Internal Medicine Work Phone: Comment on above: Pattern: Regular 06-10-2011 16:29-0400 Respiratory Rate 16 /min Leticia Baermilagro [facility] Internal Medicine Work Phone: Comment on above: Pattern: Unlabored 06-10-2011 16:29-0400 Weight 100.25 kg Whitney Goins [facility] Internal Medicine Work Phone: 03-05-2011 09:19-0400 BMI (Body Mass Index) 35.78 kg/m2 Leticia Loera [facility] Internal Medicine Work Phone: 03-05-2011 09:19-0400 Body Temperature 99.3 [degF] Leticia Baermilagro [facility] Internal Medicine Work Phone: 03-05-2011 09:19-0400 Body weight 99.79 kg Leticia Baermilagro [facility] Internal Medicine Work Phone: 03-05-2011 09:19-0400 BP Diastolic 90 mm[Hg] Leticia Loera [facility] Internal Medicine Work Phone: Comment on above: Patient Position: Sitting; Cuff Location : Left Arm; Cuff Size: Standard 03-05-2011 09:19-0400 BP Systolic 118 mm[Hg] Leticia Loera [facility] Internal Medicine Work Phone: Comment on above: Patient Position: Sitting; Cuff Location : Left Arm; Cuff Size: Standard 03-05-2011 09:19-0400 BSA (Body Surface Area) 2.08 m2 Leticia Evaristo [facility] Internal Medicine Work Phone: 03-05-2011 09:190400 Height 167 cm Leticia Evaristo [facility] Internal Medicine Work Phone: 03-05-2011 09:19-0400 Pulse (Heart Rate) 76 /min Leticia Evaristo [facility] Work Phone: Comment on above: Pattern: Regular 03-05-2011 09:-0400 Respiratory Rate 16 /min Leticia Evaristo [facility] Internal Medicine Work Phone: Comment on above: Pattern: Unlabored 03-05-2011 09:0400 Weight 99.79 kg Whitney Goins [facility] Internal Medicine Work Phone: Encounters Encounter Date Encounter Type Care Provider Facility Start: 06-02-2025 [facility] Start: 05-30-2025 End: 05-30-2025 ambulatory Charlotte Rinaldi Facility:[facility] Start: 05-30-2025 End: 05-30-[address] Charlotte Rinaldi MD -[facility] Work Phone: Start: 05-30-2025 End: 05-30-[address] Charlotte Rinaldi MD [facility] Start: 12-14-2024 End: 12-14-[address] Laurent Christianson MD -[facility] Work Phone: Start: 12-14-2024 End: 12-14-2024 ambulatory Laurent Christianson Facility:[facility] Start: 12-04-2024 End: 12-04-[address] Whitney Goins DO Work Phone: [facility] Work Phone: Start: 12-04-2024 End: 12-04-[address] Whitney Goins DO -Laboratory Work Phone: Start: 12-04-2024 End: 12-04-2024 ambulatory Laurent Christianson Facility:[facility] Start: 06-01-2024 End: 06-01-2024 ambulatory Charlotte Rinaldi Facility:[facility] Start: 05-28-2024 Encounter for gynecological examination (general) (routine) with abnormal findings Charlotte Rinaldi [facility] Start: 05-28-2024 End: 05-28-2024 ambulatory Charlotte Rinaldi Facility:[facility] Start: 12-16-2023 End: 12-16-[address] Whitney Goins Work Phone: [facility] Work Phone: Start: 12-16-2023 End: 12-16-[address] Whitney Gonis Work Phone: [facility] Work Phone: Start: 12-11-2023 End: 12-11-[address] Whitney Goins Work Phone: [facility] Work Phone: Start: 09-29-2023 End: 09-29-2023 ambulatory [facility] Work Phone: Start: 09-29-2023 End: 09-29-2023 Patient encounter procedure [facility] Work Phone: Start: 05-29-2023 End: 05-29-[address] Whitney Goins Work Phone: [facility] Work Phone: Start: 05-29-2023 End: 05-29-[address] Whitney Goins Work Phone: [facility] Work Phone: Start: 05-26-2023 End: 05-26-[address] Whitney Goins Work Phone: [facility] Work Phone: Start: 09-16-2022 Review Whitney garcia DO Work Phone: [facility] Start: 09-16-2022 End: 09-16-2022 Office outpatient visit 15 minutes Whitney Goins DO Work Phone: [facility] Start: 05-24-2022 End: 05-24-[address] Whitney Goins Work Phone: [facility] Start: 05-21-2022 End: 05-21-[address] Whitney Goins Work Phone: [facility] Start: 09-19-2021 End: 09-19-2021 Office outpatient visit 25 minutes Whitney Goins DO Work Phone: [facility] Start: 12-08-2020 End: 12-08-2020 Annotation/Addendum Whitney Goins [facility] Start: 11-16-2020 End: 11-16-2020 Office outpatient visit 15 minutes Whitney Goins [facility] Start: 02-24-2020 End: 02-24-2020 Lab Order Whitney Goins [facility] Start: 02-24-2020 End: 02-24-2020 Patient encounter status Whitney Goins DO Work Phone: [facility] Start: 10-28-2019 End: 10-28-2019 Office outpatient visit 25 minutes Whitney Goins [facility] Start: 09-14-2018 End: 09-14-2018 Lab Order Whitney Goins [facility] Start: 09-11-2018 End: 09-11-2018 Phone Encounter Whitney Goins [facility] Start: 09-09-2018 End: 09-09-2018 Phone Encounter Whitney Goins [facility] Start: 07-28-2018 End: 07-28-2018 Phone Encounter Whitney Goins [facility] Start: 06-10-2018 End: 06-10-2018 Office outpatient visit 15 minutes Whitney Goins [facility] Start: 06-03-2018 End: 06-03-2018 Phone Encounter Whitney Goins [facility] Start: 05-28-2018 End: 05-28-2018 Office outpatient visit 15 minutes Whitneytiffany Jensenon [facility] Start: 03-13-2018 End: 03-13-2018 Lab Order Whitney Goins [facility] Start: 06-03-2017 End: 06-03-2017 Office outpatient visit 15 minutes Whitney Buster [facility] Start: 06-07-2016 End: 06-07-2016 Office outpatient visit 15 minutes Whitneylima Goins [facility] Start: 06-07-2016 End: 06-07-2016 Lab Order Whitney Goins [facility] Start: 05-31-2015 End: 05-31-2015 Office outpatient visit 25 minutes Whitney Buster [facility] Start: 04-21-2015 End: 04-21-2015 Annotation/Addendum Whitney Buster [facility] Start: 06-10-2014 End: 06-10-2014 Office outpatient visit 25 minutes Whitney Buster [facility] Start: 09-01-2013 End: 09-01-2013 Office outpatient visit 15 minutes Whitney Buster [facility] Start: 08-11-2013 End: 08-11-2013 Patient encounter Whitney Goins [facility] Start: 02-09-2013 End: 02-09-2013 Patient encounter Whitney Goins [facility] Start: 01-19-2013 End: 01-19-2013 Phone Encounter Whitney Goins [facility] Start: 11-05-2012 End: 11-05-2012 Phone Encounter Whitney Goins [facility] Start: 03-17-2012 End: 03-17-2012 Patient encounter Whitney Goins [facility] Start: 03-02-2012 End: 03-02-2012 Phone Encounter Whitney Goins [facility] Start: 09-25-2011 End: 09-25-2011 Patient encounter Whitney Goins [facility] Start: 09-09-2011 End: 09-09-2011 Patient encounter Whitney Goins [facility] Start: 06-10-2011 End: 06-10-2011 Patient encounter Whitneytiffany Goins [facility] Start: 04-16-2011 End: 04-16-2011 Phone Encounter Whitneytiffany Goins [facility] Start: 03-05-2011 End: 03-05-2011 Patient encounter Whitney Goins [facility] Start: 05-20-2008 End: 05-20-2008 Patient encounter procedure Aneta Garcia Work Phone: [facility] Start: 05-20-2008 Results Only Aneta Garcia Work Phone: [facility] Patient encounter status Richelle Lei [facility]; [facility] Work Phone: Patient encounter status Carleen Manzo [facility]; [facility] Work Phone: Patient encounter status Adria Lu [facility]; [facility] Work Phone: Procedures Date Procedure Procedure Detail Performing Clinician Start: 05-29-[address] Whitney garcia Work Phone: Start: 05-24-[address] Whitney garcia Work Phone: Start: 05-24-2022 End: 05-24-2022 SCRN MAMM (CAD)W/AYAKA BILAT Procedure Note: See Note; NOTES: [facility] Imaging Services [address] [place] [address] SCRN MAMM (CAD)W/AYAKA BILAT MR#: [id number] Acct: [id number] Name: LUCIANA ARSHAD Rep #: [id number] : 1970 F 51 From: Sarbjit Nolan DO PCP: Dr. Whitney Goins DO Status: REG CLI Study: SCRN MAMM (CAD)W/AYAKA BILAT Date of Exam: 05/13 12/04 Exam# [id number] Ordering Dr: Charlotte Rinaldi MAMMOGRAPHY - BILATERAL SCREENING REASON FOR EXAM: Female, 51 years old. Routine annual screening examination. PERTINENT HISTORY: Aunt with breast cancer. TECHNIQUE: Digital bilateral breast ayaka (3D mammographic acquisition) in the CC and MLO projections. 2-D mediolateral oblique (MLO) and craniocaudad (CC) views of both breasts were obtained. CAD: Full Field Digital Mammography with Computer Added Detection was performed. COMPARISON: Comparison mammogram from 04/30/2021, 12/14/2019. Right breast diagnostic ultrasound from 05/04/2021. FINDINGS: Breast Composition: There are scattered areas of fibroglandular density. There are no dominant masses or suspicious calcifications. Stable 5 mm nodule in the right inferior breast. Stable right breast biopsy clips. No other significant abnormalities are identified. There has been no significant change since the prior study. BI/SCRN MAMM (CAD)W/AYAKA BILAT IMPRESSION: Stable bilateral screening mammogram. Yearly follow-up mammogram recommended. (A) ASSESSMENT CATEGORY: BIRADS Category 2: Benign. A letter regarding these results will be sent to the patient by the facility within 30 days. Approximately 10% of breast cancers are not detected by mammography. A normal mammogram should not delay biopsy of a clinically suspicious abnormality. Electronically Signed: Sarbjit Nolan, at 15:23 EDT Reading Location ID and State: [address] [place] [address] Tel , Service support , CC: Dr. Whitney Goins DO; Dr. Charlotte Rinaldi MD Clothes Marker: Signed Whitney Goins DO Work Phone: Start: 05-21-2022 End: 05-21-2022 Crop Pest Control Specialist Office Visit Report Procedure Note: See Note; NOTES: [facility] [address] [place] [address] OFFICE VISIT Date of Service: 05/21/22 MR#: [id number] Acct: [id number] Name: LUCIANA ARSHAD FREIDA Rep #: [id number] : 1970 Provider: Dr. Charlotte hu MD Age/Sex: 51/F [place] [facility] [place]: Signed Intake Vital Signs 04/24/21 09:02 04/24/21 09:03 09/28/21 10:01 05/21/22 10:03 05/21/22 10:04 Height 5 ft 6 in 5 ft 6 in 5 ft 6.5 in 5 ft 6 in Weight: 196 lb 193 lb BMI 28.5 31.6 30.7 28.5 BP 110/78 112/78 Blood Pressure Location Lt brachial Position Sitting Respiration 16 Pulse 60 Pulse Source Monitor Temp 97.2 F L Pulse Oximetry (%) 99 Oxygen Delivery Method room air Intake Visit Reasons: Annual (DATA ARCHITECT) Chief Complaint: est annual Electric[employer] Required: No Is patient in pain?: No Allergies nabumetone Allergy (Severe, Verified 09/28/21 10:07) abdominal pain, diarrhea, bloating, heartburn Sulfa (Sulfonamide Antibiotics) Allergy (Verified 09/28/21 10:07) Rash Medications calcium carbonate 500 mg-vitamin D3 5 mcg (200 unit) tablet (Calcium 500 + D) 1 tab PO DAILY 11/25/19 [History Confirmed 05/21/22] topiramate 25 mg tablet 25 mg PO DAILY 11/25/19 [History Confirmed 05/21/22] levonorgestrel 20 mcg/24 hours (7 yrs) 52 mg intrauterine device (Mirena) 1 device intrauterine ONCE 04/17/20 [History Confirmed 05/21/22] levothyroxine 125 mcg tablet 125 mcg PO DAILY #90 tabs 11/19/21 [Rx Confirmed 05/21/22] Is last menstrual period known: No Post menopausal: No Patient : No : No PFSH Medical History (Updated 05/21/22 @ 10:[address] Charlotte Rinaldi MD) Bilateral headaches History of kidney stones Hypothyroidism Migraine Obesity Pituitary microadenoma Surgical History H/O oral surgery History of breast biopsy plantar fasciitis repair r ulnar radius reconstruction Family History Grandfather Heart disease Diabetes Grandmother Heart disease Diabetes Mother Thyroid disorder Social History (Updated 05/21/22 @ 10:04 by Capri Long) household members: spouse and children number of children: 1 current occupational status: employed current occupation: RN history of recent travel: No sexually active: Yes Smoking Status: Never smoker alcohol intake: current alcohol intake frequency: a few times a month Alcohol type: wine substance use type: does not use caffeine: Yes what type of physical activity do you participate in: walking and running frequency: 5-6 times per week seatbelt use: always do you feel safe at home: Yes Pregancy History 0 Elective abortions Hx Para 0 Spontaneous abortions Hx # Term Pregnancies Ectopic pregnancies Hx # Pregnancies Multiple births # of living children Past Pregnancies Del. Date Name GA/Weeks Outcome Route Bth Weight Infant Gen Labor Lgth Anesthesia Del Locatn Provider FOB 04/13/07 [place] - adopted HPI Encounter for routine gynecological examination Details: LUCIANA ARSHAD is a 51 year old who presents for annual exam. off cabergoline. Last PAP: 2019 hpv neg History of abnormal PAP: no Last mammogram: due History of abnormal mammogram: no Colon cancer screening: up to date robert Other preventative health care screenings: buster up to date Female Reproductive History Cycle Length: 21-35 Bleeding Duration: 5 Questions: metorrhagia: No, sexually active: Yes, dyspareunia: No and PCB: No Menopausal Symptoms: No hot flashes, No night sweats, No weight change, No mood changes, No difficulty concentrating, No sleep problems and No change in libido ROS Const Constitutional: Reports as per HPI; Denies fatigue, increased appetite, poor appetite, night sweats, weight gain or weight loss Cardio Card: Denies chest pain Resp Resp: Denies cough or dyspnea GI GI: Reports as per HPI; Denies abdominal pain, bloating, constipation, nausea or vomiting : Reports as per HPI and other; Denies difficulty voiding, dysuria, hematuria, hot flashes, nipple discharge, pelvic pain, prolapse symptoms, urinary frequency, urinary incontinence, urinary urgency, vaginal discharge, vaginal dryness, vaginal odor or vaginal pruritus Skin Skin/Breast: Denies changing lesions, breast mass, breast pain, breast skin changes or nipple discharge Psych Psych: Denies anxiety, change in libido, depression or difficulty concentrating Exam Const General: cooperative, healthy appearing, comfortable, no acute distress, well developed and well groomed HENMT Head: normal to inspection and normocephalic Ears: hearing grossly normal bilaterally and external ears normal Nose: external nose normal Face and sinus: normal facial exam Neck Neck: normal visual inspection, full ROM and no lymphadenopathy Thyroid: thyroid normal Chest Chest palpation inspection: normal inspection of the chest Breast inspection: normal inspection of the breasts and normal inspection of the axillae Breast palpation: normal palpation of the breasts, normal palpation of the axillae and no axillary lymphadenopathy Resp Effort Inspection: normal respiratory effort GI Inspection: normal to inspection and non-distended Palpation: soft, no hepatosplenomegaly and no guarding General: bladder normal to palpation External Female Exam: normal external appearance, normal appearance of the urethra and no lesions Urethra: normal appearance of the urethra and normal palpation Speculum Exam - Vagina: normal appearance of the vagina and normal vaginal discharge Speculum Exam - Cervix: normal appearance of the cervix, no cervical discharge, no lesions and nontender Bimanual Exam- Vagina Uterus: normal bimanual exam, uterine size normal, bladder normal to palpation, No tender, uterine mobility normal, consistency normal, non-tender and no cervical motion tenderness Bimanual Exam- Adnexa, other: normal adnexae, no masses and non-tender Skin General: no rashes or lesions noted Neuro General: patient alert, moves all extremities and no focal motor deficits Extrem General: normal to inspection and no pedal edema Psych Appearance: grossly normal Mental Status: mental status grossly normal Affect: normal affect Speech and Movement: speech and movement normal Attitude: cooperative Coding Level of Care Code Off vis,est,prev 40-64yrs Diagnoses Encounter for routine gynecological examination Z01.419 Gynecological examination findings: abnormal findings ABSENT Assessment and Plan Assessment and Plan (1) Encounter for routine gynecological examination: Qualifiers: Gynecological examination findings: abnormal findings ABSENT Qualified Code(s): Z01.419 - Encounter for gynecological examination (general) (routine) without abnormal findings Plan: Cervical cancer screening: pap nl in the past Breast cancer screening: mamm other health maintenance examination reviewed and orders placed if needed. Encouraged maintenance of a healthy weight and active lifestyle and handout given. Annual exam handout including recommendations for good health guidelines, Calcium/vitamin D recommendations, and basic screening information given. Problem list up to date, see problem list details for any additional plan information. Follow up in one year for annual health maintenance exam or sooner if needed. Plan Details Goals Barriers: Goals Decrease pain Improve ROM Decrease spasm 05/21/22 1051 <Electronically signed by Charlotte Rinaldi MD> Date Charlotte Rinaldi MD Cosigner Signature: Date (if applicable) CC: Whitney Buster DO Work Phone: Start: 09-28-2021 End: 09-28-2021 Endocrinology Visit Report Comments: See Note; NOTES: [facility] [address] [place] [address] OFFICE VISIT Date of Service: 09/28/21 MR#: [id number] Acct: [id number] Name: LUCIANA ARSHAD FREIDA Rep #: [id number] : 1970 Provider: Kb Lal Age/Sex: 50/F Location: [facility] [place] Status: Signed Intake Vital Signs 09/28/21 10:01 09/28/21 10:08 Height 5 ft 6 in Weight: 196 lb BMI 31.6 28.5 BP 110/78 Blood Pressure Location Lt brachial Position Sitting Respiration 16 Pulse 60 Pulse Source Monitor Temp 97.2 F L Temp Source Temporal Pulse Oximetry (%) 99 Oxygen Delivery Method room air Intake Visit Reasons: 10m f/u Chief Complaint: thyroid, prolactin Electric[employer] Required: No Accompanied by: self Is patient in pain?: No Allergies nabumetone Allergy (Severe, Verified 09/28/21 10:07) abdominal pain, diarrhea, bloating, heartburn Sulfa (Sulfonamide Antibiotics) Allergy (Verified 09/28/21 10:07) Rash [facility] Medical History Bilateral headaches History of kidney stones Hypothyroidism Migraine Obesity Pituitary microadenoma Surgical History H/O oral surgery History of breast biopsy plantar fasciitis repair r ulnar radius reconstruction Family History Grandfather Heart disease Diabetes Grandmother Heart disease Diabetes Mother Thyroid disorder Social History household members: spouse and children number of children: 1 current occupational status: employed current occupation: RN [employer] history of recent travel: No sexually active: Yes Smoking Status: Never smoker alcohol intake: current alcohol intake frequency: a few times a month Alcohol type: wine substance use type: does not use caffeine: Yes what type of physical activity do you participate in: walking and running frequency: 5-6 times per week seatbelt use: always do you feel safe at home: Yes HPI HPI Chief Complaint: thyroid, prolactin Details: LUCIANA ARSHAD, is a 50 F who presents to the office today for follow up. She is taking her thyroid medication properly. She has hyperprolactinemia. MRI shows increased CSF and 4 mm adenoma. So, source of prolactin could be stalk compression OR adenoma. Once she started cabergoline and prolactin came down, she started having menses. She has Mirena IUD as well. She had labs done this month. Prolactin level is normal without medication. Thyroid studies are normal. She is feeling well. Exam Const General: cooperative, healthy appearing, comfortable, no acute distress, well developed and not cushingoid Nutritional Appearance: well nourished Orientation: alert, awake and oriented x3 HENMT Head: normal to inspection Ears: hearing grossly normal bilaterally Nose: external nose normal Mouth: oral mucosae normal Eyes General: appearance normal, both eyes and all related structures Alignment and Position: alignment normal Periorbital: periorbital findings normal Eyelids: eyelids normal Conjunctivae: conjunctivae normal Neck Neck: normal visual inspection Neck mass: No Thyroid: thyroid normal Lymphatic: no lymphadenopathy noted Chest Chest palpation inspection: normal inspection of the chest Resp Effort Inspection: normal respiratory effort, able to speak in complete sentences, symmetric chest movement, no audible wheezes and no cough Auscultation: Bilateral: Clear to Auscultation Cardio Rate: regular rate Rhythm: regular rhythm Pulses: posterior tibial pulses present GI Inspection: normal to inspection Palpation: soft Skin General: no rashes or lesions noted Neuro General: patient alert, patient awake and patient oriented x3 Cranial Nerves: CN's II-XI intact bilaterally Cognition: normal cognition Speech: speech normal Gait: normal gait Motor: muscle tone normal throughout Extrem General: no edema Psych Appearance: grossly normal Mental Status: mental status grossly normal Mood: congruent mood Affect: normal affect Speech and Movement: speech and movement normal Attitude: cooperative Thought Process: normal Thought Content: normal Judgment: judgment good Coding Level of Care Code Off vis,est,level 3 Diagnoses 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 Laurent Christianson MD: Take levothyroxine on an empty stomach with water at least four hours after eating. Then wait 30-60 minutes before consuming any other food or beverage, especially coffee. Separate levothyroxine from vitamins by at least 4 hours. Stop taking any biotin supplement 4 days prior to having labs drawn. Continue current dose. (2) Hyperprolactinemia: Status: Chronic Plan - Dr. Laurent Christianson MD: Currently resolved. Recheck prolactin next year. I have spent [27] minutes today reviewing labs, records and history. Time includes coordinating care, interpretation of tests, discussion with patient's other health care providers via telephone. This also includes time I spent with the patient for exam, treatment plan and education as well as documenting clinical information. Plan Details Other Medications: Refilled: levothyroxine 125 mcg PO DAILY 90 tabs 3RF Goals Barriers: Goals Decrease pain Improve ROM Decrease spasm 09/28/21 1317 <Electronically signed by Laurent Christianson MD> Date Laurent Christianson MD Cosigner Signature: Date (if applicable) CC: Dr. Whitney Goins, DO Whitney Goins DO Work Phone: Start: 09-26-2021 End: 09-26-2021 Dexa Bone Density Study Comments: See Note; NOTES: [facility] Imaging Services [address] [place] [address] Dexa Bone Density Study MR#: [id number] Acct: [id number] Name: LUCIANA ARSHAD Rep #: [id number] : 1970 F 50 From: Wayne lopez MD PCP: Dr. Whitney Goins, DO Status: [facility] CLI Study: Dexa Bone Density Study Date of Exam: 09/26/21 Exam# [id number] Ordering Dr: Laurent Christianson MD 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 COMPARISON: None. FINDINGS: Lumbar Spine (L1-L4): g/cm2 (0.980) / T-score (-0.6) / Z-score (0.2) Findings are suggestive of normal bone density with a low fracture risk. Left Femur Total: g/cm2 (1.067) / T-score (1.0) / Z-score (1.5) Left Femoral Neck: g/cm2 (0.967) / T-score (1.1) / Z-score (1.9) Right Femur Total: g/cm2 (1.109) / T-score (1.4) / Z-score (1.9) Right Femoral Neck: g/cm2 (0.973) / T-score (1.1) / Z-score (1.9) BD/Dexa Bone Density Study IMPRESSION: The patient is considered normal as outlined below according to World [place] Organization (WHO) criteria with a low fracture risk. Reference Information: The T-score is the number of standard deviations above or below the standard which is normal for young adults at their peak bone mineral density. The World Health Organization (WHO) interprets the T-scores as follows: Above -1 Normal bone density Between -1 and -2.5 Osteopenia Equal to / or below -2.5 Osteoporosis As a practical clinical guideline, osteopenia may be graded as follows: Mild -1 through -1.5 Moderate -1.6 through -2.0 Severe -2.1 through -2.4 The Z-score is the number of standard deviations above or below age-matched controls. A Z-score of less than -1.5 would be considered abnormal. References: 1. NIH Osteoporosis and Related Bone Diseases www osteo.org 2. International Society for Clinical Densitometry www iscd.org 3. National Osteoporosis Foundation www nof.org Electronically Signed: Wayne Mascorro MD at 13:39 EST , Service support , CC: Dr. Whitney Goins DO; Dr. Laurent Christianson MD Clothes Marker: Signed Whitney Goins DO Work Phone: Start: 05-04-2021 End: 05-04-2021 Breast Limited Unilateral Comments: See Note; NOTES: [facility] Imaging Services [address] [place] [id number] Breast Limited Unilateral MR#: [id number] Acct: [id number] Name: LUCIANA ARSHAD FREIDA Rep #: [id number] : 1970 F 50 From: Wayne lopez MD PCP: Dr. Whitney Goins DO Status: REG CLI Study: Breast Limited Unilateral Date of Exam: Exam# [id number] Ordering Dr: Aissatou Burciaga WAITER/WAITRESS WAITER/WAITRESS -C STUDY: ULTRASOUND BREAST - RIGHT REASON FOR EXAM: Female, 50 years old. Abnormal screening mammogram. TECHNIQUE: Axial and longitudinal images of the RIGHT breast were performed with a high resolution ultrasound transducer. # OF IMAGES: 20 COMPARISON: Comparison is made with prior mammogram dated 04/30/2021. FINDINGS: RIGHT Breast: Multiple cysts are seen at T5 and 6 o''clock positions of the breast. The largest cyst measures 7 mm x 7 mm x 5 mm. US/Breast Limited Unilateral IMPRESSION: Mammographic abnormality corresponds to small cysts. ASSESSMENT CATEGORY: BIRADS Category 2: Benign. A letter regarding these results will be sent to the patient by the facility within 30 days. Electronically Signed: Wayne Mascorro MD at 11:17 EDT , Service support , CC: EVIE Burciaga; Dr. Whitney Goins DO Clothes Marker: Signed Whitney Goins DO Work Phone: Start: 04-30-2021 End: 05-01-2021 SCRN MAMM (CAD)W/AYAKA BILAT Comments: See Note; NOTES: [facility] Imaging Services [address] [place] [id number] SCRN MAMM (CAD)W/AYAKA BILAT MR#: [id number] Acct: [id number] Name: LUCIANA ARSHAD FREIDA Rep #: [id number] : 1970 F 50 From: Wayne lopez MD PCP: Dr. Whitney Goins, Status: REG CLI Study: SCRN MAMM (CAD)W/AYAKA BILAT Date of Exam: 04/12 07/03 Exam# [id number] Ordering Dr: Charlotte Rinaldi MAMMOGRAPHY - BILATERAL SCREENING REASON FOR EXAM: Female, 50 years old. Routine annual screening examination. PERTINENT HISTORY: Aunt with breast cancer. TECHNIQUE: Digital bilateral breast ayaka (3D mammographic acquisition) in the CC and MLO projections. 2-D mediolateral oblique (MLO) and craniocaudad (CC) views of both breasts were obtained. CAD: Full Field Digital Mammography with Computer Added Detection was performed. COMPARISON: Comparison is made with prior examination dated 12/14/2019 and 12/10/2018. FINDINGS: Breast Composition: There are scattered areas of fibroglandular density. There are no dominant masses or suspicious calcifications. Stable 5.3 mm nodule in the inferior slightly medial aspect of the right breast. Correlation with ultrasound is recommended. A tissue clip marker is seen within the faint density in the medial anterior aspect of the right breast. No other significant abnormalities are identified. BI/SCRN MAMM (CAD)W/AYAKA BILAT IMPRESSION: 5.3 mm nodule in the inferior slightly medial aspect of the right breast. Correlation with ultrasound is recommended. ASSESSMENT CATEGORY: BIRADS Category 0: Incomplete. Need additional imaging evaluation. A letter regarding these results will be sent to the patient by the facility within 30 days. Approximately 10% of breast cancers are not detected by mammography. A normal mammogram should not delay biopsy of a clinically suspicious abnormality. [id number] Electronically Signed: Wayne Mascorro MD at 8:35 EDT , Service support , CC: Dr. Whitney Goins DO; Dr. Charlotte Rinaldi MD Clothes Marker: Signed Whitney Goins DO Work Phone: Start: 04-24-2021 End: 04-24-2021 Crop Pest Control Specialist Office Visit Report Comments: See Note; NOTES: [facility] [address] [place] [address] OFFICE VISIT Date of Service: 04/24/21 MR#: [id number] Acct: [id number] Name: LUCIANA ARSHAD Rep #: [id number] : 1970 Provider: Dr. Charlotte hu MD Age/Sex: 50/F [place] [facility] [place]: Signed Intake Vital Signs 04/24/21 09:02 04/24/21 09:03 Height 5 ft 6 in Weight: 183 lb BMI 29.5 28.5 BP 132/90 H Intake Visit Reasons: Annual (DATA ARCHITECT) Chief Complaint: est annual [employer]house Required: No Is patient in pain?: No Allergies nabumetone Allergy (Severe, Verified 11/21/20 09:00) abdominal pain, diarrhea, bloating, heartburn Sulfa (Sulfonamide Antibiotics) Allergy (Verified 11/21/20 09:00) Rash Medications calcium carbonate 500 mg (1,250 mg)-vitamin D3 200 unit tablet 1 tab PO DAILY 11/25/19 [History Confirmed 04/24/21] cholecalciferol (vitamin D3) 50 mcg (2,000 unit) tablet 2,000 unit PO DAILY 11/25/19 [History Confirmed 04/24/21] topiramate 25 mg tablet 25 mg PO DAILY tab 11/25/19 [History Confirmed 04/24/21] levonorgestrel 20 mcg/24 hours (6 yrs) 52 mg intrauterine device 1 device INTRAUTERINE ONCE 04/17/20 [History Confirmed 04/24/21] levothyroxine 125 mcg tablet 125 mcg PO DAILY #90 tab 11/21/20 [Rx Confirmed 04/24/21] Is last menstrual period known: No Post menopausal: No Patient : No : No PFSH Medical History Bilateral headaches History of kidney stones Hypothyroidism Migraine Obesity Pituitary microadenoma Surgical History H/O oral surgery History of breast biopsy plantar fasciitis repair r ulnar radius reconstruction Family History Grandfather Heart disease Diabetes Grandmother Heart disease Diabetes Mother Thyroid disorder Social History household members: spouse and children number of children: 1 current occupational status: employed current occupation: RN [employer] history of recent travel: No sexually active: Yes Smoking Status: Never smoker alcohol intake: current alcohol intake frequency: a few times a month Alcohol type: wine substance use type: does not use caffeine: Yes what type of physical activity do you participate in: walking and running frequency: 5-6 times per week seatbelt use: always do you feel safe at home: Yes Pregancy History 0 Elective abortions Hx Para 0 Spontaneous abortions Hx # Term Pregnancies Ectopic pregnancies Hx # Pregnancies Multiple births # of living children Past Pregnancies Del. Date Name GA/Weeks Outcome Route Bth Weight Gen Labor Lgth Anesthesia Del Locatn Provider FOB 04/13/07 [place] - adopted HPI Encounter for routine gynecological examination: Details: LUCIANA ARSHAD is a 50 year old who presents for annual exam. no dysmenorrhea after stopping the cabergoline. son is 14 Last PAP: nl 2019 History of abnormal PAP: no Last mammogram: 12/30 nl History of abnormal mammogram: no Colon cancer screening: up to date robert Other preventative health care screenings: pcp Details: LUCIANA ARSHAD is a 50 year old who presents for annual exam. Last PAP: [] History of abnormal PAP: [] Last mammogram: [] History of abnormal mammogram: [] Colon cancer screening: [] Other preventative health care screenings: [] Female Reproductive History Cycle Length: 21-35 Bleeding Duration: 2 Questions: metorrhagia: No, sexually active: Yes, dyspareunia: No and PCB: No Menopausal Symptoms: No hot flashes, No night sweats, No weight change, No mood changes, No difficulty concentrating, No sleep problems and No change in libido ROS Const Constitutional: Reports as per HPI; Denies fatigue, increased appetite, poor appetite, night sweats, weight gain or weight loss Cardio Card: Denies chest pain Resp Resp: Denies cough or dyspnea GI GI: Reports as per HPI; Denies abdominal pain, bloating, constipation, nausea or vomiting : Reports as per HPI and other; Denies difficulty voiding, dysuria, hematuria, hot flashes, nipple discharge, pelvic pain, prolapse symptoms, urinary frequency, urinary incontinence, urinary urgency, vaginal discharge, vaginal dryness, vaginal odor or vaginal pruritus Skin Skin/Breast: Denies changing lesions, breast mass, breast pain, breast skin changes or nipple discharge Psych Psych: Denies anxiety, change in libido, depression or difficulty concentrating Exam Const General: cooperative, healthy appearing, comfortable, no acute distress, well developed and well groomed [facility] Head: normal to inspection and normocephalic Ears: hearing grossly normal bilaterally and external ears normal Nose: external nose normal Face and sinus: normal facial exam Neck Neck: normal visual inspection, full ROM and no lymphadenopathy Thyroid: thyroid normal Chest Chest palpation inspection: normal inspection of the chest Breast inspection: normal inspection of the breasts and normal inspection of the axillae Breast palpation: normal palpation of the breasts, normal palpation of the axillae and no axillary lymphadenopathy Resp Effort Inspection: normal respiratory effort GI Inspection: normal to inspection and non-distended Palpation: soft, no hepatosplenomegaly and no guarding General: bladder normal to palpation External Female Exam: normal external appearance, normal appearance of the urethra and no lesions Urethra: normal appearance of the urethra and normal palpation Speculum Exam - Vagina: normal appearance of the vagina and normal vaginal discharge Speculum Exam - Cervix: normal appearance of the cervix, no cervical discharge, no lesions and nontender Bimanual Exam- Vagina Uterus: normal bimanual exam, uterine size normal, bladder normal to palpation, No tender, uterine mobility normal, consistency normal, non-tender and no cervical motion tenderness Bimanual Exam- Adnexa, other: normal adnexae, no masses and non-tender Skin General: no rashes or lesions noted Neuro General: patient alert, moves all extremities and no focal motor deficits Extrem General: normal to inspection and no pedal edema Psych Appearance: grossly normal Mental Status: mental status grossly normal Affect: normal affect Speech and Movement: speech and movement normal Attitude: cooperative Coding Level of Care Code Off vis,new,prev 40-64yrs Diagnoses Encounter for routine gynecological examination Z01.419 Gynecological examination findings: abnormal findings ABSENT Assessment and Plan Assessment and Plan (1) Encounter for routine gynecological examination: Qualifiers: Gynecological examination findings: abnormal findings ABSENT Qualified Code(s): Z01.419 - Encounter for gynecological examination (general) (routine) without abnormal findings Plan - Dr. Charlotte Rinaldi MD: Cervical cancer screening: pap 2020 Breast cancer screening: mamm ordered other health maintenance examination reviewed and orders placed if needed. Encouraged maintenance of a healthy weight and active lifestyle and handout given. Annual exam handout including recommendations for good health guidelines, Calcium/vitamin D recommendations, and basic screening information given. Problem list up to date, see problem list details for any additional plan information. Follow up in one year for annual health maintenance exam or sooner if needed. Plan Details Other Orders: Orders: SCRN MAMM (CAD)W/AYAKA BILAT Today Goals Barriers: Goals Decrease pain Improve ROM Decrease spasm 04/24/21926 <Electronically signed by Charlotte Rinaldi MD> Date Charlotte Rinaldi MD Cosigner Signature: Date (if applicable) CC: Whitney Goins DO Work Phone: Start: 11-21-2020 End: 11-21-2020 Endocrinology Visit Report Comments: See Note; NOTES: [facility] [address] [place] [address]. [address] [place], [place] [id number] OFFICE VISIT Date of Service: 11/21/20 MR#: [id number] Acct: [id number] Name: LUCIANA ARSHAD Rep #: [id number] : 1970 Provider: Kb Lal Age/Sex: 50/F Location: [facility] [place] Status: Signed Intake Vital Signs 11/21/20 Height 5 ft 7.5 in 11/21/20 Weight: 185 lb 2 oz 11/21/20 BMI 28.5 11/21/20 BP 102/80 11/21/20 Blood Pressure Location Lt brachial 11/21/20 Position Sitting 11/21/20 Respiration 16 11/21/20 Pulse 57 L 11/21/20 Pulse Source Monitor 11/21/20 Temp 95.5 F L 11/21/20 Temp Source Temporal 11/21/20 Pulse Oximetry (%) 98 11/21/20 Oxygen Delivery Method room air Intake Visit Reasons: 6 M FU Chief Complaint: thyroid and pituitary Electrician Hel[employer]house Required: No Accompanied by: None Is patient in pain?: No Allergies nabumetone Allergy (Severe, Verified 11/21/20 09:00) abdominal pain, diarrhea, bloating, heartburn Sulfa (Sulfonamide Antibiotics) Allergy (Verified 11/21/20 09:00) Rash [facility] Medical History Bilateral headaches (Acute) History of kidney stones (Acute) Hypothyroidism (Chronic) Migraine (Chronic) Obesity (Chronic) Pituitary microadenoma (Suspected) Surgical History H/O oral surgery (Acute) r ulnar radius reconstruction (Acute) History of breast biopsy (Resolved) plantar fasciitis repair (Resolved) Family History Grandfather Heart disease Diabetes Grandmother Heart disease Diabetes Mother Thyroid disorder Social History (Updated 11/21/20 @ 09:[address] Laurent Christianson MD) household members: spouse, children number of children: 1 current occupational status: employed current occupation: RN [employer] history of recent travel: No sexually active: Yes Smoking Status: Never smoker alcohol intake: current alcohol intake frequency: a few times a month Alcohol type: wine substance use type: does not use caffeine: Yes what type of physical activity do you participate in: walking, running frequency: 5-6 times per week seatbelt use: always do you feel safe at home: Yes HPI HPI Chief Complaint: thyroid and pituitary Details: LUCIANA ARSHAD, is a 50 F who presents to the office today for follow up. She has autoimmune hypothyroidism. She is feeling well. She has lost a significant amount of weight (> 20 pounds) through diet and exercise. This may affect her levothyroxine needs. She denies symptoms of hyperthyroidism. She has hyperprolactinemia. MRI shows increased CSF and 4 mm adenoma. So, source of prolactin could be stalk compression OR adenoma. Once she started cabergoline and prolactin came down, she started having menses. She has Mirena IUD as well. She did notice some uterine cramping/discomfort and that was worked up by Dr. Rinaldi. ROS Const Constitutional: No anorexia, body ache, chills, excessive sweating, fatigue, fever(s), frequent falls, headache(s), decreased energy, malaise, night sweats, snoring, weakness, weight change, sleep problems, abnormal sleep pattern, change in appetite or other Eyes Eyes: No blurry vision, change in vision, double vision, discharge, dry eyes, bulging eyes, floaters, visual disturbances, eye pain, light sensitivity, spots in vision, tunnel vision or other ENT ENT: No abnormal hearing, ear pain, ear discharge, ear pressure, hearing loss, tinnitus, dizziness/vertigo, balance problems, nosebleed/epistaxis, nasal congestion, nasal obstruction, nose pain, sinus pressure, sinus pain, nasal discharge, post nasal drip, headache(s), facial pain, dental pain, dry mouth, difficulty swallowing, bad breath, hoarseness, lip swelling, mouth lesions, mouth pain, neck pain, sore throat, tongue swelling, throat swelling or other Cardio Cardiology: Positive for slow heart rate; no leg pain with exertion or excessive sweating Musc Musculoskeletal: No abnormal walking, joint pain, back pain, deformity, joint swelling, limited range of motion, loss of height, muscle cramps, decreased muscle mass, body aches, neck pain, numbness, radiating pain into limb, stiffness, tingling, Arthritis, restless legs, leg pain with exertion, sciatica, leg pain at night or other Neuro Neurology: No abnormal walking, abnormal hearing, abnormal movements, abnormal speech, behavioral changes, confusion, unsteady gait/balance, dizziness, weakness, frequent falls, headache(s), lack of coordination, loss of vision, memory loss, numbness, tingling, visual disturbances, restless legs, fainting, tremor(s) or other Psych Psychiatric: No abnormal sleep pattern, No lack of enjoyment, No anxiety, No behavioral changes, No change in appetite, No confusion, No depression, No difficulty concentrating, No hopelessness, No irritability, No memory loss, No mood swings, No panic attacks, No paranoia, No Thoughts of harming yourself/Others, No hallucinations, No other Grupo/Lymp Hematologic/Lymphatic: Positive for easy bruising Resp Respiratory: No cough, change in phlegm color, chest congestion, excessive phlegm production, hemoptysis, pain on inspiration, shortness of breath, pain with cough, snoring, stridor, wheezing or other Gastro GI: No abdominal pain, belching, bloating, change in bowel habits, change in stool character, coffee ground emesis, constipation, cramping, diarrhea, heartburn, difficulty swallowing, feeling full early, excessive flatus, incontinent of stools, Vomiting blood/hematemesis, blood in stool, loose stools, Black,tarry stools, nausea/dyspepsia, pain with swallowing, vomiting or other Skin Skin: No acne, hair loss, change in hair, nail changes, boil, change in skin color, dry skin, redness, excessive hair growth, yellowing of the skin, lesions, itching, rash, skin pain, skin ulcer , sores, skin swelling, wounds or other Breast Breast: No change in breast shape, breast lump, breast pain, breast skin changes, breast swelling, nipple discharge or other Endo Endocrine: No change in body appearance, cold intolerance, excessive sweating, fatigue, flushing, heat intolerance, increased thirst/drinking, increased hunger, increased urination or other Aller/Imm Allergy/Immunologic: No food intolerance, itchy eyes, lip swelling, seasonal allergy symptoms, throat swelling, tongue swelling, hives, wheezing or other Exam Const General: cooperative, healthy appearing, comfortable, no acute distress, well developed, not cushingoid Nutritional Appearance: well nourished Orientation: alert, awake, oriented x3 [facility] Head: normal to inspection Ears: hearing grossly normal bilaterally Nose: external nose normal Mouth: oral mucosae normal Eyes General: appearance normal, both eyes and all related structures Alignment and Position: alignment normal Periorbital: periorbital findings normal Eyelids: eyelids normal Conjunctivae: conjunctivae normal Neck Neck: normal visual inspection Neck mass: No Thyroid: diffusely enlarged Carotids: no bruits Lymphatic: no lymphadenopathy noted Chest Chest palpation inspection: normal inspection of the chest Resp Effort Inspection: normal respiratory effort, able to speak in complete sentences, symmetric chest movement, no audible wheezes, no cough Auscultation: Bilateral: Clear to Auscultation Cardio Rate: regular rate Rhythm: regular rhythm Pulses: posterior tibial pulses present GI Inspection: normal to inspection Auscultation: normal bowel sounds Palpation: soft, no hepatosplenomegaly Skin General: no rashes or lesions noted Neuro General: alert, awake, oriented x3 Cranial Nerves: CN's II-XI intact bilaterally Cognition: normal cognition Speech: speech normal Gait: normal gait Motor: muscle tone normal throughout Extrem General: no edema Psych Appearance: grossly normal Mental Status: mental status grossly normal Mood: congruent mood Affect: normal affect Speech and Movement: speech and movement normal Attitude: cooperative Thought Process: normal Thought Content: normal Judgment: judgment good Assessment Plan 1. 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 Take levothyroxine on an empty stomach with water at least four hours after eating. Then wait 30-60 minutes before consuming any other food or beverage, especially coffee. Separate levothyroxine from vitamins by at least 4 hours. Stop taking any biotin supplement 4 days prior to having labs drawn. Orders Orders: Prolactin Today T4 Free Direct Today Thyroid Stim Hormone (TSH) Today 2. Hyperprolactinemia E22.1 Plan I believe the most likely cause of high prolactin is stalk compression. She is of menopausal age. Discussed with patient, will stop cabergoline. Will check prolactin next year. If prolactin approaches 100 will restart cabergoline or recheck MRI. Also, will order DEXA next year. I have spent [28] minutes today reviewing labs, records and history. Time includes coordinating care, interpretation of tests, discussion with patient's other health care providers via telephone. This also includes time I spent with the patient for exam, treatment plan and education as well as documenting clinical information. 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 Whitney Goins, Status: REG CLI Study: Pelvic (Non ) Date of Exam: 04/24/20 Exam# [id number] Ordering Dr: Charlotte Rinaldi STUDY: ULTRASOUND OF THE FEMALE PELVIS - COMPLETE REASON FOR EXAM: Female, 49 years old. DYSMENORRHEA LMP: March 30, 2020. TECHNIQUE: Transabdominal and Transvaginal TECHNICAL QUALITY: Adequate. COMPARISON: None. FINDINGS: The uterus is anteverted and is in a midline position. The uterus measures 8.2 cm x 3.9 cm x 4.3 cm. Normal uterine cervix. The endometrium measures 6.0 mm in thickness, and is hyperechoic. There is no demonstrated endometrial mass. There is no demonstrated myometrial mass. I.U.D. - The patient does have an I.U.D. The IUD is seen within the fundal aspect of the endometrium. The right ovary is visualized. The right ovary measures 3.9 cm x 3.1 cm x 2.3 cm. There is a 1.7 cm x 1.7 cm x 2 cm complex cyst in the right ovary. This may represent an hemorrhagic cyst. Follow-up is recommended. There is no visualized right adnexal mass or complex lesion. There is normal arterial and normal venous vascularity. The left ovary is visualized. The left ovary measures 2.3 cm x 1.6 cm x 1.0 cm. There is no left ovarian cyst or ovarian mass. There is no visualized left adnexal mass or complex lesion. There is normal arterial and normal venous vascularity. There is no fluid in the cul-de-sac. The pre void volume of the bladder was 121 ml. Polycystic ovary disease: No. US/Pelvic (Non ) IMPRESSION: There is a 1.7 cm x 1.7 cm x 2 cm cyst with low-level echoes within it in the right ovary as described. This may represent an hemorrhagic cyst. Follow-up is recommended. IUD is seen within the endometrium. Electronically Signed: Wayne Mascorro, at 15:43 EDT , Service support , CC: Dr. Whitney Goins DO; Dr. Charlotte Rinaldi MD Clothes Marker: Signed Whitney Goins Start: 04-24-2020 End: 04-24-2020 Transvaginal Non- Comments: See Note; NOTES: [facility] Imaging Services [address] [place] [id number] Transvaginal Non- MR#: [id number] Acct: [id number] Name: LUCIANA ARSHAD Rep #: [id number] : 1970 F 49 From: Wayne lopez MD PCP: Dr. Whitney Goins DO Status: REG CLI Study: Transvaginal Non- Date of Exam: Exam# [id number] Ordering Dr: Charlotte Rinaldi STUDY: ULTRASOUND OF THE FEMALE PELVIS - COMPLETE REASON FOR EXAM: Female, 49 years old. DYSMENORRHEA LMP: March 30, 2020. TECHNIQUE: Transabdominal and Transvaginal TECHNICAL QUALITY: Adequate. COMPARISON: None. FINDINGS: The uterus is anteverted and is in a midline position. The uterus measures 8.2 cm x 3.9 cm x 4.3 cm. Normal uterine cervix. The endometrium measures 6.0 mm in thickness, and is hyperechoic. There is no demonstrated endometrial mass. There is no demonstrated myometrial mass. I.U.D. - The patient does have an I.U.D. The IUD is seen within the fundal aspect of the endometrium. The right ovary is visualized. The right ovary measures 3.9 cm x 3.1 cm x 2.3 cm. There is a 1.7 cm x 1.7 cm x 2 cm complex cyst in the right ovary. This may represent an hemorrhagic cyst. Follow-up is recommended. There is no visualized right adnexal mass or complex lesion. There is normal arterial and normal venous vascularity. The left ovary is visualized. The left ovary measures 2.3 cm x 1.6 cm x 1.0 cm. There is no left ovarian cyst or ovarian mass. There is no visualized left adnexal mass or complex lesion. There is normal arterial and normal venous vascularity. There is no fluid in the cul-de-sac. The pre void volume of the bladder was 121 ml. Polycystic ovary disease: No. US/Transvaginal Non- IMPRESSION: There is a 1.7 cm x 1.7 cm x 2 cm cyst with low-level echoes within it in the right ovary as described. This may represent an hemorrhagic cyst. Follow-up is recommended. IUD is seen within the endometrium. Electronically Signed: Wayne Mascorro, at 15:43 EDT , Service support , CC: Dr. Whitney Goins DO; Dr. 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 [place] [address] OFFICE VISIT Date of Service: 04/17/20 MR#: [id number] Acct: [id number] Name: LUCIANA ARSHAD Rep #: [id number] : 1970 Provider: Dr. Charlotte hu MD Age/Sex: 49/F [place] [facility] [place]: Signed Intake Vital Signs 04/17/20 BMI 32.5 04/17/20 Height 5 ft 6 in 04/17/20 Weight: 192 lb 04/17/20 BMI 30.9 04/17/20 BP 120/80 Intake Visit Reasons: Annual (DATA ARCHITECT), works in [employer] Allergies nabumetone Allergy (Severe, Verified 04/17/20 15:21) abdominal pain, diarrhea, bloating, heartburn Sulfa (Sulfonamide Antibiotics) Allergy (Verified 04/17/20 15:21) Rash Medications calcium carbonate 500 mg (1,250 mg)-vitamin D3 200 unit tablet 1 tab PO DAILY 11/25/19 [History Confirmed 04/17/20] cholecalciferol (vitamin D3) 50 mcg (2,000 unit) tablet 2,000 unit PO DAILY 11/25/19 [History Confirmed 04/17/20] topiramate 25 mg tablet 25 mg PO DAILY tab 11/25/19 [History Confirmed 04/17/20] levothyroxine 125 mcg tablet 125 mcg PO DAILY #90 tab 11/30/19 [Rx Confirmed 04/17/20] cabergoline 0.5 mg tablet 0.25 mg PO 2XW tab 04/17/20 [History] levonorgestrel 20 mcg/24 hours (5 yrs) 52 mg intrauterine device 1 device INTRAUTERINE ONCE 04/17/20 [History Confirmed 04/17/20] Is last menstrual period known: Yes Last Menstral Period: 03/30/20 Post menopausal: No Patient : No : No [facility] Medical History (Updated 04/17/20 @ 15:[address] Charlotet Rinaldi MD) Bilateral headaches (Acute) History of kidney stones (Acute) Hypothyroidism (Chronic) Migraine (Chronic) Obesity (Chronic) Pituitary microadenoma (Suspected) Surgical History H/O oral surgery (Acute) r ulnar radius reconstruction (Acute) History of breast biopsy (Resolved) plantar fasciitis repair (Resolved) Family History Grandfather Heart disease Diabetes Grandmother Heart disease Diabetes Mother Thyroid disorder Social History (Updated 04/17/20 @ 16:[address] Charlotte Rinaldi MD) household members: spouse, children number of children: 1 current occupational status: employed current occupation: RN [employer] history of recent travel: No sexually active: Yes Smoking Status: Never smoker alcohol intake: current alcohol intake frequency: a few times a month Alcohol type: wine substance use type: does not use diet: other well-balanced diet: daily or most days caffeine: Yes what type of physical activity do you participate in: walking, running frequency: 5-6 times per week seatbelt use: always do you feel safe at home: Yes Pregancy History 0 Elective abortions Hx Para 0 Spontaneous abortions Hx # Term Pregnancies Ectopic pregnancies Hx # Pregnancies Multiple births # of living children Past Pregnancies Del. Date Name GA/Weeks Outcome Route Bth Weight Gen Labor Lgth Anesthesia Del [facility] Provider FOB 04/13/07 Janine - adopted HPI Annual (DATA ARCHITECT), works in [employer]: Details: LUCIANA ARSHAD is a 49 year old who presents for annual exam. been on iud for fifteen years, now having cycles and cramping where she did before. Last PAP: due History of abnormal PAP: pap hpv ascus Last mammogram: up to date History of abnormal mammogram: no Colon cancer screening: will get next year. Other preventative health care screenings: dr goins up to date Female Reproductive History Last Menstral Period: 03/30/20 Cycle Length: 21-35 Bleeding Duration: 3 associated symptoms: new- dysmenorrhea Questions: Metorrhagia: No, Sexually active: Yes, Dyspareunia: Yes (increasing over the last year.), PCB: No ROS Const Constitutional: Reports as per HPI and weight loss (intentional); denies fatigue, increased appetite, poor appetite or weight gain Cardio Card: Denies chest pain Resp Resp: Denies cough or dyspnea GI GI: Reports as per HPI; denies abdominal pain, bloating, constipation, nausea or vomiting : Reports as per HPI and other; denies difficulty urinating, painful urination, blood in urine, nipple discharge, pelvic pain, prolapse symptoms, urinary frequency, urinary incontinence, urinary urgency, vaginal discharge, vaginal dryness, vaginal odor or vaginal itching Skin Skin/Breast: Denies changing lesions, breast lump, breast pain, breast skin changes or nipple discharge Psych Psych: Denies anxiety or depression Exam Const General: cooperative, healthy appearing, comfortable, no acute distress, well developed, well groomed [facility] Head: normal to inspection, normocephalic Ears: hearing grossly normal bilaterally, external ears normal Nose: external nose normal Face and sinus: normal facial exam Neck Neck: normal visual inspection, full ROM, no lymphadenopathy Thyroid: thyroid normal Chest Chest palpation inspection: normal inspection of the chest Breast inspection: normal inspection of the breasts, normal inspection of the axillae Breast palpation: normal palpation of the breasts, normal palpation of the axillae, no axillary lymphadenopathy Resp Effort Inspection: normal respiratory effort GI Inspection: normal to inspection, non-distended Palpation: soft, no hepatosplenomegaly, no guarding General: bladder normal to palpation External Female Exam: normal external appearance, normal appearance of the urethra, no lesions Urethra: normal appearance of the urethra, normal palpation Speculum Exam - Vagina: normal appearance of the vagina, normal vaginal discharge Speculum Exam - Cervix: normal appearance of the cervix (strings seen), no cervical discharge, no lesions, nontender Bimanual Exam- Vagina Uterus: normal bimanual exam, uterine size normal, bladder normal to palpation, No cervical tenderness, uterine mobility normal, uterine consistency normal, uterus non- tender, no cervical motion tenderness Bimanual Exam- Adnexa, other: normal adnexae, no adnexal masses, adnexae non-tender Skin General: no rashes or lesions noted Neuro General: alert, moves all extremities, no focal motor deficits Extrem General: normal to inspection, no pedal edema Psych Appearance: grossly normal Mental Status: mental status grossly normal Affect: normal affect Speech and Movement: speech and movement normal Attitude: cooperative Assessment Plan Problems 1. Dysmenorrhea N94.6 pelvic us to check IUD position 2. Encounter for gynecological examination (general) (routine) with abnormal findings Z01.411 Plan Cervical cancer screening: pap hpv Breast cancer screening: mamm up to date other health maintenance examination reviewed and orders placed if needed. Encouraged maintenance of a healthy weight and active lifestyle and handout given. Annual exam handout including recommendations for good health guidelines, Calcium/vitamin D recommendations, and basic screening information given. Problem list up to date, see problem list details for any additional plan information. Follow up in one year for annual health maintenance exam or sooner if needed. Orders Orders: Pelvic (Non ) Today N94.6 Transvaginal Non- Today N94.6 Plan Detail Goals Decrease pain Improve ROM Decrease spasm Coding Level of Care Code Off vis,new,prev 40-64yrs Diagnoses Dysmenorrhea N94.6 Encounter for gynecological examination (general) (routine) with abnormal findings Z01.411 04/17/20 1608 <Electronically signed by Charlotte Rinaldi MD> Date Charlotte Rinaldi MD Cosigner Signature: Date (if applicable) CC: Whitney Goins Start: 03-29-2020 End: 03-29-2020 PT D/C of Non Returning Pt (1) Comments: See Note; NOTES: [facility] [address] [place] [address] [address] [place] [address] / REHABILITATION SERVICES DISCHARGE SUMMARY MR#: [id number] Acct: [id number] Name: LUCIANA ARSHAD Rep #: [id number] : 1970 49 From: Royal Soto DPT Referring DrShai: FILOMENA Singh Status: REG [facility] Insurance: [facility] SELF PAY INSURANCE LUCIANA ARSHAD was seen in my office for initial evaluation on 09/21/19. The following Plan of Care was established for this patient: Initial Frequency: 2x /Week Initial Duration: 4-6 Weeks Patient/Client Instruction: Educate patient on: Condition, Plan of Care, Risk Factors, Benefits of Fitness Program For the Purpose of:: To improve decision making, To facilitate caregiver knowledge, To improve self management, To prevent re-injury, To improve ability to perform tasks related to life management, To improve tolerance to ADL's Therapeutic Exercise to Include: Strength training, Power training, Endurance training, Flexibilty training, Gait and locomotor training, Passive ROM, Active ROM For the Purpose of:: To decrease pain, To increase ROM, To improve nutrient delivery to tissue, To increase oxygenation perfusion, To improve muscle performance and motor function Manual Therapy Techniques to Include: Mobilization, Manipulation, Passive ROM For the Purpose of:: To decrease pain, To decrease swelling/inflammation, To increase ROM This patient was last seen in our office 10/07/19. Pertinent comments regarding their Physical therapy will appear below: Pt. was seen for her L shoulder impingmenet. Pt. was doing well at her last appointment by 95% better. Pt. was to follow up with PT in 2-3 weeks if needed. Pt. has not been seen in several months and will be DC from PT at this point intime. At this point I will be discontinuing this patient from physical therapy. I would be happy to see this patient again in the future if found appropriate by the physician. Thank you! Royal Soto DPT <Electronically signed by Royal Soto DPT> 03/29/20 1352 CC: DC Dr. Paradise Singh; Dr. Kassie Hassan DO CLS Signed Whitney Goins Start: 12-14-2019 End: 12-14-2019 SCREEN MAMM (CAD) W/AYAKA BILAT Comments: See Note; NOTES: [facility] Imaging Services [address] [place] [address] SCREEN MAMM (CAD) W/AYAKA BILAT MR#: [id number] Acct: [id number] Name: LUCIANA ARSHAD Rep #: [id number] : 1970 F 49 From: Wayne Mascorro MD PCP: Whitney Goins DO Status: [facility] CLI Study: SCREEN MAMM (CAD) W/AYAKA BILAT Date of Exam: 12/14/19 Exam# [id number] Ordering Dr: Charlotte Rinaldi MD MAMMOGRAPHY - BILATERAL SCREENING REASON FOR EXAM: Female, 49 years old. Routine annual screening examination. PERTINENT HISTORY: Aunt with breast cancer. TECHNIQUE: Digital bilateral breast ayaka (3D mammographic acquisition) in the CC and MLO projections. 2-D mediolateral oblique (MLO) and craniocaudad (CC) views of both breasts were obtained. CAD: Full Field Digital Mammography with Computer Added Detection was performed. COMPARISON: Comparison is made with prior study dated December 02, 2018 and October 16, 2017. FINDINGS: Breast Composition: There are scattered areas of fibroglandular density. There are no dominant masses or suspicious calcifications. A patient marker is once again seen in the central medial aspect of the right breast. No other significant abnormalities are identified. There has been no significant change since the prior study. BI/SCREEN MAMM (CAD) W/AYAKA BILAT IMPRESSION: Stable bilateral screening mammogram. Yearly follow-up mammogram recommended. (A) ASSESSMENT CATEGORY: BIRADS Category 2: Benign. A letter regarding these results will be sent to the patient by the facility within 30 days. Approximately 10% of breast cancers are not detected by mammography. A normal mammogram should not delay biopsy of a clinically suspicious abnormality. [id number] Electronically Signed: Wayne Mascorro, at 14:00 EST , Service support , CC: Whitney Goins DO; Charlotte Rinaldi MD Clothes Marker: Signed Whitney Goins Start: 11-30-2019 End: 11-30-2019 Endocrinology Visit Report Comments: See Note; NOTES: [facility] [address] [place] [address] [address] [place] [address] OFFICE VISIT Date of Service: 11/30/19 MR#: [id number] Acct: [id number] Name: LUCIANA ARSHAD Rep #: [id number] : 1970 Provider: Laurent Christianson MD Age/Sex: 49/F Location: [facility] [place] Status: Signed Intake Vital Signs11/30/19 Height 5 ft 6 in 11/30/19 Weight: 216 lb 2 oz 11/30/19 BMI 34.9 11/30/19 BP 122/78 H 11/30/19 Blood Pressure Location Lt radial 11/30/19 Position Sitting Intake Visit Reasons: thyroid Chief Complaint: thyroid and pituitary Is patient in pain?: No Allergies nabumetone Allergy (Severe, Verified 11/30/19 09:35) abdominal pain, diarrhea, bloating, heartburn Sulfa (Sulfonamide Antibiotics) Allergy (Verified 11/30/19 09:35) Rash Medications calcium carbonate 500 mg (1,250 mg)-vitamin D3 200 unit tablet 1 tab PO DAILY 11/25/19 [History Confirmed 11/30/19] cholecalciferol (vitamin D3) 50 mcg (2,000 unit) tablet 2,000 unit PO DAILY 11/25/19 [History Confirmed 11/30/19] topiramate 25 mg tablet 25 mg PO DAILY tab 11/25/19 [History Confirmed 11/30/19] cabergoline 0.5 mg tablet 0.25 mg PO .weekly #6 tab 11/30/19 [Rx Confirmed 11/30/19] levothyroxine 125 mcg tablet 125 mcg PO DAILY #90 tab 11/30/19 [Rx Confirmed 11/30/19] PFSH Medical History Bilateral headaches (Acute) History of kidney stones (Acute) Hypothyroidism (Chronic) Migraine (Chronic) Obesity (Chronic) Pituitary microadenoma (Suspected) Surgical History H/O oral surgery (Acute) r ulnar radius reconstruction (Acute) History of breast biopsy (Resolved) plantar fasciitis repair (Resolved) Family History Grandfather Heart disease Diabetes Grandmother Heart disease Diabetes Mother Thyroid disorder Social History (Updated 11/30/19 @ 17:18 by Laurent Christianson MD) Smoking Status: Never smoker alcohol intake: current alcohol intake frequency: a few times a month Alcohol type: wine caffeine: Yes HPI HPI Chief Complaint: thyroid and pituitary Details: LUCIANA ARSHAD, is a 49 F who presents to the office today for evaluation and management of thyroid and pituitary disease. She has had hypothyroidism for a few years. In 2018/2019 her free T3 levels were low. Then her TSH became low prompting an endocrine evaluation. She has positive thyroid antibodies. MRI of pituitary shows increased CSF fluid, small pituitary (perhaps due to increase pressure from CSF) and 4 mm possible adenoma Prolactin level high at 42 ROS Const Constitutional: No excessive sweating, fatigue, fever(s), headache(s), malaise, night sweats, weakness, weight change or abnormal sleep pattern Eyes Eyes: No blurry vision ENT ENT: No tinnitus, dizziness/vertigo, headache(s), difficulty swallowing, hoarseness, neck pain or sore throat Resp Respiratory: No cough or shortness of breath Cardio Cardiology: No chest pain at rest, chest pain with exertion, excessive sweating, shortness of breath, dyspnea on exertion, generalized swelling, irregular heart rhythm, lightheadedness, fast heart rate or palpitations Gastro GI: No abdominal pain, change in bowel habits, constipation, diarrhea, heartburn or difficulty swallowing Musc Musculoskeletal: No joint pain, back pain, joint swelling, muscle cramps, muscle weakness, neck pain, numbness or tingling Skin Skin: No lesions or rash Neuro Neurology: No abnormal speech, behavioral changes, confusion, unsteady gait/balance, dizziness, weakness, headache(s), memory loss, numbness, tingling or fainting Psych Psychiatric: No abnormal sleep pattern, No behavioral changes, No confusion, No depression, No difficulty concentrating, No memory loss, No Thoughts of harming yourself/Others Endo Endocrine: No cold intolerance, excessive sweating, fatigue, flushing, heat intolerance, increased thirst/drinking or increased urination Aller/Imm Allergy/Immunologic: No seasonal allergy symptoms Grupo/Lymp Hematologic/Lymphatic: No easy bleeding, easy bruising or enlarged lymph nodes Exam Const General: cooperative, healthy appearing, comfortable, no acute distress Nutritional Appearance: well nourished Orientation: alert, awake, oriented x3 HENMT Head: normocephalic, atraumatic Ears: hearing grossly normal bilaterally, external ears normal Nose: external nose normal Face and sinus: normal facial exam Mouth: oral mucosae normal Eyes General: appearance normal, both eyes and all related structures Pupils: PERRL EOM: EOM intact bilaterally Neck Neck: normal visual inspection, no lymphadenopathy Neck mass: No Thyroid: thyroid normal Carotids: no bruits Chest Chest palpation AND inspection: normal inspection of the chest Resp Effort AND Inspection: normal respiratory effort, able to speak in complete sentences Auscultation: Bilateral: Clear to Auscultation Cardio Rate: regular rate Rhythm: regular rhythm Heart Sounds: S1 normal, S2 normal Pulses: posterior tibial pulses present, dorsalis pedis pulses present GI Palpation: soft, no hepatosplenomegaly Musc Musculoskeletal: No muscle weakness Skin General: no erythema Lesions: other (no lipohypertophy) Neuro General: gait normal, CN's II-XI intact bilaterally Cognition: normal cognition Speech: speech normal Gait: normal gait Extrem General: no edema Psych Appearance: well kempt Mood: congruent mood Affect: normal affect Speech and Movement: speech and movement normal Attitude: cooperative Thought Process: normal Thought Content: normal Assessment AND Plan 1. 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 Sometimes Free T3 is low while treating primary hypothyroidism, I don't usually follow it. She had difficult to interpret thyroid studies. These could have been due to pituitary disease or perhaps an acute autoimmune thyroiditis. In the future will follow TSH and free T4. We can't be 100% sure that her TSH is reliable, but probably is based on the fact that she doesn't have any other pituitary deficiencies. Orders Orders: 2. Hyperprolactinemia E22.1 Plan Hyperprolactinemia could be due to 4 mm adenoma. OR, it could be due to stalk compression from increase CSF. She states she did have some mild head injuries during sports in high school. Will decrease cabergoline to .25 mg weekly. REcheck labs in 8-10 weeks. 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 Age/Sex: 49/F Location: [facility] [place] Status: Signed Intake Intake Visit Reasons: back pain Chief Complaint: L sided low back pain Is patient in pain?: Yes Allergies nabumetone Allergy (Severe, Verified 01/13/19 08:37) abdominal pain, diarrhea, bloating, heartburn Sulfa (Sulfonamide Antibiotics) Allergy (Verified 01/13/19 08:37) Rash [facility] Medical History Bilateral headaches (Acute) History of kidney stones (Acute) Hypothyroidism (Chronic) Migraine (Chronic) Obesity (Chronic) Pituitary microadenoma (Suspected) Surgical History History of breast biopsy (Resolved) plantar fasciitis repair (Resolved) Family History Grandfather Heart disease Diabetes Grandmother Heart disease Diabetes Mother Thyroid disorder Social History (Updated 10/25/19 @ 08:44 by Paradise Singh DC) Smoking Status: Never smoker HPI back pain : Chief Complaint: L sided low back pain Visit Number: 1 Details: LUCIANA ARSHAD is a 49 year old F who presents with L sided low back pain. Luciana states that her pain began after [place] leaving her with a tight and sore ache banding across the L of the low back and into the mid back. Luciana rates her pain a 4/10, she states that when walking, standing, and bending the pain increases leaving her with a sharp ache. Insideous onset, no previous low back injury/surgery. Her shoulder feels better since doing PT. She has full ROM and strength. Luciana denies any numbness, tingling, or radiculopathy. Onset: Location: L low back Duration: constant Aggravating or associated factors: sitting, bending, lifting, and rotation Relieving factors: chiro Pain Quality: aching, dull, cramping, sharp, radiating Exam Musc General: Yes normal posture, normal gait and joint tenderness (T2,T3,T4,L2,L3,L4,L5) Thoracic/Lumber: Yes thoracic and lumbar spine normal to inspection, Yes Lasegue's sign positive on the left, Yes pain with thoraco-lumbar ROM with forward flexion and with rotation to the left, Yes paraspinal tenderness bilaterally in the mid thoracic and on the left greater than right (lumbar), Yes thoraco-lumbar spasm bilaterally in the upper thoracic, in the mid thoracic and in the lower lumbar, No straight leg raise positive, Yes misalignment T3, T4, T5, L3, L4, L5 Neuro General: alert, awake, oriented x3, normal light touch, pain and propioception, no focal motor deficits Ortho Test CERVICAL THORACIC Thomas: Negative LUMBAR Kemps: Positive, Left Valsalvas: Negative SLR: Negative Iliac Compression: Negative Office Procedures Chiropractic Treatments Procedures Manipulation: Lumbar L3, L5, Thoracic T4 Manipulation: 1-2 regions Electronic Stimulation: Yes Electrical Stimulation: Lumbar (L) 15 mins (21) mA Therapy Performed by:: Alanna Aguilar MA Patient Response: positive Assessment AND Plan 1. Segmental and somatic dysfunction of lumbar region M99.03 Orders Orders: 2. Segmental and somatic dysfunction of thoracic region M99.02 Plan Detail Additional Comments Evaluated her low back and treated with positive response to care. Follow up in 1 week and monitor patient response. Goals Decrease pain Improve ROM Decrease spasm Follow Up 1 Week Coding Level of Care Code Off vis,est,level 1 Diagnoses Segmental and somatic dysfunction of lumbar region M99.03 Segmental and somatic dysfunction of thoracic region M99.02 Additional Codes Procedures - Electronic Stimulation: Yes (01697) Procedures - Manipulation: 1-2 regions (43195) 10/25/19 0844 <Electronically signed by Paradise Singh D.C.> Date Paradise Singh D.C. Cosigner Signature: Date (if applicable) CC: Whitney Goins Start: 10-07-2019 End: 10-07-2019 Inital Evaluation (1) - PT Comments: See Note; NOTES: [facility] [address] [place] [address] [address] [place] [address] / REHABILITATION SERVICES INITIAL EVALUATION MR#: [id number] Acct: [id number] Name: LUCIANA ARSHAD Rep #: [id number] : 1970 48 From: Royal Soto DPT Referring Dr.: Paradise Singh D.C. Status: REG R Insurance: [facility] SELF PAY INSURANCE Patient's Visit Information LUCIANA ARSHAD is a 48 year old F referred to Physical Therapy by Paradise Singh DC with a diagnosis of L shoulder impingment. Date of Evaluation: 09/21/19 Physical Therapist: Royal Soto DPT - Visit Plan Frequency: 2x /Week Duration: 4-6 Weeks Plan: Start with stretcing of L shoulder, add in inferior glides and capsule stretching. Progress HEP as tolerated. - Subjective Findings: Pt. is here today for her initial evaluation with diagnosis of L shoulder impingment. Pt. reports having symptoms for a few months now. She went and saw her chiropractor who referred her to PT. Pt. reports no mech of injury, but has been having more and more difficulty raising her L arm over her head. Pt. reports pain at subacromial space and into deltoid region. Pt. denies N/T and no neck pain. Pt. has not done any exercises at this point in time. Pt. is an ER nurse. Pt. is having difficulty sleeping. Pt. is hopeful to reduce her L shoulder pain and get back to all work and recreational activities with out limitations. - Pain L shoulder Pain Intensity (Out of 10): 2 Pain Intensity Range: 0, 4 - Objective POSTURE: Pt. has good posture in stance, slight anterior shoulders. PALPATION: Pt. has slight atnerior shoulder pain with palpation. NEURO: normal throughout bilateral UEs. ROM: R shoulder- full ROm throughout. L shoulder- flexion 160deg with shoulder elevation, abd 160deg with shoudler elevation, functional ER C1, functional IR PSIS aberrant. Pt. has end range pain with all over head motions. MMT: 5/5 throughout withotu increase in symptoms B UEs. - Special Tests L Shoulder Lift Off Test - Subscapular Tear: Negative L Shoulder Empty Can - SS: Negative L Shoulder Belly Press - SupScap: Negative L Shoulder Neer - Impingement: Positive L Shoulder Segura Luis Manuel - Impingement: Positive L Shoulder Biceps Load Test - Labrum: Negative L Shoulder Yeargasons - SLAP: Negative L Shoulder Lateral Scapular Slide Test - Scap Dysfunction: Positive - Goals Goal 1:: Pt. to be I with HEP. Goal Time Frame: 4-6 Weeks Goal 2:: Pt. to have full L shoulder ROM with out increase in symptoms. Goal Time Frame: 4-6 Weeks Goal 3:: Pt. to sleep without increase in symptoms. Goal Time Frame: 4-6 Weeks Goal 4:: Pt. to resume all work related activities without limitations. Goal Time Frame: 4-6 Weeks - Rehabilitation Potential Physical Therapy Diagnosis: Pt. has signs and L shoulder impingment, but I believe this is do to adhesive capsulitis. Pt. would benefit from PT to increase stretching and ROM fo her L shoulder. Rehabilitation Potential: Excellent - Anticipated Interventions Patient/Client Instruction: Educate patient on: Condition, Plan of Care, Risk Factors, Benefits of Fitness Program For the Purpose of:: To improve decision making, To facilitate caregiver knowledge, To improve self management, To prevent re-injury, To improve ability to perform tasks related to life management, To improve tolerance to ADL's Therapeutic Exercise to Include: Strength training, Power training, Endurance training, Flexibilty training, Gait and locomotor training, Passive ROM, Active ROM For the Purpose of:: To decrease pain, To increase ROM, To improve nutrient delivery to tissue, To increase oxygenation perfusion, To improve muscle performance and motor function Manual Therapy Techniques to Include: Mobilization, Manipulation, Passive ROM For the Purpose of:: To decrease pain, To decrease swelling/inflammation, To increase ROM Thank you for the opportunity to evaluate your patient. For Medicare and Medicare HMO plans, please review the plan of care and approve it. It will need to be FAXED BACK to us at [phone] for Medicare purposes. For Medicare only, by signing this I certify the plan of care. Please let me know if there are questions or concerns regarding this plan of care. Physician Signature: Date: <Electronically signed by Royal Soto DPT> 10/07/19 1321 CC: Kassie Hassan DO; Paradise Singh D.C. CLS Signed Whitney Goins Start: 09-29-2019 End: 09-30-2019 Brain W/WO Contrast Comments: See Note; NOTES: [facility] [address] [place] [address] Brain W/WO Contrast MR#: [id number] Acct: [id number] Name: LUCIANA ARSHAD Alfredo Rep #: [id number] : 1970 F 48 From: John Lees MD PCP: Kassie Hassan DO Status: REG CLI Study: Brain W/WO Contrast Date of Exam: 09/29/19 Exam# [id number] Ordering Dr: Jason Eng HISTORY: Hypo-functioning pituitary. Pituitary nodule. Hypothyroidism. Most recent comparison MRI of the brain is from December 07, 2018 Technique: Sagittal T1, coronal T2, thin slice coronal through the sella turcica, there is slight limited sagittal through the sella turcica images were obtained through the brain. Following the uneventful administration of intravenous contrast axial T1-weighted images were obtained through the brain. Coronal and sagittal T1 post gadolinium images were obtained through the sella turcica. Findings: Atrophy is trace. No ventriculomegaly. No significant white matter disease. No acute ischemia. Paranasal sinuses and mastoid air cells are free of disease. Flow is present within major central intracranial arteries. There are no masses, herniations, nor deviations. The pituitary stalk is normal in appearance and within the midline. The pituitary gland is present within the inferior margin of the sella turcica. It may be slightly decreased in size. There is CSF above the sella turcica with a concave margin of the sella turcica relative to the above CSF. The appearance of the pituitary gland is the same as that of the previous study. On the previous study, and the current study there is a tiny amount of T1-weighted hyperintensity signal within the posterior margin of the sella turcica and pituitary gland. This is likely represents proteinaceous fluid within the neurohypophysis inferiorly on the right pituitary gland. This was present on the previous study. On the superior lateral aspect of the left side of the pituitary gland, in the same location as on the previous study, series 10 image 7 on the current study, series 8 image 3 on the current study there is a probable 4 mm nodule. Is the same in size as previous study there is no evidence of extension of the tumor out of the sella turcica. The optic chiasm remains normal. The optic nerves remain normal. Adjacent arteries are without perceived aneurysm. Beginnings of the optic tracts are normal. The clivus is normal in marrow signal. MRI/Brain W/WO Contrast IMPRESSION: Small pituitary gland within the inferior aspect of the sella turcica with a concave border between the above CSF extending down into the pituitary gland. This is the same as previous study. There is an infundibulum within the midline that enhances similarly to the normal pituitary. There is normal enhancing pituitary gland as was seen on the previous study. On the superior lateral margin of the pituitary gland there is a 4 mm area of nodular thickening. This tissue enhances similarly to the adjacent pituitary parenchyma. It is feasible that this is a pituitary adenoma. No change. at 0148 Reported and signed by: John Lees MD Electronically Signed: John Lees MD at 1:46 EST Tel , Service support , CC: Kassie Hassan DO; JASON ENG Clothes Marker: Signed Whitney Goins Start: 09-13-2019 End: 09-13-2019 Chiropractic Report Comments: See Note; NOTES: [facility] [address] [place] [address] OFFICE VISIT Date of Service: 09/13/19 MR#: [id number] Acct: [id number] Name: LUCIANA ARSHAD Rep #: [id number] : 1970 Provider: Paradise Singh D.C. Age/Sex: 48/F Location: [facility] [place] Status: Signed Intake Vital Signs09/13/19 Body Mass Index (BMI) 32.5 Intake Visit Reasons: shoulder pain Chief Complaint: L arm/ shoulder pain Is patient in pain?: Yes Allergies nabumetone Allergy (Severe, Verified 01/13/19 08:37) abdominal pain, diarrhea, bloating, heartburn Sulfa (Sulfonamide Antibiotics) Allergy (Verified 01/13/19 08:37) Rash Medications calcium carbonate 600 mg calcium (1,500 mg) tablet 600 mg PO DAILY tab 01/13/19 [History Confirmed 09/13/19] cholecalciferol (vitamin D3) 1,000 unit capsule 1,000 unit PO DAILY 01/13/19 [History Confirmed 09/13/19] levothyroxine 100 mcg capsule 100 mcg PO DAILY 01/13/19 [History Confirmed 09/13/19] topiramate 25 mg tablet 25 mg PO .QOD PRN tab 01/13/19 [History Confirmed 09/13/19] [facility] Medical History (Updated 09/13/19 @ 10:56 by Paradise Singh DC) Bilateral headaches (Acute) History of kidney stones (Acute) Hypothyroidism (Chronic) Migraine (Chronic) Obesity (Chronic) Pituitary microadenoma (Suspected) Surgical History (Updated 01/12/19 @ 20:28 by Viviane Shearer) History of breast biopsy (Resolved) plantar fasciitis repair (Resolved) Family History (Updated 04/02/19 @ 20:27 by Viviane Shearer) Grandfather Heart disease Diabetes Grandmother Heart disease Diabetes Mother Thyroid disorder Social History (Updated 09/13/19 @ 11:43 by Paradise Singh DC) Smoking Status: Never smoker HPI shoulder pain: Chief Complaint: L shoulder pain Visit Number: 1 Referral source: [facility] employee Details: LUCIANA ARSHAD is a 48 year old F who presents with L sided shoulder pain. She states that the pain has been ongoing for over seven months, leaving her with a deep and sore ache into the L shoulder and deltoid. Strapping her bra, doing her hair and lifting causes increased pain and tightness across the shoulder. Pressure from laying on the L arm while sleeping causes increased pain and burning into the arm. When the pain is at its worst, it does radiate into the elbow. Luciana denies any numbness, tingling, or radiculopathy. No previous history of injury to the shoulder. Onset: 07/19/19 Location: L shoulder Duration: constant Aggravating or associated factors: rotation, reaching, pulling and lifting Relieving factors: unknown Pain Quality: aching, dull, cramping, sharp, radiating Exam Musc General: Yes normal posture, normal gait and joint tenderness (L shoulder) Neuro General: alert, awake, oriented, normal light touch, pain and propioception, focal motor deficits present Motor: strength 5/5 throughout (bilateral shoulder) Sensory Exam: no sensory deficits noted Left Shoulder Skin/Wound: No swelling Contralateral Normal: No (previous R shoulder pain) Testing: Yes Hawkin's, No Neer's, No Drop Arm, Yes AROM-Forward Elevation 0-180 (180), Yes AROM-External Rotation at 90 0-60 (50), Yes AROM-External Rotation at side 0-60 (50), Yes PROM-Forward Elevation 0-180 (180), Yes PROM-External Rotation at side 0-60 (50), Yes PROM-External Rotation at 90 0-60 (50), Yes Apprehension Test, No empty can, Yes scapular symmetry Internal Rotation: L5 Assessment AND Plan Problems 1. Impingement syndrome, shoulder, left M75.42 Plan Examined patient. Referred to physical therapy. Follow up upon completion and refer for xray/ortho should pain persist. Plan Detail Follow Up upon PT completion Coding Level of Care Code Off vis,new,level 2 Diagnoses Impingement syndrome, shoulder, left M75.42 09/13/19 1143 <Electronically signed by Paradise Singh D.C.> Date Paradise Singh D.C. Cosigner Signature: Date (if applicable) CC: Whitney Goins Start: 02-15-2019 End: 02-15-2019 Echocardiogram Complete Comments: See Note; NOTES: [facility] [address] [place] [address] Echo Complete 02/15/19 1257 MR#: [id number] Acct: [id number] Name: LUCIANA ARSHAD Rep #: [id number] : 1970 48 From: Gaudencio Wren MD Attending Dr: Gaudencio Wren MD Status: REG CLI Ordering Dr: Gaudencio Wren MD Date: 02/15/19 Location: [facility] Sex: F C Admitted: Reason For Study: Arrhythmia Procedure This was a 2D Doppler, Color Flow transthoracic echocardiogram. Exam performed in department. Left Ventricle Normal LV size. Left ventricular systolic function is normal. The estimated ejection fraction is 60 %. Normal diastology for age. No regional wall motion abnormalities noted. Right Ventricle Normal RV size. Normal systolic function. Atria Normal left atrium. Normal right atrium. Bubble contrast study negative for right to left interatrial shunt. Mitral Valve Normal mitral valve. Tricuspid Valve Normal tricuspid valve. Aortic Valve Trisinus/trileaflet aortic valve. Normal aortic valve. Pulmonic Valve Normal pulmonic valve. Great Vessels Normal aortic root. The pulmonary artery is normal size. Normal inferior vena cava. Pericardium/Pleural No pericardial effusion. Medication Performed a rapid injection of agitated mix of 9 cc saline and 1cc air to assess for atrial septal defect. MMode/2D Measurements AND Calculations LVIDd: 4.7 cm IVSd: 1.0 cm Ao root diam: 3.1 cm LVIDs: 2.6 cm LVPWd: 0.80 cm RVDd: 3.7 cm FS: 43.8 % LAV(MOD-bp): 37.5 ml LVAd ap4: 27.8 cm2 SV(MOD-sp4): 53.0 ml LAV(MOD-bp) Indexed: 18.6 ml/m2 EDV(MOD-sp4): 77.9 ml LAV(MOD-sp2): 41.0 ml EDV(sp4-el): 81.1 ml LAV(MOD-sp4): 34.9 ml LVAs ap4: 13.5 cm2 ESV(MOD-sp4): 24.9 ml ESV(sp4-el): 24.4 ml EF(MOD-sp4): 68.0 % EF(sp4-el): 69.9 % SV(sp4-el): 56.7 ml LA A4 area: 14.9 cm2 LA dimension(2D): 3.5 cm RA A4 area: 14.4 cm2 Doppler Measurements AND Calculations MV E max darryl: 100.8 cm/sec Lat Peak E' Darryl: 16.2 cm/sec Med Peak E' Darryl: 8.9 cm/sec MV A max darryl: 45.3 cm/sec E/E' lat: 6.2 E/E' med: 11.3 MV E/A: 2.2 Ao V2 max: 138.6 cm/sec LV V1 max: 122.2 cm/sec PA V2 max: 91.5 cm/sec Ao max P.7 mmHg LV V1 max P.0 mmHg Ao V2 mean: 94.1 cm/sec Ao mean P.9 mmHg Ao V2 VTI: 31.0 cm TR max darryl: 222.9 cm/sec TR max P.9 mmHg Interpretation Summary Normal LV size. Left ventricular systolic function is normal. The estimated ejection fraction is 60 %. Normal diastology for age. Bubble contrast study negative for right to left interatrial shunt. Structurally normal valves. Ordering Physician: Gaudencio Wern Referring Physician: Kassie Hassan Performed By: Sanaz Reno, LUIS ENRIQUE, RVT 02/15/19 1546 Date Gaudencio Wren MD CC: Gaudencio Wren MD; Kassie Hassan DO Date Dictated: 02/15/19 1257 Date Transcribed: 02/15/19 1546 Clothes Marker: Signed Whitney Buster Start: 01-13-2019 End: 01-13-2019 Cardiology Visit Report Comments: See Note; NOTES: [facility] [address] [place] [address] OFFICE VISIT Date of Service: 01/13/19 MR#: [id number] Acct: [id number] Name: LUCIANA ARSHAD Rep #: [id number] : 1970 Provider: Gaudencio Wren MD Age/Sex: 48/F Location: [facility] [place] Status: Signed HPI HPI Details: 48-year-old lady with no previous cardiac history other than hypothyroidism who says that she is been noticing that her heart rate has been low. This has been noticed on alarms on her watch. She has had no dizziness or diaphoresis no near syncope or syncope. Her energy level has been good but she has had some problems with sleeping poorly. She was previously on Cytomel as well as Synthroid and she was not sure what the combination medication was doing to her heart rate. She did discontinue the Cytomel on her own and since then she thinks that her heart rate has improved. She had a series of blood work performed which included his free cT3 which was 1.8 and mildly abnormal but her T4 as well as a TSH were all normal. Her lipid profile was noted to be excellent. She is not had any dizziness or diaphoresis near syncope or syncope. She did have an MRI of her brain which demonstrated a small 4 mm left-sided adenohypophysis nodule which may be a pituitary microadenoma. There is no planned treatment for the above. Her physical exam here today demonstrates clear lung jauregui regular rate and rhythm no pedal edema her electrocardiogram demonstrates normal sinus rhythm with a rate of 58 bpm and no acute changes. Her blood pressure is under excellent control. Intake Vital Signs01/13/19 Height 5 ft 6 in Intake Visit Reasons: Self ref'd for bradycardia Allergies nabumetone Allergy (Severe, Verified 01/13/19 08:37) abdominal pain, diarrhea, bloating, heartburn Sulfa (Sulfonamide Antibiotics) Allergy (Verified 01/13/19 08:37) Rash Medications calcium carbonate 600 mg calcium (1,500 mg) tablet 600 mg PO DAILY tab 01/13/19 [History Confirmed 01/13/19] cholecalciferol (vitamin D3) 1,000 unit capsule 1,000 unit PO DAILY 01/13/19 [History Confirmed 01/13/19] levothyroxine 100 mcg capsule 100 mcg PO DAILY 01/13/19 [History Confirmed 01/13/19] topiramate 25 mg tablet 25 mg PO .QOD PRN tab 01/13/19 [History Confirmed 01/13/19] PFSH Medical History Hypothyroidism (Chronic) Migraine (Chronic) Obesity (Chronic) Pituitary microadenoma (Suspected) Surgical History History of breast biopsy (Resolved) plantar fasciitis repair (Resolved) Family History Grandfather Heart disease Diabetes Grandmother Heart disease Diabetes Mother Thyroid disorder Social History Smoking Status: Never smoker ROS Const Const: Negative for fatigue, weakness, headache(s), frequent falls, difficulty sleeping or excessive sweating Eyes Eyes: Negative for loss of peripheral vision, transient loss of vision, blurry vision, double vision or tunnel vision ENT ENT: Negative for headache(s), dizziness, Nosebleed/epistaxis or balance problems Cardio Chest Pain: No Palpitations: No Edema: None Muscle aches with walking: None Additional Details: C/O feeling funny in her head and notes that her HR has been in her 40's and on December 30- heart rate had been below 40 for >10 minutes. Stopped cytomel on 01/10/19 HR 120 with regular ambulation Resp Respiratory: Negative for SOB with activity, SOB at rest, SOB orthopnea\SOB lying down, Cough or paroxysmal nocturnal dyspnea GI GI: Negative nausea, vomiting, heartburn or black,tarry stools : Negative for hematuria Musc Musc: Negative for muscle aches/ myalgia, muscle weakness, joint pain or balance problems Skin Skin: Negative non-healing lesions, rash or unusual bruising Neuro Neuro: Negative for dizziness, lightheadedness, near syncope, syncope, orthostatic symptoms, frequent falls, headache(s), weakness, blurry vision, double vision or lack of coordination Grupo Hematologic/Lymphatic: Negative for easy bleeding or easy bruising Endo Endo: Negative for fatigue, excessive sweating or increased thirst/drinking Psych Psych: Negative for anxiety or depression Allergy Allergy/Immunology: Negative for hives, Negative for rash Cardiology Exam Const Appearance: cooperative, healthy appearing, no acute distress, well developed and well groomed Nutritional Appearance: average body habitus and well nourished Orientation: alert, awake and oriented x3 Head Head: normal to inspection, normocephalic and atraumatic Ears: hearing grossly normal bilaterally and external ears normal Nose: external nose normal, nares normal, nasal mucous membranes and turbinates normal, septum normal, no nasal discharge Face and Sinus: face symmetric Mouth: oral mucosae normal, tongue normal, oropharynx normal and moist mucous membranes Teeth and gingiva: dentition normal Throat: posterior oropharynx normal, tonsils normal and uvula midline Eyes General: appearance normal, both eyes and all related structures Eyelids: eyelids normal Conjunctivae: conjunctivae normal Pupils: PERRL, normal by confrontation and accommodation normal EOM: EOM intact bilaterally Neck Neck: normal visual inspection, trachea midline and no JVD JVD: +5 Carotids: normal carotid upstroke and bounding pulses Chest Chest inspection: normal inspection of the chest, symmetric chest movement and normal respiratory effort Auscultation: Bilateral: Clear to Auscultation Cardio Palpation: normal PMI Rate: regular rate Rhythm: regular rhythm Heart sounds: S1 normal, S2 normal and normal, physiologic split S2; negative rub, gallop or murmur GI GI: normal to inspection, soft, no hepatosplenomegaly and bowel sounds present Neuro General: alert, awake, oriented x3, gait normal, moves all extremities and no focal sensory deficit Skin Skin: no rashes or lesions noted Extremities Pulses: Normal: Right Femoral Pulse, Left Femoral Pulse, Right Dorsalis Pedis Pulse, Left Dorsalis Pedis Pulse, Right Posterior Tibial Pulse, Left Posterior Tibial Pulse, Right Radial Pulse, Left Radial Pulse Lower Extremity Edema: None: Bilateral Musculoskel Musculoskeletal: No joint tenderness Psych Psychological: normal affect Assessment AND Plan 1. Bradycardia R00.1 Plan She does have evidence of asymptomatic bradycardia. My recommendation at this time would be to obtain a 24-hour Holter monitor to make sure she does not have any significant pauses and also to obtain an echocardiogram to assess her left ventricular function. Depending on these findings further recommendations will be made. Thank you for allowing me to participate in the care of your patient. 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) Coding Level of Care Code Off vis,new,level 3 Diagnoses Bradycardia R00.1 Coding Level of Care Code Off vis,new,level 3 Diagnoses Bradycardia R00.1 Supplemental Info Supplemental Information Diagnostics Electrocardiogram 01/13/19 01/13/19 1204 <Electronically signed by Gaudencio Wren MD> Date Gaudencio Wren MD Cosigner Signature: Date (if applicable) CC: Whitney Dill Start: 01-13-2019 End: 01-14-2019 12 Lead EKG performed by [facility] Comments: See Note; NOTES: [facility] [place] [address] [place] [address] 12 Lead EKG performed by [facility] 01/13/19 0933 MR#: [id number] Acct: [id number] Name: LUCIANA ARSHAD Rep #: [id number] : 1970 48 From: Gaudencio Wren MD Attending Dr: Gaudencio Wren MD Status: DEP AMB Ordering Dr: Gaudencio Wren MD Date: 01/13/19 Location: [facility] Sex: F C Admitted: [facility]/12 Lead EKG performed by [facility] Sinus Bradycardia Low voltage -possible pulmonary disease. ABNORMAL 01/13/19 1457 <Electronically signed by Gaudencio Wren MD> Date Gaudencio Wren MD CC: Whitney Buster DO Date Dictated: 01/13/19932 Date Transcribed: 01/13/19932 Clothes Marker: CO Signed Whitney Goins Start: 12-10-2018 End: 12-10-2018 SCREENING MAMM (CAD), BILAT Comments: See Note; NOTES: [facility] Imaging Services [address] [place] [address] SCREENING MAMM (CAD), BILAT MR#: [id number] Acct: [id number] Name: LUCIANA ARSHAD Rep #: [id number] : 1970 F 48 From: Wayne Mascorro MD PCP: Whitney Goins DO Status: REG CLI Study: SCREENING MAMM (CAD), BILAT Date of Exam: 12/10/18 Exam# [id number] Ordering Dr: Sherry Wilson MD MAMMOGRAPHY - BILATERAL SCREENING REASON FOR EXAM: Female, 48 years old. Routine annual screening examination. PERTINENT HISTORY: Aunt with breast cancer. Remote right excisional breast biopsy. TECHNIQUE: Digital bilateral breast ayaka (3D mammographic acquisition) in the CC and MLO projections. 2-D mediolateral oblique (MLO) and craniocaudad (CC) views of both breasts were obtained. CAD: Full Field Digital Mammography with Computer Added Detection was performed. COMPARISON: Comparison is made with prior study dated October 16, 2017 and on September 27, 2016. FINDINGS: Breast Composition: There are scattered areas of fibroglandular density. There are no dominant masses or suspicious calcifications. A tissue clip marker is once again seen in the central medial aspect of the right breast. Stable small bilateral axillary lymph nodes. No other significant abnormalities are identified. There has been no significant change since the prior study. BI/SCREENING MAMM (CAD), BILAT IMPRESSION: Stable bilateral screening mammogram. Yearly follow-up mammogram recommended. (A) ASSESSMENT CATEGORY: BIRADS Category 2: Benign. A letter regarding these results will be sent to the patient by the facility within 30 days. Approximately 10% of breast cancers are not detected by mammography. A normal mammogram should not delay biopsy of a clinically suspicious abnormality. [id number] Electronically Signed: Wayne Mascorro, at 14:59 EST , Service support , CC: Sherry Wilson MD; Whitney Goins DO Clothes Marker: Signed Whitney Goins Start: 12-07-2018 End: 12-07-2018 Brain W/WO Contrast Comments: See Note; NOTES: [facility] Imaging Services [address] [place] [address] Brain W/WO Contrast MR#: [id number] Acct: [id number] Name: LUCIANA ARSHAD Rep #: [id number] : 1970 F 48 From: Tye Sow MD PCP: Whitney Goins DO Status: REG CLI Study: Brain W/WO Contrast Date of Exam: 12/07/18 Exam# [id number] Ordering Dr: Jason Eng STUDY: MRI BRAIN WITH AND WITHOUT CONTRAST (ATTENTION PITUITARY GLAND) REASON FOR EXAM: Female, 48 years old. Abnormal thyroid labs TECHNIQUE: Standardized multiplanar fat and water weighted pulse sequences were obtained. Gadavist 10 IV was administered for the contrast portion of the examination. COMPARISON: None. FINDINGS: A small T1 isointense, enhancing nodule is present in the left side of the adenohypophysis superiorly, best seen on image 8 of series 13 and image 9 of series 10. This measures approximately 4 mm in diameter. A pituitary microadenoma cannot be excluded. There is no evidence of extension into the cavernous sinus. The adjacent cavernous segment of the ICA is patent. Normal infundibular stalk and suprasellar cistern. Normal optic chiasm and hypothalamus. Normal size of the ventricles and extra-axial spaces for the patient's age. Normal white matter tracts of the supratentorial brain. Normal bilateral basal ganglia. Normal thalami. Normal flow voids within the major intracranial circulation suggesting patency by spin echo criteria. Normal venous enhancement. There is no enhancing intra-axial or extra-axial abnormality. There is no extra-axial fluid accumulation. Normal tectal plate and pineal gland. Normal midbrain, she and medulla. Normal cerebellum. Normal basal cisterns. Normal bilateral temporal bones. Normal bilateral internal auditory canals. No demonstrated orbital abnormality, within the constraints of a routine brain study. Normal visualized paranasal sinuses. Normal calvarium and skull base. Normal visualized upper cervical spine. Normal visualized soft tissue structures. MRI/Brain W/WO Contrast IMPRESSION: A 4 mm left-sided adenohypophysis nodule is noted which may be a pituitary microadenoma. The adjacent cavernous sinus is intact. Continued MRI follow-up may be indicated. No evidence of intra-axial pathology. Electronically Signed: Tye Sow MD at 16:09 EST Tel , Service support , CC: JSAON ENG; Whitney Goins DO Clothes Marker: Signed Whitney Goins Start: 06-01-2018 End: 06-01-2018 Inital Evaluation (1) - PT Comments: See Note; NOTES: [facility] [address] [place] [address]. [address] [place], [place] [address] Fax REHABILITATION SERVICES INITIAL EVALUATION MR#: [id number] Acct: [id number] Name: LUCIANA ARSHAD Rep #: [id number] : 1970 47 From: Pat Lock DPT Referring Dr.: EVIE Adrian Status: REG RCR Insurance: [facility] SELF PAY INSURANCE Patient's Visit Information LUCIANA ARSHAD is a 47 year old F [...] grab does not stay. 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 No [...] to be FAXED BACK to us at [phone] for Medicare purposes. Please let me know if there are questions or concerns regarding this plan of care. Physician Signature: Date: <Electronically signed by Pat Lock DPT> 06/01/18 1150 CC: EVIE Adrian; Whitney Goins ELR Signed For Medicare only, by signing this I certify the plan of care. _ Physicians Signature Date Whitney Jensenon Start: 10-16-2017 End: 10-16-2017 SCREENING MAMM (CAD), BILAT Comments: See Note; NOTES: [facility] Imaging Services [address] [place] [address] SCREENING MAMM (CAD), BILAT MR#: [id number] Acct: [id number] Name: JEANCARLOSLUCIANA Fuentes Rep #: [id number] : 1970 F 46 From: Wayne Mascorro MD PCP: Whitney Goins DO Status: REG CLI Study: SCREENING MAMM (CAD), BILAT Date of Exam: 10/16/17 Exam# [id number] Ordering Dr: Sherry Wilson MD MAMMOGRAPHY - BILATERAL SCREENING REASON FOR EXAM: Female, 46 years old. Routine annual screening examination. PERTINENT HISTORY: Aunt with breast cancer. Remote right excisional breast biopsy. TECHNIQUE: Digital bilateral breast ayaka (3D mammographic acquisition) in the CC and [...] delay biopsy of a clinically suspicious abnormality. [id number] Electronically Signed: Wayne Mascorro MD at 10:53 EST Tel [phone], Service support , CC: Sherry Wilson MD; Whitney Goins DO Clothes Marker: Signed Whitney Goins Start: 09-27-2016 End: 09-27-2016 Bilat Scrn Digital AND CAD Comments: See Note; NOTES: [facility] Imaging Services [address] [place] [address] Verdana 4d Bilat Scrn Digital AND CAD MR#: [id number] Acct: [id number] Name: LUCIANA ARSHAD Rep #: [id number] : 1970 F 45 From: Wayne Mascorro MD PCP: Whitney Goins DO Status: REG CLI Study: Bilat Scrn Digital AND CAD Date of Exam: 09/27/16 Exam# [id number] Ordering Dr: Sherry Wilson MD MAMMOGRAPHY - BILATERAL SCREENING REASON FOR EXAM: Female, 45 years old. Routine annual screening examination. PERTINENT HISTORY: Aunt with breast cancer. Remote right excisional breast biopsy. TECHNIQUE: Digital bilateral breast ayaka (3D mammographic acquisition) in the CC and [...] degree of architectural distortion is seen in the upper outer quadrant of the right breast. This is the site of the prior excisional breast biopsy. A tissue marker clip is also seen in the right breast at approximately the 3:00 position. This is unchanged. No other significant abnormalities are identified. There has been no significant change since the prior study. HPBI/Bilat Scrn Digital AND CAD IMPRESSION: Stable bilateral screening mammogram. Yearly follow-up mammogram recommended. (A) ASSESSMENT CATEGORY: BIRADS Category 2: Benign. A letter regarding these results will be sent to the patient by the facility within 30 days. Approximately 10% of breast cancers are not detected by mammography. A normal mammogram should not delay biopsy of a clinically suspicious abnormality. [id number] Electronically Signed: Wayne Mascorro MD at 12:38 EST Tel [phone], Service support [phone], CC: Sherry Wilson MD; Whitney Goins DO Clothes Marker: Signed Whitney Goins Start: 08-25-2015 End: 08-25-2015 Bilat Scrn Digital AND CAD Comments: See Note; NOTES: [facility] Imaging Services [address] [place] [address] Verdana 4d Bilat Scrn Digital AND CAD MR#: [id number] Acct: [id number] Name: LUCIANA ARSHAD Rep #: [id number] : 1970 F 44 From: Wayne Mascorro MD PCP: Kassie Hassan DO Status: REG CLI Study: Jojo Huffman Digital AND CAD Date of Exam: 08/25/15 Exam# [id number] Ordering Dr: Sherry Wilson MD MAMMOGRAPHY - BILATERAL SCREENING REASON FOR EXAM: Female, 44 years old. Routine annual screening examination. PERTINENT HISTORY: Aunt with breast cancer. Prior right excisional breast biopsy. TECHNIQUE: Digital examination. Mediolateral oblique [...] CATEGORY: BIRADS Category 1: Negative. A letter regarding these results will be sent to the patient by the facility within 30 days. Approximately 10% of breast cancers are not detected by mammography. A normal mammogram should not delay biopsy of a clinically suspicious abnormality. Electronically Signed: Wayne Mascorro MD at 15:37 EST Tel [phone], Service support [phone], CC: Sherry Wilson MD; Kassie Hassan DO Clothes Marker: Signed Whitney Goins Start: 04-17-2015 End: 04-17-2015 Emergency Department Summary Comments: See Note; NOTES: [facility] Medical Records Department [address] [place] [address] Emergency Department Summary MR#: [id number] Acct: [id number] Name: LUCIANA ARSHAD Rep #: [id number] : 1970 44 From: Finesse Yancey MD PCP: Kassie Hassan DO Status: [facility] ER DATE OF SERVICE: 04/16/2015 CHIEF COMPLAINT: Dysuria, frequency. HISTORY OF PRESENT ILLNESS: This is a 44-year-old female who presents today with dysuria and frequency. Her symptoms began earlier today. The patient states that it feels similar to previous UTIs in the past. She also complains of pain in her suprapubic region. No fever or chills. No nausea or vomiting. REVIEW OF SYSTEMS: Otherwise, negative. PAST MEDICAL HISTORY: Hypothyroid. PHYSICAL EXAMINATION: VITAL SIGNS: Stable, afebrile. GENERAL: Well-developed female, in no distress. ABDOMEN: She has tenderness to palpation over the suprapubic region. Physical examination is otherwise unremarkable. EMERGENCY DEPARTMENT COURSE: Urinalysis was obtained, which revealed 500 leukocytes, greater than 100 white blood cells, +2 bacteria. Given this, the patient has a urinary tract infection. Urine culture was sent. The patient was given Pyridium and Cipro. She will be given her first dose here. She is to complete her antibiotics until finish. She voiced understanding and will follow up with her primary care physician or return for worsening symptoms. DIAGNOSIS: Urinary tract infection. Finesse Yancey MD T: NTS JOB: [id number] 04/17/15 0130 <Electronically signed by Finesse Yancey MD> Date Finesse Yancey MD CC: Kassie Hassan DO Date Dictated: 04/16/15658 Date Transcribed: 04/16/15658 Clothes Marker: Signed Whitney Goins Start: 04-16-2015 End: 04-16-2015 Discharge Instruction Comments: See Note; NOTES: [facility] Medical Records Department [address] [place] [address] Discharge Instruction 04/16/15658 MR#: [id number] Acct: [id number] Name: LUCIANA ARSHAD Rep #: [id number] : 1970 44 From: Finesse Yancey MD PCP: Kassie Hassan DO Status: [facility] ER ED Disposition - Plan for ED [...] problems, contact your doctor. Call [facility] ([phone]) or report to the closest Emergency Room. Call 911 if necessary. 04/16/15 0701 <Electronically signed by Finesse Yancey MD> Date Finesse Yancey MD Cosigner Signature (If Indicated): Date CC: Kassie Hassan DO Whitney Goins Start: 08-05-2014 End: 08-05-2014 Jojo Huffman Digital & CAD Comments: See Note; NOTES: [facility] Imaging Services [address] [place] [address] Breast Imaging Report MR#: [id number] Acct: [id number] Name: LUCIANA ARSHAD Rep #: [id number] : 1970 F 43 From: Wayne Mascorro MD PCP: Kassie Hassan DO Status: REG CLI Exam# [id number] Ordering Dr: Sherry Wilson MD MAMMOGRAPHY - BILATERAL SCREENING REASON FOR EXAM: Female, 43 years old. Routine annual screening examination. [...] architectural distortion is seen in the right breast secondary to prior biopsy. No other significant [...] Wayne Mascorro MD at 11:32 EDT Tel [phone], Service support [phone], CC: Sherry Wilson MD; Kassie Hassan DO Clothes Marker: Signed Whitney Goins Start: 05-20-2008 CONVERTED SURGICAL PATHOLOGY Aneta Zuleta Garcia Work Phone: Plantar Fascitis repair Kely Lee Comment on above: 2009 Plantar Fascitis repair Jasm in [facility] Comment on above: 2009 Plantar Fascitis repair Merlin y Anais OCAMPO Comment on above: 2009 Plantar Fascitis repair Iman Tomas [facility] Comment on above: 2009 right breast bx 2008-neg Luciana Lee right breast bx 2008-neg Richelle Gravius right breast bx 2007-neg Carleen Manzo LPN right breast bx 2007-neg Adria Lu [facility] Plan of Treatment Date Care Activity Detail Author Start: 09-16-2022 Lipid panel LIPID PANEL (30135) [facility]; [facility] Work Phone: Start: 09-16-2022 Procedure Education Eprescribed prescriptions (G8553) [facility]; [facility] Work Phone: Start: 09-16-2022 Provider Instructions for Treatment [facility]; [facility] Work Phone: Start: 09-19-2021 Patient Education EFUDEX INSTRUCTIONS [facility]; [facility] Work Phone: Start: 09-19-2021 Procedure Education Eprescribed prescriptions (G8553) [facility]; [facility] Work Phone: Start: 09-19-2021 Provider Instructions for Treatment [facility]; [facility] Work Phone: Start: 11-16-2020 Procedure Education Eprescribed prescriptions (G8553) [facility]; [facility] Work Phone: Start: 11-16-2020 Oncology colorectal screening edward 10 dna markrs Cologuard - Strool Based DNA Test, CRC SCREEN (60979) [facility]; [facility] Work Phone: Start: 11-16-2020 Lipid panel LIPID PANEL (68631) [facility]; [facility] Work Phone: Start: 10-28-2019 Provider Instructions for Treatment [facility]; [facility] Work Phone: Start: 10-28-2019 Cobalamin (Vitamin B12) [Mass/Vol] VITAMIN B-12 (CYANOCOBALAMIN) (58852) [facility]; [facility] Work Phone: Start: 10-28-2019 Cyanocobalamin vitamin b-12 VITAMIN B-12 (CYANOCOBALAMIN) (29141) [facility]; [facility] Work Phone: Start: 10-28-2019 Blood count complete automated CBC (AUTO) (90879) [facility]; [facility] Work Phone: Start: 10-28-2019 Lipid panel LIPID PANEL (05087) [facility]; [facility] Work Phone: Start: 09-14-2018 Assay of prolactin PROLACTIN (65658) [facility] Work Phone: Start: 09-14-2018 Protein mass conc PROLACTIN (02427) [facility] Work Phone: Start: 09-14-2018 Gonadotropin follicle stimulating hormone FSH AND LH (77514) [facility] Work Phone: Start: 09-11-2018 Assay of thyroid stimulating hormone tsh TSH (96880) [facility]; [facility] Work Phone: Start: 09-11-2018 Thyrotropin Qn TSH (93651) [facility] Work Phone: Start: 09-11-2018 Assay of free thyroxine T4, FREE (THYROXINE) (18682) [facility]; [facility] Work Phone: Start: 09-11-2018 T4 free mass conc T4, FREE (THYROXINE) (33818) [facility] Work Phone: Start: 09-11-2018 Assay of triiodothyronine t3 free T3, FREE (TRIDOTHYRONINE) (13644) [facility]; [facility] Work Phone: Start: 09-11-2018 T3 free mass conc T3, FREE (TRIDOTHYRONINE) (96031) [facility] Work Phone: Start: 09-09-2018 Assay of free thyroxine T4, FREE (THYROXINE) (79825) [facility]; [facility] Work Phone: Start: 09-09-2018 T4 free mass conc T4, FREE (THYROXINE) (61780) [facility] Work Phone: Start: 09-09-2018 Assay of thyroid stimulating hormone tsh TSH (63520) [facility]; [facility] Work Phone: Start: 09-09-2018 Thyrotropin Qn TSH (77495) [facility] Work Phone: Start: 09-09-2018 Microsomal antibodies each Anti-TPO Antibody (91348) [facility] Work Phone: Start: 09-09-2018 Assay of thyroxine total T4, TOTAL (65565) [facility] Work Phone: Start: 09-09-2018 Assay of triiodothyronine t3 total tt3 T3, TOTAL (TRIDOTHYRONINE) (54288) [facility] Work Phone: Start: 09-09-2018 Assay of triiodothyronine t3 free T3, FREE (TRIDOTHYRONINE) (71222) [facility]; [facility] Work Phone: Start: 09-09-2018 T3 free mass conc T3, FREE (TRIDOTHYRONINE) (44717) [facility] Work Phone: Start: 09-09-2018 Thyroid horm uptk/thyroid hormone binding ratio T-3 UPTAKE (38462) [facility] Work Phone: Start: 07-28-2018 Assay of triiodothyronine t3 free FREE TRIDOTHYRONINE (T3) (29087) [facility] Work Phone: Start: 06-10-2018 Provider Instructions for Treatment [facility] Work Phone: Start: 06-10-2018 Assay of thyroid stimulating hormone tsh TSH (37030) [facility] Work Phone: Start: 06-10-2018 Thyrotropin Qn TSH (39325) [facility] Work Phone: Start: 06-10-2018 Assay of free thyroxine T4, FREE (THYROXINE) ([id number]) [facility] Work Phone: Start: 06-10-2018 T4 free mass conc T4, FREE (THYROXINE) ([id number]) [facility] Work Phone: Start: 06-10-2018 Assay of triiodothyronine t3 free T3, FREE (TRIDOTHYRONINE) ([id number]) [facility] Work Phone: Start: 06-10-2018 T3 free mass conc T3, FREE (TRIDOTHYRONINE) ([id number]) [facility] Work Phone: Start: 06-03-2018 Assay of free thyroxine T4, FREE (THYROXINE) ([id number]) [facility]; [facility] Work Phone: Start: 06-03-2018 T4 free mass conc T4, FREE (THYROXINE) ([id number]) [facility] Work Phone: Start: 06-03-2018 Assay of triiodothyronine t3 free T3, FREE (TRIDOTHYRONINE) ([id number]) [facility] Work Phone: Start: 06-03-2018 T3 free mass conc T3, FREE (TRIDOTHYRONINE) ([id number]) [facility] Work Phone: Start: 05-28-2018 Patient Education [facility] Work Phone: Start: 05-28-2018 Procedure Education Eprescribed prescriptions (G8553) [facility] Work Phone: Start: 05-28-2018 Provider Instructions for Treatment Follow up if no improvement or if symptoms worsen [facility] Work Phone: Start: 03-13-2018 Assay of free thyroxine T4, FREE (THYROXINE) ([id number]) [facility] Work Phone: Start: 03-13-2018 T4 free mass conc T4, FREE (THYROXINE) ([id number]) [facility] Work Phone: Start: 03-13-2018 Assay of triiodothyronine t3 free T3, FREE (TRIDOTHYRONINE) ([id number]) [facility]; [facility] Work Phone: Start: 03-13-2018 T3 free mass conc T3, FREE (TRIDOTHYRONINE) ([id number]) [facility] Work Phone: Start: 03-13-2018 Assay of thyroid stimulating hormone tsh TSH (THYROID STIMULATING HORMONE) ([id number]) [facility] Work Phone: Start: 03-13-2018 Thyrotropin Qn TSH (THYROID STIMULATING HORMONE) (87047) [facility] Work Phone: Start: 03-13-2018 Lipid panel LIPID PANEL (24898) [facility] Work Phone: Start: 06-03-2017 Procedure Education Eprescribed prescriptions (G8553) [facility] Work Phone: Start: 06-03-2017 Lipid panel LIPID PANEL (58333) [facility] Work Phone: Start: 06-03-2017 Assay of triiodothyronine t3 free T3, FREE (TRIDOTHYRONINE) (53935) [facility] Work Phone: Start: 06-03-2017 T3 free mass conc T3, FREE (TRIDOTHYRONINE) (24723) [facility] Work Phone: Start: 06-03-2017 Assay of free thyroxine T4, FREE (THYROXINE) ([id number]) [facility]; [facility] Work Phone: Start: 06-03-2017 Assay of thyroid stimulating hormone tsh TSH (87553) [facility]; [facility] Work Phone: Start: 06-03-2017 T4 free mass conc T4, FREE (THYROXINE) (61131) [facility] Work Phone: Start: 06-03-2017 Thyrotropin Qn TSH (14127) [facility] Work Phone: Start: 06-07-2016 Procedure Education Eprescribed prescriptions (G8553) [facility] Work Phone: Start: 06-07-2016 Provider Instructions for Treatment Follow up in 1 year or as needed [facility] Work Phone: Start: 06-07-2016 Assay of free thyroxine T4, FREE (THYROXINE) ([id number]) [facility] Work Phone: Start: 06-07-2016 T4 free mass conc T4, FREE (THYROXINE) ([id number]) [facility] Work Phone: Start: 06-07-2016 Assay of triiodothyronine t3 free T3, FREE (TRIDOTHYRONINE) ([id number]) [facility]; [facility] Work Phone: Start: 06-07-2016 T3 free mass conc T3, FREE (TRIDOTHYRONINE) (78502) [facility] Work Phone: Start: 05-31-2015 Procedure Education Eprescribed prescriptions (G8553) [facility] Work Phone: Start: 07-13-2014 Comprehensive metabolic panel METABOLIC PANEL, COMPREHENSIVE (08314) [facility] Work Phone: Start: 06-10-2014 Provider Instructions for Treatment Diet, Exercise, and Wt loss [facility] Work Phone: Start: 06-10-2014 Lipid panel LIPID PANEL (76640) [facility] Work Phone: Start: 06-10-2014 Assay of thyroid stimulating hormone tsh TSH (65248) [facility]; [facility] Work Phone: Start: 06-10-2014 Thyrotropin Qn TSH (65176) [facility] Work Phone: Start: 06-10-2014 Blood count complete auto&auto difrntl wbc CBC W/AUTO DIFF WBC (97741) [facility] Work Phone: Start: 06-10-2014 Comprehensive metabolic panel METABOLIC PANEL, COMPREHENSIVE (51257) [facility] Work Phone: Start: 09-01-2013 Provider Instructions for Treatment Follow up if no improvement or if symptoms worsen [facility] Work Phone: Start: 08-11-2013 Provider Instructions for Treatment Diet, Exercise, and Wt loss [facility] Work Phone: Start: 08-11-2013 Comprehensive metabolic panel METABOLIC PANEL, COMPREHENSIVE (69908) [facility] Work Phone: Start: 08-11-2013 Assay of thyroid stimulating hormone tsh TSH ([id number]) [facility]; [facility] Work Phone: Start: 08-11-2013 Thyrotropin Qn TSH (41694) [facility] Work Phone: Start: 08-11-2013 Lipid panel LIPID PANEL (81629) [facility] Work Phone: Start: 07-13-2013 Assay of thyroid stimulating hormone tsh TSH (81461) [facility]; [facility] Work Phone: Start: 07-13-2013 Thyrotropin Qn TSH (20739) [facility] Work Phone: Start: 07-13-2013 Lipid panel LIPID PANEL (29643) [facility] Work Phone: Start: 02-09-2013 Assay of triiodothyronine t3 free T3, FREE (TRIDOTHYRONINE) (47021) [facility]; [facility] Work Phone: Start: 02-09-2013 T3 free mass conc T3, FREE (TRIDOTHYRONINE) ([id number]) [facility] Work Phone: Start: 02-09-2013 Assay of free thyroxine T4, FREE (THYROXINE) ([id number]) [facility]; [facility] Work Phone: Start: 02-09-2013 T4 free mass conc T4, FREE (THYROXINE) (75920) [facility] Work Phone: Start: 02-09-2013 Microsomal antibodies each Anti-TPO Antibody (25952) [facility] Work Phone: Start: 02-09-2013 Assay of thyroid stimulating hormone tsh TSH (27232) [facility]; [facility] Work Phone: Start: 02-09-2013 Thyrotropin Qn TSH (13418) [facility] Work Phone: Start: 01-19-2013 Assay of thyroid stimulating hormone tsh TSH (96872) [facility]; [facility] Work Phone: Start: 01-19-2013 Thyrotropin Qn TSH (26794) [facility] Work Phone: Start: 01-19-2013 Lipid panel Lipid Panel (24485) [facility] Work Phone: Start: 01-19-2013 Comprehensive metabolic panel Metabolic Panel, Comprehensive (02613) [facility] Work Phone: Start: 03-17-2012 Patient Education Migraine Headache: Brief Version *: pain [facility] Work Phone: Start: 03-17-2012 Lipid panel LIPID PANEL (61004) [facility] Work Phone: Start: 03-02-2012 Assay of thyroid stimulating hormone tsh TSH (67446) [facility]; [facility] Work Phone: Start: 03-02-2012 Thyrotropin Qn TSH (47344) [facility] Work Phone: Start: 03-02-2012 Assay of free thyroxine T4, FREE (THYROXINE) (27583) [facility]; [facility] Work Phone: Start: 03-02-2012 T4 free mass conc T4, FREE (THYROXINE) (79465) [facility] Work Phone: Start: 03-02-2012 Assay of triiodothyronine t3 free T3, FREE (TRIDOTHYRONINE) (51471) [facility]; [facility] Work Phone: Start: 03-02-2012 T3 free mass conc T3, FREE (TRIDOTHYRONINE) (12674) [facility] Work Phone: Start: 09-25-2011 Provider Instructions for Treatment Reviewed Lab [facility] Work Phone: Start: 09-09-2011 Lipid panel LIPID PANEL (48882) [facility] Work Phone: Start: 09-09-2011 Comprehensive metabolic panel METABOLIC PANEL, COMPREHENSIVE (24644) [facility] Work Phone: Start: 06-10-2011 Assay of free thyroxine T4, FREE (THYROXINE) (78328) [facility]; [facility] Work Phone: Start: 06-10-2011 T4 free mass conc T4, FREE (THYROXINE) (25195) [facility] Work Phone: Start: 06-10-2011 Assay of triiodothyronine t3 free T3, FREE (TRIDOTHYRONINE) ([id number]) [facility]; [facility] Work Phone: Start: 06-10-2011 T3 free mass conc T3, FREE (TRIDOTHYRONINE) (29979) [facility] Work Phone: Start: 06-10-2011 Microsomal antibodies each Anti-TPO Antibody (28319) [facility] Work Phone: Start: 06-10-2011 Assay of thyroid stimulating hormone tsh TSH (31193) [facility]; [facility] Work Phone: Start: 06-10-2011 Thyrotropin Qn TSH (13098) [facility] Work Phone: Start: 06-10-2011 Provider Instructions for Treatment Diet, Exercise, and Wt loss [facility] Work Phone: Start: 03-05-2011 Lipid panel LIPID PANEL (21393) [facility] Work Phone: Start: 03-05-2011 Assay of thyroid stimulating hormone tsh TSH (02823) [facility]; [facility] Work Phone: Start: 03-05-2011 Thyrotropin Qn TSH (49489) [facility] Work Phone: Start: 03-05-2011 Urnls dip stick/tablet reagent auto microscopy URINALYSIS, W/ MICRO (56053) [facility] Work Phone: Start: 03-05-2011 Comprehensive metabolic panel METABOLIC PANEL, COMPREHENSIVE (79497) [facility] Work Phone: Start: 03-05-2011 Blood count manual cell count each CBC WITH MANUAL DIFF (07160) [facility] Work Phone: Liquid based cervica l cytology screening [facility] Work [facility]: [facility] Work [facility] Work [facility]: [facility] Work [facility] Work [facility] Work [facility]: [facility] Work Phone: [facility] Work Phone: [facility] Work Phone: Immunizations Immunization Date Immunization Notes Care Provider Malina bailey 07-18-2021 influenza, injectabl e, quadrivalent, preservative free [facility] 07-18-2021 influenza, seasonal, injectable Dr. Whitney Goins Work Phone: [facility] 11-30-2020 measles, mumps and rubella virus vaccine Dr. Whitney Goins Work Phone: [facility] 11-30-2020 tetanus toxoid, reduced diphtheria toxoid, and acellular pertussis vaccine, adsorbed Dr. Whitney Goins Work Phone: [facility] 11-07-2020 Covid (Moderna) Dr. Whitney Goins Work Phone: [facility] 10-13-2020 COVID-19 (Moderna) [facility] Work Phone: 10-10-2020 Covid (Moderna) Dr. Whitney Goins Work Phone: [facility] 07-09-2020 influenza, injectabl e, quadrivalent, preservative free [facility] 07-09-2020 influenza, seasonal, injectable Dr. Whitney Goins Work Phone: [facility] 07-28-2019 influenza, injectabl e, quadrivalent, preservative free [facility] 07-28-2019 influenza, seasonal, injectable Whitney Goins [facility]; [facility] Work Phone: 07-10-2018 influenza, injectabl e, quadrivalent, preservative free [facility] 07-10-2018 influenza, seasonal, injectable Dr. Whitney Goins Work Phone: [facility] 07-18-2017 influenza, injectabl e, quadrivalent, preservative free [facility] 07-18-2017 influenza, seasonal, injectable Dr. Whitney Goins Work Phone: [facility] 07-17-2016 influenza, injectabl e, quadrivalent, preservative free [facility] 07-17-2016 influenza, seasonal, injectable Dr. Whitney Goins Work Phone: [facility] 08-28-2015 influenza, injectabl e, quadrivalent, preservative free [facility] 08-28-2015 influenza, seasonal, injectable Dr. Whitney Goins Work Phone: [facility] 07-06-2014 influenza, injectabl e, quadrivalent, preservative free [facility] 07-06-2014 influenza, seasonal, injectable Dr. Whitney Goins Work Phone: [facility] Payers Date Payer Category Payer Self-pay [id number] 2023 Unknown [id number] Unknown Medical [facility] Unknown [id number] Unknown [id number] Unknown [id number] Unknown [id number] Social History Date Type Detail Facility Alcohol Use: Never smoker [facility] Work Phone: Caffeine Use [facility] Work Phone: Comment on above: 06/10/11 Tobacco use: Never smoker. [facility] Work Phone: Comment on above: 09/25/11 Sex Assigned At Not on file [facility] Alcohol Use: Alcohol Use: [facility] Work Phone: Tobacco use: Tobacco use: [facility] Work Phone: Comment on above: 09/25/11 Start: 05-21-2022 End: 12-11-2023 Tobacco smoking status NHIS Unknown if ever smoked [facility] Start: 1970 Sex Assigned At Female [facility] Start: 12-11-2023 End: 12-11-2023 Tobacco smoking status NHIS Never smoked tobacco (finding) [facility] Start: 12-16-2024 Sex Female (finding) [facility] Goals Date Patient Goal Desired Activity /State Clinical Notes 05-30-2025 Note Date & Type Note Facility 05-30-2025 Progress note [facility] Evaluation note Diagnosis Onset Date Encounter for routine gyneco logical examination noneactive [facility] Work Phone: evaluation noteNo assessment information available [facility] Work Phone: evaluation note* Diagnosis Onset Date Resolution Status 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 [facility] Work Phone: evaluation note* Diagnosis Onset Date Resolution Status Admit Date Climacteric acute May 30, 2025 11:05am Encounter for routine gynecological examination noneactive May 30, 2025 11:05am [facility] Work Phone: Instructions* Name Dates Details Patient Instructions Indication:Nonsmoker Start:16-Nov-2020 Instruction Type:Provider Instructions for Treatment How to Access Health Informa tion Online using Patient Portal and [employer] Apps Indication:Nonsmoker Start:16-Nov-2020 Instruction Type:Patient Education How to access health informa tion online Indication:BMI 35.0-35.9,adult Start:28-Oct-2019 Instruction Type:Patient Education How to access health informa tion online - Detail Indication:BMI 35.0-35.9,adult Start:28-Oct-2019 Instruction Type:Patient Education Patient Instructions Indication:BMI 35.0-35.9,adult Start:28-Oct-2019 Instruction Type:Provider Instructions for Treatment How to access health informa tion online Indication:Nonsmoker Start:10-Jun-2018 Instruction Type:Patient Education How to access health informa tion online - Detail Indication:Nonsmoker Start:10-Jun-2018 Instruction Type:Patient Education Patient Instructions Indication:Nonsmoker Start:10-Jun-2018 Instruction Type:Provider Instructions for Treatment Patient Instructions Indication:Nonsmoker Start:10-Jun-2018 Instruction Type:Provider Instructions for Treatment How to access health informa tion online Indication:Nonsmoker Start:28-May-2018 Instruction Type:Patient Education How to access health informa tion online - Detail Indication:Nonsmoker Start:28-May-2018 Instruction Type:Patient Education Patient Instructions Indication:Back pain, acute Start:28-May-2018 Instruction Type:Provider Instructions for Treatment How to access health informa tion online Indication:Hypothyroidism Start:03-Jun-2017 Instruction Type:Patient Education How to access health informa tion online - Detail Indication:Hypothyroidism Start:03-Jun-2017 Instruction Type:Patient Education Patient Instructions Indication:Hypothyroidism Start:03-Jun-2017 Instruction Type:Provider Instructions for Treatment How to access health informa tion online Indication:Migraine Start:07-Jun-2016 Instruction Type:Patient Education How to access health informa tion online - Detail Indication:Migraine Start:07-Jun-2016 Instruction Type:Patient Education Patient Instructions Indication:Hypothyroidism Start:07-Jun-2016 Instruction Type:Provider Instructions for Treatment How to access health informa tion online Indication:Hypothyroidism Start:31-May-2015 Instruction Type:Patient Education How to access health informa tion online - Detail Indication:Hypothyroidism Start:31-May-2015 Instruction Type:Patient Education Patient Instructions Indication:Hypothyroidism Start:31-May-2015 Instruction Type:Provider Instructions for Treatment Patient Instructions Indication:Hypothyroidism Start:10-Jun-2014 Instruction Type:Provider Instructions for Treatment Patient Instructions Indication:Chronic serous otitis media, unspecified laterality Start:01-Sep-2013 Instruction Type:Provider Instructions for Treatment Patient Instructions Indication:Migraine Start:11-Aug-2013 Instruction Type:Provider Instructions for Treatment Patient Instructions Indication:perimenstrual dysphoric sx Start:09-Feb-2013 Instruction Type:Provider Instructions for Treatment [facility]; [facility] Work Phone: Instructions* Name Dates Details How to Access Health Informa tion Online using Patient Portal and [employer] Apps Indication:BMI 35.0-35.9,adult Start:19-Sep-2021 Instruction Type:Patient Education Patient Instructions Indication:Nonsmoker Start:16-Nov-2020 Instruction Type:Provider Instructions for Treatment How to Access Health Informa tion Online using Patient Portal and [employer] Apps Indication:Nonsmoker Start:16-Nov-2020 Instruction Type:Patient Education How to access health informa tion online Indication:BMI 35.0-35.9,adult Start:28-Oct-2019 Instruction Type:Patient Education How to access health informa tion online - Detail Indication:BMI 35.0-35.9,adult Start:28-Oct-2019 Instruction Type:Patient Education Patient Instructions Indication:BMI 35.0-35.9,adult Start:28-Oct-2019 Instruction Type:Provider Instructions for Treatment How to access health informa tion online Indication:Nonsmoker Start:10-Jun-2018 Instruction Type:Patient Education How to access health informa tion online - Detail Indication:Nonsmoker Start:10-Jun-2018 Instruction Type:Patient Education Patient Instructions Indication:Nonsmoker Start:10-Jun-2018 Instruction Type:Provider Instructions for Treatment Patient Instructions Indication:Nonsmoker Start:10-Jun-2018 Instruction Type:Provider Instructions for Treatment How to access health informa tion online Indication:Nonsmoker Start:28-May-2018 Instruction Type:Patient Education How to access health informa tion online - Detail Indication:Nonsmoker Start:28-May-2018 Instruction Type:Patient Education Patient Instructions Indication:Back pain, acute Start:28-May-2018 Instruction Type:Provider Instructions for Treatment How to access health informa tion online Indication:Hypothyroidism Start:03-Jun-2017 Instruction Type:Patient Education How to access health informa tion online - Detail Indication:Hypothyroidism Start:03-Jun-2017 Instruction Type:Patient Education Patient Instructions Indication:Hypothyroidism Start:03-Jun-2017 Instruction Type:Provider Instructions for Treatment How to access health informa tion online Indication:Migraine Start:07-Jun-2016 Instruction Type:Patient Education How to access health informa tion online - Detail Indication:Migraine Start:07-Jun-2016 Instruction Type:Patient Education Patient Instructions Indication:Hypothyroidism Start:07-Jun-2016 Instruction Type:Provider Instructions for Treatment How to access health informa tion online Indication:Hypothyroidism Start:31-May-2015 Instruction Type:Patient Education How to access health informa tion online - Detail Indication:Hypothyroidism Start:31-May-2015 Instruction Type:Patient Education Patient Instructions Indication:Hypothyroidism Start:31-May-2015 Instruction Type:Provider Instructions for Treatment Patient Instructions Indication:Hypothyroidism Start:10-Jun-2014 Instruction Type:Provider Instructions for Treatment Patient Instructions Indication:Chronic serous otitis media, unspecified laterality Start:01-Sep-2013 Instruction Type:Provider Instructions for Treatment Patient Instructions Indication:Migraine Start:11-Aug-2013 Instruction Type:Provider Instructions for Treatment Patient Instructions Indication:perimenstrual dysphoric sx Start:09-Feb-2013 Instruction Type:Provider Instructions for Treatment [facility]; [facility] Work Phone: Instructions* Name Dates Details Patient Instructions Indication:BMI 31.0-31.9,adult Start:16-Sep-2022 Instruction Type:Provider Instructions for Treatment How to Access Health Informa tion Online using Patient Portal and [employer] Apps Indication:BMI 31.0-31.9,adult Start:16-Sep-2022 Instruction Type:Patient Education How to Access Health Informa tion Online using Patient Portal and [employer] Apps Indication:BMI 35.0-35.9,adult Start:19-Sep-2021 Instruction Type:Patient Education Patient Instructions Indication:Nonsmoker Start:16-Nov-2020 Instruction Type:Provider Instructions for Treatment How to Access Health Informa tion Online using Patient Portal and [employer] Apps Indication:Nonsmoker Start:16-Nov-2020 Instruction Type:Patient Education How to access health informa tion online Indication:BMI 35.0-35.9,adult Start:28-Oct-2019 Instruction Type:Patient Education How to access health informa tion online - Detail Indication:BMI 35.0-35.9,adult Start:28-Oct-2019 Instruction Type:Patient Education Patient Instructions Indication:BMI 35.0-35.9,adult Start:28-Oct-2019 Instruction Type:Provider Instructions for Treatment How to access health informa tion online Indication:Nonsmoker Start:10-Jun-2018 Instruction Type:Patient Education How to access health informa tion online - Detail Indication:Nonsmoker Start:10-Jun-2018 Instruction Type:Patient Education Patient Instructions Indication:Nonsmoker Start:10-Jun-2018 Instruction Type:Provider Instructions for Treatment Patient Instructions Indication:Nonsmoker Start:10-Jun-2018 Instruction Type:Provider Instructions for Treatment How to access health informa tion online Indication:Nonsmoker Start:28-May-2018 Instruction Type:Patient Education How to access health informa tion online - Detail Indication:Nonsmoker Start:28-May-2018 Instruction Type:Patient Education Patient Instructions Indication:Back pain, acute Start:28-May-2018 Instruction Type:Provider Instructions for Treatment How to access health informa tion online Indication:Hypothyroidism Start:03-Jun-2017 Instruction Type:Patient Education How to access health informa tion online - Detail Indication:Hypothyroidism Start:03-Jun-2017 Instruction Type:Patient Education Patient Instructions Indication:Hypothyroidism Start:03-Jun-2017 Instruction Type:Provider Instructions for Treatment How to access health informa tion online Indication:Migraine Start:07-Jun-2016 Instruction Type:Patient Education How to access health informa tion online - Detail Indication:Migraine Start:07-Jun-2016 Instruction Type:Patient Education Patient Instructions Indication:Hypothyroidism Start:07-Jun-2016 Instruction Type:Provider Instructions for Treatment How to access health informa tion online Indication:Hypothyroidism Start:31-May-2015 Instruction Type:Patient Education How to access health informa tion online - Detail Indication:Hypothyroidism Start:31-May-2015 Instruction Type:Patient Education Patient Instructions Indication:Hypothyroidism Start:31-May-2015 Instruction Type:Provider Instructions for Treatment Patient Instructions Indication:Hypothyroidism Start:10-Jun-2014 Instruction Type:Provider Instructions for Treatment Patient Instructions Indication:Chronic serous otitis media, unspecified laterality Start:01-Sep-2013 Instruction Type:Provider Instructions for Treatment Patient Instructions Indication:Migraine Start:11-Aug-2013 Instruction Type:Provider Instructions for Treatment Patient Instructions Indication:perimenstrual dysphoric sx Start:09-Feb-2013 Instruction Type:Provider Instructions for Treatment [facility] Work Phone: Instructions* Name Dates Details Patient Instructions Indication:BMI 31.0-31.9,adult Start:16-Sep-2022 Instruction Type:Provider Instructions for Treatment How to Access Health Informa tion Online using Patient Portal and [employer] Apps Indication:BMI 31.0-31.9,adult Start:16-Sep-2022 Instruction Type:Patient Education How to Access Health Informa tion Online using Patient Portal and [employer] Apps Indication:BMI 35.0-35.9,adult Start:19-Sep-2021 Instruction Type:Patient Education Patient Instructions Indication:Nonsmoker Start:16-Nov-2020 Instruction Type:Provider Instructions for Treatment How to Access Health Informa tion Online using Patient Portal and [employer] Apps Indication:Nonsmoker Start:16-Nov-2020 Instruction Type:Patient Education How to access health informa tion online Indication:BMI 35.0-35.9,adult Start:28-Oct-2019 Instruction Type:Patient Education How to access health informa tion online - Detail Indication:BMI 35.0-35.9,adult Start:28-Oct-2019 Instruction Type:Patient Education Patient Instructions Indication:BMI 35.0-35.9,adult Start:28-Oct-2019 Instruction Type:Provider Instructions for Treatment How to access health informa tion online Indication:Nonsmoker Start:10-Jun-2018 Instruction Type:Patient Education How to access health informa tion online - Detail Indication:Nonsmoker Start:10-Jun-2018 Instruction Type:Patient Education Patient Instructions Indication:Nonsmoker Start:10-Jun-2018 Instruction Type:Provider Instructions for Treatment Patient Instructions Indication:Nonsmoker Start:10-Jun-2018 Instruction Type:Provider Instructions for Treatment How to access health informa tion online Indication:Nonsmoker Start:28-May-2018 Instruction Type:Patient Education How to access health informa tion online - Detail Indication:Nonsmoker Start:28-May-2018 Instruction Type:Patient Education Patient Instructions Indication:Back pain, acute Start:28-May-2018 Instruction Type:Provider Instructions for Treatment How to access health informa tion online Indication:Hypothyroidism Start:03-Jun-2017 Instruction Type:Patient Education How to access health informa tion online - Detail Indication:Hypothyroidism Start:03-Jun-2017 Instruction Type:Patient Education Patient Instructions Indication:Hypothyroidism Start:03-Jun-2017 Instruction Type:Provider Instructions for Treatment How to access health informa tion online Indication:Migraine Start:07-Jun-2016 Instruction Type:Patient Education How to access health informa tion online - Detail Indication:Migraine Start:07-Jun-2016 Instruction Type:Patient Education Patient Instructions Indication:Hypothyroidism Start:07-Jun-2016 Instruction Type:Provider Instructions for Treatment How to access health informa tion online Indication:Hypothyroidism Start:31-May-2015 Instruction Type:Patient Education How to access health informa tion online - Detail Indication:Hypothyroidism Start:31-May-2015 Instruction Type:Patient Education Patient Instructions Indication:Hypothyroidism Start:31-May-2015 Instruction Type:Provider Instructions for Treatment Patient Instructions Indication:Hypothyroidism Start:10-Jun-2014 Instruction Type:Provider Instructions for Treatment Patient Instructions Indication:Chronic serous otitis media, unspecified laterality Start:01-Sep-2013 Instruction Type:Provider Instructions for Treatment Patient Instructions Indication:Migraine Start:11-Aug-2013 Instruction Type:Provider Instructions for Treatment Patient Instructions Indication:perimenstrual dysphoric sx Start:09-Feb-2013 Instruction Type:Provider Instructions for Treatment [facility] Work Phone: progress note Author Charlotte Rinaldi [facility] Note Date/Time May 30, 2025 11 :48am [facility] [address], [address] [place] [address] OFFICE VISIT Date of Service: 05/30/25 MR#: [id number] Acct: [id number] Name: LUCIANA ARSHAD Rep #: [id number] : 1970 Provider: Dr. Dayne Rinaldi MD Age/Sex: 54/F [place] [facility] [place]: [place] Intake Vital Signs 12/14/24 15:27 05/30/25 11:08 Height 5 ft 6 in 5 ft 6 in Weight: 192 lb 8 oz 191 lb 6 oz BMI 31.0 30.9 BP 118/76 120/79 Blood Pressure Location Rt brachial Position Sitting Pulse 47 L Pulse Source Monitor Pulse Oximetry (%) 98 Oxygen Delivery Method room air Intake Visit Reasons: Annual (DATA ARCHITECT) [employer] Required: No Is patient in pain?: No Allergies nabumetone Allergy (Severe, Verified 05/30/25 11:12) abdominal pain, diarrhea, bloating, heartburn Sulfa (Sulfonamide Antibiotics) Allergy (Verified 05/30/25 11:12) Rash Medications ?Medication ?Instructions ?Recorded ?Confirmed ?Type calcium 500 mg (as 1 tab PO DAILY 11/25/1905/13 History carbonate)-vitamin D3 5 mcg (200 unit) tablet (Calcium 500 + D) multivitamin 1 tab PO DAILY 05/26/2305/13 History levothyroxine 112 mcg tablet 112 mcg PO .qd 1/2 on Fri #90 12/14/24 05/30/25 Rx tabs estrogen testosterone pellet subcut 05/30/25 History progesterone micronized 200 mg 200 mg PO QHS 05/30/25 05/30/25 History capsule topiramate 25 mg tablet 25 mg PO DAILY 05/30/2505/13 History Is last menstrual period known: No Post menopausal: Yes Patient : No : No [facility] Medical History History of kidney stones Bilateral headaches Pituitary microadenoma Migraine Obesity Hypothyroidism Surgical History H/O oral surgery r ulnar radius reconstruction History of breast biopsy plantar fasciitis repair Family History Grandfather Heart disease Diabetes Grandmother Heart disease Diabetes Mother Thyroid disorder Social History household members: spouse and children number of children: 1 current occupational status: employed current occupation: RN history of recent travel: No sexually active: Yes Smoking Status: Never smoker alcohol intake: current alcohol intake frequency: a few times a month Alcohol type: wine substance use type: does not use caffeine: Yes what type of physical activity do you participate in: walking and running frequency: 5-6 times per week seatbelt use: always do you feel safe at home: Yes History 0 Elective abortions Hx Para 0 Spontaneous abortions Hx # Term Pregnancies Ectopic pregnancies Hx # Pregnancies Multiple births # of living children Past Pregnancies Del. Date Name GA/Weeks Outcome Route Bth Weight Gen Labor Lgth Anesthesia Del Locatn Provider FOB 04/13/07 Janine - adopted HPI Encounter for routine gynecological examination Details: LUCIANA ARSHAD is a 54 year old who presents for annual exam.started bioidentical HRT pellets and progesterone- [facility]. Last PAP: 04/17/2020 - normal History of abnormal PAP: Last mammogram: 06/01/2024 - normal, scheduled for 06/02/25 History of abnormal mammogram: Colon cancer screening: colonoscopy at 50 years old Other preventative health care screenings: PCP [facility] 2020. Female Reproductive History Questions: metrorrhagia: No, sexually active: Yes, dyspareunia: No and PCB: No Menopausal Symptoms: Yes hot flashes, Yes night sweats, No weight change, Yes mood changes, No difficulty concentrating, No sleep problems and No change in libido ROS Const Constitutional: Reports as per HPI and night sweats; Denies fatigue, increased appetite, poor appetite, weight gain or weight loss Cardio Card: Denies chest pain Resp Resp: Denies cough or dyspnea GI GI: Reports as per HPI; Denies abdominal pain, bloating, constipation, nausea or vomiting : Reports as per HPI, hot flashes and other; Denies difficulty voiding, dysuria, hematuria, nipple discharge, pelvic pain, prolapse symptoms, urinary frequency, urinary incontinence, urinary urgency, vaginal discharge, vaginal dryness, vaginal odor or vaginal pruritus Skin Skin/Breast: Denies changing lesions, breast mass, breast pain, breast skin changes or nipple discharge Psych Psych: Denies anxiety, change in libido, depression or difficulty concentrating Exam Const General: cooperative, healthy appearing, comfortable, no acute distress, well developed and well groomed HENMD Head: normal to inspection and normocephalic Ears: hearing grossly normal bilaterally and external ears normal Nose: external nose normal Face and sinus: normal facial exam Neck Neck: normal visual inspection, full ROM and no lymphadenopathy Thyroid: thyroid normal Chest Chest palpation & inspection: normal inspection of the chest Breast inspection: normal inspection of the breasts and normal inspection of theaxillae Breast palpation: normal palpation of the breasts, normal palpation of the axillae and no axillary lymphadenopathy Resp Effort & Inspection: normal respiratory effort GI Inspection: normal to inspection and non-distended Palpation: soft, no hepatosplenomegaly and no guarding General: bladder normal to palpation External Female Exam: normal external appearance, normal appearance of the urethra and no lesions Urethra: normal appearance of the urethra and normal palpation Speculum Exam - Vagina: normal appearance of the vagina and normal vaginal discharge Speculum Exam - Cervix: normal appearance of the cervix, no cervical discharge, no lesions and nontender Bimanual Exam- Vagina & Uterus: normal bimanual exam, uterine size normal, bladder normal to palpation, No tender, uterine mobility normal, consistency normal, non-tender and no cervical motion tenderness Bimanual Exam- Adnexa, other: normal adnexae, no masses and non-tender Skin General: no rashes or lesions noted Neuro General: patient alert, moves all extremities and no focal motor deficits Extrem General: normal to inspection and no pedal edema Psych Appearance: grossly normal Mental Status: mental status grossly normal Affect: normal affect Speech and Movement: speech and movement normal Attitude: cooperative Coding Level of Care Code Off vis,est,prev 40-64yrs Diagnoses Encounter for gynecological examination with abnormal finding Z01.411 Gynecological examination findings: abnormal findings PRESENT Climacteric N95.1 Assessment and Plan Assessment and Plan (1) Encounter for routine gynecological examination: Qualifiers: Gynecological examination findings: abnormal findings PRESENT QualifiedCode(s): Z01.411 - Encounter for gynecological examination (general) (routine) with abnormal findings (2) Climacteric: Status: Acute Comment: on bioidentical HRT, discussed risks/benefits offered FDA approved scripts. Orders: Orders PAP IG HPV APTIMA 16/18,45 Today Z12.4 - Encounter for screening for malignant neoplasm of cervix Plan Cervical cancer screening: pap hpv Breast cancer screening: mamm other health maintenance examination reviewed and orders placed if needed. Encouraged maintenance of a healthy weight and active lifestyle and handout given. Annual exam handout including recommendations for good health guidelines, Calcium/vitamin D recommendations, and basic screening information given. Problem list up to date, see problem list details for any additional plan information. Follow up in one year for annual health maintenance exam or sooner if needed. Plan Details Goals & Barriers: Goals Decrease pain Improve ROM Decrease spasm 05/30/25 [id number] <Electronically signed by Charlotte porter MD> Date _ Charlotte Rinaldi [facility] Signature: Date (if applicable) CC: ~ [facility] Work Phone: Reason for referral (narrative)No reason for referral information availableWFairfield Medical Center Work Phone: Family History Unknown Family Member Name Dates Details Brother 1 Comments:2 brothers - health y as far as know Status:Active Family Members In General Comments:grandparents heart disease and dm- female cancer in grandmother Status:Active Father Comments:living- had diet co ntrolled dm Status:Active Mother Comments:living with htn hyp othyroid Status:Active Unknown Family Member Name Dates Details Brother 1 Comments:2 brothers - health y as far as know Status:Active Family Members In General Comments:grandparents heart disease and dm- female cancer in grandmother Status:Active Father Comments:living- had diet co ntrolled dm Status:Active Mother Comments:living with htn hyp othyroid Status:Active Unknown Family Member Name Dates Details Brother 1 Comments:2 brothers - health y as far as know Status:Active Family Members In General Comments:grandparents heart disease and dm- female cancer in grandmother Status:Active Father Comments:living- had diet co ntrolled dm Status:Active Mother Comments:living with htn hyp othyroid Status:Active Unknown Family Member Name Dates Details Brother 1 Comments:2 brothers - health y as far as know Status:Active Family Members In General Comments:grandparents heart disease and dm- female cancer in grandmother Status:Active Father Comments:living- had diet co ntrolled dm Status:Active Mother Comments:living with htn hyp othyroid Status:Active Unknown Family Member Name Dates Details Brother 1 Comments:2 brothers - health y as far as know Status:Active Family Members In General Comments:grandparents heart disease and dm- female cancer in grandmother Status:Active Father Comments:living- had diet co ntrolled dm Status:Active Mother Comments:living with htn hyp othyroid Status:Active Unknown Family Member Name Dates Details Brother 1 Comments:2 brothers - health y as far as know Status:Active Family Members In General Comments:grandparents heart disease and dm- female cancer in grandmother Status:Active Father Comments:living- had diet co ntrolled dm Status:Active Mother Comments:living with htn hyp othyroid Status:Active Unknown Family Member Name Dates Details Brother 1 Comments:2 brothers - health y as far as know Status:Active Family Members In General Comments:grandparents heart disease and dm- female cancer in grandmother Status:Active Father Comments:living- had diet co ntrolled dm Status:Active Mother Comments:living with htn hyp othyroid Status:Active Unknown Family Member Name Dates Details Brother 1 Comments:2 brothers - health y as far as know Status:Active Family Members In General Comments:grandparents heart disease and dm- female cancer in grandmother Status:Active Father Comments:living- had diet co ntrolled dm Status:Active Mother Comments:living with htn hyp othyroid Status:Active Unknown Family Member Name Dates Details Brother 1 Comments:2 brothers - health y as far as know Status:Active Family Members In General Comments:grandparents heart disease and dm- female cancer in grandmother Status:Active Father Comments:living- had diet co ntrolled dm Status:Active Mother Comments:living with htn hyp othyroid Status:Active Relationship Condition Age at Onset Recorded Date/T bala grandfather Cardiac disease Unknown Diabetes mellitus Unknown grandmother Cardiac disease Unknown mother Disorder of thyroid Unknown Instructions Name Dates Details Nonsmoker : How to access he alth information online Indication:Nonsmoker Nonsmoker : How to access he alth information online - Detail Indication:Nonsmoker Nonsmoker : Patient Instruct ions Indication:Nonsmoker Back pain, acute : Patient I nstructions Indication:Back pain, acute Hypothyroidism : How to acce ss health information online Indication:Hypothyroidism Hypothyroidism : How to acce ss health information online - Detail Indication:Hypothyroidism Hypothyroidism : Patient Ins tructions Indication:Hypothyroidism Migraine : How to access hea lth information online Indication:Migraine Migraine : How to access hea lth information online - Detail Indication:Migraine Chronic serous otitis media, unspecified laterality : Patient Instructions Indication:Chronic serous otitis media, unspecified laterality Migraine : Patient Instructi ons Indication:Migraine perimenstrual dysphoric sx : Patient Instructions Indication:perimenstrual dysphoric sx Name Dates Details Nonsmoker : How to access he alth information online Indication:Nonsmoker Nonsmoker : How to access he alth information online - Detail Indication:Nonsmoker Nonsmoker : Patient Instruct ions Indication:Nonsmoker Back pain, acute : Patient I nstructions Indication:Back pain, acute Hypothyroidism : How to acce ss health information online Indication:Hypothyroidism Hypothyroidism : How to acce ss health information online - Detail Indication:Hypothyroidism Hypothyroidism : Patient Ins tructions Indication:Hypothyroidism Migraine : How to access hea lth information online Indication:Migraine Migraine : How to access hea lth information online - Detail Indication:Migraine Chronic serous otitis media, unspecified laterality : Patient Instructions Indication:Chronic serous otitis media, unspecified laterality Migraine : Patient Instructi ons Indication:Migraine perimenstrual dysphoric sx : Patient Instructions Indication:perimenstrual dysphoric sx Name Dates Details Nonsmoker : How to access he alth information online Indication:Nonsmoker Nonsmoker : How to access he alth information online - Detail Indication:Nonsmoker Nonsmoker : Patient Instruct ions Indication:Nonsmoker Back pain, acute : Patient I nstructions Indication:Back pain, acute Hypothyroidism : How to acce ss health information online Indication:Hypothyroidism Hypothyroidism : How to acce ss health information online - Detail Indication:Hypothyroidism Hypothyroidism : Patient Ins tructions Indication:Hypothyroidism Migraine : How to access hea lth information online Indication:Migraine Migraine : How to access hea lth information online - Detail Indication:Migraine Chronic serous otitis media, unspecified laterality : Patient Instructions Indication:Chronic serous otitis media, unspecified laterality Migraine : Patient Instructi ons Indication:Migraine perimenstrual dysphoric sx : Patient Instructions Indication:perimenstrual dysphoric sx Name Dates Details How to access health informa tion online Indication:Nonsmoker Start:10-Jun-2018 Instruction Type:Patient Education How to access health informa tion online - Detail Indication:Nonsmoker Start:10-Jun-2018 Instruction Type:Patient Education Patient Instructions Indication:Nonsmoker Start:10-Jun-2018 Instruction Type:Provider Instructions for Treatment How to access health informa tion online Indication:Nonsmoker Start:28-May-2018 Instruction Type:Patient Education How to access health informa tion online - Detail Indication:Nonsmoker Start:28-May-2018 Instruction Type:Patient Education Patient Instructions Indication:Back pain, acute Start:28-May-2018 Instruction Type:Provider Instructions for Treatment How to access health informa tion online Indication:Hypothyroidism Start:03-Jun-2017 Instruction Type:Patient Education How to access health informa tion online - Detail Indication:Hypothyroidism Start:03-Jun-2017 Instruction Type:Patient Education Patient Instructions Indication:Hypothyroidism Start:03-Jun-2017 Instruction Type:Provider Instructions for Treatment How to access health informa tion online Indication:Migraine Start:07-Jun-2016 Instruction Type:Patient Education How to access health informa tion online - Detail Indication:Migraine Start:07-Jun-2016 Instruction Type:Patient Education Patient Instructions Indication:Hypothyroidism Start:07-Jun-2016 Instruction Type:Provider Instructions for Treatment How to access health informa tion online Indication:Hypothyroidism Start:31-May-2015 Instruction Type:Patient Education How to access health informa tion online - Detail Indication:Hypothyroidism Start:31-May-2015 Instruction Type:Patient Education Patient Instructions Indication:Hypothyroidism Start:31-May-2015 Instruction Type:Provider Instructions for Treatment Patient Instructions Indication:Hypothyroidism Start:10-Jun-2014 Instruction Type:Provider Instructions for Treatment Patient Instructions Indication:Chronic serous otitis media, unspecified laterality Start:01-Sep-2013 Instruction Type:Provider Instructions for Treatment Patient Instructions Indication:Migraine Start:11-Aug-2013 Instruction Type:Provider Instructions for Treatment Patient Instructions Indication:perimenstrual dysphoric sx Start:09-Feb-2013 Instruction Type:Provider Instructions for Treatment Name Dates Details Patient Instructions Indication:Nonsmoker Start:16-Nov-2020 Instruction Type:Provider Instructions for Treatment How to Access Health Informa tion Online using Patient Portal and [employer] Apps Indication:Nonsmoker Start:16-Nov-2020 Instruction Type:Patient Education How to access health informa tion online Indication:BMI 35.0-35.9,adult Start:28-Oct-2019 Instruction Type:Patient Education How to access health informa tion online - Detail Indication:BMI 35.0-35.9,adult Start:28-Oct-2019 Instruction Type:Patient Education Patient Instructions Indication:BMI 35.0-35.9,adult Start:28-Oct-2019 Instruction Type:Provider Instructions for Treatment How to access health informa tion online Indication:Nonsmoker Start:10-Jun-2018 Instruction Type:Patient Education How to access health informa tion online - Detail Indication:Nonsmoker Start:10-Jun-2018 Instruction Type:Patient Education Patient Instructions Indication:Nonsmoker Start:10-Jun-2018 Instruction Type:Provider Instructions for Treatment How to access health informa tion online Indication:Nonsmoker Start:28-May-2018 Instruction Type:Patient Education How to access health informa tion online - Detail Indication:Nonsmoker Start:28-May-2018 Instruction Type:Patient Education Patient Instructions Indication:Back pain, acute Start:28-May-2018 Instruction Type:Provider Instructions for Treatment How to access health informa tion online Indication:Hypothyroidism Start:03-Jun-2017 Instruction Type:Patient Education How to access health informa tion online - Detail Indication:Hypothyroidism Start:03-Jun-2017 Instruction Type:Patient Education Patient Instructions Indication:Hypothyroidism Start:03-Jun-2017 Instruction Type:Provider Instructions for Treatment How to access health informa tion online Indication:Migraine Start:07-Jun-2016 Instruction Type:Patient Education How to access health informa tion online - Detail Indication:Migraine Start:07-Jun-2016 Instruction Type:Patient Education Patient Instructions Indication:Hypothyroidism Start:07-Jun-2016 Instruction Type:Provider Instructions for Treatment How to access health informa tion online Indication:Hypothyroidism Start:31-May-2015 Instruction Type:Patient Education How to access health informa tion online - Detail Indication:Hypothyroidism Start:31-May-2015 Instruction Type:Patient Education Patient Instructions Indication:Hypothyroidism Start:31-May-2015 Instruction Type:Provider Instructions for Treatment Patient Instructions Indication:Hypothyroidism Start:10-Jun-2014 Instruction Type:Provider Instructions for Treatment Patient Instructions Indication:Chronic serous otitis media, unspecified laterality Start:01-Sep-2013 Instruction Type:Provider Instructions for Treatment Patient Instructions Indication:Migraine Start:11-Aug-2013 Instruction Type:Provider Instructions for Treatment Patient Instructions Indication:perimenstrual dysphoric sx Start:09-Feb-2013 Instruction Type:Provider Instructions for Treatment Name Dates Details Patient Instructions Indication:Nonsmoker Start:16-Nov-2020 Instruction Type:Provider Instructions for Treatment How to Access Health Informa tion Online using Patient Portal and [employer] Indication:Nonsmoker Start:16-Nov-2020 Instruction Type:Patient Education How to access health informa tion online Indication:BMI 35.0-35.9,adult Start:28-Oct-2019 Instruction Type:Patient Education How to access health informa tion online - Detail Indication:BMI 35.0-35.9,adult Start:28-Oct-2019 Instruction Type:Patient Education Patient Instructions Indication:BMI 35.0-35.9,adult Start:28-Oct-2019 Instruction Type:Provider Instructions for Treatment How to access health informa tion online Indication:Nonsmoker Start:10-Jun-2018 Instruction Type:Patient Education How to access health informa tion online - Detail Indication:Nonsmoker Start:10-Jun-2018 Instruction Type:Patient Education Patient Instructions Indication:Nonsmoker Start:10-Jun-2018 Instruction Type:Provider Instructions for Treatment How to access health informa tion online Indication:Nonsmoker Start:28-May-2018 Instruction Type:Patient Education How to access health informa tion online - Detail Indication:Nonsmoker Start:28-May-2018 Instruction Type:Patient Education Patient Instructions Indication:Back pain, acute Start:28-May-2018 Instruction Type:Provider Instructions for Treatment How to access health informa tion online Indication:Hypothyroidism Start:03-Jun-2017 Instruction Type:Patient Education How to access health informa tion online - Detail Indication:Hypothyroidism Start:03-Jun-2017 Instruction Type:Patient Education Patient Instructions Indication:Hypothyroidism Start:03-Jun-2017 Instruction Type:Provider Instructions for Treatment How to access health informa tion online Indication:Migraine Start:07-Jun-2016 Instruction Type:Patient Education How to access health informa tion online - Detail Indication:Migraine Start:07-Jun-2016 Instruction Type:Patient Education Patient Instructions Indication:Hypothyroidism Start:07-Jun-2016 Instruction Type:Provider Instructions for Treatment How to access health informa tion online Indication:Hypothyroidism Start:31-May-2015 Instruction Type:Patient Education How to access health informa tion online - Detail Indication:Hypothyroidism Start:31-May-2015 Instruction Type:Patient Education Patient Instructions Indication:Hypothyroidism Start:31-May-2015 Instruction Type:Provider Instructions for Treatment Patient Instructions Indication:Hypothyroidism Start:10-Jun-2014 Instruction Type:Provider Instructions for Treatment Patient Instructions Indication:Chronic serous otitis media, unspecified laterality Start:01-Sep-2013 Instruction Type:Provider Instructions for Treatment Patient Instructions Indication:Migraine Start:11-Aug-2013 Instruction Type:Provider Instructions for Treatment Patient Instructions Indication:perimenstrual dysphoric sx Start:09-Feb-2013 Instruction Type:Provider Instructions for Treatment Advance Directives Name Dates Details Immunization Registry [facility] - Effective on 10/28/2019. Expiration date unspecified Effective:28-Oct-2019 Name Dates Details Immunization Registry [facility] - Effective on 10/28/2019. Expiration date unspecified Effective:28-Oct-2019 Name Dates Details Immunization Registry [facility] - Effective on 10/28/2019. Expiration date unspecified Effective:28-Oct-2019 Name Dates Details Immunization Registry [facility] - Effective on 10/28/2019. Expiration date unspecified Effective:28-Oct-2019 Name Dates Details Immunization Registry [facility] - Effective on 10/28/2019. Expiration date unspecified Effective:28-Oct-2019 Chief Complaint and Reason for Visit Chief Complaint Annual (DATA ARCHITECT) SCREENING Reason for Visit Encounter for routin e gynecological examination Chief Complaint Annual (DATA ARCHITECT) SCREENING Reason for Visit Encounter for routin e gynecological examination Chief Complaint EORDER Chief Complaint EORDER 14 M FU, RS 10/03 2 DRS/ 2ORDERS Reason for Visit Hypothyroidism due t o Bijal's thyroiditis Chief Complaint Admit Date 1 Y FU December 14, 2024 3:23 pm Chief Complaint Admit Date Annual (DATA ARCHITECT) May 30, 2025 11 :05am Reason for Visit Admit Date Climacteric May 30, 2025 11 :05am Encounter for routine gynecological exam ination May 30, 2025 11:05am Summary Purpose Additional Source Comments Source Comments (unrecognize d section and content) In the event this informatio n is protected by the Federal Confidentiality of Alcohol and Drug Abuse Patient Records regulations: The Federal rules restrict any use of the information to criminally investigate or prosecute any alcohol or drug abuse patient.[facility] Care Teams (unrecognized sec tion and content) Team Status: Active Member Role Status Dates Dr. Kassie Hassan , DO Family Provider Active Dr. Whitney Goins , DO Primary Care Provider Active Team Status: Inactive Member Role Status Dates Dr. Whitney Goins , DO Primary Care Provider, Referr ing Provider Active Dr. Charlotte Rinaldi MD Attending Provider Active Team Status: Inactive Member Role Status Dates Dr. Whitney Goins , DO Primary Care Provider Active Dr. Charlotte Rinaldi MD Attending Provider, Referr ing Provider Active Team Status: Inactive Member Role Status Dates Dr. Whitney Goins , DO Primary Care Provider Active Dr. Laurent Christianson MD Attending Provider, Referring Provi wendy Active Team Status: Inactive Member Role Status Dates Dr. Whitney Goins DO Primary Care Provider, Referr ing Provider Active Dr. Laurent Christianson MD Attending Provider Active Team Status: Inactive Member Role Status Dates Dr. Whitney Goins DO Primary Care Provider, Other Provider Active Dr. Laurent Christianson MD Attending Provider, Referring Provi wendy Active Team Status: Inactive Member Role Status Dates Dr. Whitney Goins DO Primary Care Provider Active Start: December 04, 2024 End: December 04, 2024 Dr. Whitney Goins DO Attending Provider Active Start: December 04, 2024 End: December 04, 2024 Dr. Laurent Christianson MD Referring Provider Active Sta rt: December 04, 2024 End: December 04, 2024 Team Status: Inactive Member Role Status Dates Dr. Whitney Goins DO Primary Care Provider Active Start: December 14, 2024 End: December 14, 2024 Dr. Whitney Goins DO Referring Provider Active Start: December 14, 2024 End: December 14, 2024 Dr. Laurent Christianson MD Attending Provider Active Sta rt: December 14, 2024 End: December 14, 2024 Team Status: Active Member Role/Relationship Status Dates Dr. Whitney Goins DO Primary Care Provider Active Team Status: Inactive Member Role/Relationship Status Dates Dr. Whitney Goins DO Primary Care Provider Active Start: May 30, 2025 End: May 30, 2025 Dr. Whitney Goins DO Referring Provider Active Start: May 30, 2025 End: May 30, 2025 Dr. Charlotte Rinaldi MD Attending Provider Active Start: May 30, 2025 End: May 30, 2025 INFORMATION SOURCE (unrecogn ized section and content) DATE CREATED AUTHOR 05/26/2025 [facility] FOR RECORDS PERTAINING TO PATIENTS WHO ARE OR HAVE BEEN ENROLLED IN A CHEMICAL DEPENDENCY/SUBSTANCEABUSE PROGRAM, SOME INFORMATION MAY BE OMITTED. This clinical summary was aggregated from multiple sources. Caution should be exercised in using it in the provision of clinical care. This summary normalizes information from multiple sources, and as a consequence, information in this document may materially change the coding, format and clinical context of patient data. In addition, data may be omitted in some cases. CLINICAL DECISIONS SHOULD BE BASED ON THE PRIMARY CLINICAL RECORDS. [facility], [facility]. provides no warranty or guarantee of the accuracy or completeness of information in this document.
[2025-06-02 12:09] LABS: HPV APTIMA, High Risk Negative (Negative)
== END | disposition home or self-care (01) ==
LOC: BWCLAB 13:22
PROVIDERS: PCP Internal Medicine; Referring Provider Obstetrics & Gynecology; Visit Provider Obstetrics & Gynecology
DX: Z12.4 Encounter for screening for malignant neoplasm of cervix (principal)
CPT/HCPCS: 87624; 88175; G0145

== ENCOUNTER → 2025-06-02 | Outpatient (CLI) | payer OTHER, SELFPAY ==
--- NOTE | 2025-06-02 16:30 | BI_ITS ---
EXAM: SCRN MAMM (CAD)W/AYAKA BILAT DATE: 06/02/2025 CLINICAL HISTORY: F, Age 54 y/o , SCREEN FOR BREAST CANCER Aunt with breast cancer. History of remote right excisional breast biopsy. TECHNIQUE: SCRN MAMM (CAD)W/AYAKA BILAT COMPARISON: Prior exam(s) dated June 01, 2024.. FINDINGS: TISSUE DENSITY: There are scattered areas of fibroglandular density. Bilateral Breast Mammographic Findings: No significant masses, calcifications or other abnormalities are identified. A tissue clip marker is seen in the central medial aspect of the right breast. Stable 5 mm well-defined nodule in the inferior slightly medial aspect of the right breast. No suspicious masses, areas of developing architectural distortion, or suspicious calcifications. There has been no significant interval change. BI/SCRN MAMM (CAD)W/AYAKA BILAT IMPRESSION: Stable examination. OVERALL FINAL ASSESSMENT BI-RADS 2: BENIGN RECOMMENDATION: Routine annual follow-up in 1 Year A letter with findings and recommendations will be mailed to the patient. Reading Location: [facility]
== END | disposition home or self-care (01) ==
LOC: OPBI 16:22
PROVIDERS: PCP Internal Medicine; Referring Provider Obstetrics & Gynecology; Visit Provider Obstetrics & Gynecology
DX: Z12.31 Encounter for screening mammogram for malignant neoplasm of breast (principal); Z80.3 Family history of malignant neoplasm of breast
CPT/HCPCS: 77063; 77067